=== PATIENT | female | born 1985 | race Caucasian/White ===

== ENCOUNTER 2020-02-02 02:26 | Inpatient (IN) | payer SELFPAY ==
[~2020-02-02] VITALS: Ht 172.7 cm; Wt 118.5 kg
--- NOTE | 2020-02-02 03:10 | PHYS DOC ---
Past Medical History Past Medical History: Other Additional Past Medical Histor: herniated disc, back pain (JAE GREENFIELD MD) Past Surgical History: Tonsillectomy (JAE GREENFIELD MD) Smoking Status: Current Every Day Smoker Alcohol Use: None Drug Use: None (JAE GREENFIELD MD) Drug Use: Heroin (DONITA RAMOS MD) General Adult EDM: Chief Complaint: ABDOMINAL PAIN HPI: HPI: Patient is a 34 year old female who presents with abdominal pain. Patient states that about 10:00 on Monday morning she woke up with pain in her back. It is now radiating into the right lower quadrant. She complains of urinary frequency and urgency. She reports that she is unable to pee a lot. She reports that she was able to eat and drink without any difficulty. She denies any alcohol intake. Patient reports she did some heroin right before her arrival because of the pain. Patient was unaware that she was running a fever. She describes the pain as sharp, constant radiating as described above. (JAE GREENFIELD MD) Review of Systems: Review of Systems: Constitutional: Denies fever or chills. [] Eyes: Denies change in visual acuity. [] HENT: Denies nasal congestion or sore throat. [] Respiratory: Denies cough or shortness of breath. [] Cardiovascular: Denies chest pain or edema. [] GI: See HPI. [] : See HPI. [] Musculoskeletal: Denies back pain or joint pain. [] Integument: Denies rash. [] Neurologic: Denies headache, focal weakness or sensory changes. [] Endocrine: Denies polyuria or polydipsia. [] Lymphatic: Denies swollen glands. [] Psychiatric: Denies depression or anxiety. [] (JAE GREENFIELD MD) Heart Score: Risk Factors: Risk Factors: DM, Current or recent (<one month) smoker, HTN, HLP, family history of CAD, obesity. Risk Scores: Score 0 - 3: 2.5% MACE over next 6 weeks - Discharge Home Score 4 - 6: 20.3% MACE over next 6 weeks - Admit for Clinical Observation Score 7 - 10: 72.7% MACE over next 6 weeks - Early Invasive Strategies (JAE GREENFIELD MD) Allergies: Allergies: Allergies Coded Allergies Type Severity Reaction Last Updated Verified No Known Drug Allergies 4/7/15 No (JAE GREENFIELD MD) Physical Exam: PE: Constitutional: Well developed, well nourished, moderate pain distress, non- toxic appearance. [] HENT: Normocephalic, atraumatic, bilateral external ears normal, oropharynx moist, no oral exudates, nose normal. [] Eyes: PERRLA, EOMI, conjunctiva normal, no discharge. [] Neck: Normal range of motion, no tenderness, supple, no stridor. [] Cardiovascular: Tachycardic, regular, no S3 or S4, no murmurs, pulses 2 of 2 the dorsalis pedis bilaterally [] Lungs & Thorax: Bilateral breath sounds clear to auscultation [] Abdomen: Positive bowel sounds, soft, tenderness in the bilateral lower quadrants, questionable rebound, no guarding, patient was uncooperative with abdominal exam. [] Skin: Warm, dry, no erythema, no rash. [] Back: No tenderness, bilateral CVA tenderness, patient also with iliolumbar muscle tenderness. All dermatomes and myotomes of the lower extremities were tested and normal.. [] Extremities: No tenderness, no cyanosis, no clubbing, ROM intact, trace pitting edema bilaterally. [] Neurologic: Alert and oriented X 3, normal motor function, normal sensory function, no focal deficits noted. [] Psychologic: Affect normal, judgement normal, mood normal. [] (JAE GREENFIELD MD) PE: Constitutional: Well developed, well nourished, anxious HENT: No trismus, external ears normal Eyes: eomi Neck: Normal range of motion, no tenderness, supple, no stridor. Cardiovascular: peripheral pulse intact, [employer] intact Lungs & Thorax: No respiratory distress Abdomen: No distension, mild right-sided abdominal tenderness without guarding or rebound no pulsatile masses Skin: Diffuse: Intact, no rash Back: Tender to palpate right flank Extremities: Normal inspection, no edema Neurologic: Alert and oriented X 3, normal motor function, , no focal deficits noted. Dorsiflexion of the great toes intact bilateral lower extremities Psychologic: Intermittently agitated (DONITA RAMOS MD) Current Patient Data: Labs: Laboratory Tests Test 02/02/20 02:50 POC Urine HCG, Qualitative Hcg negative (Negative) (JAE GREENFIELD MD) Labs: Laboratory Tests Test 02/02/20 02:40 02/02/20 02:50 02/02/20 03:10 Urine Collection Type Void Urine Color Luna Urine Clarity Turbid Urine pH 5.5 Urine Specific [place] >=1.030 Urine Protein 100 mg/dL Urine Glucose (UA) Negative mg/dL Urine Ketones (Stick) Trace mg/dL Urine Blood Small Urine Nitrite Positive Urine Bilirubin Small Urine Urobilinogen Dipstick 1.0 mg/dL Urine Leukocyte Esterase Small Urine RBC 6-10 /HPF Urine WBC 11-20 /HPF Urine Squamous Epithelial Cells Mod /LPF Urine Amorphous Sediment Present /HPF Urine Bacteria Many /HPF Urine Opiates Screen Pos Urine Methadone Screen Neg Urine Barbiturates Neg Urine Phencyclidine Screen Neg Urine Amphetamine/Methamphetamine Pos Urine Benzodiazepines Screen Neg Urine Cocaine Screen Neg Urine Cannabinoids Screen Pos Urine Ethyl Alcohol Neg Bedside Urine HCG, Qualitative Hcg negative White Blood Count 10.4 x10^3/uL Red Blood Count 4.43 x10^6/uL Hemoglobin 13.5 g/dL Hematocrit 39.0 % Mean Corpuscular Volume 88 fL Mean Corpuscular Hemoglobin 31 pg Mean Corpuscular Hemoglobin Concent 35 g/dL Red Cell Distribution Width 12.8 % Platelet Count 215 x10^3/uL Neutrophils (%) (Auto) 71 % Lymphocytes (%) (Auto) 18 % Monocytes (%) (Auto) 11 % Eosinophils (%) (Auto) 0 % Basophils (%) (Auto) 0 % Neutrophils # (Auto) 7.3 x10^3/uL Lymphocytes # (Auto) 1.9 x10^3/uL Monocytes # (Auto) 1.1 x10^3/uL Eosinophils # (Auto) 0.0 x10^3/uL Basophils # (Auto) 0.0 x10^3/uL Prothrombin Time 14.0 SEC Prothromb Time International Ratio 1.1 Sodium Level 129 mmol/L Potassium Level 3.7 mmol/L Chloride Level 94 mmol/L Carbon Dioxide Level 26 mmol/L Anion Gap 9 Blood Urea Nitrogen 12 mg/dL Creatinine 0.9 mg/dL Estimated GFR (Cockcroft-Gault) 71.3 BUN/Creatinine Ratio 13 Glucose Level 113 mg/dL Lactic Acid Level 1.1 mmol/L Calcium Level 9.0 mg/dL Total Bilirubin 0.8 mg/dL Aspartate Amino Transf (AST/SGOT) 23 U/L Alanine Aminotransferase (ALT/SGPT) 35 U/L Alkaline Phosphatase 76 U/L Total Protein 8.4 g/dL Albumin 3.6 g/dL Albumin/Globulin Ratio 0.8 Lipase 37 U/L Ethyl Alcohol Level < 10 mg/dL Current Medications Medications (Trade) Dose Ordered Sig/Nellie Route PRN Reason Start Time Stop Time Status Last Admin Dose Admin Sodium Chloride 500 ml @ 500 mls/hr 1X ONCE IV 02/02/20 03:15 02/02/20 04:14 DC 02/02/20 03:25 Ketorolac Tromethamine (Toradol 30mg Vial) 30 mg 1X ONCE IVP 02/02/20 03:30 02/02/20 03:31 DC 02/02/20 03:26 Iohexol (Omnipaque 300 Mg/ml) 75 ml 1X ONCE IV 02/02/20 04:45 02/02/20 04:46 DC 02/02/20 05:05 Info (CONTRAST GIVEN -- Rx MONITORING) 1 each PRN DAILY PRN MC SEE COMMENTS 02/02/20 04:45 02/04/20 04:44 Iohexol (Omnipaque 300 Mg/ml) 75 ml 1X ONCE IV 02/02/20 05:15 02/02/20 05:18 DC Ceftriaxone Sodium (Rocephin) 1 gm 1X ONCE IVP 02/02/20 06:45 02/02/20 06:46 DC Sodium Chloride 1,000 ml @ 1,000 mls/hr 1X ONCE IV 02/02/20 06:45 02/02/20 07:44 Vital Signs: Vital Signs Date Time Temp Pulse Resp B/P (MAP) Pulse Ox O2 Delivery O2 Flow Rate FiO2 02/02/20 04:51 105 168/86 (113) 02/02/20 04:10 108 140/69 (92) 02/02/20 03:40 120 142/81 (101) 02/02/20 03:10 94 156/88 (110) 02/02/20 02:40 101.5 130 20 141/101 (114) 94 101.5 (DONITA RAMOS MD) EKG: EKG: Heart rate 128 bpm, normal axis, normal intervals, left atrial abnormality, borderline ECG normal sinus rhythm [] (JAE GREENFIELD MD) Radiology/Procedures: Radiology/Procedures: [] (JAE GREENFIELD MD) Radiology/Procedures: [facility] [address] [place] [address] IMAGING REPORT Signed PATIENT: MIRACLE ERNANDEZ ACCOUNT: [id number] : 1985 LOCATION: ER AGE: 34 SEX: F EXAM STATUS: REG ER ORD. PHYSICIAN: JAE GREENFIELD MD REASON: possible torsion of Left ovarian cyst PROCEDURE: TRANSVAGINAL Transvaginal complete pelvic ultrasound HISTORY: Possible torsion of left ovarian cyst. Abnormal CT. FINDINGS: Cervix unremarkable. Anteverted uterus measures 7.6 x 3.9 x 2.7 cm. Endometrium thickness is normal measuring 0.6 cm. No uterine mass evident. Left ovary essentially replaced by a large cyst with several internal septations, the cyst measuring 5.4 x 3.5 x 4.3 cm. No internal vascularity or solid nodules of the cyst. Statistically this is most likely subacute or chronic hemorrhagic cyst given the presence of several internal septations. A cystadenoma or cystic lesion of low malignant potential is a secondary consideration. There is some displaced ovarian parenchyma about the periphery of the cyst which demonstrates intact blood flow with normal waveforms by duplex Doppler sonography. Right ovary measures 4.5 x 2.6 x 1.9 cm with subcentimeter follicles the largest measuring 1.9 cm. Intact right ovarian blood flow. No pelvic fluid. IMPRESSION: Left ovary essentially replaced by a 5.4 cm complex cyst with several internal septations. In a patient of this age this is probably benign, most likely a large subacute or chronic hemorrhagic cyst. There are no thickened septations, internal vascularity or solid nodules to suggest neoplasia. The ovarian parenchyma displays peripheral of this cyst demonstrates intact blood flow without features to suggest torsion. Per ACR guidelines consider follow-up sonography in 3 months to document that this resolves over time. See above. Electronically signed by: Lorenzo Velazquez MD (02/02/2020 6:47 AM) [facility] [place] SIGNED BY: LORENZO VELAZQUEZ MD DATE: 02/02/20 0647 [facility] [address] [place] [address] IMAGING REPORT Signed PATIENT: MIRACLE ERNANDEZ ACCOUNT: [id number] : 1985 LOCATION: ER AGE: 34 SEX: F EXAM STATUS: REG ER ORD. PHYSICIAN: JAE GREENFIELD MD REASON: RLQ abd pain, OMNI 300, 75 ML IV PROCEDURE: CT ABD PELV W/ IV CONTRST ONLY CT abdomen and pelvis with contrast PQRS statement: CT scans at this facility use dose reduction including either automated exposure control, iterative reconstructions, and /or weight based radiation dosing via mA and kV modification when appropriate to reduce radiation dose to as low as reasonably achievable. Contrast: 75 mL Omnipaque 240 intravenous contrast. HISTORY: Right lower quadrant abdominal pain. Abdomen findings: Lower lumbar disc disease lower thoracic disc disease. Elongation right hepatic lobe length of 21 cm could indicate hepatomegaly. Spleen length normal less than 12 cm. There is likely mild biliary ductal dilation common bile duct diameter is 12 mm proximal and tapers distal as well as a very mild distention of the central intrahepatic ducts. Gallbladder, pancreas, adrenal glands and kidneys are unremarkable. Appendix is normal. No obstruction or inflammation the GI tract. No abdominal fluid or adenopathy. Mild dependent right lower lobe linear density likely atelectasis. Pelvis findings: There is a left adnexal bilobed cystic lesion measuring 6 x 4 cm. Right ovary, uterus, bladder, rectum and bones are unremarkable. No pelvic fluid or adenopathy. IMPRESSION: 1. There is mild biliary dilation. Mild dilation due to a distal obstructing calculus or stricture is not excluded. 2. Appendix is negative. 3. Left adnexal 6 x 4 cm cystic lesion. Consider further assessment with outpatient pelvic sonography. Electronically signed by: Lorenzo Velazquez MD (02/02/2020 5:15 AM) [facility] [place] SIGNED BY: LORENZO VELAZQUEZ MD DATE: 02/02/20 0515 (DONITA RAMOS MD) Course & Med Decision Making: Course & Med Decision Making Pertinent Labs and Imaging studies reviewed. (See chart for details) 0537-the patient was seen and examined. I reviewed the CT scan report as well as the images. There is a large cystic mass in the left adnexa. I cannot rule out torsion without an pelvic ultrasound. May be her right flank pain is secondary to referred pain from a torsed ovarian cyst. I discussed the case with Dr. Ramos who will accept the patient at 0600. I discussed all pertinent history physical and laboratory findings. [] (JAE GREENFIELD MD) Course & Med Decision Making Received signout from night doctor regarding this 34-year-old female with right flank pain. When reviewing the chart I found patient was tachycardic to a heart rate of 130 with a fever 101. No antibiotics was given prior to my arrival. I ordered additional liter of fluids and Rocephin. On my assessment patient was extremely rude and agitated when any questions were asked, I tried to reiterate to her that I was trying to help and she continued to be short and abrupt with me. I am concerned about her fever and tachycardia and back pain especially with her history of IV drug use. Urine appears like it may be infected I think she needs parenteral antibiotics. I did order a COVID-19 test to be complete. Patient will need to be admitted to the hospital for further evaluation treatment. Patient may need an MRI of her back to rule out epidural abscess. Patient currently is neurologically intact with no signs of cauda equina. I discussed the case with Dr. Sandy who will admit. (DONITA RAMOS MD) Dragon Disclaimer: Dragon Disclaimer: This electronic medical record was generated, in whole or in part, using a voice recognition dictation system. (JAE GREENFIELD MD) Departure Departure Impression: Primary Impression: Fever Additional Impressions: Back pain UTI (urinary tract infection) IV drug abuse Admitting Physician: LEVAR Marie) (DONITA RAMOS MD) Condition: GUARDED Referrals: NO PCP (PCP) Justicifation of Admission Dx: Justifications for Admission: Justification of Admission Dx: Comment: (JAE GREENFIELD MD) Justification of Admission Dx: Yes (DONITA RAMOS MD) JAE GREENFIELD MD Feb 02, 2020 03:10 DONITA RMAOS MD Feb 02, 2020 07:01
[2020-02-02] MEDS ORDERED: IV NORMAL SALINE 500ML BAG 500 ML IV ONE (03:15)
[2020-02-02] MEDS ORDERED: KETOROLAC 30 MG/ML VIAL. IVP ONE (03:30)
[2020-02-02 03:41] LABS: BILIRUBIN,URINE SMALL (NEG); CLARITY,URINE TURBID; COLOR,URINE AMBER; NITRITE,URINE POSITIVE (NEG); PH,URINE 5.5 (<5.0-8.0); PROTEIN,URINE 100 mg/dL (NEG-TRACE)
[2020-02-02 03:41] LABS: BASO % 0 % (0-3); EOS % 0 % (0-3); HEMOGLOBIN 13.5 g/dL (12.0-15.5); LYMPH # 1.9 x10^3/uL (1.0-4.8); LYMPH % 18 % (24-48); MEAN CORPUSCULAR HEMOGLOBIN 31 pg (25-35); MEAN CORPUSCULAR HGB CONC 35 g/dL (31-37); MEAN CORPUSCULAR VOLUME 88 fL (79-100); MONO # 1.1 x10^3/uL (0.0-1.1); MONO % 11 % (0-9); NEUT # 7.3 x10^3/uL (1.8-7.7); NEUT % 71 % (31-73); PLATELET COUNT 215 x10^3/uL (140-400); RED BLOOD COUNT 4.43 x10^6/uL (3.50-5.40); RED CELL DISTRIBUTION WIDTH 12.8 % (11.5-14.5); WHITE BLOOD COUNT 10.4 x10^3/uL (4.0-11.0)
[2020-02-02 03:46] LABS: CREATININE 0.9 mg/dL (0.6-1.0); GFR 71.3; POTASSIUM 3.7 mmol/L (3.5-5.1)
[2020-02-02 03:51] LABS: AMORPHOUS SEDIMENT,UR PRESENT /HPF; BACTERIA,URINE MANY /HPF (0-FEW); SQUAMOUS EPITHELIAL CELL,UR MOD /LPF
[2020-02-02 03:52] LABS: ALBUMIN 3.6 g/dL (3.4-5.0); ALBUMIN/GLOBULIN RATIO 0.8 (1.0-1.7); TOTAL BILIRUBIN 0.8 mg/dL (0.2-1.0); TOTAL PROTEIN 8.4 g/dL (6.4-8.2)
[2020-02-02 04:02] LABS: BARBITURATES NEG (NEG); BENZODIAZEPINES NEG (NEG); CANNABINOIDS POS (NEG); COCAINE NEG (NEG); METHADONE NEG (NEG); OPIATES POS (NEG); PHENCYCLIDINE NEG (NEG)
[2020-02-02 04:09] LABS: AMPHETAMINE/METHAMPHETAMINE POS (NEG)
[2020-02-02] MEDS ORDERED: CONTRAST GIVEN. MC PRN (04:45)
[2020-02-02] MEDS ORDERED: IOHEXOL 300 MG/ML 100ML VIAL. IV ONE ×2 (04:45→05:15)
--- NOTE | 2020-02-02 05:18 | RAD ---
CT abdomen and pelvis with contrast PQRS statement: CT scans at this facility use dose reduction including either automated exposure control, iterative reconstructions, and /or weight based radiation dosing via mA and kV modification when appropriate to reduce radiation dose to as low as reasonably achievable. Contrast: 75 mL Omnipaque 240 intravenous contrast. HISTORY: Right lower quadrant abdominal pain. Abdomen findings: Lower lumbar disc disease lower thoracic disc disease. Elongation right hepatic lobe length of 21 cm could indicate hepatomegaly. Spleen length normal less than 12 cm. There is likely mild biliary ductal dilation common bile duct diameter is 12 mm proximal and tapers distal as well as a very mild distention of the central intrahepatic ducts. Gallbladder, pancreas, adrenal glands and kidneys are unremarkable. Appendix is normal. No obstruction or inflammation the GI tract. No abdominal fluid or adenopathy. Mild dependent right lower lobe linear density likely atelectasis. Pelvis findings: There is a left adnexal bilobed cystic lesion measuring 6 x 4 cm. Right ovary, uterus, bladder, rectum and bones are unremarkable. No pelvic fluid or adenopathy. IMPRESSION: 1. There is mild biliary dilation. Mild dilation due to a distal obstructing calculus or stricture is not excluded. 2. Appendix is negative. 3. Left adnexal 6 x 4 cm cystic lesion. Consider further assessment with outpatient pelvic sonography. Electronically signed by: Christos Velazquez MD (02/02/2020 5:15 AM) [facility]
[2020-02-02] MEDS ORDERED: IV NORMAL SALINE 1000ML BAG 1,000 ML IV ONE (06:45)
[2020-02-02] MEDS ORDERED: cefTRIAXone IV Push 1 GM VIAL. IVP ONE (06:45)
--- NOTE | 2020-02-02 06:50 | RAD ---
Transvaginal complete pelvic ultrasound HISTORY: Possible torsion of left ovarian cyst. Abnormal CT. FINDINGS: Cervix unremarkable. Anteverted uterus measures 7.6 x 3.9 x 2.7 cm. Endometrium thickness is normal measuring 0.6 cm. No uterine mass evident. Left ovary essentially replaced by a large cyst with several internal septations, the cyst measuring 5.4 x 3.5 x 4.3 cm. No internal vascularity or solid nodules of the cyst. Statistically this is most likely subacute or chronic hemorrhagic cyst given the presence of several internal septations. A cystadenoma or cystic lesion of low malignant potential is a secondary consideration. There is some displaced ovarian parenchyma about the periphery of the cyst which demonstrates intact blood flow with normal waveforms by duplex Doppler sonography. Right ovary measures 4.5 x 2.6 x 1.9 cm with subcentimeter follicles the largest measuring 1.9 cm. Intact right ovarian blood flow. No pelvic fluid. IMPRESSION: Left ovary essentially replaced by a 5.4 cm complex cyst with several internal septations. In a patient of this age this is probably benign, most likely a large subacute or chronic hemorrhagic cyst. There are no thickened septations, internal vascularity or solid nodules to suggest neoplasia. The ovarian parenchyma displays peripheral of this cyst demonstrates intact blood flow without features to suggest torsion. Per ACR guidelines consider follow-up sonography in 3 months to document that this resolves over time. See above. Electronically signed by: Christos Velazquez MD (02/02/2020 6:47 AM) [facility]
--- NOTE | 2020-02-02 07:19 | RAD ---
Single view chest dated 02/02/2020. No comparison available. CLINICAL INDICATION: Fever. FINDINGS: Single upright portable exam performed. Heart and mediastinal contours are within normal limits. There is some hazy perihilar airspace disease, left greater than right with asymmetric fullness of the left hilum. No consolidation or pleural effusion. No pneumothorax. IMPRESSION: Mild perihilar airspace disease, left greater than right. This could be related to acute or chronic bronchial inflammatory process or early pneumonia. Electronically signed by: Boubacar Garcia MD (02/02/2020 7:16 AM) [id number]
[2020-02-02] MEDS ORDERED: IV NORMAL SALINE 1000ML BAG 1,000 ML IV SCH ×2 (07:24→09:43)
[2020-02-02] MEDS ORDERED: ACETAMINOPHEN 500 MG TABLET PO ONE (07:30)
[2020-02-02] MEDS ORDERED: ONDANSETRON PF 4 MG/2 ML VIAL. IV PRN ×2 (07:30→09:45)
[2020-02-02] MEDS ORDERED: AZITHRMYCN 500MG IVPB FOR OMNI 250 ML IV ONE (07:30)
[2020-02-02 09:00] VITALS: BP 124/75
--- NOTE | 2020-02-02 09:27 | PDOC1 ---
History and Physical Date of Admission Date of Admission DATE: 02/02/20 TIME: 09:26 Identification/Chief Complaint Chief Complaint seen in er with fever, flank pain 34 year old female who presents with abdominal pain. Patient states that about 10:00 on 01/31 morning she woke up with pain in her back. //now radiating into the right lower quadrant., complains of urinary frequency and urgency. She reports that she was able to eat and drink without any difficulty. She denies any alcohol intake. Patient reports she did some heroin right before her arrival because of the pain. unaware that she was running a fever. TEMP OF 101.5 NOTED IN ER Past Medical History Past Medical History Past Medical History: Other Additional Past Medical Histor: herniated disc, back pain Past Surgical History: Tonsillectomy Smoking Status: Current Every Day Smoker Alcohol Use: None Drug Use: Heroin FHX OBESITY Psych: Addictions Musculoskeletal: low back pain Family History Family History: Hypertension Social History Smoke: No ALCOHOL: none Drugs: Heroin Current Problem List Problem List Problems Medical Problems: (1) Back pain Status: Acute (2) Fever Status: Acute (3) IV drug abuse Status: Acute (4) UTI (urinary tract infection) Status: Acute Current Medications Current Medications Current Medications Sodium Chloride 500 ml @ 500 mls/hr 1X ONCE IV Last administered on 02/02/20at 03:25; Start 02/02/20 at 03:15; Stop 02/02/20 at 04:14; Status DC Ketorolac Tromethamine (Toradol 30mg Vial) 30 mg 1X ONCE IVP Last administered on 02/02/20at 03:26; Start 02/02/20 at 03:30; Stop 02/02/20 at 03:31; Status DC Iohexol (Omnipaque 300 Mg/ml) 75 ml 1X ONCE IV Last administered on 02/02/20at 05:05; Start 02/02/20 at 04:45; Stop 02/02/20 at 04:46; Status DC Info (CONTRAST GIVEN -- Rx MONITORING) 1 each PRN DAILY PRN MC SEE COMMENTS; Start 02/02/20 at 04:45; Stop 02/04/20 at 04:44 Iohexol (Omnipaque 300 Mg/ml) 75 ml 1X ONCE IV ; Start 02/02/20 at 05:15; Stop 8/9/20 at 05:18; Status DC Ceftriaxone Sodium (Rocephin) 1 gm 1X ONCE IVP Last administered on 02/02/20at 07:07; Start 02/02/20 at 06:45; Stop 02/02/20 at 06:46; Status DC Sodium Chloride 1,000 ml @ 1,000 mls/hr 1X ONCE IV Last administered on 02/02/20at 07:07; Start 02/02/20 at 06:45; Stop 02/02/20 at 07:44; Status DC Azithromycin 250 ml @ 250 mls/hr 1X ONCE IV Last administered on 02/02/20at 08:45; Start 02/02/20 at 07:30; Stop 02/02/20 at 08:29; Status DC Ondansetron HCl (Zofran) 4 mg PRN Q8HRS PRN IV NAUSEA/VOMITING; Start 02/02/20 at 07:30; Stop 02/03/20 at 07:29 Sodium Chloride 1,000 ml @ 125 mls/hr Q8H IV ; Start 02/02/20 at 07:24; Stop 02/03/20 at 07:23 Acetaminophen (Tylenol) 1,000 mg 1X ONCE PO Last administered on 02/02/20at 07:59; Start 02/02/20 at 07:30; Stop 02/02/20 at 07:38; Status DC Allergies Allergies: Coded Allergies: No Known Drug Allergies (Unverified , 09/30/14) ROS Review of System Constitutional: POS fever // chills. [] Eyes: Denies change in visual acuity. [] HENT: Denies nasal congestion or sore throat. [] Respiratory: Denies cough or shortness of breath. [] Cardiovascular: Denies chest pain or edema. [] GI: See HPI. [] : See HPI. [] Musculoskeletal: Denies back pain or joint pain. [] Integument: Denies rash. [] Neurologic: Denies headache, focal weakness or sensory changes. [] Endocrine: Denies polyuria or polydipsia. [] Lymphatic: Denies swollen glands. [] Psychiatric: Denies depression or anxiety. [] 14 PT ROS OTHERWISE NEG PSYCHOLOGICAL ROS: YES: Anxiety, Irritablity ALLERGY AND IMMUNOLOGY: No: Hives, Insect Bite Sensitivity, Itchy/Watery Eyes, Nasal Congestion, Post Nasal Drip, Seasonal Allergies, Other Hematological and Lymphatic: No: Bleeding Problems, Blood Clots, Blood Transfusions, Brusing, Night Sweats, Pallor, Swollen Lymph Nodes, Other Respiratory: No: Cough, Hemoptysis, Orthopnea, Pleuritic Pain, Shortness of breath, SOB with excertion, Sputum Changes, Stridor, Tachypnea, Wheezing, Other Gastrointestinal: Yes Nausea, Yes Abdominal Pain Skin: No Dry Skin, No Eczema, No Hair Changes, No Lumps, No Mole Changes, No Mottling, No Nail Changes, No Pruritus, No Rash, No Skin Lesion Changes, No Other, No Acne Physical Exam Physical Exam Constitutional: Well developed, well nourished, moderate pain distress, non- toxic appearance. [] HENT: Normocephalic, atraumatic, bilateral external ears normal, oropharynx moist, no oral exudates, nose normal. [] Eyes: PERRLA, EOMI, conjunctiva normal, no discharge. [] Neck: Normal range of motion, no tenderness, supple, no stridor. [] Cardiovascular: Tachycardic, regular, no S3 or S4, no murmurs, pulses 2 of 2 the dorsalis pedis bilaterally [] Lungs & Thorax: Bilateral breath sounds clear to auscultation [] Abdomen: Positive bowel sounds, soft, tenderness in the bilateral lower quadrants, questionable rebound, no guarding, patient was uncooperative with abdominal exam. [] Skin: Warm, dry, no erythema, no rash. [] Back: No tenderness, bilateral CVA tenderness, patient also with iliolumbar muscle tenderness. All dermatomes and myotomes of the lower extremities were tested and normal.. [] Extremities: No tenderness, no cyanosis, no clubbing, ROM intact, trace pitting edema bilaterally. [] Neurologic: Alert and oriented X 3, normal motor function, normal sensory function, no focal deficits noted. [] Psychologic: Affect normal, judgment POOR , mood FLAT [] General: Alert, Oriented X3, Cooperative, moderate distress Lungs: Normal air movement Heart: RRR Breasts: Not examined Rectal Exam: not examined Extremities: No cyanosis Neuro: Normal speech, Cranial nerves 3-12 NL Vitals Vitals Vital Signs Date Time Temp Pulse Resp B/P (MAP) Pulse Ox O2 Delivery O2 Flow Rate FiO2 8// 07:10 78 22 106/90 (95) 96 Room Air 02/02/20 02:40 101.5 101.5 Labs Labs Laboratory Tests Test 02/02/20 02:40 02/02/20 02:50 02/02/20 03:10 Urine Collection Type Void Urine Color Luna Urine Clarity Turbid Urine pH 5.5 (<5.0-8.0) Urine Specific [place] >=1.030 (1.000-1.030) Urine Protein 100 mg/dL (NEG-TRACE) Urine Glucose (UA) Negative mg/dL (NEG) Urine Ketones (Stick) Trace mg/dL (NEG) Urine Blood Small (NEG) Urine Nitrite Positive (NEG) Urine Bilirubin Small (NEG) Urine Urobilinogen Dipstick 1.0 mg/dL (0.2 mg/dL) Urine Leukocyte Esterase Small (NEG) Urine RBC 6-10 /HPF (0-2) Urine WBC 11-20 /HPF (0-4) Urine Squamous Epithelial Cells Mod /LPF Urine Amorphous Sediment Present /HPF Urine Bacteria Many /HPF (0-FEW) Urine Opiates Screen Pos (NEG) Urine Methadone Screen Neg (NEG) Urine Barbiturates Neg (NEG) Urine Phencyclidine Screen Neg (NEG) Urine Amphetamine/Methamphetamine Pos (NEG) Urine Benzodiazepines Screen Neg (NEG) Urine Cocaine Screen Neg (NEG) Urine Cannabinoids Screen Pos (NEG) Urine Ethyl Alcohol Neg (NEG) Bedside Urine HCG, Qualitative Hcg negative (Negative) White Blood Count 10.4 x10^3/uL (4.0-11.0) Red Blood Count 4.43 x10^6/uL (3.50-5.40) Hemoglobin 13.5 g/dL (12.0-15.5) Hematocrit 39.0 % (36.0-47.0) Mean Corpuscular Volume 88 fL (79-100) Mean Corpuscular Hemoglobin 31 pg (25-35) Mean Corpuscular Hemoglobin Concent 35 g/dL (31-37) Red Cell Distribution Width 12.8 % (11.5-14.5) Platelet Count 215 x10^3/uL (140-400) Neutrophils (%) (Auto) 71 % (31-73) Lymphocytes (%) (Auto) 18 % (24-48) Monocytes (%) (Auto) 11 % (0-9) Eosinophils (%) (Auto) 0 % (0-3) Basophils (%) (Auto) 0 % (0-3) Neutrophils # (Auto) 7.3 x10^3/uL (1.8-7.7) Lymphocytes # (Auto) 1.9 x10^3/uL (1.0-4.8) Monocytes # (Auto) 1.1 x10^3/uL (0.0-1.1) Eosinophils # (Auto) 0.0 x10^3/uL (0.0-0.7) Basophils # (Auto) 0.0 x10^3/uL (0.0-0.2) Prothrombin Time 14.0 SEC (11.7-14.0) Prothromb Time International Ratio 1.1 (0.8-1.1) Sodium Level 129 mmol/L (136-145) Potassium Level 3.7 mmol/L (3.5-5.1) Chloride Level 94 mmol/L (98-107) Carbon Dioxide Level 26 mmol/L (21-32) Anion Gap 9 (6-14) Blood Urea Nitrogen 12 mg/dL (7-20) Creatinine 0.9 mg/dL (0.6-1.0) Estimated GFR (Cockcroft-Gault) 71.3 BUN/Creatinine Ratio 13 (6-20) Glucose Level 113 mg/dL (70-99) Lactic Acid Level 1.1 mmol/L (0.4-2.0) Calcium Level 9.0 mg/dL (8.5-10.1) Total Bilirubin 0.8 mg/dL (0.2-1.0) Aspartate Amino Transf (AST/SGOT) 23 U/L (15-37) Alanine Aminotransferase (ALT/SGPT) 35 U/L (14-59) Alkaline Phosphatase 76 U/L (46-116) Total Protein 8.4 g/dL (6.4-8.2) Albumin 3.6 g/dL (3.4-5.0) Albumin/Globulin Ratio 0.8 (1.0-1.7) Lipase 37 U/L (73-393) Ethyl Alcohol Level < 10 mg/dL (0-10) Laboratory Tests Test 02/02/20 02:40 02/02/20 02:50 02/02/20 03:10 Urine Collection Type Void Urine Color Luna Urine Clarity Turbid Urine pH 5.5 (<5.0-8.0) Urine Specific [place] >=1.030 (1.000-1.030) Urine Protein 100 mg/dL (NEG-TRACE) Urine Glucose (UA) Negative mg/dL (NEG) Urine Ketones (Stick) Trace mg/dL (NEG) Urine Blood Small (NEG) Urine Nitrite Positive (NEG) Urine Bilirubin Small (NEG) Urine Urobilinogen Dipstick 1.0 mg/dL (0.2 mg/dL) Urine Leukocyte Esterase Small (NEG) Urine RBC 6-10 /HPF (0-2) Urine WBC 11-20 /HPF (0-4) Urine Squamous Epithelial Cells Mod /LPF Urine Amorphous Sediment Present /HPF Urine Bacteria Many /HPF (0-FEW) Urine Opiates Screen Pos (NEG) Urine Methadone Screen Neg (NEG) Urine Barbiturates Neg (NEG) Urine Phencyclidine Screen Neg (NEG) Urine Amphetamine/Methamphetamine Pos (NEG) Urine Benzodiazepines Screen Neg (NEG) Urine Cocaine Screen Neg (NEG) Urine Cannabinoids Screen Pos (NEG) Urine Ethyl Alcohol Neg (NEG) Bedside Urine HCG, Qualitative Hcg negative (Negative) White Blood Count 10.4 x10^3/uL (4.0-11.0) Red Blood Count 4.43 x10^6/uL (3.50-5.40) Hemoglobin 13.5 g/dL (12.0-15.5) Hematocrit 39.0 % (36.0-47.0) Mean Corpuscular Volume 88 fL (79-100) Mean Corpuscular Hemoglobin 31 pg (25-35) Mean Corpuscular Hemoglobin Concent 35 g/dL (31-37) Red Cell Distribution Width 12.8 % (11.5-14.5) Platelet Count 215 x10^3/uL (140-400) Neutrophils (%) (Auto) 71 % (31-73) Lymphocytes (%) (Auto) 18 % (24-48) Monocytes (%) (Auto) 11 % (0-9) Eosinophils (%) (Auto) 0 % (0-3) Basophils (%) (Auto) 0 % (0-3) Neutrophils # (Auto) 7.3 x10^3/uL (1.8-7.7) Lymphocytes # (Auto) 1.9 x10^3/uL (1.0-4.8) Monocytes # (Auto) 1.1 x10^3/uL (0.0-1.1) Eosinophils # (Auto) 0.0 x10^3/uL (0.0-0.7) Basophils # (Auto) 0.0 x10^3/uL (0.0-0.2) Prothrombin Time 14.0 SEC (11.7-14.0) Prothromb Time International Ratio 1.1 (0.8-1.1) Sodium Level 129 mmol/L (136-145) Potassium Level 3.7 mmol/L (3.5-5.1) Chloride Level 94 mmol/L (98-107) Carbon Dioxide Level 26 mmol/L (21-32) Anion Gap 9 (6-14) Blood Urea Nitrogen 12 mg/dL (7-20) Creatinine 0.9 mg/dL (0.6-1.0) Estimated GFR (Cockcroft-Gault) 71.3 BUN/Creatinine Ratio 13 (6-20) Glucose Level 113 mg/dL (70-99) Lactic Acid Level 1.1 mmol/L (0.4-2.0) Calcium Level 9.0 mg/dL (8.5-10.1) Total Bilirubin 0.8 mg/dL (0.2-1.0) Aspartate Amino Transf (AST/SGOT) 23 U/L (15-37) Alanine Aminotransferase (ALT/SGPT) 35 U/L (14-59) Alkaline Phosphatase 76 U/L (46-116) Total Protein 8.4 g/dL (6.4-8.2) Albumin 3.6 g/dL (3.4-5.0) Albumin/Globulin Ratio 0.8 (1.0-1.7) Lipase 37 U/L (73-393) Ethyl Alcohol Level < 10 mg/dL (0-10) Images Images Single view chest dated 02/02/2020. No comparison available. CLINICAL INDICATION: Fever. FINDINGS: Single upright portable exam performed. Heart and mediastinal contours are within normal limits. There is some hazy perihilar airspace disease, left greater than right with asymmetric fullness of the left hilum. No consolidation or pleural effusion. No pneumothorax. IMPRESSION: Mild perihilar airspace disease, left greater than right. This could be related to acute or chronic bronchial inflammatory process or early pneumonia. Electronically signed by: Boubacar Garcia MD (02/02/2020 7:16 AM) [id number] DICTATED and SIGNED BY: BOUBACAR GARCIA MD DATE: 02/02/20 0716 Transvaginal complete pelvic ultrasound HISTORY: Possible torsion of left ovarian cyst. Abnormal CT. FINDINGS: Cervix unremarkable. Anteverted uterus measures 7.6 x 3.9 x 2.7 cm. Endometrium thickness is normal measuring 0.6 cm. No uterine mass evident. Left ovary essentially replaced by a large cyst with several internal septations, the cyst measuring 5.4 x 3.5 x 4.3 cm. No internal vascularity or solid nodules of the cyst. Statistically this is most likely subacute or chronic hemorrhagic cyst given the presence of several internal septations. A cystadenoma or cystic lesion of low malignant potential is a secondary consideration. There is some displaced ovarian parenchyma about the periphery of the cyst which demonstrates intact blood flow with normal waveforms by duplex Doppler sonography. Right ovary measures 4.5 x 2.6 x 1.9 cm with subcentimeter follicles the largest measuring 1.9 cm. Intact right ovarian blood flow. No pelvic fluid. IMPRESSION: Left ovary essentially replaced by a 5.4 cm complex cyst with several internal septations. In a patient of this age this is probably benign, most likely a large subacute or chronic hemorrhagic cyst. There are no thickened septations, internal vascularity or solid nodules to suggest neoplasia. The ovarian parenchyma displays peripheral of this cyst demonstrates intact blood flow without features to suggest torsion. Per ACR guidelines consider follow-up sonography in 3 months to document that this resolves over time. See above. Electronically signed by: Lorenzo Reynolds MD (02/02/2020 6:47 AM) [facility] DICTATED and SIGNED BY: LORENZO REYNOLDS MD DATE: 02/02/[address] abdomen and pelvis with contrast PQRS statement: CT scans at this facility use dose reduction including either automated exposure control, iterative reconstructions, and /or weight based radiation dosing via mA and kV modification when appropriate to reduce radiation dose to as low as reasonably achievable. Contrast: 75 mL Omnipaque 240 intravenous contrast. HISTORY: Right lower quadrant abdominal pain. Abdomen findings: Lower lumbar disc disease lower thoracic disc disease. Elongation right hepatic lobe length of 21 cm could indicate hepatomegaly. Spleen length normal less than 12 cm. There is likely mild biliary ductal dilation common bile duct diameter is 12 mm proximal and tapers distal as well as a very mild distention of the central intrahepatic ducts. Gallbladder, pancreas, adrenal glands and kidneys are unremarkable. Appendix is normal. No obstruction or inflammation the GI tract. No abdominal fluid or adenopathy. Mild dependent right lower lobe linear density likely atelectasis. Pelvis findings: There is a left adnexal bilobed cystic lesion measuring 6 x 4 cm. Right ovary, uterus, bladder, rectum and bones are unremarkable. No pelvic fluid or adenopathy. IMPRESSION: 1. There is mild biliary dilation. Mild dilation due to a distal obstructing calculus or stricture is not excluded. 2. Appendix is negative. 3. Left adnexal 6 x 4 cm cystic lesion. Consider further assessment with outpatient pelvic sonography. Electronically signed by: Lorenzo Reynolds MD (02/02/2020 5:15 AM) [facility] [place] DICTATED and SIGNED BY: LORENZO REYNOLDS MD DATE: 02/02/20 0515 VTE Prophylaxis Ordered VTE Prophylaxis Devices: Yes VTE Pharmacological Prophylaxi: Yes Assessment/Plan Assessment/Plan IMPRESSION: 1. abdominal and flank pain 2. mild biliary dilation. Mild dilation due to a distal obstructing calculus or stricture is not excluded. 3. Appendix is negative. on CT 4. Left adnexal 6 x 4 cm cystic lesion. SEE pelvic sonography. 5. 5.4 cm complex cyst with several internal septations. In a patient of this age this is probably benign, most likely a large subacute or chronic hemorrhagic cyst. There are no thickened septations, internal vascularity or solid nodules to suggest neoplasia 6. FEVER 7. IV DRUG ABUSE, Heroin, METH 8. UTI 9. POSSIBLE EARLY PNEUMONIA Mild perihilar airspace disease, left greater than right. This could be related to acute or chronic bronchial inflammatory process or early pneumonia. 9. sepsis PLAN ADMIT BLOOD CULT ID CONSULT hiv [employer] CONSULT DVT PROPHYLAXIS IV FLUID SUPPORT COVID 19 SCREENING Emperic iv zosyn, vanc pending ID CONSULT 74 MIN pt exam, chart review, > 50% of time spent with exam, chart review, pt care coordination Justicifation of Admission Dx: Justifications for Admission: Justification of Admission Dx: Yes RUBA WEST MD Feb 02, 2020 09:27
[2020-02-02] MEDS ORDERED: ACETAMINOPHEN 325 MG TABLET. PO PRN (09:45)
[2020-02-02] MEDS ORDERED: cloNIDine HCL 0.1 MG TABLET PO PRN (09:45)
[2020-02-02] MEDS ORDERED: guaiFENesin ORAL 200 MG/10 ML LIQUID. PO PRN (09:45)
[2020-02-02] MEDS ORDERED: 0.9 % SODIUM CHLORIDE 10 ML DISP.SYRIN. IV PRN (09:45)
[2020-02-02] MEDS ORDERED: SODIUM PHOSPHATES 19/7GM 133 ML ENEMA. PR PRN (09:45)
[2020-02-02] MEDS ORDERED: VANCOMYCIN 1 GM in IV DEXTROSE 5% 250 ML IV ONE (09:45)
[2020-02-02] MEDS ORDERED: ALBUTEROL SULFATE 2.5 MG/3 ML NEBU. NEB PRN (09:45)
[2020-02-02] MEDS ORDERED: MAG HYDROX/ALUMINUM HYD/SIMETH 30 ML ORAL.SUSP PO PRN (09:45)
[2020-02-02] MEDS ORDERED: DOCUSATE SODIUM 100 MG CAPSULE. PO PRN (09:45)
[2020-02-02] MEDS ORDERED: ENOXAPARIN 40 MG/0.4 ML SYRINGE. SQ SCH (10:00)
--- NOTE | 2020-02-02 11:45 | NUR ---
At approximately 1130 Laura JACINTO, rounded and reported back to me patient's condition. This Rn had acetaminophen, enoxaprain, and zosyn IV to give. Pt was rude and disrespectful to NA, informing me she could not get an accurate BP reading. This RN informed the patient she needed to do the deep breathing exercises educated earlier. Talked her through breathing in her nose, out her mouth, slowly, it would help reduce the pain. Acetaminophen, antibiotics and blood thinner, and consent for HIV testing. Patient informed this RN " I know for a fact I don't have HIV". Earlier on admission the patient admitted "taking IV heroin to dull the pain" at approximately 0200 this am. "She ONLY wanted to control the pain." Pt wanted to leave. This RN educated patient on the antibiotics, and why she should receive the antibiotics and get checked out by the doctors. She did have a UTI, and what could happen if it continues to be left untreated. Patient refused. Signed AMA paper. Security called. Patient walked out with security and Laura JACINTO. Pt was upset, ambulating and sweating profusely. This RN took out IV and telemonitor.
[2020-02-02] MEDS ORDERED: PIPERACILLIN/TAZOBACTAM 3.375 GM in IV NORMAL SALINE 50ML 50 ML IV SCH (12:00)
--- NOTE | 2020-02-02 13:47 | PDOC2 ---
CONSULT Date of Consult Date of Consult DATE: 02/02/20 TIME: 13:46 Reason for Consult Reason for Consult: ovarian mass Past Medical History Psych: Addictions Musculoskeletal: low back pain Family History Family History: Hypertension Social History No ALCOHOL: none Drugs: Heroin Current Problem List Problem List Problems Medical Problems: (1) Back pain Status: Acute (2) Fever Status: Acute (3) IV drug abuse Status: Acute (4) UTI (urinary tract infection) Status: Acute Current Medications Current Medications Current Medications Sodium Chloride 500 ml @ 500 mls/hr 1X ONCE IV Last administered on 02/02/20at 03:25; Start 02/02/20 at 03:15; Stop 02/02/20 at 04:14; Status DC Ketorolac Tromethamine (Toradol 30mg Vial) 30 mg 1X ONCE IVP Last administered on 02/02/20at 03:26; Start 02/02/20 at 03:30; Stop 02/02/20 at 03:31; Status DC Iohexol (Omnipaque 300 Mg/ml) 75 ml 1X ONCE IV Last administered on 02/02/20at 05:05; Start 02/02/20 at 04:45; Stop 02/02/20 at 04:46; Status DC Info (CONTRAST GIVEN -- Rx MONITORING) 1 each PRN DAILY PRN MC SEE COMMENTS; Start 02/02/20 at 04:45; Stop 02/04/20 at 04:44 Iohexol (Omnipaque 300 Mg/ml) 75 ml 1X ONCE IV ; Start 02/02/20 at 05:15; Stop 02/02/20 at 05:18; Status DC Ceftriaxone Sodium (Rocephin) 1 gm 1X ONCE IVP Last administered on 02/02/20at 07:07; Start 02/02/20 at 06:45; Stop 02/02/20 at 06:46; Status DC Sodium Chloride 1,000 ml @ 1,000 mls/hr 1X ONCE IV Last administered on 02/02/20at 07:07; Start 02/02/20 at 06:45; Stop 02/02/20 at 07:44; Status DC Azithromycin 250 ml @ 250 mls/hr 1X ONCE IV Last administered on 02/02/20at 08:45; Start 02/02/20 at 07:30; Stop 02/02/20 at 08:29; Status DC Ondansetron HCl (Zofran) 4 mg PRN Q8HRS PRN IV NAUSEA/VOMITING; Start 02/02/20 at 07:30; Stop 02/03/20 at 07:29 Sodium Chloride 1,000 ml @ 125 mls/hr Q8H IV Last administered on 02/02/20at 09:45; Start 02/02/20 at 07:24; Stop 02/03/20 at 07:23 Acetaminophen (Tylenol) 1,000 mg 1X ONCE PO Last administered on 02/02/20at 07:59; Start 02/02/20 at 07:30; Stop 02/02/20 at 07:38; Status DC Piperacillin Sod/ Tazobactam Sod 3.375 gm/Sodium Chloride 50 ml @ 100 mls/hr Q6HRS IV Last administered on 02/02/20at 11:25; Start 02/02/20 at 12:00 Sodium Chloride (Normal Saline Flush) 3 ml QSHIFT PRN IV AFTER MEDS AND BLOOD DRAWS; Start 02/02/20 at 09:45 Sodium Chloride 1,000 ml @ 100 mls/hr Q10H IV Last administered on 02/02/20at 09:00; Start 02/02/20 at 09:43 Ondansetron HCl (Zofran) 4 mg PRN Q4HRS PRN IV NAUSEA/VOMITING; Start 02/02/20 at 09:45 Acetaminophen (Tylenol) 650 mg PRN Q4HRS PRN PO TEMP OVER 100.4F OR MILD PAIN Last administered on 02/02/20at 11:24; Start 02/02/20 at 09:45 Al Hydroxide/Mg Hydroxide (Mylanta Plus Xs) 30 ml PRN DAILY PRN PO HEARTBURN / GAS; Start 02/02/20 at 09:45 Clonidine HCl (Catapres) 0.1 mg PRN Q6HRS PRN PO SBP>160 OR DBP>90; Start 02/02/20 at 09:45 Sodium Monofluorophosphate (Fleet Adult) 133 ml PRN DAILY PRN [place] CONSTIPATION; Start 02/02/20 at 09:45 Docusate Sodium (Colace) 100 mg PRN BID PRN PO HARD STOOLS; Start 02/02/20 at 09:45 Albuterol Sulfate (Ventolin Neb Soln) 2.5 mg PRN Q4HRS PRN NEB SHORTNESS OF BREATH; Start 02/02/20 at 09:45 Guaifenesin (Robitussin) 200 mg PRN Q4HRS PRN PO COUGH; Start 02/02/20 at 09:45 Enoxaparin Sodium (Lovenox 40mg Syringe) 40 mg Q24H SQ Last administered on 02/02/20at 11:24; Start 02/02/20 at 10:00 Vancomycin HCl 1 gm/Dextrose 250 ml @ 250 mls/hr 1X ONCE IV Last administered on 02/02/20at 09:45; Start 02/02/20 at 09:45; Stop 02/02/20 at 10:44; Status DC Allergies Allergies: Coded Allergies: No Known Drug Allergies (Unverified , 09/30/14) Vitals VITALS Vital Signs Date Time Temp Pulse Resp B/P (MAP) Pulse Ox O2 Delivery O2 Flow Rate FiO2 02/02/20 09:00 100.1 107 24 124/75 (91) 98 Room Air 100.1 Labs Labs Laboratory Tests Test 02/02/20 02:40 02/02/20 02:50 02/02/20 03:10 Urine Collection Type Void Urine Color Luna Urine Clarity Turbid Urine pH 5.5 (<5.0-8.0) Urine Specific [place] >=1.030 (1.000-1.030) Urine Protein 100 mg/dL (NEG-TRACE) Urine Glucose (UA) Negative mg/dL (NEG) Urine Ketones (Stick) Trace mg/dL (NEG) Urine Blood Small (NEG) Urine Nitrite Positive (NEG) Urine Bilirubin Small (NEG) Urine Urobilinogen Dipstick 1.0 mg/dL (0.2 mg/dL) Urine Leukocyte Esterase Small (NEG) Urine RBC 6-10 /HPF (0-2) Urine WBC 11-20 /HPF (0-4) Urine Squamous Epithelial Cells Mod /LPF Urine Amorphous Sediment Present /HPF Urine Bacteria Many /HPF (0-FEW) Urine Opiates Screen Pos (NEG) Urine Methadone Screen Neg (NEG) Urine Barbiturates Neg (NEG) Urine Phencyclidine Screen Neg (NEG) Urine Amphetamine/Methamphetamine Pos (NEG) Urine Benzodiazepines Screen Neg (NEG) Urine Cocaine Screen Neg (NEG) Urine Cannabinoids Screen Pos (NEG) Urine Ethyl Alcohol Neg (NEG) Bedside Urine HCG, Qualitative Hcg negative (Negative) White Blood Count 10.4 x10^3/uL (4.0-11.0) Red Blood Count 4.43 x10^6/uL (3.50-5.40) Hemoglobin 13.5 g/dL (12.0-15.5) Hematocrit 39.0 % (36.0-47.0) Mean Corpuscular Volume 88 fL (79-100) Mean Corpuscular Hemoglobin 31 pg (25-35) Mean Corpuscular Hemoglobin Concent 35 g/dL (31-37) Red Cell Distribution Width 12.8 % (11.5-14.5) Platelet Count 215 x10^3/uL (140-400) Neutrophils (%) (Auto) 71 % (31-73) Lymphocytes (%) (Auto) 18 % (24-48) Monocytes (%) (Auto) 11 % (0-9) Eosinophils (%) (Auto) 0 % (0-3) Basophils (%) (Auto) 0 % (0-3) Neutrophils # (Auto) 7.3 x10^3/uL (1.8-7.7) Lymphocytes # (Auto) 1.9 x10^3/uL (1.0-4.8) Monocytes # (Auto) 1.1 x10^3/uL (0.0-1.1) Eosinophils # (Auto) 0.0 x10^3/uL (0.0-0.7) Basophils # (Auto) 0.0 x10^3/uL (0.0-0.2) Prothrombin Time 14.0 SEC (11.7-14.0) Prothromb Time International Ratio 1.1 (0.8-1.1) Sodium Level 129 mmol/L (136-145) Potassium Level 3.7 mmol/L (3.5-5.1) Chloride Level 94 mmol/L (98-107) Carbon Dioxide Level 26 mmol/L (21-32) Anion Gap 9 (6-14) Blood Urea Nitrogen 12 mg/dL (7-20) Creatinine 0.9 mg/dL (0.6-1.0) Estimated GFR (Cockcroft-Gault) 71.3 BUN/Creatinine Ratio 13 (6-20) Glucose Level 113 mg/dL (70-99) Lactic Acid Level 1.1 mmol/L (0.4-2.0) Calcium Level 9.0 mg/dL (8.5-10.1) Total Bilirubin 0.8 mg/dL (0.2-1.0) Aspartate Amino Transf (AST/SGOT) 23 U/L (15-37) Alanine Aminotransferase (ALT/SGPT) 35 U/L (14-59) Alkaline Phosphatase 76 U/L (46-116) C-Reactive Protein, Quantitative 140.0 mg/L (0-3.3) Total Protein 8.4 g/dL (6.4-8.2) Albumin 3.6 g/dL (3.4-5.0) Albumin/Globulin Ratio 0.8 (1.0-1.7) Lipase 37 U/L (73-393) Procalcitonin 2.43 ng/mL (0.00-0.10) Ethyl Alcohol Level < 10 mg/dL (0-10) Laboratory Tests Test 02/02/20 02:40 02/02/20 02:50 02/02/20 03:10 Urine Collection Type Void Urine Color Luna Urine Clarity Turbid Urine pH 5.5 (<5.0-8.0) Urine Specific [place] >=1.030 (1.000-1.030) Urine Protein 100 mg/dL (NEG-TRACE) Urine Glucose (UA) Negative mg/dL (NEG) Urine Ketones (Stick) Trace mg/dL (NEG) Urine Blood Small (NEG) Urine Nitrite Positive (NEG) Urine Bilirubin Small (NEG) Urine Urobilinogen Dipstick 1.0 mg/dL (0.2 mg/dL) Urine Leukocyte Esterase Small (NEG) Urine RBC 6-10 /HPF (0-2) Urine WBC 11-20 /HPF (0-4) Urine Squamous Epithelial Cells Mod /LPF Urine Amorphous Sediment Present /HPF Urine Bacteria Many /HPF (0-FEW) Urine Opiates Screen Pos (NEG) Urine Methadone Screen Neg (NEG) Urine Barbiturates Neg (NEG) Urine Phencyclidine Screen Neg (NEG) Urine Amphetamine/Methamphetamine Pos (NEG) Urine Benzodiazepines Screen Neg (NEG) Urine Cocaine Screen Neg (NEG) Urine Cannabinoids Screen Pos (NEG) Urine Ethyl Alcohol Neg (NEG) Bedside Urine HCG, Qualitative Hcg negative (Negative) White Blood Count 10.4 x10^3/uL (4.0-11.0) Red Blood Count 4.43 x10^6/uL (3.50-5.40) Hemoglobin 13.5 g/dL (12.0-15.5) Hematocrit 39.0 % (36.0-47.0) Mean Corpuscular Volume 88 fL (79-100) Mean Corpuscular Hemoglobin 31 pg (25-35) Mean Corpuscular Hemoglobin Concent 35 g/dL (31-37) Red Cell Distribution Width 12.8 % (11.5-14.5) Platelet Count 215 x10^3/uL (140-400) Neutrophils (%) (Auto) 71 % (31-73) Lymphocytes (%) (Auto) 18 % (24-48) Monocytes (%) (Auto) 11 % (0-9) Eosinophils (%) (Auto) 0 % (0-3) Basophils (%) (Auto) 0 % (0-3) Neutrophils # (Auto) 7.3 x10^3/uL (1.8-7.7) Lymphocytes # (Auto) 1.9 x10^3/uL (1.0-4.8) Monocytes # (Auto) 1.1 x10^3/uL (0.0-1.1) Eosinophils # (Auto) 0.0 x10^3/uL (0.0-0.7) Basophils # (Auto) 0.0 x10^3/uL (0.0-0.2) Prothrombin Time 14.0 SEC (11.7-14.0) Prothromb Time International Ratio 1.1 (0.8-1.1) Sodium Level 129 mmol/L (136-145) Potassium Level 3.7 mmol/L (3.5-5.1) Chloride Level 94 mmol/L (98-107) Carbon Dioxide Level 26 mmol/L (21-32) Anion Gap 9 (6-14) Blood Urea Nitrogen 12 mg/dL (7-20) Creatinine 0.9 mg/dL (0.6-1.0) Estimated GFR (Cockcroft-Gault) 71.3 BUN/Creatinine Ratio 13 (6-20) Glucose Level 113 mg/dL (70-99) Lactic Acid Level 1.1 mmol/L (0.4-2.0) Calcium Level 9.0 mg/dL (8.5-10.1) Total Bilirubin 0.8 mg/dL (0.2-1.0) Aspartate Amino Transf (AST/SGOT) 23 U/L (15-37) Alanine Aminotransferase (ALT/SGPT) 35 U/L (14-59) Alkaline Phosphatase 76 U/L (46-116) C-Reactive Protein, Quantitative 140.0 mg/L (0-3.3) Total Protein 8.4 g/dL (6.4-8.2) Albumin 3.6 g/dL (3.4-5.0) Albumin/Globulin Ratio 0.8 (1.0-1.7) Lipase 37 U/L (73-393) Procalcitonin 2.43 ng/mL (0.00-0.10) Ethyl Alcohol Level < 10 mg/dL (0-10) Assessment/Plan Assessment/Plan Pt left against medical advice prior to being seen for consult ALOK YANES MD Feb 02, 2020 13:46
--- NOTE | 2020-02-02 16:30 | PDOC3 ---
Discharge Summary Date of Admission: Feb 02, 2020 Date of Discharge: Feb 02, 2020 Follow-Up: Other (LEFT AMA) Admitting Diagnosis comment: VTE Prophylaxis Ordered VTE Prophylaxis Devices: Yes VTE Pharmacological Prophylaxi: Yes DISCHARGE DX Assessment/Plan IMPRESSION: 1. abdominal and flank pain 2. mild biliary dilation. Mild dilation due to a distal obstructing calculus or stricture is not excluded. 3. Appendix is negative. on CT 4. Left adnexal 6 x 4 cm cystic lesion. SEE pelvic sonography. 5. 5.4 cm complex cyst with several internal septations. In a patient of this age this is probably benign, most likely a large subacute or chronic hemorrhagic cyst. There are no thickened septations, internal vascularity or solid nodules to suggest neoplasia 6. FEVER 7. IV DRUG ABUSE, Heroin, METH 8. UTI 9. POSSIBLE EARLY PNEUMONIA Mild perihilar airspace disease, left greater than right. This could be related to acute or chronic bronchial inflammatory process or early pneumonia. 9. 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 De Leon is a 34 old [sex] who presented with [ FEVER ] CONDITION AT DISCHARGE: Comment (LEFT AMA ) Discharge Medications Current Medications Sodium Chloride 500 ml @ 500 mls/hr 1X ONCE IV Last administered on 02/02/20at 03:25; Start 02/02/20 at 03:15; Stop 02/02/20 at 04:14; Status DC Ketorolac Tromethamine (Toradol 30mg Vial) 30 mg 1X ONCE IVP Last administered on 02/02/20at 03:26; Start 02/02/20 at 03:30; Stop 02/02/20 at 03:31; Status DC Iohexol (Omnipaque 300 Mg/ml) 75 ml 1X ONCE IV Last administered on 02/02/20at 05:05; Start 02/02/20 at 04:45; Stop 02/02/20 at 04:46; Status DC Info (CONTRAST GIVEN -- Rx MONITORING) 1 each PRN DAILY PRN MC SEE COMMENTS; Start 02/02/20 at 04:45; Stop 02/02/20 at 14:07; Status DC Iohexol (Omnipaque 300 Mg/ml) 75 ml 1X ONCE IV ; Start 02/02/20 at 05:15; Stop 02/02/20 at 05:18; Status DC Ceftriaxone Sodium (Rocephin) 1 gm 1X ONCE IVP Last administered on 02/02/20at 07:07; Start 02/02/20 at 06:45; Stop 02/02/20 at 06:46; Status DC Sodium Chloride 1,000 ml @ 1,000 mls/hr 1X ONCE IV Last administered on 02/02/20at 07:07; Start 02/02/20 at 06:45; Stop 02/02/20 at 07:44; Status DC Azithromycin 250 ml @ 250 mls/hr 1X ONCE IV Last administered on 02/02/20at 08:45; Start 02/02/20 at 07:30; Stop 02/02/20 at 08:29; Status DC Ondansetron HCl (Zofran) 4 mg PRN Q8HRS PRN IV NAUSEA/VOMITING; Start 02/02/20 at 07:30; Stop 02/02/20 at 14:07; Status DC Sodium Chloride 1,000 ml @ 125 mls/hr Q8H IV Last administered on 02/02/20at 09:45; Start 02/02/20 at 07:24; Stop 02/02/20 at 14:07; Status DC Acetaminophen (Tylenol) 1,000 mg 1X ONCE PO Last administered on 02/02/20at 07:59; Start 02/02/20 at 07:30; Stop 02/02/20 at 07:38; Status DC Piperacillin Sod/ Tazobactam Sod 3.375 gm/Sodium Chloride 50 ml @ 100 mls/hr Q6HRS IV Last administered on 02/02/20at 11:25; Start 02/02/20 at 12:00; Stop 02/02/20 at 14:07; Status DC Sodium Chloride (Normal Saline Flush) 3 ml QSHIFT PRN IV AFTER MEDS AND BLOOD DRAWS; Start 02/02/20 at 09:45; Stop 02/02/20 at 14:07; Status DC Sodium Chloride 1,000 ml @ 100 mls/hr Q10H IV Last administered on 02/02/20at 09:00; Start 02/02/20 at 09:43; Stop 02/02/20 at 14:07; Status DC Ondansetron HCl (Zofran) 4 mg PRN Q4HRS PRN IV NAUSEA/VOMITING; Start 02/02/20 at 09:45; Stop 02/02/20 at 14:07; Status DC Acetaminophen (Tylenol) 650 mg PRN Q4HRS PRN PO TEMP OVER 100.4F OR MILD PAIN Last administered on 02/02/20at 11:24; Start 02/02/20 at 09:45; Stop 02/02/20 at 14:07; Status DC Al Hydroxide/Mg Hydroxide (Mylanta Plus Xs) 30 ml PRN DAILY PRN PO HEARTBURN / GAS; Start 02/02/20 at 09:45; Stop 02/02/20 at 14:07; Status DC Clonidine HCl (Catapres) 0.1 mg PRN Q6HRS PRN PO SBP>160 OR DBP>90; Start 02/02/20 at 09:45; Stop 02/02/20 at 14:07; Status DC Sodium Monofluorophosphate (Fleet Adult) 133 ml PRN DAILY PRN [place] CONSTIPATION; Start 02/02/20 at 09:45; Stop 02/02/20 at 14:07; Status DC Docusate Sodium (Colace) 100 mg PRN BID PRN PO HARD STOOLS; Start 02/02/20 at 09:45; Stop 02/02/20 at 14:07; Status DC Albuterol Sulfate (Ventolin Neb Soln) 2.5 mg PRN Q4HRS PRN NEB SHORTNESS OF BREATH; Start 02/02/20 at 09:45; Stop 02/02/20 at 14:07; Status DC Guaifenesin (Robitussin) 200 mg PRN Q4HRS PRN PO COUGH; Start 02/02/20 at 09:45; Stop 02/02/20 at 14:07; Status DC Enoxaparin Sodium (Lovenox 40mg Syringe) 40 mg Q24H SQ Last administered on 02/02/20at 11:24; Start 02/02/20 at 10:00; Stop 02/02/20 at 14:07; Status DC Vancomycin HCl 1 gm/Dextrose 250 ml @ 250 mls/hr 1X ONCE IV Last administered on 02/02/20at 09:45; Start 02/02/20 at 09:45; Stop 02/02/20 at 10:44; Status DC Vital Signs Vital Signs Date Time Temp Pulse Resp B/P (MAP) Pulse Ox O2 Delivery O2 Flow Rate FiO2 02/02/20 09:00 100.1 107 24 124/75 (91) 98 Room Air 100.1 Labs Laboratory Tests Test 02/02/20 02:40 02/02/20 02:50 02/02/20 03:10 Urine Collection Type Void Urine Color Luna Urine Clarity Turbid Urine pH 5.5 (<5.0-8.0) Urine Specific [place] >=1.030 (1.000-1.030) Urine Protein 100 mg/dL (NEG-TRACE) Urine Glucose (UA) Negative mg/dL (NEG) Urine Ketones (Stick) Trace mg/dL (NEG) Urine Blood Small (NEG) Urine Nitrite Positive (NEG) Urine Bilirubin Small (NEG) Urine Urobilinogen Dipstick 1.0 mg/dL (0.2 mg/dL) Urine Leukocyte Esterase Small (NEG) Urine RBC 6-10 /HPF (0-2) Urine WBC 11-20 /HPF (0-4) Urine Squamous Epithelial Cells Mod /LPF Urine Amorphous Sediment Present /HPF Urine Bacteria Many /HPF (0-FEW) Urine Opiates Screen Pos (NEG) Urine Methadone Screen Neg (NEG) Urine Barbiturates Neg (NEG) Urine Phencyclidine Screen Neg (NEG) Urine Amphetamine/Methamphetamine Pos (NEG) Urine Benzodiazepines Screen Neg (NEG) Urine Cocaine Screen Neg (NEG) Urine Cannabinoids Screen Pos (NEG) Urine Ethyl Alcohol Neg (NEG) Bedside Urine HCG, Qualitative Hcg negative (Negative) White Blood Count 10.4 x10^3/uL (4.0-11.0) Red Blood Count 4.43 x10^6/uL (3.50-5.40) Hemoglobin 13.5 g/dL (12.0-15.5) Hematocrit 39.0 % (36.0-47.0) Mean Corpuscular Volume 88 fL (79-100) Mean Corpuscular Hemoglobin 31 pg (25-35) Mean Corpuscular Hemoglobin Concent 35 g/dL (31-37) Red Cell Distribution Width 12.8 % (11.5-14.5) Platelet Count 215 x10^3/uL (140-400) Neutrophils (%) (Auto) 71 % (31-73) Lymphocytes (%) (Auto) 18 % (24-48) Monocytes (%) (Auto) 11 % (0-9) Eosinophils (%) (Auto) 0 % (0-3) Basophils (%) (Auto) 0 % (0-3) Neutrophils # (Auto) 7.3 x10^3/uL (1.8-7.7) Lymphocytes # (Auto) 1.9 x10^3/uL (1.0-4.8) Monocytes # (Auto) 1.1 x10^3/uL (0.0-1.1) Eosinophils # (Auto) 0.0 x10^3/uL (0.0-0.7) Basophils # (Auto) 0.0 x10^3/uL (0.0-0.2) Prothrombin Time 14.0 SEC (11.7-14.0) Prothromb Time International Ratio 1.1 (0.8-1.1) Sodium Level 129 mmol/L (136-145) Potassium Level 3.7 mmol/L (3.5-5.1) Chloride Level 94 mmol/L (98-107) Carbon Dioxide Level 26 mmol/L (21-32) Anion Gap 9 (6-14) Blood Urea Nitrogen 12 mg/dL (7-20) Creatinine 0.9 mg/dL (0.6-1.0) Estimated GFR (Cockcroft-Gault) 71.3 BUN/Creatinine Ratio 13 (6-20) Glucose Level 113 mg/dL (70-99) Lactic Acid Level 1.1 mmol/L (0.4-2.0) Calcium Level 9.0 mg/dL (8.5-10.1) Total Bilirubin 0.8 mg/dL (0.2-1.0) Aspartate Amino Transf (AST/SGOT) 23 U/L (15-37) Alanine Aminotransferase (ALT/SGPT) 35 U/L (14-59) Alkaline Phosphatase 76 U/L (46-116) C-Reactive Protein, Quantitative 140.0 mg/L (0-3.3) Total Protein 8.4 g/dL (6.4-8.2) Albumin 3.6 g/dL (3.4-5.0) Albumin/Globulin Ratio 0.8 (1.0-1.7) Lipase 37 U/L (73-393) Procalcitonin 2.43 ng/mL (0.00-0.10) Ethyl Alcohol Level < 10 mg/dL (0-10) Laboratory Tests Test 02/02/20 02:40 02/02/20 02:50 02/02/20 03:10 Urine Collection Type Void Urine Color Luna Urine Clarity Turbid Urine pH 5.5 (<5.0-8.0) Urine Specific [place] >=1.030 (1.000-1.030) Urine Protein 100 mg/dL (NEG-TRACE) Urine Glucose (UA) Negative mg/dL (NEG) Urine Ketones (Stick) Trace mg/dL (NEG) Urine Blood Small (NEG) Urine Nitrite Positive (NEG) Urine Bilirubin Small (NEG) Urine Urobilinogen Dipstick 1.0 mg/dL (0.2 mg/dL) Urine Leukocyte Esterase Small (NEG) Urine RBC 6-10 /HPF (0-2) Urine WBC 11-20 /HPF (0-4) Urine Squamous Epithelial Cells Mod /LPF Urine Amorphous Sediment Present /HPF Urine Bacteria Many /HPF (0-FEW) Urine Opiates Screen Pos (NEG) Urine Methadone Screen Neg (NEG) Urine Barbiturates Neg (NEG) Urine Phencyclidine Screen Neg (NEG) Urine Amphetamine/Methamphetamine Pos (NEG) Urine Benzodiazepines Screen Neg (NEG) Urine Cocaine Screen Neg (NEG) Urine Cannabinoids Screen Pos (NEG) Urine Ethyl Alcohol Neg (NEG) Bedside Urine HCG, Qualitative Hcg negative (Negative) White Blood Count 10.4 x10^3/uL (4.0-11.0) Red Blood Count 4.43 x10^6/uL (3.50-5.40) Hemoglobin 13.5 g/dL (12.0-15.5) Hematocrit 39.0 % (36.0-47.0) Mean Corpuscular Volume 88 fL (79-100) Mean Corpuscular Hemoglobin 31 pg (25-35) Mean Corpuscular Hemoglobin Concent 35 g/dL (31-37) Red Cell Distribution Width 12.8 % (11.5-14.5) Platelet Count 215 x10^3/uL (140-400) Neutrophils (%) (Auto) 71 % (31-73) Lymphocytes (%) (Auto) 18 % (24-48) Monocytes (%) (Auto) 11 % (0-9) Eosinophils (%) (Auto) 0 % (0-3) Basophils (%) (Auto) 0 % (0-3) Neutrophils # (Auto) 7.3 x10^3/uL (1.8-7.7) Lymphocytes # (Auto) 1.9 x10^3/uL (1.0-4.8) Monocytes # (Auto) 1.1 x10^3/uL (0.0-1.1) Eosinophils # (Auto) 0.0 x10^3/uL (0.0-0.7) Basophils # (Auto) 0.0 x10^3/uL (0.0-0.2) Prothrombin Time 14.0 SEC (11.7-14.0) Prothromb Time International Ratio 1.1 (0.8-1.1) Sodium Level 129 mmol/L (136-145) Potassium Level 3.7 mmol/L (3.5-5.1) Chloride Level 94 mmol/L (98-107) Carbon Dioxide Level 26 mmol/L (21-32) Anion Gap 9 (6-14) Blood Urea Nitrogen 12 mg/dL (7-20) Creatinine 0.9 mg/dL (0.6-1.0) Estimated GFR (Cockcroft-Gault) 71.3 BUN/Creatinine Ratio 13 (6-20) Glucose Level 113 mg/dL (70-99) Lactic Acid Level 1.1 mmol/L (0.4-2.0) Calcium Level 9.0 mg/dL (8.5-10.1) Total Bilirubin 0.8 mg/dL (0.2-1.0) Aspartate Amino Transf (AST/SGOT) 23 U/L (15-37) Alanine Aminotransferase (ALT/SGPT) 35 U/L (14-59) Alkaline Phosphatase 76 U/L (46-116) C-Reactive Protein, Quantitative 140.0 mg/L (0-3.3) Total Protein 8.4 g/dL (6.4-8.2) Albumin 3.6 g/dL (3.4-5.0) Albumin/Globulin Ratio 0.8 (1.0-1.7) Lipase 37 U/L (73-393) Procalcitonin 2.43 ng/mL (0.00-0.10) Ethyl Alcohol Level < 10 mg/dL (0-10) Allergies Allergies Coded Allergies Type Severity Reaction Last Updated Verified No Known Drug Allergies 09/30/14 No Disposition/Orders: Other (LEFT AMA ) Justicifation of Admission Dx: Justifications for Admission: Justification of Admission Dx: Yes RUBA WEST MD Feb 02, 2020 16:30
--- NOTE | 2020-02-04 05:09 | EKG ---
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
== END 2020-02-02 11:45 | disposition left against medical advice (07) | DRG 871 ==
LOC: ER 02:26 → 6 SOUTH 08:32
PROVIDERS: ADMIT Family Medicine; ATTEND Family Medicine
DX: A41.9 Sepsis, unspecified organism (principal); J18.9 Pneumonia, unspecified organism; N39.0 Urinary tract infection, site not specified; N83.202 Unspecified ovarian cyst, left side; F11.10 Opioid abuse, uncomplicated; M51.9 Unspecified thoracic, thoracolumbar and lumbosacral intervertebral disc disorder; Z82.49 Family history of ischemic heart disease and other diseases of the circulatory system; Z87.891 Personal history of nicotine dependence; Z20.828 Contact with and (suspected) exposure to other viral communicable diseases; Z53.29 Procedure and treatment not carried out because of patient's decision for other reasons; Z79.899 Other long term (current) drug therapy
CPT/HCPCS: 36415; 71045; 74177; 76830; 80053; 80307; 81001; 81025; 83605; 83690; 84145; 85025; 85610; 86140; 87040; 87077; 87086; 87186; 87205; 93005; 96361; 96374; 96375; 99285; G0480; J0456; J0696; J1650; J1885; J2543; J3370; J7030; J7040; J7060; Q9967; G0378; U0003-CS

== ENCOUNTER 2020-02-06 21:36 | Inpatient (IN) | payer SELFPAY ==
[~2020-02-06] VITALS: Ht 172.7 cm; Wt 107.8 kg
--- NOTE | 2020-02-06 22:00 | NUR ---
Pt was transferred from [place] with urosepsis, chronic pain, Dr. Matthews and Dr. Grande consulted by Dr. Anthony. Pt is A/Ox4, on RA, unable to assess gait at time of admission, rating her pain 10/10. Pt is SR on telemetry, VSS, call light within reach and bed in low/locked position. 13 syringes and questionable containers were removed from pts purse and destroyed with security as a witness. 2 pocket knives were removed from pts possession by security and locked up. Medications restarted, orders placed and will continue to monitor for status changes.
[2020-02-06 22:10] VITALS: BP 149/101
[2020-02-06] MEDS ORDERED: MORPHINE SULFATE 4 MG/ML VIAL. IM PRN (22:15)
[2020-02-06] MEDS ORDERED: ACETAMINOPHEN 500 MG TABLET PO PRN (22:15)
[2020-02-06] MEDS ORDERED: ALBUTEROL SULFATE 2.5 MG/3 ML NEBU. NEB PRN (22:15)
[2020-02-06] MEDS: HYDROmorphone 2 MG/ML VIAL IV PRN (22:25)
[2020-02-06 23:40] VITALS: BP 138/91
[2020-02-07] MEDS ORDERED: IV NORMAL SALINE 1000ML BAG 1,000 ML IV SCH (00:45)
[2020-02-07] MEDS: MORPHINE SULFATE 4 MG/ML VIAL. IV PRN ×3 (01:06→21:59)
[2020-02-07] MEDS: PHENAZOPYRIDINE 200 MG TABLET. PO PRN (01:07)
[2020-02-07 02:41] VITALS: BP 146/84
[2020-02-07] MEDS: METHOCARBAMOL 750 MG TABLET PO PRN ×3 (03:18→21:55)
[2020-02-07] MEDS: HYDROmorphone 2 MG/ML VIAL IV PRN ×6 (03:59→23:49)
[2020-02-07 07:00] VITALS: BP 141/90
[2020-02-07] MEDS: LACTOBACILLUS RHAMNOSUS GG 1 CAPSULE. PO SCH ×2 (07:56→21:34)
[2020-02-07] MEDS: IPRATRPIUM/ALBUTEROL 0.5/2.5MG 3 ML NEBU. NEB SCH ×4 (08:20→20:00)
[2020-02-07 09:29] LABS: BASO % 1 % (0-3); EOS # 0.1 x10^3/uL (0.0-0.7); EOS % 1 % (0-3); HEMATOCRIT 36.3 % (36.0-47.0); HEMOGLOBIN 12.4 g/dL (12.0-15.5); LYMPH # 2.3 x10^3/uL (1.0-4.8); LYMPH % 32 % (24-48); MEAN CORPUSCULAR HEMOGLOBIN 30 pg (25-35); MEAN CORPUSCULAR HGB CONC 34 g/dL (31-37); MEAN CORPUSCULAR VOLUME 88 fL (79-100); MONO # 0.5 x10^3/uL (0.0-1.1); MONO % 7 % (0-9); NEUT # 4.3 x10^3/uL (1.8-7.7); NEUT % 60 % (31-73); PLATELET COUNT 257 x10^3/uL (140-400); RED BLOOD COUNT 4.12 x10^6/uL (3.50-5.40); WHITE BLOOD COUNT 7.1 x10^3/uL (4.0-11.0)
[2020-02-07 09:52] LABS: ALBUMIN 2.2 g/dL (3.4-5.0); ALBUMIN/GLOBULIN RATIO 0.5 (1.0-1.7); CALCIUM 8.7 mg/dL (8.5-10.1); CREATININE 0.5 mg/dL (0.6-1.0); GFR 140.4; POTASSIUM 3.3 mmol/L (3.5-5.1); TOTAL BILIRUBIN 0.4 mg/dL (0.2-1.0)
--- NOTE | 2020-02-07 10:39 | NUR ---
IP: Received blood culture report from [facility] of 02/02/20 indicating mrsa requiring pt to be in contact precautions.
[2020-02-07 11:12] VITALS: BP 132/84
--- NOTE | 2020-02-07 11:17 | HP ---
ADMIT DATE: 02/06/2020 HISTORY OF PRESENT ILLNESS: The patient is a 34-year-old female patient who was apparently seen initially at [facility] on 02/01 where she was extensively investigated in the Emergency Room. She apparently was diagnosed with that on Monday with her symptoms were right flank, painful urination, blood in the urine, fever and body aches. She left against medical advice. She does not want to be admitted there. She was tested for COVID at [place] and was negative. She has had urine and blood cultures at [facility] and that were also repeated at [facility]. The blood culture has grown gram-positive cocci in clusters in 4/4 bottles that eventually diagnosed as methicillin-resistant Staphylococcus aureus and her urine culture has grown E. coli and was basically started on IV Rocephin initially, but then switched to Zosyn and vancomycin. However, the patient continued to complain of severe back pain and that is aggravated by any movement, even changing her position in bed and given the fact that she has Staphylococcus bacteremia, I did order a CT scan of the lumbosacral spine that was read as finding of degenerative changes, most conspicuous at L4-L5 and possibly early similar changes at L3-L4, superimposed infection is not confidently excluded on CT alone and MRI could be helpful in further evaluation of any early changes of diskitis, osteomyelitis and for possible presence of an epidural abscess clinically suspected. She was also found to have exuberant retroperitoneal soft tissue stranding noted in the setting of multiloculated left adnexal cystic mass, etiology of which is uncertain and therefore, the patient was transferred back to [facility] to arrange for an MRI and to consult the Infectious Disease specialist, the image scientist as well as the construction economist as she is a heroin addict and has grown methicillin-resistant Staphylococcus aureus from her blood cultures, raising the possibility that she might have endocarditis and/or lumbar vertebral osteomyelitis and diskitis. PAST MEDICAL HISTORY: Significant for heroin addiction, but she has no significant medical problem. PAST SURGICAL HISTORY: Significant for right ovarian cyst removal. FAMILY HISTORY: Her mom is in her 60s. She has a form of brain tumor, whether this is benign and malignant is not clear. Father also with a diagnosis of spinal tumor. He is alive at the age of 62. SOCIAL HISTORY: She is a smoker. She does not use any alcohol. She apparently has been abusing amphetamine, methamphetamine, heroin as well as cannabinoids. ALLERGIES: She has no known drug allergies. MEDICATIONS: She was transferred to [facility] to continue on linezolid 600 mg IV 12 hourly, Zosyn 4.5 g V every 6 hours. She is also on methocarbamol. She is actually on Soma 350 mg 3 times a day and hydromorphone 1-2 mg every 3 hours as needed for pain. She is also on IV fluid that was changed to normal saline with 40 mEq of potassium chloride. PHYSICAL EXAMINATION: GENERAL: On examining her, she was resting, slightly propped up in bed, in no apparent respiratory distress. There is no pallor, jaundice, cyanosis or thyromegaly. No jugular venous distention. No limb edema. VITAL SIGNS: Her heart rate was 79, blood pressure was 141/90, temperature 97.9, respiratory rate was 20, and oxygen saturation was 94%. HEAD, EYES, EARS, NOSE AND THROAT: Showed normocephalic, atraumatic. NECK: Supple. HEART: Showed normal first and second heart sounds. No gallop, rub or murmur. CHEST: Clear to auscultation. No crepitation or rhonchi. ABDOMEN: Distended, soft, nontender. NEUROLOGIC: She was awake, alert, responding appropriately. All cranial nerves intact. She moves upper extremities without difficulty. She continued to complain of severe back pain, aggravated by any movement, even turning in bed. LABORATORY WORK: As of this morning showed a white cell count of 7100, hemoglobin 12.4, hematocrit 36, MCV 88 and platelet count 257,000. Her chemistry is still pending at the time of this dictation. ASSESSMENT AND PLAN: In summary, this is a 34-year-old female patient who is polysubstance abuser, who was initially seen at the Emergency Room of [facility] where she was extensively investigated. In fact, she had had urine and blood culture done there. The blood culture showed gram-positive cocci in 4/4 bottles that eventually identified as methicillin-resistant Staphylococcus aureus. Her urine culture has grown more than 100,000 colony forming units per mL of gram-negative rods, identified as Escherichia coli. She has had CT scan of the abdomen and pelvis done initially at [facility] on 01/31 and it showed that the patient has left ovary essentially placed by 5.4 cm complex cyst with several internal septation in a patient of this age, this is probably benign, most likely a large subacute or chronic hemorrhagic cyst. There are no thickened septation, internal vascularity or solid nodules to suggest neoplasia. The ovarian parenchyma displays periphery of this cyst demonstrates intact blood flow without features to suggest torsion. The CT scan of the abdomen showed mild biliary dilatation due to distal obstructing calculus, stricture is not excluded. CT scan of the lumbar spine done at [facility] showed that the patient has finding of degenerative changes, most conspicuous at L4-L5 and possibly early similar changes at L3-L4. A superimposed infection is not confidently excluded on the CT scan alone and MRI could be helpful in further evaluation of any early changes of diskitis, osteomyelitis and the possible presence of a spinal epidural abscess if clinically suspected. She was also found to have exuberant retroperitoneal soft tissue stranding noted in the setting of multiloculated left adnexal cystic mass. Therefore, we admitted her, continued her Zosyn and Zyvox. We will consult the infectious disease specialist, the image scientist as well as the construction economist as she probably will need transesophageal echocardiogram to rule out the possibility of endocarditis given that she is an intravenous drug abuser. Her blood cultures that were repeated again at [facility] showed that it is methicillin-resistant Staphylococcus aureus. KEENAN SHELLEY MD DR: ALECIA/geneva JOB#: [id number] / [id number]
[2020-02-07] MEDS ORDERED: GADOTERATE 7.5 MMOL/15ML VIAL. IVP ONE (12:30)
--- NOTE | 2020-02-07 13:30 | NUR ---
SS following for discharge planning. SS reviewed pt chart and discussed with pt RN. Pt is from home and is currently on room air. Pt reported to have Heroin addiction. ID consulted and pt on IV Rocephin, Daptomycin, and Zyvox. PAT team referral made for Heroin addiction. Gynecology and Cardiology consulted as well. Pt having MRI of Lumbar Spine today. SS will continue to follow for discharge planning.
--- NOTE | 2020-02-07 13:54 | RAD ---
LUMBAR SPINE WO/W CONTRAST History: Reason: osteomyeletis, ABONORMAL CT, LBP WITH BILATERAL LEG WEAKNESS Technique: Multiplanar, multi sequential MR imaging was performed of the lumbar spine. Comparison: CT lumbar spine February 05, 2020. CT abdomen pelvis February 02, 2020 Findings: Increased STIR signal within the T11-T12 disc space and adjacent endplates. There is adjacent paravertebral edema. Small anterior fluid collection measures 1.1 x 0.7 cm (series 4 image 8 and series 10 image 8). No evidence of epidural abscess. Increased disc signal at the L4-L5 level. No significant adjacent endplate edema. There is fatty endplate changes at this level. No paravertebral fluid collection. L3 superior degenerative endplate edema. Normal vertebral body height and alignment. No fracture. Bilateral retroperitoneal edema is seen on prior CT. Conus terminates at the normal location. No evidence of nerve root clumping. L1-L2: No canal or neuroforaminal narrowing. L2-L3: No canal or neuroforaminal narrowing. Mild facet arthropathy. L3-L4: Minimal disc bulge. Mild facet arthropathy. Bilateral facet joint effusions. Mild subarticular recess narrowing. No canal narrowing. No neuroforaminal narrowing. L4-L5: Small disc bulge. Moderate facet arthropathy. Mild subarticular recess narrowing. No canal narrowing. Mild bilateral neuroforaminal narrowing. L5-S1: Partial sacralization of L5. No canal narrowing. No neuroforaminal narrowing. Impression: 1. T11-T12 disc and endplate edema with adjacent paravertebral edema and fluid collection concerning for abscess. Findings overall concerning for infection. 2. L4-L5 increased disc signal, may relate to degenerative changes. Recommend follow-up to exclude additional infectious site. 3. Bilateral retroperitoneal and presacral edema, unchanged compared to prior CT. 4. Multilevel lumbar spinal stenosis most prominent L4-5. Electronically signed by: Arian Xiao DO (02/07/2020 1:51 PM) [id number]
[2020-02-07] MEDS: cefTRIAXone IV Push 2 GM VIAL. IVP SCH (14:16)
[2020-02-07 15:20] VITALS: BP 136/88
[2020-02-07] MEDS: DAPTOmycin (GENERIC) IVPB 540 MG in IV NORMAL SALINE 50ML 50 ML IV SCH (15:37)
[2020-02-07] MEDS: POTASSIUM CL 40MEQ IN 0.9%NACL 1,000 ML IV SCH (15:38)
--- NOTE | 2020-02-07 16:23 | CONS ---
DATE OF CONSULTATION: 02/07/2020 REFERRING PHYSICIAN: Dr. Anthony. REASON FOR CONSULTATION: Staphylococcus aureus bacteremia. HISTORY OF PRESENT ILLNESS: A 34-year-old female with history of IVDU who was recently discharged from [facility] on 02/02/2020 when she discharged AMA. She had presented with abdominal and flank pain. Ultrasound showed left adnexal cystic lesion. The patient had fever, had pyuria. Urine culture positive for E. coli, pansensitive. She had blood cultures done, which were positive for methicillin-sensitive Staphylococcus aureus. The patient subsequently reported to [facility] with fever, back pain, which progressively got worse. Repeat blood cultures at [facility] were positive for methicillin-resistant Staphylococcus aureus bacteremia. The patient was on IV vancomycin and Zosyn. CT of the lumbosacral spine was reported positive for possible diskitis/osteomyelitis and possible epidural abscess. The patient was transferred to [facility] for further evaluation and treatment. MRI is pending at this time. She is currently on linezolid. Today, the patient complains of pain. Denies any headache, sore throat, nausea, vomiting, diarrhea. Does have some subjective shortness of breath. Continues to have back pain. Has blood in urine. No abnormal vaginal discharge. Denies any rash. The patient has ongoing addiction with heroin, methamphetamine. PAST MEDICAL HISTORY: Heroin addiction, recent methicillin-sensitive Staphylococcus aureus bacteremia 02/02/2020 and methicillin-resistant Staphylococcus aureus bacteremia at [facility]. PAST SURGICAL HISTORY: Right ovarian cyst removal. SOCIAL HISTORY: Smoker, ongoing IV drug abuse with amphetamine, methamphetamine and heroin as well as cannabinoids. No alcohol. Lives alone. FAMILY HISTORY: As per HPI. ALLERGIES: No known drug allergies. CURRENT MEDICATIONS: The patient was on IV vancomycin, Zosyn, and linezolid, currently is on linezolid. Other medications reviewed in medication list. REVIEW OF SYSTEMS: Negative except for above in HPI. PHYSICAL EXAMINATION: VITAL SIGNS: Temperature 98.1, pulse 90, respiratory rate 18, blood pressure 132/84, oxygen saturation 93% on room air. GENERAL: The patient is resting, slightly propped up in bed, agitated, in no acute distress. HEENT: Normocephalic, atraumatic, anicteric. NECK: Supple. LUNGS: Clear bilaterally. HEART: S1, S2. No rubs or murmurs. ABDOMEN: Soft, nontender, mildly distended. Bowel sounds present. EXTREMITIES: No edema, no cyanosis. DERMATOLOGIC: Warm, dry. No generalized rash. Multiple tattoos. No open wounds noted. Multiple needle luna present. NEUROLOGIC: Alert and oriented x 3, grossly nonfocal. PSYCHIATRIC: Cooperative, slightly agitated. BACK: Any movement causes extreme back pain. LABORATORY DATA: WBC 7.1, hemoglobin 12.4, hematocrit 36.3, platelets 357. Sodium 137, potassium 3.3, chloride 101, bicarbonate 27, BUN 5, creatinine 0.5 and glucose 120. LFTs within normal limits. Albumin 2.2. Procalcitonin 2.43. C-reactive protein 140, lactate 1.1 on 02/02/2020. MICROBIOLOGY: Blood culture 02/02/2020 positive. Multiple sets with methicillin-sensitive Staphylococcus aureus. Urine culture E. coli pansensitive. Blood cultures reported from [place] verbal report with micro lab today is positive for methicillin-resistant Staphylococcus aureus. IMAGING: Lumbar spine MRI pending at this time. IMPRESSION: 1. Methicillin-resistant Staphylococcus aureus bacteremia at [facility] 2. .Previously methicillin-sensitive Staphylococcus aureus on 02/02/2024 out of 4 bottles.Untreated as pt left AMA 3. Intravenous drug user. 4. Recent history of Escherichia coli urinary tract infection. 5. Left ovarian complex cyst. 6. Hematuria. 7. Fever. 8. Hypokalemia. 9. Protein-calorie malnutrition. 10. Severe back pain. Working diagnosis of possible diskitis/osteomyelitis/epidural abscess. 11. Protein-calorie malnutrition. RECOMMENDATIONS: 1. Continue linezolid. 2. Start daptomycin. 3. Start ceftriaxone. 4. Repeat blood cultures here. 5. Followup MRI of the lumbar spine. 6. The patient will need neurosurgical evaluation. 7. Follow up labs and cultures. 8. Continue supportive care. 9. ERIKA 10. Quit IVDU. 11. HIV and STD w/u DICTATION ENDS HERE SOPHIA JOY MD DR: INES/geneva JOB#: [id number] / [id number] MARLINE
[2020-02-07 19:00] VITALS: BP 141/83
[2020-02-07] MEDS: ZOLPIDEM 5 MG TABLET. PO PRN (21:55)
--- NOTE | 2020-02-08 00:31 | PDOC2 ---
CARDIOLOGY CONSULT NOTE DATE OF SERVICE: DATE: 02/08/20 TIME: 00:22 CHIEF COMPLAINT: Infection HPI: 34 y.o seen at bedside with her mother there who presented to [facility] for further evaluation of bacteremia. Cardiology asked to consider ERIKA due to MRSA infection. Patient has chronic pain but no angina or dyspnea. PMHX: PAST MEDICAL HISTORY: Heroin addiction, recent methicillin-sensitive Staphylococcus aureus bacteremia 02/02/2020 and methicillin-resistant Staphylococcus aureus bacteremia at [facility]. SOCHX: SOCIAL HISTORY: Smoker, ongoing IV drug abuse with amphetamine, methamphetamine and heroin as well as cannabinoids. No alcohol. Lives alone. FAMHX: MA CURRENT MEDS: Current Medications Medications (Trade) Dose Ordered Sig/Nellie Route PRN Reason Start Time Stop Time Status Last Admin Dose Admin Albuterol/ Ipratropium (Duoneb) 3 ml RTQID NEB 02/07/20 08:00 02/07/20 16:26 Lactobacillus Rhamnosus (Culturelle) 1 cap BID PO 02/07/20 09:00 02/07/20 21:34 Linezolid/Dextrose 300 ml @ 300 mls/hr Q12HR IV 02/07/20 09:00 02/07/20 21:34 Sodium Chloride 1,000 ml @ 75 mls/hr [id number] IV 02/07/20 00:45 02/07/20 14:12 DC 02/07/20 00:45 Morphine Sulfate (Morphine Sulfate) 4 mg PRN Q3HRS PRN IV SEVERE PAIN 7-10 (1st choice) 02/07/20 01:15 02/07/20 21:59 Gadoterate Meglumine (Dotarem) 24.2 ml 1X ONCE IVP 02/07/20 12:30 02/07/20 12:31 DC 02/07/20 12:44 Daptomycin 540 mg/ Sodium Chloride 50 ml @ 100 mls/hr Q24H IV 02/07/20 14:00 02/07/20 15:37 Ceftriaxone Sodium (Rocephin) 2 gm Q24H IVP 02/07/20 14:00 02/07/20 14:16 Potassium Chloride/Sodium Chloride 1,000 ml @ 75 mls/hr [id number] IV 02/07/20 14:00 02/07/20 15:38 Zolpidem Tartrate (Ambien) 5 mg PRN QHS PRN PO INSOMNIA 02/07/20 22:00 02/07/20 21:55 ALLERGIES: Allergies Coded Allergies Type Severity Reaction Last Updated Verified I S O L A T I O N *CONTACT* Allergy Unknown 02/07/20 Yes No Known Medication Allergies Allergy Unknown 02/07/20 Yes ROS: Negative unless noted above in HPI PHYSICAL EXAM: Vital Signs/I&O: Vital Signs Date Time Temp Pulse Resp B/P (MAP) Pulse Ox O2 Delivery O2 Flow Rate FiO2 02/07/20 23:49 19 Room Air 02/07/20 19:00 97.8 84 141/83 (102) 96 97.8 I & O 02/07/20 02/07/20 02/08/20 15:00 23:00 07:00 Intake Total 480 ml 240 ml Output Total 1250 ml Balance 480 ml -1010 ml Physical Exam: PHYSICAL EXAMINATION: GENERAL: On examining her, she was resting, slightly propped up in bed, in no apparent respiratory distress. There is no pallor, jaundice, cyanosis or thyromegaly. No jugular venous distention. No limb edema. VITAL SIGNS: Her heart rate was 79, blood pressure was 141/90, temperature 97.9, respiratory rate was 20, and oxygen saturation was 94%. HEAD, EYES, EARS, NOSE AND THROAT: Showed normocephalic, atraumatic. NECK: Supple. HEART: Showed normal first and second heart sounds. No gallop, rub or murmur. CHEST: Clear to auscultation. No crepitation or rhonchi. ABDOMEN: Distended, soft, nontender. NEUROLOGIC: She was awake, alert, responding appropriately. All cranial nerves intact. She moves upper extremities without difficulty. She continued to complain of severe back pain, aggravated by any movement, even turning in bed. DIAGNOSTIC TESTING: Lab Laboratory Tests Test 02/07/20 09:15 White Blood Count 7.1 x10^3/uL (4.0-11.0) Red Blood Count 4.12 x10^6/uL (3.50-5.40) Hemoglobin 12.4 g/dL (12.0-15.5) Hematocrit 36.3 % (36.0-47.0) Mean Corpuscular Volume 88 fL (79-100) Mean Corpuscular Hemoglobin 30 pg (25-35) Mean Corpuscular Hemoglobin Concent 34 g/dL (31-37) Red Cell Distribution Width 13.0 % (11.5-14.5) Platelet Count 257 x10^3/uL (140-400) Neutrophils (%) (Auto) 60 % (31-73) Lymphocytes (%) (Auto) 32 % (24-48) Monocytes (%) (Auto) 7 % (0-9) Eosinophils (%) (Auto) 1 % (0-3) Basophils (%) (Auto) 1 % (0-3) Neutrophils # (Auto) 4.3 x10^3/uL (1.8-7.7) Lymphocytes # (Auto) 2.3 x10^3/uL (1.0-4.8) Monocytes # (Auto) 0.5 x10^3/uL (0.0-1.1) Eosinophils # (Auto) 0.1 x10^3/uL (0.0-0.7) Basophils # (Auto) 0.0 x10^3/uL (0.0-0.2) Sodium Level 137 mmol/L (136-145) Potassium Level 3.3 mmol/L (3.5-5.1) L Chloride Level 101 mmol/L (98-107) Carbon Dioxide Level 27 mmol/L (21-32) Anion Gap 9 (6-14) Blood Urea Nitrogen 5 mg/dL (7-20) L Creatinine 0.5 mg/dL (0.6-1.0) L Estimated GFR (Cockcroft-Gault) 140.4 BUN/Creatinine Ratio 10 (6-20) Glucose Level 120 mg/dL (70-99) H Calcium Level 8.7 mg/dL (8.5-10.1) Total Bilirubin 0.4 mg/dL (0.2-1.0) Aspartate Amino Transf (AST/SGOT) 24 U/L (15-37) Alkaline Phosphatase 78 U/L (46-116) Total Protein 7.0 g/dL (6.4-8.2) Albumin 2.2 g/dL (3.4-5.0) L Albumin/Globulin Ratio 0.5 (1.0-1.7) L Laboratory Tests 02/07/20 09:15 ASSESSMENT: 1. MRSA bacteremia 2. Polysubstance abuse PLAN: 1. Plan for ERIKA monday. Thanks. Pls call w/questions. Discussed with mother at bedside who is agreeable. Reviewed ID notes. SHABBIR MONTEJO MD Feb 08, 2020 00:31
[2020-02-08] MEDS: HYDROmorphone 2 MG/ML VIAL IV PRN ×7 (02:54→21:09)
[2020-02-08] MEDS: POTASSIUM CL 40MEQ IN 0.9%NACL 1,000 ML IV SCH ×2 (03:20→18:20)
[2020-02-08] MEDS: METHOCARBAMOL 750 MG TABLET PO PRN ×3 (06:40→23:59)
[2020-02-08 07:00] VITALS: BP 133/83
[2020-02-08] MEDS: IPRATRPIUM/ALBUTEROL 0.5/2.5MG 3 ML NEBU. NEB SCH ×4 (07:58→20:17)
[2020-02-08 08:49] LABS: HEMATOCRIT 32.5 % (36.0-47.0); HEMOGLOBIN 11.1 g/dL (12.0-15.5); RED BLOOD COUNT 3.72 x10^6/uL (3.50-5.40); RED CELL DISTRIBUTION WIDTH 12.8 % (11.5-14.5)
[2020-02-08 09:06] LABS: ALBUMIN 2.1 g/dL (3.4-5.0); ALBUMIN/GLOBULIN RATIO 0.5 (1.0-1.7); CALCIUM 7.9 mg/dL (8.5-10.1); CREATININE 0.6 mg/dL (0.6-1.0); TOTAL PROTEIN 6.3 g/dL (6.4-8.2)
[2020-02-08 09:07] LABS: C-REACTIVE PROTEIN 60.4 mg/L (0-3.3); GFR 113.8; POTASSIUM 3.7 mmol/L (3.5-5.1); TOTAL BILIRUBIN 0.3 mg/dL (0.2-1.0)
[2020-02-08] MEDS: LACTOBACILLUS RHAMNOSUS GG 1 CAPSULE. PO SCH ×2 (09:11→21:09)
--- NOTE | 2020-02-08 10:39 | PDOC ---
Infectious Disease Note Subjective Subjective c/o back pain aggravated by movement and associated with lower extremity weakness She has a Hernandez catheter in place Denies loss of bowel control/numbness/tingling Denies fevers/chills/aches/N/V/D/SOA/CP Denies sharing needles Previous HIV tests reportedly neg ROS ROS as mentioned above Vital Sign Vital Signs Vital Signs Date Time Temp Pulse Resp B/P (MAP) Pulse Ox O2 Delivery O2 Flow Rate FiO2 02/08/20 09:12 97 Room Air 02/08/20 07:00 98.2 86 18 133/83 (100) 98.2 Physical Exam PHYSICAL EXAM GENERAL: Propped up in bed, alert in NAD HEENT: Normal conjunctivae, oropharynx clear. No lesions seen. NECK: Supple. LUNGS: Clear bilaterally. HEART: S1, S2. No rubs or murmurs. ABDOMEN: Soft, nontender, mildly distended. Bowel sounds present. EXTREMITIES: Trace edema, no cyanosis. DERMATOLOGIC: Warm, dry. No generalized rash. Multiple tattoos. No open wounds noted. Multiple needle luna present. No peripheral stigmata NEUROLOGIC: Alert and oriented x 3, moves BLE, able to bend knees, + strength against resistance. PSYCHIATRIC: Cooperative, slightly agitated. PIV looks ok Labs Lab Laboratory Tests Test 02/08/20 08:36 White Blood Count 7.0 x10^3/uL (4.0-11.0) Red Blood Count 3.72 x10^6/uL (3.50-5.40) Hemoglobin 11.1 g/dL (12.0-15.5) Hematocrit 32.5 % (36.0-47.0) Mean Corpuscular Volume 88 fL (79-100) Mean Corpuscular Hemoglobin 30 pg (25-35) Mean Corpuscular Hemoglobin Concent 34 g/dL (31-37) Red Cell Distribution Width 12.8 % (11.5-14.5) Platelet Count 320 x10^3/uL (140-400) Sodium Level 140 mmol/L (136-145) Potassium Level 3.7 mmol/L (3.5-5.1) Chloride Level 104 mmol/L (98-107) Carbon Dioxide Level 30 mmol/L (21-32) Anion Gap 6 (6-14) Blood Urea Nitrogen 7 mg/dL (7-20) Creatinine 0.6 mg/dL (0.6-1.0) Estimated GFR (Cockcroft-Gault) 113.8 BUN/Creatinine Ratio 12 (6-20) Glucose Level 118 mg/dL (70-99) Calcium Level 7.9 mg/dL (8.5-10.1) Total Bilirubin 0.3 mg/dL (0.2-1.0) Aspartate Amino Transf (AST/SGOT) 23 U/L (15-37) Alanine Aminotransferase (ALT/SGPT) 32 U/L (14-59) Alkaline Phosphatase 73 U/L (46-116) Creatine Kinase 22 U/L (26-192) C-Reactive Protein, Quantitative 60.4 mg/L (0-3.3) Total Protein 6.3 g/dL (6.4-8.2) Albumin 2.1 g/dL (3.4-5.0) Albumin/Globulin Ratio 0.5 (1.0-1.7) LUMBAR MRI Findings: Increased STIR signal within the T11-T12 disc space and adjacent endplates. There is adjacent paravertebral edema. Small anterior fluid collection measures 1.1 x 0.7 cm (series 4 image 8 and series 10 image 8). No evidence of epidural abscess. Increased disc signal at the L4-L5 level. No significant adjacent endplate edema. There is fatty endplate changes at this level. No paravertebral fluid collection. L3 superior degenerative endplate edema. ....... Impression: 1. T11-T12 disc and endplate edema with adjacent paravertebral edema and fluid collection concerning for abscess. Findings overall concerning for infection. 2. L4-L5 increased disc signal, may relate to degenerative changes. Recommend follow-up to exclude additional infectious site. 3. Bilateral retroperitoneal and presacral edema, unchanged compared to prior CT. 4. Multilevel lumbar spinal stenosis most prominent L4-5. Micro MSSA from 02/01. here MRSA from 02/01 [facility] E. coli in urine from 02/01, here Objective Assessment Polymicrobial bacteremia previously methicillin-sensitive Staphylococcus aureus on 02/02/2020 4 out of 4 bottles.02/01 Methicillin-resistant Staphylococcus aureus bacteremia at [facility]. Intravenous drug user. Recent history of Escherichia coli urinary tract infection, 02/01. Left ovarian complex cyst. Hematuria. Fever. Hypokalemia. Protein-calorie malnutrition. Severe back pain. Working diagnosis of possible diskitis/osteomyelitis/epidural abscess. -Lumbar MRI showed increased STIR signal within the TR68-C42 disc space and adjacent endplates. There is adjacent paravertebral edema. Small anterior fluid collection measures 1.1 x 0.7 cm (series 4 image 8 and series 10 image 8). No evidence of epidural abscess. Protein-calorie malnutrition. Plan Plan of Care Continue linezolid and daptomycin. Continue ceftriaxone for UTI. Probiotics Repeat blood cultures 02/07 in progress Await neurosurgical evaluation. Await IR aspiration ERIKA for early next week. Quit IVDU. Check HIV status f/u STD results Pain management per primary Discussed with nursing Discussed with HERRERA Cheung APRN Feb 08, 2020 10:39 SOPHIA JOY MD Feb 08, 2020 13:14
--- NOTE | 2020-02-08 10:43 | PN ---
DATE: 02/08/2020 SUBJECTIVE: The patient is resting, slightly propped up, complaining of severe back pain and pain radiating to her left lower extremity that is new. Her MRI showed that the patient has increased STIR signal within the T11-T12 disk space and adjacent endplates, there is adjacent paravertebral edema, a small inferior fluid collection that measures 1.1 x 0.7 cm. No evidence of epidural abscess has increased disk signal at L4-L5 level. No significant adjacent endplate edema. There is fatty endplate change at this level. No paravertebral fluid collection, L3 severe and degenerative endplate edema. Normal vertebral body heights and alignment, no fracture. The patient has bilateral retroperitoneal edema that is seen on prior CT scan. Conus terminates at the normal location. No evidence of nerve root clumping. Given the abscess and new neurological deficit, I have consulted the neurologist, neurosurgeon as well as interventional radiologist. The patient was seen already by the Infectious Disease and her antibiotics were adjusted and we did consult the senior unix administrator and a ERIKA is planned for Monday to rule out the possibility of endocarditis. PHYSICAL EXAMINATION: GENERAL: When I saw her this morning, she looked well and was clearly in no apparent respiratory distress. No pallor, jaundice, cyanosis, or thyromegaly. No jugular venous distention. No lower limb edema. VITAL SIGNS: Her heart rate was 86, blood pressure was 133/83, temperature was 98.2, respiratory rate was 18 and oxygen saturation was 97% on room air. HEAD, EYES, EARS, NOSE, AND THROAT: Showed normocephalic, atraumatic. NECK: Supple. HEART: Showed normal first and second heart sounds. No gallop, rub, or murmur. CHEST: Clear to auscultation. No crepitation or rhonchi. ABDOMEN: Distended, soft, nontender. NEUROLOGIC: She is awake, alert, responding appropriately. All cranial nerves intact. She moves extremities without difficulty, although movement of the left lower extremity induces severe back pain. The patient has an indwelling Hernandez catheter. Her intake was incompletely recorded, output was 700. LABORATORY DATA: As of this morning; her white cell count was 7000; hemoglobin 11; hematocrit 32; MCV 88; and platelet count of 320,000. Her chemistry showed a serum sodium 140, potassium 3.7, chloride 104, bicarbonate 30, anion gap of 6, BUN 7, creatinine 0.6, estimated GFR was 113 mL per minute. Her glucose was 118, calcium was 7.9. Total bilirubin, AST, ALT, alkaline phosphatase are normal. Her CK was only 22. C-reactive protein was 60 mg/dL, total protein was 6.3, albumin was 2.1. ASSESSMENT: 1. Polymicrobial bacteremia previously methicillin-sensitive Staphylococcus aureus on 02/02/2020 in 4/4 bottles. 2. Methicillin-resistant Staphylococcus aureus bacteremia at [facility], intravenous drug use. 3. Urinary tract infection with growth of Escherichia coli. 4. Left ovarian complex cyst. 5. Hypokalemia. 6. Severe protein-calorie malnutrition. 7. Back pain with evidence of diskitis, osteomyelitis, and paraspinal abscesses. PLAN: My plan is obviously to continue with all IV antibiotics as recommended by the Infectious Disease specialist. We will arrange for her to have a PICC line. I have consulted the neurosurgeon, neurologist as well as interventional radiologist to see whether this abscess needs to be drained. KEENAN SHELLEY MD DR: ALECIA/geneva JOB#: [id number] / [id number]
[2020-02-08 11:00] VITALS: BP 144/95
--- NOTE | 2020-02-08 12:26 | PDOC2 ---
NEUROLOGY CONSULT Date of Service DOS: DATE: 02/08/20 TIME: 12:21 Reason for Consult Reason for Consult: Lumbar abscess Referring Physician Referring Physician: Dr. Anthony Source Source: Chart review, Patient History of Present Illness History of Present Illness The patient is a 34-year-old right-handed female who presented to [place] on 02/01 with back pain, dysuria, hematuria, fever, and body aches. She left AGAINST MEDICAL ADVICE. COVID was negative. Then the patient returned to [facility] on 02/04 and found to have gram-positive cocci in clusters consistent with methicillin-resistant Staphylococcus aureus. She was started on Rocephin then switched to Zosyn and vancomycin. She continued to have severe back pain. CT of the lumbar spine was performed, as reviewed below. She was then transferred back to [place] to have an MRI study which was done yesterday, also reviewed below. She has chronic back pain since age 15, and has been on pain pills ever since. When she lost her insurance she started treating herself with intravenous heroin. There is no recent spine injury. She has no history of stroke, seizure, or head injury. She denies any symptoms in the upper back, neck, or arms. Past Medical History Psych: Addictions (Heroin) Past Surgical History Past Surgical History: No pertinent history Family History Family History: Other (Mom has a brain tumor, father has a spinal tumor) Social History Social History [employer] WORK[employer], occasional alcohol, occasional tobacco, occasional marijuana. She abuses heroin. Urine drug screen at [facility] was positive for cannabinoids and amphetamine Current Medications Current Medications Current Medications Acetaminophen (Tylenol) 1,000 mg PRN Q6HRS PRN PO MILD PAIN 1-3; Start 02/06/20 at 22:15 Albuterol Sulfate (Ventolin Neb Soln) 2.5 mg PRN Q4HRS PRN NEB SHORTNESS OF BREATH; Start 02/06/20 at 22:15 Bisacodyl (Dulcolax Tab) 10 mg PRN DAILY PRN PO CONSTIPATION 1ST CHOICE; Start 02/06/20 at 22:15 Methocarbamol (Robaxin) 750 mg PRN Q8HRS PRN PO MUSCLE SPASMS Last administered on 02/08/20at 06:40; Start 02/06/20 at 22:15 Albuterol/ Ipratropium (Duoneb) 3 ml RTQID NEB Last administered on 02/08/20at 07:58; Start 02/07/20 at 08:00 Lactobacillus Rhamnosus (Culturelle) 1 cap BID PO Last administered on 02/08/20at 09:11; Start 02/07/20 at 09:00 Linezolid/Dextrose 300 ml @ 300 mls/hr Q12HR IV Last administered on 02/08/20at 09:11; Start 02/07/20 at 09:00 Morphine Sulfate (Morphine Sulfate) 4 mg PRN Q3HRS PRN IM SEVERE PAIN 7-10; Start 02/06/20 at 22:15; Stop 02/07/20 at 01:04; Status DC Phenazopyridine HCl (Pyridium) 100 mg PRN TID PRN PO URINARY PAIN Last administered on 02/07/20at 01:07; Start 02/06/20 at 22:15 Hydromorphone HCl (Dilaudid) 2 mg PRN Q4HRS PRN IV SEVERE PAIN 7-10 (2nd choice) Last administered on 02/07/20at 23:49; Start 02/06/20 at 22:15; Stop 02/08/20 at 02:16; Status DC Sodium Chloride 1,000 ml @ 75 mls/hr [id number] IV Last administered on 02/07/20at 00:45; Start 02/07/20 at 00:45; Stop 02/07/20 at 14:12; Status DC Morphine Sulfate (Morphine Sulfate) 4 mg PRN Q3HRS PRN IV SEVERE PAIN 7-10 (1st choice) Last administered on 02/07/20at 21:59; Start 02/07/20 at 01:15 Gadoterate Meglumine (Dotarem) 24.2 ml 1X ONCE IVP Last administered on 02/07/20at 12:44; Start 02/07/20 at 12:30; Stop 02/07/20 at 12:31; Status DC Daptomycin 540 mg/ Sodium Chloride 50 ml @ 100 mls/hr Q24H IV Last administered on 02/07/20at 15:37; Start 02/07/20 at 14:00 Ceftriaxone Sodium (Rocephin) 2 gm Q24H IVP Last administered on 02/07/20at 14:16; Start 02/07/20 at 14:00 Potassium Chloride/Sodium Chloride 1,000 ml @ 75 mls/hr [id number] IV Last administered on 02/07/20at 15:38; Start 02/07/20 at 14:00 Zolpidem Tartrate (Ambien) 5 mg PRN QHS PRN PO INSOMNIA Last administered on 02/07/20at 21:55; Start 02/07/20 at 22:00 Hydromorphone HCl (Dilaudid) 2 mg PRN Q3HRS PRN IV SEVERE PAIN 7-10 Last administered on 02/08/20at 09:12; Start 02/08/20 at 02:15 Allergies Allergies: Coded Allergies: I S O L A T I O N *CONTACT* (Verified Allergy, Unknown, 02/07/20) mrsa No Known Medication Allergies (Verified Allergy, Unknown, 02/07/20) ROS Review of System Negative for fever, chills, weight loss, shortness of breath, chest pain, indigestion, hematochezia, melena, and dysuria. Full 14-point review of systems is negative. Physical Exam Physical Examination General: Well-developed, well-nourished white female in no acute distress HEENT: Normocephalic andatraumatic.Temporal arteriespulsatile and nontender. Neck: Supple without bruit, no meningismus Back: Diffuse lumbar tenderness. Straight leg raising test is negative, but she does somewhat splint the left leg Musculoskeletal: Stability:see neurologic. Gait exam:see neurologic. Tone:see neurologic.Strength:see neurologic. Neurological: Mental Status:intact, orientation, memory, attention span/concentration, language, fund of knowledge normal. Cranial Nerves:Pupils equal and reactive to light, extraocular movements areintact, visual ramos are full to confrontati on. Facial sensation is normal. There is no facial asymmetry. Vestibulo-ocular reflex is intact. Palate elevates and tongue protrudes in midline. All other cranial related problems are negative except as mentioned before.Reflexes:2+ and symmetric with flexor plantar responses. Motor:5/5 strength with normal tone and bulk, splints the left leg some. Coordination:Finger-nose finger and uigy-xu-ohml testing are normal. Rapid alternating movements and fine finger movements are intact. Gait:Not tested. Sensory:Normal pinprick, vibration, light touch, proprioception. Vitals VITALS Vital Signs Date Time Temp Pulse Resp B/P (MAP) Pulse Ox O2 Delivery O2 Flow Rate FiO2 02/08/20 11:00 98.3 82 20 144/95 (111) 97 Room Air 98.3 Labs Labs Laboratory Tests Test 02/07/20 09:15 02/08/20 08:36 White Blood Count 7.1 x10^3/uL (4.0-11.0) 7.0 x10^3/uL (4.0-11.0) Red Blood Count 4.12 x10^6/uL (3.50-5.40) 3.72 x10^6/uL (3.50-5.40) Hemoglobin 12.4 g/dL (12.0-15.5) 11.1 g/dL (12.0-15.5) Hematocrit 36.3 % (36.0-47.0) 32.5 % (36.0-47.0) Mean Corpuscular Volume 88 fL (79-100) 88 fL (79-100) Mean Corpuscular Hemoglobin 30 pg (25-35) 30 pg (25-35) Mean Corpuscular Hemoglobin Concent 34 g/dL (31-37) 34 g/dL (31-37) Red Cell Distribution Width 13.0 % (11.5-14.5) 12.8 % (11.5-14.5) Platelet Count 257 x10^3/uL (140-400) 320 x10^3/uL (140-400) Neutrophils (%) (Auto) 60 % (31-73) Lymphocytes (%) (Auto) 32 % (24-48) Monocytes (%) (Auto) 7 % (0-9) Eosinophils (%) (Auto) 1 % (0-3) Basophils (%) (Auto) 1 % (0-3) Neutrophils # (Auto) 4.3 x10^3/uL (1.8-7.7) Lymphocytes # (Auto) 2.3 x10^3/uL (1.0-4.8) Monocytes # (Auto) 0.5 x10^3/uL (0.0-1.1) Eosinophils # (Auto) 0.1 x10^3/uL (0.0-0.7) Basophils # (Auto) 0.0 x10^3/uL (0.0-0.2) Sodium Level 137 mmol/L (136-145) 140 mmol/L (136-145) Potassium Level 3.3 mmol/L (3.5-5.1) 3.7 mmol/L (3.5-5.1) Chloride Level 101 mmol/L (98-107) 104 mmol/L (98-107) Carbon Dioxide Level 27 mmol/L (21-32) 30 mmol/L (21-32) Anion Gap 9 (6-14) 6 (6-14) Blood Urea Nitrogen 5 mg/dL (7-20) 7 mg/dL (7-20) Creatinine 0.5 mg/dL (0.6-1.0) 0.6 mg/dL (0.6-1.0) Estimated GFR (Cockcroft-Gault) 140.4 113.8 BUN/Creatinine Ratio 10 (6-20) 12 (6-20) Glucose Level 120 mg/dL (70-99) 118 mg/dL (70-99) Calcium Level 8.7 mg/dL (8.5-10.1) 7.9 mg/dL (8.5-10.1) Total Bilirubin 0.4 mg/dL (0.2-1.0) 0.3 mg/dL (0.2-1.0) Aspartate Amino Transf (AST/SGOT) 24 U/L (15-37) 23 U/L (15-37) Alanine Aminotransferase (ALT/SGPT) 34 U/L (14-59) 32 U/L (14-59) Alkaline Phosphatase 78 U/L (46-116) 73 U/L (46-116) Total Protein 7.0 g/dL (6.4-8.2) 6.3 g/dL (6.4-8.2) Albumin 2.2 g/dL (3.4-5.0) 2.1 g/dL (3.4-5.0) Albumin/Globulin Ratio 0.5 (1.0-1.7) 0.5 (1.0-1.7) Creatine Kinase 22 U/L (26-192) C-Reactive Protein, Quantitative 60.4 mg/L (0-3.3) Laboratory Tests Test 8/15/20 08:36 White Blood Count 7.0 x10^3/uL (4.0-11.0) Red Blood Count 3.72 x10^6/uL (3.50-5.40) Hemoglobin 11.1 g/dL (12.0-15.5) Hematocrit 32.5 % (36.0-47.0) Mean Corpuscular Volume 88 fL (79-100) Mean Corpuscular Hemoglobin 30 pg (25-35) Mean Corpuscular Hemoglobin Concent 34 g/dL (31-37) Red Cell Distribution Width 12.8 % (11.5-14.5) Platelet Count 320 x10^3/uL (140-400) Sodium Level 140 mmol/L (136-145) Potassium Level 3.7 mmol/L (3.5-5.1) Chloride Level 104 mmol/L (98-107) Carbon Dioxide Level 30 mmol/L (21-32) Anion Gap 6 (6-14) Blood Urea Nitrogen 7 mg/dL (7-20) Creatinine 0.6 mg/dL (0.6-1.0) Estimated GFR (Cockcroft-Gault) 113.8 BUN/Creatinine Ratio 12 (6-20) Glucose Level 118 mg/dL (70-99) Calcium Level 7.9 mg/dL (8.5-10.1) Total Bilirubin 0.3 mg/dL (0.2-1.0) Aspartate Amino Transf (AST/SGOT) 23 U/L (15-37) Alanine Aminotransferase (ALT/SGPT) 32 U/L (14-59) Alkaline Phosphatase 73 U/L (46-116) Creatine Kinase 22 U/L (26-192) C-Reactive Protein, Quantitative 60.4 mg/L (0-3.3) Total Protein 6.3 g/dL (6.4-8.2) Albumin 2.1 g/dL (3.4-5.0) Albumin/Globulin Ratio 0.5 (1.0-1.7) Images Images CT Lumbar Spine without IV contrast INDICATION: Reason: positive blood cultures and severe back pain / Spl. Instructions: please scan the sacral area / History: TECHNIQUE: Multi-detector row CT images were obtained through the lumbar spine without the use of IV contrast. Post-processing sagittal and coronal reconstructed images were obtained for interpretation. All CT scans performed at this facility utilize dose optimization techniques as appropriate to the exam, including the following: Automated exposure control and adjustment of the mA and/or KV according to patient size (this includes techniques or standardized protocols for targeted exams where dose is indication/reason for exam). COMPARISON: CT abdomen and pelvis with IV contrast of 03/30/2009, L-spine x-rays of 11/28/2012. FINDINGS: The lowest fully formed disc is referred to as the L5-S1 level. ALIGNMENT: Alignment is within normal limits. OSSEOUS: L5 is a transitional vertebra, partially sacralized on the right. The vertebral body heights are preserved and, superimposed on generalized demineralization, is subchondral sclerosis at L4-L5 with minimal endplate irregularity at L4, new from the previous CT. The available L-spine x-ray images are oblique images where the disc spaces are not viewed in profile but similar degenerative changes are not as apparent on that study from 2013 either. There is also asymmetric lucency at the lateral superior left L4 endplate that is also new from the previous CT. DISC SPACES: Narrowing at L4-L5 and to a slightly lesser extent, L5-S1. FACET JOINTS: Unremarkable. SPINAL CANAL: Unremarkable. NEUROFORAMINA: Mild foraminal narrowing most notably at L4-L5 due to endplate degenerative changes and disc loss of height. SOFT TISSUES: There is exuberant retroperitoneal soft tissue edema and stranding tracking all the way into the presacral space in the pelvis. No organized fluid collection is identified. No abnormal gas collection. A Hernandez catheter decompresses the urinary bladder. A left multiloculated adnexal cystic mass is present, similar to previous CT but with multiple loculations now present, where previously it seems to be a simple unilocular cystic structure. IMPRESSION: 1. Findings of degenerative change most conspicuous at L4-L5 and possibly early similar changes at L3-L4. Superimposed infection is not confidently excluded on CT alone and MRI could be helpful in further evaluation of any early changes of discitis osteomyelitis and for the possible presence of an epidural abscess if clinically suspected. 2. Exuberant retroperitoneal soft tissue stranding noted in setting of a multiloculated left adnexal cystic mass. Etiology is uncertain with differential considerations including pyelonephritis tubo-ovarian complex. LUMBAR SPINE WO/W CONTRAST History: Reason: osteomyeletis, ABONORMAL CT, LBP WITH BILATERAL LEG WEAKNESS Technique: Multiplanar, multi sequential MR imaging was performed of the lumbar spine. Comparison: CT lumbar spine February 05, 2020. CT abdomen pelvis February 02, 2020 Findings: Increased STIR signal within the T11-T12 disc space and adjacent endplates. There is adjacent paravertebral edema. Small anterior fluid collection measures 1.1 x 0.7 cm (series 4 image 8 and series 10 image 8). No evidence of epidural abscess. Increased disc signal at the L4-L5 level. No significant adjacent endplate edema. There is fatty endplate changes at this level. No paravertebral fluid collection. L3 superior degenerative endplate edema. Normal vertebral body height and alignment. No fracture. Bilateral retroperitoneal edema is seen on prior CT. Conus terminates at the normal location. No evidence of nerve root clumping. L1-L2: No canal or neuroforaminal narrowing. L2-L3: No canal or neuroforaminal narrowing. Mild facet arthropathy. L3-L4: Minimal disc bulge. Mild facet arthropathy. Bilateral facet joint effusions. Mild subarticular recess narrowing. No canal narrowing. No neuroforaminal narrowing. L4-L5: Small disc bulge. Moderate facet arthropathy. Mild subarticular recess narrowing. No canal narrowing. Mild bilateral neuroforaminal narrowing. L5-S1: Partial sacralization of L5. No canal narrowing. No neuroforaminal narrowing. Impression: 1. T11-T12 disc and endplate edema with adjacent paravertebral edema and fluid collection concerning for abscess. Findings overall concerning for infection. 2. L4-L5 increased disc signal, may relate to degenerative changes. Recommend follow-up to exclude additional infectious site. 3. Bilateral retroperitoneal and presacral edema, unchanged compared to prior CT. 4. Multilevel lumbar spinal stenosis most prominent L4-5. Assessment/Plan Assessment/Plan Impression: Abscess at T11-T12 and possibly L4-L5 Retroperitoneal and presacral edema Multilevel lumbar spinal stenosis most prominent L4-5. Neurologically intact in the lower extremities. Multiple substance abuse. Recommendations: Agree with antibiotics As discussed with Dr. Cavazos, no need for immediate surgery Consider MRI of the cervical and thoracic spines as well Physical therapy modalities Continue current pain management, I have nothing to add. Thank you for letting me help with the patient's care. SHANNON ISRAEL MD Feb 08, 2020 12:26
[2020-02-08] MEDS: PHENAZOPYRIDINE 200 MG TABLET. PO PRN ×2 (12:31→21:10)
[2020-02-08 15:00] VITALS: BP 148/94
[2020-02-08] MEDS: DAPTOmycin (GENERIC) IVPB 540 MG in IV NORMAL SALINE 50ML 50 ML IV SCH (15:34)
[2020-02-08] MEDS: cefTRIAXone IV Push 2 GM VIAL. IVP SCH (15:38)
[2020-02-08 19:56] VITALS: BP 137/77
[2020-02-08] MEDS: ZOLPIDEM 5 MG TABLET. PO PRN (21:10)
--- NOTE | 2020-02-08 21:44 | NUR ---
Attempted to assist pt to turn over and pt was being rude when this nurse entered the room, pt using profanity and states just help, when this nurse went to help pt states do not pull on the sheets. Flat sheet was hanging off the bed and pt turning with larson catheter in the way however pt states stop moving the sheets and not letting this nurse help. Trying to assist pt however pt states just leave I will do it myself. Notified pt's nurse.
--- NOTE | 2020-02-08 22:21 | PDOC ---
Provider Note Provider Note Patient seen and examined at 1220 consulted for spinal abscess c/o severe lower back pain that radiated to lower abdomen, left hip and leg pain lumbar MRI with mild multilevel canal stenosis possible discitis with anterior abscess at T11-T12 and possibly L4-L5, no epidural abscess seen Retroperitoneal and presacral edema Neurologically intact Multiple substance abuse D/W Dr. Singh Antibiotics Thoracic and cervical MRI scans Justicifation of Admission Dx: Justifications for Admission: Justification of Admission Dx: Yes AMANDA GONZALEZ MD Feb 08, 2020 22:21
[2020-02-09] VITALS (7 sets, daily range): BP systolic 133–163; BP diastolic 77–103
[2020-02-09] MEDS: HYDROmorphone 2 MG/ML VIAL IV PRN ×8 (00:01→20:49)
[2020-02-09] MEDS: POTASSIUM CL 40MEQ IN 0.9%NACL 1,000 ML IV SCH ×2 (05:55→19:20)
[2020-02-09] MEDS: IPRATRPIUM/ALBUTEROL 0.5/2.5MG 3 ML NEBU. NEB SCH ×4 (07:59→20:00)
[2020-02-09] MEDS: METHOCARBAMOL 750 MG TABLET PO PRN ×2 (07:59→16:31)
[2020-02-09] MEDS: oxyCODONE ER 10 MG TAB.ER.12H PO SCH ×2 (08:39→20:49)
[2020-02-09] MEDS: LACTOBACILLUS RHAMNOSUS GG 1 CAPSULE. PO SCH ×2 (08:39→20:48)
[2020-02-09] MEDS: LORazepam 0.5 MG TABLET PO PRN ×2 (08:39→16:30)
--- NOTE | 2020-02-09 09:24 | PDOC ---
Infectious Disease Note Subjective Subjective c/o severe back pain aggravated by movement and associated with lower extremity weakness and left leg numbness She has a Hernandez catheter in place Denies loss of bowel control Denies fevers/chills/aches/N/V/D/SOA/CP ROS ROS as mentioned above Vital Sign Vital Signs Vital Signs Date Time Temp Pulse Resp B/P (MAP) Pulse Ox O2 Delivery O2 Flow Rate FiO2 02/09/20 08:39 Room Air 02/09/20 07:00 98.2 85 20 147/99 (115) 99 98.2 Physical Exam PHYSICAL EXAM GENERAL: Lying down, alert, irritable HEENT: Normal conjunctivae, oropharynx clear. No lesions seen. NECK: Supple. LUNGS: Clear bilaterally. HEART: S1, S2. No rubs or murmurs. ABDOMEN: Soft, nontender, mildly distended. Bowel sounds present. EXTREMITIES: Trace edema, no cyanosis. DERMATOLOGIC: Warm, dry. No generalized rash. Multiple tattoos. No open wounds noted. Multiple needle luna present. No peripheral stigmata NEUROLOGIC: Alert and oriented x 3, moves BLE PSYCHIATRIC: Cooperative, slightly agitated. PIV looks ok Labs Micro 02/07. BLOOD CULTURE Preliminary NO GROWTH AFTER 1 DAY MRSA from 02/01 [facility] BLOOD CULTURE LC Final Final GRAM POSITIVE COCCI FINAL ID= [STAPHYLOCOCCUS AUREUS (MRSA)] STAPHYLOCOCCUS AUREUS (MRSA) ANTIMICROBIAL SUSCEPTIBILITY Final Comment POS CHUY TYPE 38 STAPHYLOCOCCUS AUREUS (MRSA) ANTIBIOTIC RESULT INTERPRETATION AZITHROMYCIN >4 R CLINDAMYCIN <=0.25 S CEFOXITIN SCREEN >4 POS CIPROFLOXACIN <=1 S CEFTAROLINE <=0.5 S DAPTOMYCIN 1 S ERYTHROMYCIN >4 R GENTAMICIN <=4 S INDUCIBLE CLINDAMYCIN <=4/0.5 NEG LINEZOLID 2 S LEVOFLOXACIN <=1 S OXACILLIN 1 R* PENICILLIN >2 R* RIFAMPIN <=1 S TRIMETHOPRIM/SULFAMETHOXAZOLE <=0.5/9.5 S TETRACYCLINE <=4 S VANCOMYCIN 1 S MSSA from 02/01. here BLOOD CULTURE LC Final Final GRAM POSITIVE COCCI FINAL ID= [STAPHYLOCOCCUS AUREUS] STAPHYLOCOCCUS AUREUS ANTIMICROBIAL SUSCEPTIBILITY Final Comment POS CHUY TYPE 38 STAPHYLOCOCCUS AUREUS ANTIBIOTIC RESULT INTERPRETATION AZITHROMYCIN >4 R CLINDAMYCIN <=0.25 S CEFOXITIN SCREEN <=4 NEG CIPROFLOXACIN <=1 S CEFTAROLINE <=0.5 S DAPTOMYCIN <=0.5 S ERYTHROMYCIN >4 R GENTAMICIN <=4 S INDUCIBLE CLINDAMYCIN <=4/0.5 NEG LINEZOLID 2 S LEVOFLOXACIN <=1 S OXACILLIN 1 S PENICILLIN >2 Madiha RIFAMPIN <=1 S TRIMETHOPRIM/SULFAMETHOXAZOLE <=0.5/9.5 S TETRACYCLINE <=4 S VANCOMYCIN 1 S E. coli in urine from 02/01, here ANTIMICROBIAL SUSCEPTIBILITY Final Comment NEG CHUY 56 ESCHERICHIA COLI ANTIBIOTIC RESULT INTERPRETATION AMPICILLIN/SULBACTAM >16/8 R AMIKACIN <=16 S AMPICILLIN >16 R AMOXICILLIN/K CLAVULANATE <=8/4 S AZTREONAM <=4 S CEFTRIAXONE <=1 S CEFTAZIDIME <=1 S CEFOTAXIME <=2 S CEFOXITIN <=8 S CIPROFLOXACIN <=0.25 S CEFEPIME <=2 S CEFUROXIME <=4 S CEFTAZIDIME/AVIBACTAM <=4 S ERTAPENEM <=0.5 S NITROFURANTOIN <=32 S GENTAMICIN <=2 S LEVOFLOXACIN <=0.5 S MEROPENEM <=1 S PIPERACILLIN/TAZOBACTAM <=8 S TRIMETHOPRIM/SULFAMETHOXAZOLE >2/38 R TETRACYCLINE >8 R TOBRAMYCIN <=2 S Objective Assessment MSSA ([facility] 02/01) and MRSA ([facility], 02/01) bacteremia Intravenous drug user. Recent history of Escherichia coli urinary tract infection, 02/01. Left ovarian complex cyst. Hematuria. Fever - bettter Hypokalemia. Protein-calorie malnutrition. Severe back pain. 02/04 at [facility] CT findings concerning for diskitis/osteomyelitis/epidural abscess. -Lumbar MRI showed increased STIR signal within the DX18-E94 disc space and adjacent endplates. There is adjacent paravertebral edema. Small anterior fluid collection measures 1.1 x 0.7 cm (series 4 image 8 and series 10 image 8). No evidence of epidural abscess. -L4-L5 increased disc signal -Bilateral retroperitoneal and presacral edema -Multilevel lumbar spinal stenosis most prominent L4-5. Plan Plan of Care Patient was initially admitted to [facility] on transfer from [facility] on 02/01 but then left AMA on the same day. She was then re-admitted here from [facility] 02/05 for possible diskitis/osteo of lumbar w/ ? epidural abscess. Continue linezolid and daptomycin. Continue ceftriaxone for UTI. Monitor for abx toxicities Probiotics Repeat blood cultures 02/07 neg to date f/u MRI cervical & thoracic spine Await IR aspiration ERIKA for early next week. Quit IVDU. HIV status in progress f/u STD results Pain management per primary Discussed with nursing The patient was seen and examined at the bedside. The chart was reviewed. The case was discussed. Agree with the plan of care. Critically ill Neurosurgery input noted Follow blood cultures negative so far HERRERA HUA APRN Feb 09, 2020 09:24 SOPHIA JOY MD Feb 09, 2020 14:52
--- NOTE | 2020-02-09 09:55 | PN ---
DATE: 02/09/2020 SUBJECTIVE: The patient is resting, slightly propped up in bed, no apparent respiratory distress. She continued to complain of severe back pain. Nursing staff stated she was very tearful and anxious. She apparently was seen by Dr. Henson as well as Dr. Torrez. MRI of the cervical and thoracic spine were added, but so far there is no need for any surgical intervention. In particular, there is no spinal epidural abscess. PHYSICAL EXAMINATION: GENERAL: When I examined her this morning, she was resting, slightly propped up in bed, slightly pale. No jaundice, cyanosis or thyromegaly. No jugular venous distention. No limb edema. VITAL SIGNS: Her heart rate was 85, blood pressure was 147/99, temperature was 98.2, respiratory rate 20, and oxygen saturation was 99% on room air. HEENT: Showed normocephalic, atraumatic. NECK: Supple. CARDIAC: Normal first and second heart sounds. No gallop or murmur. CHEST: Clear to auscultation. No crepitation or rhonchi. ABDOMEN: Distended, soft, nontender. NEUROLOGIC: She is awake, alert, responding appropriately. She moves all extremities without difficulty. She continued to have pain in her left lower extremity. Her intake over the last 24 hours was 720, output was 3100. LABORATORY WORK: Still pending at the time of this dictation. ASSESSMENT: 1. Polymicrobial bacteremia, previously methicillin-sensitive Staphylococcus aureus on 02/02/2020 in 4/4 bottles. 2. Methicillin-resistant Staphylococcus aureus bacteremia at [facility]. 3. Intravenous drug abuse. 4. Urinary tract infection with growth of Escherichia coli. 5. Left ovarian complex cyst. 6. Hypokalemia. 7. Severe protein-calorie malnutrition. 8. Severe back pain with evidence of diskitis, osteomyelitis and paraspinal abscess, but no epidural abscess. PLAN: My plan is to add OxyContin 10 mg twice a day as well as Ativan 0.5 mg 3 times a day for anxiety. Meanwhile, we will continue with IV antibiotic. The input from the neurosurgeon and neurologist is greatly appreciated. She is scheduled tomorrow for transesophageal echocardiogram to rule out endocarditis. KEENAN SHELLEY MD DR: ALECIA/geneva JOB#: [id number] / [id number]
[2020-02-09 11:01] LABS: ALBUMIN 2.2 g/dL (3.4-5.0); ALBUMIN/GLOBULIN RATIO 0.4 (1.0-1.7); CALCIUM 8.5 mg/dL (8.5-10.1); CREATININE 0.7 mg/dL (0.6-1.0); GFR 95.2; POTASSIUM 4.3 mmol/L (3.5-5.1); TOTAL BILIRUBIN 0.3 mg/dL (0.2-1.0); TOTAL PROTEIN 7.3 g/dL (6.4-8.2)
--- NOTE | 2020-02-09 12:53 | PDOC ---
PROGRESS NOTES Assessment Abscess at T11-T12 and possibly L4-L5 Retroperitoneal and presacral edema Multilevel lumbar spinal stenosis most prominent L4-5. Neurologically intact in the lower extremities. Multiple substance abuse. Plan Agree with antibiotics Await MRI of the cervical and thoracic spines Physical therapy modalities Continue current pain management Subjective No new complaints Objective Vital Signs Date Time Temp Pulse Resp B/P (MAP) Pulse Ox O2 Delivery O2 Flow Rate FiO2 02/09/20 12:25 Room Air 02/09/20 11:23 98.0 74 22 150/99 (116) 95 98.0 Intake and Output 02/09/20 07:00 Intake Total 900 ml Output Total 4075 ml Balance -3175 ml Intake Oral 900 ml Output Urine Total 4075 ml PHYSICAL EXAM Alert. Oriented to time, place and person. PERRL. EOMI. CN: no focal findings. Muscle tone: normal. Muscle strength: 5/5 strength with normal tone and bulk, splints the left leg DTR: 2+ Plantar reflex: flexor Gait: not examined in bed. Sensory exam: no abnormal findings. No cerebellar signs elicited. Review of Relevant I have reviewed the following items bertrand (where applicable) has been applied. Labs Laboratory Tests Test 02/08/20 08:36 02/09/20 10:15 White Blood Count 7.0 x10^3/uL (4.0-11.0) Red Blood Count 3.72 x10^6/uL (3.50-5.40) Hemoglobin 11.1 g/dL (12.0-15.5) Hematocrit 32.5 % (36.0-47.0) Mean Corpuscular Volume 88 fL (79-100) Mean Corpuscular Hemoglobin 30 pg (25-35) Mean Corpuscular Hemoglobin Concent 34 g/dL (31-37) Red Cell Distribution Width 12.8 % (11.5-14.5) Platelet Count 320 x10^3/uL (140-400) Sodium Level 140 mmol/L (136-145) 137 mmol/L (136-145) Potassium Level 3.7 mmol/L (3.5-5.1) 4.3 mmol/L (3.5-5.1) Chloride Level 104 mmol/L (98-107) 101 mmol/L (98-107) Carbon Dioxide Level 30 mmol/L (21-32) 30 mmol/L (21-32) Anion Gap 6 (6-14) 6 (6-14) Blood Urea Nitrogen 7 mg/dL (7-20) 9 mg/dL (7-20) Creatinine 0.6 mg/dL (0.6-1.0) 0.7 mg/dL (0.6-1.0) Estimated GFR (Cockcroft-Gault) 113.8 95.2 BUN/Creatinine Ratio 12 (6-20) 13 (6-20) Glucose Level 118 mg/dL (70-99) 113 mg/dL (70-99) Calcium Level 7.9 mg/dL (8.5-10.1) 8.5 mg/dL (8.5-10.1) Total Bilirubin 0.3 mg/dL (0.2-1.0) 0.3 mg/dL (0.2-1.0) Aspartate Amino Transf (AST/SGOT) 23 U/L (15-37) 31 U/L (15-37) Alanine Aminotransferase (ALT/SGPT) 32 U/L (14-59) 36 U/L (14-59) Alkaline Phosphatase 73 U/L (46-116) 71 U/L (46-116) Creatine Kinase 22 U/L (26-192) C-Reactive Protein, Quantitative 60.4 mg/L (0-3.3) Total Protein 6.3 g/dL (6.4-8.2) 7.3 g/dL (6.4-8.2) Albumin 2.1 g/dL (3.4-5.0) 2.2 g/dL (3.4-5.0) Albumin/Globulin Ratio 0.5 (1.0-1.7) 0.4 (1.0-1.7) Laboratory Tests Test 02/09/20 10:15 Sodium Level 137 mmol/L (136-145) Potassium Level 4.3 mmol/L (3.5-5.1) Chloride Level 101 mmol/L (98-107) Carbon Dioxide Level 30 mmol/L (21-32) Anion Gap 6 (6-14) Blood Urea Nitrogen 9 mg/dL (7-20) Creatinine 0.7 mg/dL (0.6-1.0) Estimated GFR (Cockcroft-Gault) 95.2 BUN/Creatinine Ratio 13 (6-20) Glucose Level 113 mg/dL (70-99) Calcium Level 8.5 mg/dL (8.5-10.1) Total Bilirubin 0.3 mg/dL (0.2-1.0) Aspartate Amino Transf (AST/SGOT) 31 U/L (15-37) Alanine Aminotransferase (ALT/SGPT) 36 U/L (14-59) Alkaline Phosphatase 71 U/L (46-116) Total Protein 7.3 g/dL (6.4-8.2) Albumin 2.2 g/dL (3.4-5.0) Albumin/Globulin Ratio 0.4 (1.0-1.7) Microbiology 02/08/20 Blood Culture - Preliminary, Resulted NO GROWTH AFTER 1 DAY Medications Current Medications Acetaminophen (Tylenol) 1,000 mg PRN Q6HRS PRN PO MILD PAIN 1-3; Start 02/06/20 at 22:15 Albuterol Sulfate (Ventolin Neb Soln) 2.5 mg PRN Q4HRS PRN NEB SHORTNESS OF BREATH; Start 02/06/20 at 22:15 Bisacodyl (Dulcolax Tab) 10 mg PRN DAILY PRN PO CONSTIPATION 1ST CHOICE; Start 02/06/20 at 22:15 Methocarbamol (Robaxin) 750 mg PRN Q8HRS PRN PO MUSCLE SPASMS Last administered on 02/09/20at 07:59; Start 02/06/20 at 22:15 Albuterol/ Ipratropium (Duoneb) 3 ml RTQID NEB Last administered on 02/08/20at 20:17; Start 02/07/20 at 08:00 Lactobacillus Rhamnosus (Culturelle) 1 cap BID PO Last administered on 02/09/20at 08:39; Start 02/07/20 at 09:00 Linezolid/Dextrose 300 ml @ 300 mls/hr Q12HR IV Last administered on 02/09/20at 10:17; Start 02/07/20 at 09:00 Morphine Sulfate (Morphine Sulfate) 4 mg PRN Q3HRS PRN IM SEVERE PAIN 7-10; Start 02/06/20 at 22:15; Stop 02/07/20 at 01:04; Status DC Phenazopyridine HCl (Pyridium) 100 mg PRN TID PRN PO URINARY PAIN Last administered on 02/08/20 21:10; Start 02/06/20 at 22:15 Hydromorphone HCl (Dilaudid) 2 mg PRN Q4HRS PRN IV SEVERE PAIN 7-10 (2nd choice) Last administered on 02/07/20at 23:49; Start 02/06/20 at 22:15; Stop 02/08/20 at 02:16; Status DC Sodium Chloride 1,000 ml @ 75 mls/hr [id number] IV Last administered on 02/07/20at 00:45; Start 02/07/20 at 00:45; Stop 02/07/20 at 14:12; Status DC Morphine Sulfate (Morphine Sulfate) 4 mg PRN Q3HRS PRN IV SEVERE PAIN 7-10 (1st choice) Last administered on 02/07/20at 21:59; Start 02/07/20 at 01:15 Gadoterate Meglumine (Dotarem) 24.2 ml 1X ONCE IVP Last administered on 02/07/20 12:44; Start 02/07/20 at 12:30; Stop 02/07/20 at 12:31; Status DC Daptomycin 540 mg/ Sodium Chloride 50 ml @ 100 mls/hr Q24H IV Last administered on 02/08/20 15:34; Start 02/07/20 at 14:00 Ceftriaxone Sodium (Rocephin) 2 gm Q24H IVP Last administered on 02/08/20at 15:38; Start 02/07/20 at 14:00 Potassium Chloride/Sodium Chloride 1,000 ml @ 75 mls/hr [id number] IV Last administered on 02/09/20at 05:55; Start 02/07/20 at 14:00 Zolpidem Tartrate (Ambien) 5 mg PRN QHS PRN PO INSOMNIA Last administered on 02/08/20 21:10; Start 02/07/20 at 22:00 Hydromorphone HCl (Dilaudid) 2 mg PRN Q3HRS PRN IV SEVERE PAIN 7-10 Last administered on 02/09/20at 11:55; Start 02/08/20 at 02:15 Oxycodone HCl (OxyCONTIN) 10 mg Q12HR PO Last administered on 02/09/20at 08:39; Start 02/09/20 at 09:00 Lorazepam (Ativan) 0.5 mg PRN Q8HRS PRN PO ANXIETY / AGITATION Last admin istered on 02/09/20at 08:39; Start 02/09/20 at 08:30 Vitals/I & O Vital Sign - Last 24 Hours 02/08/20 02/08/20 02/08/20 02/08/20 12:52 15:00 15:34 16:04 Temp 97.9 97.9 Pulse 82 Resp 18 B/P (MAP) 148/94 (112) Pulse Ox 93 O2 Delivery Room Air Room Air Room Air Room Air 02/08/20 02/08/20 02/08/20 02/08/20 18:20 19:56 20:00 20:16 Temp 98.1 98.1 Pulse 80 Resp 21 B/P (MAP) 137/77 (97) Pulse Ox 96 97 O2 Delivery Room Air Room Air Room Air Room Air 02/08/20 02/08/20 02/09/20 02/09/20 21:09 23:40 00:01 00:10 Temp 98.1 98.1 Pulse 87 86 Resp 22 20 B/P (MAP) 133/77 (95) Pulse Ox 96 O2 Delivery Room Air Room Air Room Air 02/09/20 02/09/20 02/09/20 02/09/20 00:31 03:01 03:05 03:31 Temp 98.0 98.0 Pulse 88 Resp 20 18 18 20 B/P (MAP) 136/87 (103) Pulse Ox 96 O2 Delivery Room Air Room Air Room Air 02/09/20 02/09/20 02/09/20 02/09/20 05:56 06:26 07:00 08:39 Temp 98.2 98.2 Pulse 85 Resp 20 20 B/P (MAP) 147/99 (115) Pulse Ox 99 O2 Delivery Room Air Room Air Room Air Room Air 02/09/20 02/09/20 02/09/20 02/09/20 08:40 09:10 11:23 11:55 Temp 98.0 98.0 Pulse 74 Resp 22 B/P (MAP) 150/99 (116) Pulse Ox 95 O2 Delivery Room Air Room Air Room Air Room Air 02/09/20 02/09/20 12:25 12:25 O2 Delivery Room Air Room Air Intake and Output 8/15/20 8/15/20 8/16/20 15:00 23:00 07:00 Intake Total 600 ml 200 ml 100 ml Output Total 1675 ml 2400 ml Balance 600 ml -1475 ml -2300 ml Justicifation of Admission Dx: Justifications for Admission: Justification of Admission Dx: Yes SHANNON ISRAEL MD Feb 09, 2020 12:53
[2020-02-09] MEDS: DAPTOmycin (GENERIC) IVPB 540 MG in IV NORMAL SALINE 50ML 50 ML IV SCH (14:37)
[2020-02-09] MEDS: cefTRIAXone IV Push 2 GM VIAL. IVP SCH (14:38)
[2020-02-09] MEDS: BISACODYL 5 MG TABLET.DR. PO PRN (15:22)
[2020-02-09] MEDS: PHENAZOPYRIDINE 200 MG TABLET. PO PRN (20:48)
[2020-02-09] MEDS: ZOLPIDEM 5 MG TABLET. PO PRN (20:49)
[2020-02-10] MEDS: METHOCARBAMOL 750 MG TABLET PO PRN ×2 (00:06→09:51)
[2020-02-10] MEDS: LORazepam 0.5 MG TABLET PO PRN ×2 (00:06→20:19)
[2020-02-10] MEDS: HYDROmorphone 2 MG/ML VIAL IV PRN ×10 (00:06→21:50)
[2020-02-10 03:00] VITALS: BP 138/90
[2020-02-10 07:28] VITALS: BP 129/89
[2020-02-10] MEDS: POTASSIUM CL 40MEQ IN 0.9%NACL 1,000 ML IV SCH (07:30)
[2020-02-10] MEDS: IPRATRPIUM/ALBUTEROL 0.5/2.5MG 3 ML NEBU. NEB SCH ×4 (08:00→19:50)
[2020-02-10 08:44] LABS: HEMATOCRIT 35.1 % (36.0-47.0); RED BLOOD COUNT 3.96 x10^6/uL (3.50-5.40); RED CELL DISTRIBUTION WIDTH 12.9 % (11.5-14.5); WHITE BLOOD COUNT 7.5 x10^3/uL (4.0-11.0)
[2020-02-10 08:46] LABS: CALCIUM 8.6 mg/dL (8.5-10.1); CREATININE 0.7 mg/dL (0.6-1.0); GFR 95.2
--- NOTE | 2020-02-10 09:33 | PDOC ---
Infectious Disease Note Subjective Subjective c/o ongoing back pain aggravated by movement and associated with lower extremity weakness and left leg numbness She has a Hernandez catheter in place Denies loss of bowel control Denies fevers/chills/aches/N/V/D/SOA/CP ROS ROS ow neg Vital Sign Vital Signs Vital Signs Date Time Temp Pulse Resp B/P (MAP) Pulse Ox O2 Delivery O2 Flow Rate FiO2 02/10/20 08:49 20 96 Room Air 02/10/20 07:28 97.9 86 129/89 (102) 97.9 Physical Exam PHYSICAL EXAM GENERAL: Lying down, alert, irritable HEENT: Normal conjunctivae, oropharynx clear. No lesions seen. NECK: Supple. LUNGS: Clear bilaterally. HEART: S1, S2. No rubs or murmurs. ABDOMEN: Soft, nontender, mildly distended. Bowel sounds present. EXTREMITIES: Trace edema, no cyanosis. Moves toes and DERMATOLOGIC: Warm, dry. No generalized rash. Multiple tattoos. No open wounds noted. Multiple needle luna present. No peripheral stigmata NEUROLOGIC: Alert and oriented x 3, moves BLE + sensation PSYCHIATRIC: Cooperative, slightly agitated. PIV looks ok Labs Lab Laboratory Tests Test 02/09/20 10:15 02/10/20 08:10 Sodium Level 137 mmol/L (136-145) 137 mmol/L (136-145) Potassium Level 4.3 mmol/L (3.5-5.1) 5.0 mmol/L (3.5-5.1) Chloride Level 101 mmol/L (98-107) 101 mmol/L (98-107) Carbon Dioxide Level 30 mmol/L (21-32) 30 mmol/L (21-32) Anion Gap 6 (6-14) 6 (6-14) Blood Urea Nitrogen 9 mg/dL (7-20) 9 mg/dL (7-20) Creatinine 0.7 mg/dL (0.6-1.0) 0.7 mg/dL (0.6-1.0) Estimated GFR (Cockcroft-Gault) 95.2 95.2 BUN/Creatinine Ratio 13 (6-20) Glucose Level 113 mg/dL (70-99) 91 mg/dL (70-99) Calcium Level 8.5 mg/dL (8.5-10.1) 8.6 mg/dL (8.5-10.1) Total Bilirubin 0.3 mg/dL (0.2-1.0) Aspartate Amino Transf (AST/SGOT) 31 U/L (15-37) Alanine Aminotransferase (ALT/SGPT) 36 U/L (14-59) Alkaline Phosphatase 71 U/L (46-116) Total Protein 7.3 g/dL (6.4-8.2) Albumin 2.2 g/dL (3.4-5.0) Albumin/Globulin Ratio 0.4 (1.0-1.7) White Blood Count 7.5 x10^3/uL (4.0-11.0) Red Blood Count 3.96 x10^6/uL (3.50-5.40) Hemoglobin 12.0 g/dL (12.0-15.5) Hematocrit 35.1 % (36.0-47.0) Mean Corpuscular Volume 89 fL (79-100) Mean Corpuscular Hemoglobin 30 pg (25-35) Mean Corpuscular Hemoglobin Concent 34 g/dL (31-37) Red Cell Distribution Width 12.9 % (11.5-14.5) Platelet Count 442 x10^3/uL (140-400) Micro Micro 02/07. BLOOD CULTURE Preliminary NO GROWTH AFTER 1 DAY MRSA from 02/01 [facility] BLOOD CULTURE LC Final Final GRAM POSITIVE COCCI FINAL ID= [STAPHYLOCOCCUS AUREUS (MRSA)] STAPHYLOCOCCUS AUREUS (MRSA) ANTIMICROBIAL SUSCEPTIBILITY Final Comment POS CHUY TYPE 38 STAPHYLOCOCCUS AUREUS (MRSA) ANTIBIOTIC RESULT INTERPRETATION AZITHROMYCIN >4 R CLINDAMYCIN <=0.25 S CEFOXITIN SCREEN >4 POS CIPROFLOXACIN <=1 S CEFTAROLINE <=0.5 S DAPTOMYCIN 1 S ERYTHROMYCIN >4 R GENTAMICIN <=4 S INDUCIBLE CLINDAMYCIN <=4/0.5 NEG LINEZOLID 2 S LEVOFLOXACIN <=1 S OXACILLIN 1 R* PENICILLIN >2 R* RIFAMPIN <=1 S TRIMETHOPRIM/SULFAMETHOXAZOLE <=0.5/9.5 S TETRACYCLINE <=4 S VANCOMYCIN 1 S MSSA from 02/01. [facility] BLOOD CULTURE LC Final Final GRAM POSITIVE COCCI FINAL ID= [STAPHYLOCOCCUS AUREUS] STAPHYLOCOCCUS AUREUS ANTIMICROBIAL SUSCEPTIBILITY Final Comment POS CHUY TYPE 38 STAPHYLOCOCCUS AUREUS ANTIBIOTIC RESULT INTERPRETATION AZITHROMYCIN >4 R CLINDAMYCIN <=0.25 S CEFOXITIN SCREEN <=4 NEG CIPROFLOXACIN <=1 S CEFTAROLINE <=0.5 S DAPTOMYCIN <=0.5 S ERYTHROMYCIN >4 R GENTAMICIN <=4 S INDUCIBLE CLINDAMYCIN <=4/0.5 NEG LINEZOLID 2 S LEVOFLOXACIN <=1 S OXACILLIN 1 S PENICILLIN >2 Madiha RIFAMPIN <=1 S TRIMETHOPRIM/SULFAMETHOXAZOLE <=0.5/9.5 S TETRACYCLINE <=4 S VANCOMYCIN 1 S E. coli in urine from 02/01, here ANTIMICROBIAL SUSCEPTIBILITY Final Comment NEG CHUY 56 ESCHERICHIA COLI ANTIBIOTIC RESULT INTERPRETATION AMPICILLIN/SULBACTAM >16/8 R AMIKACIN <=16 S AMPICILLIN >16 R AMOXICILLIN/K CLAVULANATE <=8/4 S AZTREONAM <=4 S CEFTRIAXONE <=1 S CEFTAZIDIME <=1 S CEFOTAXIME <=2 S CEFOXITIN <=8 S CIPROFLOXACIN <=0.25 S CEFEPIME <=2 S CEFUROXIME <=4 S CEFTAZIDIME/AVIBACTAM <=4 S ERTAPENEM <=0.5 S NITROFURANTOIN <=32 S GENTAMICIN <=2 S LEVOFLOXACIN <=0.5 S MEROPENEM <=1 S PIPERACILLIN/TAZOBACTAM <=8 S TRIMETHOPRIM/SULFAMETHOXAZOLE >2/38 R TETRACYCLINE >8 R TOBRAMYCIN <=2 S Microbiology 02/08/20 Blood Culture - Preliminary, Resulted NO GROWTH AFTER 2 DAYS Objective Assessment MSSA ([facility] 02/01) and MRSA ([facility], 02/01) bacteremia Intravenous drug user. Recent history of Escherichia coli urinary tract infection, 02/01. Left ovarian complex cyst. Hematuria. Fever - bettter Hypokalemia. Protein-calorie malnutrition. Severe back pain. 02/04 at [facility] CT findings concerning for diskitis/osteomyelitis/epidural abscess. -Lumbar MRI showed increased STIR signal within the CL99-B31 disc space and adjacent endplates. There is adjacent paravertebral edema. Small anterior fluid collection measures 1.1 x 0.7 cm (series 4 image 8 and series 10 image 8). No evidence of epidural abscess. -L4-L5 increased disc signal -Bilateral retroperitoneal and presacral edema -Multilevel lumbar spinal stenosis most prominent L4-5. Plan Plan of Care Patient was initially admitted to [facility] on transfer from [facility] on 02/01 but then left AMA on the same day. She was then re-admitted here from [facility] 02/05 for possible diskitis/osteo of lumbar w/ ? epidural abscess. Continue linezolid and daptomycin.will taper soon - await MRI Continue ceftriaxone for UTI. Monitor for abx toxicities Probiotics Repeat blood cultures 02/07 neg to date f/u MRI cervical & thoracic spine -today Await IR aspiration ERIKA for early next week. Quit IVDU. HIV status in progress f/u STD results Pain management per primary Sed rate not available Discussed with nursing ELENA BAKER MD Feb 10, 2020 09:33
[2020-02-10] MEDS: oxyCODONE ER 10 MG TAB.ER.12H PO SCH ×2 (09:52→20:20)
[2020-02-10] MEDS: PHENAZOPYRIDINE 200 MG TABLET. PO PRN (09:52)
--- NOTE | 2020-02-10 10:29 | PN ---
DATE: 02/10/2020 SUBJECTIVE: The patient continued to complain of severe back pain. Continued to require pain medication on a regular basis. However, she is afebrile. She is scheduled for MRI of the cervical and thoracic spine as well as ERIKA. Apparently, her COVID test is required before any procedure, so I did order a stat COVID test. PHYSICAL EXAMINATION: GENERAL: When I examined her this morning, she looked well and was clearly in no apparent respiratory distress. No pallor, jaundice, cyanosis or thyromegaly. No jugular venous distention or limb edema. VITAL SIGNS: Her heart rate was 86, blood pressure was 129/89, temperature was 97.9, respiratory rate was 22 and oxygen saturation was 96%. The rest of clinical exam is stable. Her intake was 900, output was 4075. LABORATORY DATA: Her lab work this morning showed a white cell count 7500, hemoglobin 12, hematocrit 35, MCV 89 and platelet count of 442,000. Her chemistry showed a serum sodium 137, potassium 5, chloride 101, bicarbonate 30, anion gap of 6, BUN 9, creatinine 0.7, estimated GFR was 95 mL per minute. Her glucose was 91, calcium was 8.6. ASSESSMENT: 1. Polymicrobial bacteremia previously, with methicillin-sensitive Staphylococcus aureus on 02/02/2020 in 4/4 bottles. 2. Methicillin-resistant Staphylococcus aureus bacteremia at [facility]. 3. Intravenous drug abuse. 4. Urinary tract infection with growth of Escherichia coli. 5. Left ovarian complex cyst. 6. Hypokalemia, it has resolved. 7. Severe protein-calorie malnutrition. 8. Severe back pain with evidence of diskitis, osteomyelitis, and paraspinal abscess, but no evidence of epidural abscess. PLAN: To continue with IV antibiotic. Continue with hydromorphone and OxyContin for pain management. Continue with muscle relaxant. The patient is scheduled today for MRI of the thoracic, lumbar and cervical spine as well transesophgeal echocardiogram. KEENAN SHELLEY MD DR: ALECIA/geneva JOB#: [id number] / [id number]
[2020-02-10 10:45] VITALS: BP 152/102
[2020-02-10] MEDS ORDERED: IV RINGERS,LACTATED 1000ML 1,000 ML IV SCH (10:47)
[2020-02-10] MEDS ORDERED: ONDANSETRON PF 4 MG/2 ML VIAL. IV PRN (11:00)
[2020-02-10] MEDS ORDERED: PROCHLORPERAZINE 10 MG/2 ML VIAL. IV PRN (11:00)
[2020-02-10] MEDS ORDERED: LIDOCAINE 1% PF 2 ML VIAL. ID PRN (11:00)
--- NOTE | 2020-02-10 11:49 | PDOC ---
PROGRESS NOTES Assessment Abscess at T11-T12 and possibly L4-L5 Retroperitoneal and presacral edema Multilevel lumbar spinal stenosis most prominent L4-5. Neurologically intact in the lower extremities. Multiple substance abuse. Plan Agree with antibiotics Await MRI of the cervical and thoracic spines Physical therapy modalities Continue current pain management Subjective pain controlled Objective Vital Signs Date Time Temp Pulse Resp B/P (MAP) Pulse Ox O2 Delivery O2 Flow Rate FiO2 02/10/20 10:45 98.0 88 22 152/102 (119) 96 Room Air 98.0 Intake and Output 02/10/20 07:00 Intake Total 1160 ml Output Total 7000 ml Balance -5840 ml Intake Oral 1160 ml Output Urine Total 7000 ml PHYSICAL EXAM Alert. Oriented to time, place and person. PERRL. EOMI. CN: no focal findings. Muscle tone: normal. Muscle strength: 5/5 strength with normal tone and bulk, splints the left leg, 3/5 DTR: 2+ Plantar reflex: flexor Gait: not examined in bed. Sensory exam: no abnormal findings. No cerebellar signs elicited. Review of Relevant I have reviewed the following items bertrand (where applicable) has been applied. Labs Laboratory Tests Test 02/09/20 10:15 02/10/20 08:10 02/10/20 10:00 Sodium Level 137 mmol/L (136-145) 137 mmol/L (136-145) Potassium Level 4.3 mmol/L (3.5-5.1) 5.0 mmol/L (3.5-5.1) Chloride Level 101 mmol/L (98-107) 101 mmol/L (98-107) Carbon Dioxide Level 30 mmol/L (21-32) 30 mmol/L (21-32) Anion Gap 6 (6-14) 6 (6-14) Blood Urea Nitrogen 9 mg/dL (7-20) 9 mg/dL (7-20) Creatinine 0.7 mg/dL (0.6-1.0) 0.7 mg/dL (0.6-1.0) Estimated GFR (Cockcroft-Gault) 95.2 95.2 BUN/Creatinine Ratio 13 (6-20) Glucose Level 113 mg/dL (70-99) 91 mg/dL (70-99) Calcium Level 8.5 mg/dL (8.5-10.1) 8.6 mg/dL (8.5-10.1) Total Bilirubin 0.3 mg/dL (0.2-1.0) Aspartate Amino Transf (AST/SGOT) 31 U/L (15-37) Alanine Aminotransferase (ALT/SGPT) 36 U/L (14-59) Alkaline Phosphatase 71 U/L (46-116) Total Protein 7.3 g/dL (6.4-8.2) Albumin 2.2 g/dL (3.4-5.0) Albumin/Globulin Ratio 0.4 (1.0-1.7) White Blood Count 7.5 x10^3/uL (4.0-11.0) Red Blood Count 3.96 x10^6/uL (3.50-5.40) Hemoglobin 12.0 g/dL (12.0-15.5) Hematocrit 35.1 % (36.0-47.0) Mean Corpuscular Volume 89 fL (79-100) Mean Corpuscular Hemoglobin 30 pg (25-35) Mean Corpuscular Hemoglobin Concent 34 g/dL (31-37) Red Cell Distribution Width 12.9 % (11.5-14.5) Platelet Count 442 x10^3/uL (140-400) SARS-CoV-2 Antigen (Rapid) Negative (NEGATIVE) Laboratory Tests Test 02/10/20 08:10 02/10/20 10:00 White Blood Count 7.5 x10^3/uL (4.0-11.0) Red Blood Count 3.96 x10^6/uL (3.50-5.40) Hemoglobin 12.0 g/dL (12.0-15.5) Hematocrit 35.1 % (36.0-47.0) Mean Corpuscular Volume 89 fL (79-100) Mean Corpuscular Hemoglobin 30 pg (25-35) Mean Corpuscular Hemoglobin Concent 34 g/dL (31-37) Red Cell Distribution Width 12.9 % (11.5-14.5) Platelet Count 442 x10^3/uL (140-400) Sodium Level 137 mmol/L (136-145) Potassium Level 5.0 mmol/L (3.5-5.1) Chloride Level 101 mmol/L (98-107) Carbon Dioxide Level 30 mmol/L (21-32) Anion Gap 6 (6-14) Blood Urea Nitrogen 9 mg/dL (7-20) Creatinine 0.7 mg/dL (0.6-1.0) Estimated GFR (Cockcroft-Gault) 95.2 Glucose Level 91 mg/dL (70-99) Calcium Level 8.6 mg/dL (8.5-10.1) SARS-CoV-2 Antigen (Rapid) Negative (NEGATIVE) Microbiology 02/08/20 Blood Culture - Preliminary, Resulted NO GROWTH AFTER 2 DAYS Medications Current Medications Acetaminophen (Tylenol) 1,000 mg PRN Q6HRS PRN PO MILD PAIN 1-3; Start 02/06/20 at 22:15 Albuterol Sulfate (Ventolin Neb Soln) 2.5 mg PRN Q4HRS PRN NEB SHORTNESS OF BREATH; Start 02/06/20 at 22:15 Bisacodyl (Dulcolax Tab) 10 mg PRN DAILY PRN PO CONSTIPATION 1ST CHOICE Last administered on 02/09/20at 15:22; Start 02/06/20 at 22:15 Methocarbamol (Robaxin) 750 mg PRN Q8HRS PRN PO MUSCLE SPASMS Last administered on 02/10/20at 09:51; Start 02/06/20 at 22:15 Albuterol/ Ipratropium (Duoneb) 3 ml RTQID NEB Last administered on 02/09/20at 15:54; Start 02/07/20 at 08:00 Lactobacillus Rhamnosus (Culturelle) 1 cap BID PO Last administered on 02/09/20at 20:48; Start 02/07/20 at 09:00 Linezolid/Dextrose 300 ml @ 300 mls/hr Q12HR IV Last administered on 02/10/20at 09:50; Start 02/07/20 at 09:00 Morphine Sulfate (Morphine Sulfate) 4 mg PRN Q3HRS PRN IM SEVERE PAIN 7-10; Start 02/06/20 at 22:15; Stop 02/07/20 at 01:04; Status DC Phenazopyridine HCl (Pyridium) 100 mg PRN TID PRN PO URINARY PAIN Last administered on 02/10/20at 09:52; Start 02/06/20 at 22:15 Hydromorphone HCl (Dilaudid) 2 mg PRN Q4HRS PRN IV SEVERE PAIN 7-10 (2nd choice) Last administered on 02/07/20 23:49; Start 02/06/20 at 22:15; Stop 02/08/20 at 02:16; Status DC Sodium Chloride 1,000 ml @ 75 mls/hr [id number] IV Last administered on 02/07/20at 00:45; Start 02/07/20 at 00:45; Stop 02/07/20 at 14:12; Status DC Morphine Sulfate (Morphine Sulfate) 4 mg PRN Q3HRS PRN IV SEVERE PAIN 7-10 (1st choice) Last administered on 02/07/20at 21:59; Start 02/07/20 at 01:15 Gadoterate Meglumine (Dotarem) 24.2 ml 1X ONCE IVP Last administered on 02/07/20at 12:44; Start 02/07/20 at 12:30; Stop 02/07/20 at 12:31; Status DC Daptomycin 540 mg/ Sodium Chloride 50 ml @ 100 mls/hr Q24H IV Last administered on 02/09/20at 14:37; Start 02/07/20 at 14:00 Ceftriaxone Sodium (Rocephin) 2 gm Q24H IVP Last administered on 02/09/20at 14:38; Start 02/07/20 at 14:00 Potassium Chloride/Sodium Chloride 1,000 ml @ 75 mls/hr [id number] IV Last administered on 02/10/20at 07:30; Start 02/07/20 at 14:00; Stop 02/10/20 at 09:38; Status DC Zolpidem Tartrate (Ambien) 5 mg PRN QHS PRN PO INSOMNIA Last administered on 02/09/20at 20:49; Start 02/07/20 at 22:00 Hydromorphone HCl (Dilaudid) 2 mg PRN Q3HRS PRN IV SEVERE PAIN 7-10 Last administered on 02/10/20 08:49; Start 02/08/20 at 02:15 Oxycodone HCl (OxyCONTIN) 10 mg Q12HR PO Last administered on 02/10/20at 09:52; Start 02/09/20 at 09:00 Lorazepam (Ativan) 0.5 mg PRN Q8HRS PRN PO ANXIETY / AGITATION Last administered on 8/17/20at 00:06; Start 02/09/20 at 08:30 Ondansetron HCl (Zofran) 4 mg PRN Q6HRS PRN IV NAUSEA/VOMITING; Start 02/10/20 at 11:00; Stop 02/11/20 at 10:59 Ringer's Solution 1,000 ml @ 30 mls/hr Q24H IV ; Start 02/10/20 at 10:47; Stop 02/10/20 at 22:46 Lidocaine HCl (Xylocaine-Mpf 1% 2ml Vial) 2 ml PRN 1X PRN ID PRIOR TO IV START; Start 02/10/20 at 11:00; Stop 02/11/20 at 10:59 Prochlorperazine Edisylate (Compazine) 5 mg PACU PRN PRN IV NAUSEA, MRX1; Start 02/10/20 at 11:00; Stop 02/11/20 at 10:59 Vitals/I & O Vital Sign - Last 24 Hours 02/09/20 02/09/20 02/09/20 02/09/20 11:55 12:25 12:25 14:38 O2 Delivery Room Air Room Air Room Air Room Air 02/09/20 02/09/20 02/09/20 02/09/20 14:53 15:08 15:55 17:45 Temp 98.1 98.1 Pulse 83 Resp 20 B/P (MAP) 163/103 (123) Pulse Ox 96 O2 Delivery Room Air Room Air Room Air Room Air 02/09/20 02/09/20 02/09/20 02/09/20 18:15 19:50 20:13 20:49 Temp 97.8 97.8 Pulse 83 Resp 18 20 B/P (MAP) 154/94 (114) Pulse Ox 95 O2 Delivery Room Air Room Air Room Air Room Air 02/09/20 02/09/20 02/10/20 02/10/20 20:49 23:00 00:06 02:56 Temp 97.7 97.7 Pulse 93 Resp 20 22 20 B/P (MAP) 136/81 (99) Pulse Ox 94 O2 Delivery Room Air Room Air Room Air Room Air 02/10/20 02/10/20 02/10/20 02/10/20 03:00 05:53 07:28 08:00 Temp 98.2 97.9 98.2 97.9 Pulse 89 86 Resp 18 20 22 B/P (MAP) 138/90 (106) 129/89 (102) Pulse Ox 93 96 O2 Delivery Room Air Room Air Room Air Room Air 02/10/20 02/10/20 02/10/20 08:49 09:52 10:45 Temp 98.0 98.0 Pulse 88 Resp 20 18 22 B/P (MAP) 152/102 (119) Pulse Ox 96 96 96 O2 Delivery Room Air Room Air Room Air Intake and Output 02/09/20 02/09/20 02/10/20 15:00 23:00 07:00 Intake Total 360 ml 800 ml 0 ml Output Total 2300 ml 2200 ml 2500 ml Balance -1940 ml -1400 ml -2500 ml Justicifation of Admission Dx: Justifications for Admission: Justification of Admission Dx: Yes SHANNON ISRAEL MD Feb 10, 2020 11:49
[2020-02-10] MEDS ORDERED: PROPOFOL 50 ML IV ONE (12:04)
[2020-02-10] MEDS ORDERED: fentaNYL PF VIAL 100 MCG/2 ML VIAL ONE (12:05)
[2020-02-10] MEDS ORDERED: BENZOCAINE ONE 20% MUCOSAL SPRAY. MM (14:00)
[2020-02-10] MEDS ORDERED: HYDROmorphone 2 MG/ML VIAL IV ONE (14:00)
[2020-02-10] MEDS ORDERED: HYDROmorphone 2 MG/ML VIAL IM ONE (14:00)
[2020-02-10] MEDS ORDERED: LIDOCAINE 2% TOPICAL JELLY 30GM TUBE. TP ONE (14:00)
[2020-02-10] MEDS ORDERED: MORPHINE SULFATE 2 MG/ML VIAL. IV ONE (14:00)
[2020-02-10] MEDS ORDERED: HYDROmorphone 2 MG/ML VIAL IV PRN (14:45)
[2020-02-10] MEDS: IV RINGERS,LACTATED 1000ML 1,000 ML IV SCH (15:03)
[2020-02-10] MEDS ORDERED: LIDOCAINE 2% VISCOUS 15 ML SOLUTION. SWSW ONE (15:15)
[2020-02-10] MEDS ORDERED: HYDROmorphone 2 MG/ML VIAL ONE (15:17)
[2020-02-10] MEDS ORDERED: PROCHLORPERAZINE 10 MG/2 ML VIAL. ONE (15:17)
[2020-02-10] MEDS: DAPTOmycin (GENERIC) IVPB 540 MG in IV NORMAL SALINE 50ML 50 ML IV SCH (15:25)
--- NOTE | 2020-02-10 15:28 | RAD ---
EXAM: Cervical spine and thoracic MRI without contrast. HISTORY: Spinal abscess. TECHNIQUE: Multiplanar, multisequence magnetic resonance imaging of the cervical spine and thoracic was performed without contrast. COMPARISON: Lumbar spine MRI dated 02/07/2020. FINDINGS: Cervical spine: There is mild kyphosis centered at C5-C6. There is minimal retrolisthesis of C5 on C6. There is endplate remodeling with disc space narrowing and osteophytosis primarily at this level, and to a lesser extent, C6-C7. There is no suspicious osseous lesion. There is no acute or subacute fracture. No cervical spinal cord lesion is seen. The visualized portions of the brain are unremarkable. There are maxillary sinus mucous retention cysts. At C2-C3, there is no stenosis. At C3-C4, there is endplate remodeling. There is mild right facet arthropathy. There is no stenosis. At C4-C5, there is endplate remodeling. There is mild bilateral facet arthropathy. There is no stenosis. At C5-C6, there is a disc bulge and endplate osteophytosis. There is uncovertebral arthropathy. Evaluation for foraminal stenosis is limited due to motion. There is suspected moderate right foraminal stenosis. There is deformation of the cervical spinal cord and suspected mild central canal stenosis measuring 9.3 mm in anterior posterior dimension. At C6-C7, there is a disc bulge and endplate osteophytosis. There is uncovertebral arthropathy. Evaluation for foraminal stenosis is limited due to motion. There is suspected mild right foraminal stenosis. Thoracic spine: The exam is extremely limited due to patient motion. There is no significant scoliosis or listhesis. There are few osseous hemangiomas. This includes a suspected atypical hemangioma demonstrating slight increased signal on inversion recovery images within T10. No convincing thoracic spinal cord lesion is seen. There are few shallow thoracic disc protrusions. There is no convincing associated foraminal or central canal stenosis. There is slight increased signal within the T11 and T12 vertebral bodies and prevertebral soft tissues.. There is a suspected superimposed retrocrural/prevertebral fluid collection measuring approximate 2.1 x 1.3 x 1.3 cm anterior to T11. There are bilateral pleural effusions. IMPRESSION: 1. Significantly limited exam due to motion and absence of intravenous contrast. No convincing spinal cord lesion or central canal abscess is seen. There is a suspected 2.1 cm fluid collection with surrounding soft tissue edema within the retrocrural/prevertebral space at T11. Given the patient history and imaging appearance, this may be a small abscess with surrounding edema. There is also suggestion of marrow edema at this level which may be reactive rather than due to osteomyelitis. 2. Multilevel degenerative change involving the cervical and thoracic spine, described above. There is a suspected foraminal stenosis at C5-C6 and C6-C7. 3. Bilateral pleural effusions. Electronically signed by: Fatoumata Hughes MD (02/10/2020 3:25 PM) [id number]
--- NOTE | 2020-02-10 15:35 | NUR ---
SS following up with discharge planning. SS reviewed pt chart and discussed with pt RN. Pt is currently on room air. Pt had ERIKA and MRI today. Pt on IV Rocephin, Zyvox, and Daptomycin. PAT team following for Heroin use. SS will continue to follow for discharge planning.
[2020-02-10 15:58] VITALS: BP 131/76
[2020-02-10 17:00] VITALS: BP 116/72
--- NOTE | 2020-02-10 17:18 | CARD ---
MR#: [id number] Date of Study: 02/10/2020 Ordering Physician: SOPHIA JOY, Referring Physician: SOPHIA JOY, Tech: Martine Love RDCS APPROVED REPORT EXAM: Transesophageal echocardiogram with color flow Doppler. INDICATION Infection:Rule out subacute bacterial endocarditis Reason For Test : Rule out endocarditis. PROCEDURE After obtaining informed consent, patient underwent transesophageal echo in the PACU. Type of Sedation : General Anesthesia Sedation was administered by Sam Ashraf MD, Griffin Duffy CRNA. Sedation was achieved with Propofol 200 mg intravenously. Transesophageal probe was inserted and advanced into esophagus by Yordan Villela MD. The ERIKA was performed without complications. Throughout the procedure, the blood pressure, pulse oximetry, cardiac rhythm, and rate were monitored . The patient tolerated the procedure without adverse effects. Recovery from general anesthesia was une ventful and vital signs were stable. LEFT VENTRICLE The left ventricle is normal size. There is normal left ventricular wall thickness. The left ventricu lar systolic function is normal and the ejection fraction is within normal range. The Ejection Fracti on is 55-60%. There is normal LV segmental wall motion. No left ventricle thrombus noted on this stud y. There is no ventricular septal defect visualized. There is no left ventricular aneurysm. There is no mass noted in the left ventricle. RIGHT VENTRICLE The right ventricle is normal size. There is normal right ventricular wall thickness. The right ventr icular systolic function is normal. ATRIA The left atrium size is normal. The right atrium size is normal. The interatrial septum is intact wit h no evidence for an atrial septal defect or patent foramen ovale as noted on 2-D or Doppler imaging. There is no thrombus noted in the left atrial appendage. AORTIC VALVE The aortic valve is normal in structure and function. Doppler and Color Flow revealed no significant aortic regurgitation. There is no aortic valvular vegetation. MITRAL VALVE The mitral valve is normal in structure and function. There is no evidence of mitral valve prolapse o r vegetation. There is no mitral valve stenosis. Doppler and Color-flow revealed trace mitral regurgi tation. TRICUSPID VALVE The tricuspid valve is normal in structure and function. Doppler and Color Flow revealed trace tricus pid regurgitation. There is no tricuspid valve prolapse or vegetation. There is no tricuspid valve st enosis. PULMONIC VALVE The pulmonary valve is normal in structure and function. Doppler and Color Flow revealed no pulmonic valvular regurgitation. There is no pulmonic valvular stenosis. GREAT VESSELS The aortic root is normal in size. The ascending aorta is normal in size. The pulmonary artery is nor mal. The IVC is normal in size and collapses >50% with inspiration. PERICARDIAL EFFUSION There is no evidence of significant pericardial effusion. Critical Notification Critical Value: No <Conclusion> The left ventricular systolic function is normal and the ejection fraction is within normal range. Th e Ejection Fraction is 55-60%. There is normal LV segmental wall motion. No evidence of endocarditis Signed by : Yordan Villela, Electronically Approved : 02/10/2020 17:18:04
[2020-02-10] MEDS: cefTRIAXone IV Push 2 GM VIAL. IVP SCH (17:36)
[2020-02-10] MEDS: BISACODYL 5 MG TABLET.DR. PO PRN (17:37)
[2020-02-10] MEDS: MORPHINE SULFATE 4 MG/ML VIAL. IV PRN (17:37)
[2020-02-10] MEDS: LACTOBACILLUS RHAMNOSUS GG 1 CAPSULE. PO SCH ×2 (17:38→20:19)
--- NOTE | 2020-02-10 18:02 | NUR ---
Patient refused post ERIKA Vital sign was only able to obtain 2 sets.
[2020-02-10] MEDS: ZOLPIDEM 5 MG TABLET. PO PRN (20:19)
[2020-02-10 22:10] VITALS: BP 132/99
[2020-02-11] MEDS: HYDROmorphone 2 MG/ML VIAL IV PRN ×8 (01:02→23:14)
[2020-02-11] MEDS: IV RINGERS,LACTATED 1000ML 1,000 ML IV SCH ×2 (02:34→16:40)
[2020-02-11] MEDS: LORazepam 0.5 MG TABLET PO PRN ×3 (04:05→23:13)
[2020-02-11 04:22] VITALS: BP 121/78
[2020-02-11 07:00] VITALS: BP 102/82
[2020-02-11] MEDS: IPRATRPIUM/ALBUTEROL 0.5/2.5MG 3 ML NEBU. NEB SCH ×4 (08:00→19:50)
--- NOTE | 2020-02-11 08:29 | PDOC ---
Infectious Disease Note Subjective Subjective c/o ongoing back pain aggravated by movement and associated with lower extremity weakness and left leg numbness She has a Hernandez catheter in place Denies loss of bowel control Denies fevers/chills/aches/N/V/D/SOA/CP Vital Sign Vital Signs Vital Signs Date Time Temp Pulse Resp B/P (MAP) Pulse Ox O2 Delivery O2 Flow Rate FiO2 02/11/20 07:27 Room Air 02/11/20 04:36 20 02/11/20 04:22 97.9 88 121/78 (92) 93 97.9 02/10/20 18:54 2.0 Physical Exam PHYSICAL EXAM GENERAL: Lying down, alert, coop HEENT: Normal conjunctivae, oropharynx clear. No lesions seen. NECK: Supple. LUNGS: Clear bilaterally. HEART: S1, S2. No rubs or murmurs. ABDOMEN: Soft, nontender, mildly distended. Bowel sounds present. Obese : Hernandez in place EXTREMITIES: Trace edema, no cyanosis. Moves toes and DERMATOLOGIC: Warm, dry. No generalized rash. Multiple tattoos. No open wounds noted. Multiple needle luna present. No peripheral stigmata NEUROLOGIC: Alert and oriented x 3, moves BLE + sensation PSYCHIATRIC: Cooperative, slightly agitated. PIV looks ok Labs Lab Laboratory Tests Test 02/10/20 10:00 SARS-CoV-2 Antigen (Rapid) Negative (NEGATIVE) Micro ERIKA 02/09 <Conclusion> The left ventricular systolic function is normal and the ejection fraction is w ithin normal range. The Ejection Fraction is 55-60%. There is normal LV segmental wall motion. No evidence of endocarditis MRI 02/09 There is slight increased signal within the T11 and T12 vertebral bodies and prevertebral soft tissues.. There is a suspected superimposed retrocrural/prevertebral fluid collection measuring approximate 2.1 x 1.3 x 1.3 cm anterior to T11. There are bilateral pleural effusions. Micro 02/07. BLOOD CULTURE Preliminary NO GROWTH AFTER 1 DAY MRSA from 02/01 [facility] BLOOD CULTURE LC Final Final GRAM POSITIVE COCCI FINAL ID= [STAPHYLOCOCCUS AUREUS (MRSA)] STAPHYLOCOCCUS AUREUS (MRSA) ANTIMICROBIAL SUSCEPTIBILITY Final Comment POS CHUY TYPE 38 STAPHYLOCOCCUS AUREUS (MRSA) ANTIBIOTIC RESULT INTERPRETATION AZITHROMYCIN >4 R CLINDAMYCIN <=0.25 S CEFOXITIN SCREEN >4 POS CIPROFLOXACIN <=1 S CEFTAROLINE <=0.5 S DAPTOMYCIN 1 S ERYTHROMYCIN >4 R GENTAMICIN <=4 S INDUCIBLE CLINDAMYCIN <=4/0.5 NEG LINEZOLID 2 S LEVOFLOXACIN <=1 S OXACILLIN 1 R* PENICILLIN >2 R* RIFAMPIN <=1 S TRIMETHOPRIM/SULFAMETHOXAZOLE <=0.5/9.5 S TETRACYCLINE <=4 S VANCOMYCIN 1 S MSSA from 02/01. here BLOOD CULTURE LC Final Final GRAM POSITIVE COCCI FINAL ID= [STAPHYLOCOCCUS AUREUS] STAPHYLOCOCCUS AUREUS ANTIMICROBIAL SUSCEPTIBILITY Final Comment POS CHUY TYPE 38 STAPHYLOCOCCUS AUREUS ANTIBIOTIC RESULT INTERPRETATION AZITHROMYCIN >4 R CLINDAMYCIN <=0.25 S CEFOXITIN SCREEN <=4 NEG CIPROFLOXACIN <=1 S CEFTAROLINE <=0.5 S DAPTOMYCIN <=0.5 S ERYTHROMYCIN >4 R GENTAMICIN <=4 S INDUCIBLE CLINDAMYCIN <=4/0.5 NEG LINEZOLID 2 S LEVOFLOXACIN <=1 S OXACILLIN 1 S PENICILLIN >2 Madiha RIFAMPIN <=1 S TRIMETHOPRIM/SULFAMETHOXAZOLE <=0.5/9.5 S TETRACYCLINE <=4 S VANCOMYCIN 1 S E. coli in urine from 02/01, here ANTIMICROBIAL SUSCEPTIBILITY Final Comment NEG CHUY 56 ESCHERICHIA COLI ANTIBIOTIC RESULT INTERPRETATION AMPICILLIN/SULBACTAM >16/8 R AMIKACIN <=16 S AMPICILLIN >16 R AMOXICILLIN/K CLAVULANATE <=8/4 S AZTREONAM <=4 S CEFTRIAXONE <=1 S CEFTAZIDIME <=1 S CEFOTAXIME <=2 S CEFOXITIN <=8 S CIPROFLOXACIN <=0.25 S CEFEPIME <=2 S CEFUROXIME <=4 S CEFTAZIDIME/AVIBACTAM <=4 S ERTAPENEM <=0.5 S NITROFURANTOIN <=32 S GENTAMICIN <=2 S LEVOFLOXACIN <=0.5 S MEROPENEM <=1 S PIPERACILLIN/TAZOBACTAM <=8 S TRIMETHOPRIM/SULFAMETHOXAZOLE >2/38 R TETRACYCLINE >8 R TOBRAMYCIN <=2 S Microbiology 02/08/20 Blood Culture - Preliminary, Resulted NO GROWTH AFTER 2 DAYS Objective Assessment MSSA ([facility] 02/01) and MRSA ([facility], 02/01) bacteremia - ERIKA 02/09 - neg Intravenous drug user. Recent history of Escherichia coli urinary tract infection, 8/9. Left ovarian complex cyst.HIV and STD - neg Hematuria. Fever - better Hep C IgG + Hypokalemia. Protein-calorie malnutrition. Severe back pain. 02/04 at [facility] CT findings concerning for diskitis/osteomyelitis/epidural abscess. -Lumbar MRI showed increased STIR signal within the VR62-U14 disc space and adjacent endplates. There is adjacent paravertebral edema. Small anterior fluid collection measures 1.1 x 0.7 cm (series 4 image 8 and series 10 image 8). No evidence of epidural abscess. -L4-L5 increased disc signal -Bilateral retroperitoneal and presacral edema -Multilevel lumbar spinal stenosis most prominent L4-5. Plan Plan of Care Patient was initially admitted to [facility] on transfer from [facility] on 02/01 but then left AMA on the same day. She was then re-admitted here from [facility] 02/05 for possible diskitis/osteo of lumbar w/ ? epidural abscess. Continue linezolid and daptomycin (CPK 22 02/07) will taper soon Disc ceftriaxone for UTI. Await Neurosurg f/u Await IR aspiration F/u Hep C VL Monitor for abx toxicities Probiotics Repeat blood cultures 02/07 neg to date Quit IVDU. Pain management per primary Sed rate not available Discussed with nursing ELENA BAKER MD Feb 11, 2020 08:29
[2020-02-11] MEDS: oxyCODONE ER 10 MG TAB.ER.12H PO SCH ×2 (08:33→20:01)
[2020-02-11] MEDS: LACTOBACILLUS RHAMNOSUS GG 1 CAPSULE. PO SCH ×2 (08:33→20:00)
[2020-02-11 09:34] LABS: CALCIUM 8.8 mg/dL (8.5-10.1); CREATININE 0.7 mg/dL (0.6-1.0); GFR 95.2; POTASSIUM 4.5 mmol/L (3.5-5.1)
--- NOTE | 2020-02-11 10:11 | PDOC ---
PROGRESS NOTES Assessment Abscess at T11-T12 and possibly L4-L5 Retroperitoneal and presacral edema Multilevel lumbar spinal stenosis most prominent L4-5. Neurologically intact in the lower extremities. Multiple substance abuse. Plan Agree with antibiotics Note plans for IR aspiration Physical therapy modalities Continue current pain management Subjective Satisfied with pain control Objective Vital Signs Date Time Temp Pulse Resp B/P (MAP) Pulse Ox O2 Delivery O2 Flow Rate FiO2 02/11/20 08:33 Room Air 02/11/20 07:00 97.8 94 18 102/82 (89) 95 97.8 02/10/20 18:54 2.0 Intake and Output 02/11/20 07:00 Intake Total 2170 ml Output Total 5650 ml Balance -3480 ml Intake Oral 1820 ml IV Total 350 ml Output Urine Total 5650 ml # Voids 1 # Bowel Movements 1 PHYSICAL EXAM Alert. Oriented to time, place and person. PERRL. EOMI. CN: no focal findings. Muscle tone: normal. Muscle strength: 5/5 strength with normal tone and bulk, splints the left leg, 3/5 DTR: 2+ Plantar reflex: flexor Gait: not examined in bed. Sensory exam: no abnormal findings. No cerebellar signs elicited. Review of Relevant I have reviewed the following items bertrand (where applicable) has been applied. Labs Laboratory Tests Test 02/09/20 10:15 02/10/20 08:10 02/10/20 10:00 02/11/20 09:05 Sodium Level 137 mmol/L (136-145) 137 mmol/L (136-145) 137 mmol/L (136-145) Potassium Level 4.3 mmol/L (3.5-5.1) 5.0 mmol/L (3.5-5.1) 4.5 mmol/L (3.5-5.1) Chloride Level 101 mmol/L (98-107) 101 mmol/L (98-107) 100 mmol/L (98-107) Carbon Dioxide Level 30 mmol/L (21-32) 30 mmol/L (21-32) 30 mmol/L (21-32) Anion Gap 6 (6-14) 6 (6-14) 7 (6-14) Blood Urea Nitrogen 9 mg/dL (7-20) 9 mg/dL (7-20) 16 mg/dL (7-20) Creatinine 0.7 mg/dL (0.6-1.0) 0.7 mg/dL (0.6-1.0) 0.7 mg/dL (0.6-1.0) Estimated GFR (Cockcroft-Gault) 95.2 95.2 95.2 BUN/Creatinine Ratio 13 (6-20) Glucose Level 113 mg/dL (70-99) 91 mg/dL (70-99) 129 mg/dL (70-99) Calcium Level 8.5 mg/dL (8.5-10.1) 8.6 mg/dL (8.5-10.1) 8.8 mg/dL (8.5-10.1) Total Bilirubin 0.3 mg/dL (0.2-1.0) Aspartate Amino Transf (AST/SGOT) 31 U/L (15-37) Alanine Aminotransferase (ALT/SGPT) 36 U/L (14-59) Alkaline Phosphatase 71 U/L (46-116) Total Protein 7.3 g/dL (6.4-8.2) Albumin 2.2 g/dL (3.4-5.0) Albumin/Globulin Ratio 0.4 (1.0-1.7) White Blood Count 7.5 x10^3/uL (4.0-11.0) Red Blood Count 3.96 x10^6/uL (3.50-5.40) Hemoglobin 12.0 g/dL (12.0-15.5) Hematocrit 35.1 % (36.0-47.0) Mean Corpuscular Volume 89 fL (79-100) Mean Corpuscular Hemoglobin 30 pg (25-35) Mean Corpuscular Hemoglobin Concent 34 g/dL (31-37) Red Cell Distribution Width 12.9 % (11.5-14.5) Platelet Count 442 x10^3/uL (140-400) SARS-CoV-2 Antigen (Rapid) Negative (NEGATIVE) Laboratory Tests Test 02/11/20 09:05 Sodium Level 137 mmol/L (136-145) Potassium Level 4.5 mmol/L (3.5-5.1) Chloride Level 100 mmol/L (98-107) Carbon Dioxide Level 30 mmol/L (21-32) Anion Gap 7 (6-14) Blood Urea Nitrogen 16 mg/dL (7-20) Creatinine 0.7 mg/dL (0.6-1.0) Estimated GFR (Cockcroft-Gault) 95.2 Glucose Level 129 mg/dL (70-99) Calcium Level 8.8 mg/dL (8.5-10.1) Microbiology 02/08/20 Blood Culture - Preliminary, Resulted NO GROWTH AFTER 3 DAYS Medications Current Medications Acetaminophen (Tylenol) 1,000 mg PRN Q6HRS PRN PO MILD PAIN 1-3; Start 02/06/20 at 22:15 Albuterol Sulfate (Ventolin Neb Soln) 2.5 mg PRN Q4HRS PRN NEB SHORTNESS OF BREATH; Start 02/06/20 at 22:15 Bisacodyl (Dulcolax Tab) 10 mg PRN DAILY PRN PO CONSTIPATION 1ST CHOICE Last administered on 02/10/20at 17:37; Start 02/06/20 at 22:15 Methocarbamol (Robaxin) 750 mg PRN Q8HRS PRN PO MUSCLE SPASMS Last administered on 02/10/20at 09:51; Start 02/06/20 at 22:15 Albuterol/ Ipratropium (Duoneb) 3 ml RTQID NEB Last administered on 02/10/20at 16:19; Start 02/07/20 at 08:00 Lactobacillus Rhamnosus (Culturelle) 1 cap BID PO Last administered on 02/11/20 at 08:33; Start 02/07/20 at 09:00 Linezolid/Dextrose 300 ml @ 300 mls/hr Q12HR IV Last administered on 02/11/20at 08:34; Start 02/07/20 at 09:00 Morphine Sulfate (Morphine Sulfate) 4 mg PRN Q3HRS PRN IM SEVERE PAIN 7-10; Start 02/06/20 at 22:15; Stop 02/07/20 at 01:04; Status DC Phenazopyridine HCl (Pyridium) 100 mg PRN TID PRN PO URINARY PAIN Last administered on 02/10/20at 09:52; Start 02/06/20 at 22:15 Hydromorphone HCl (Dilaudid) 2 mg PRN Q4HRS PRN IV SEVERE PAIN 7-10 (2nd choice) Last administered on 02/07/20at 23:49; Start 02/06/20 at 22:15; Stop 02/08/20 at 02:16; Status DC Sodium Chloride 1,000 ml @ 75 mls/hr [id number] IV Last administered on 02/07/20at 00:45; Start 02/07/20 at 00:45; Stop 02/07/20 at 14:12; Status DC Morphine Sulfate (Morphine Sulfate) 4 mg PRN Q3HRS PRN IV SEVERE PAIN 7-10 (1st choice) Last administered on 02/10/20at 17:37; Start 02/07/20 at 01:15 Gadoterate Meglumine (Dotarem) 24.2 ml 1X ONCE IVP Last administered on 02/07/20at 12:44; Start 02/07/20 at 12:30; Stop 02/07/20 at 12:31; Status DC Daptomycin 540 mg/ Sodium Chloride 50 ml @ 100 mls/hr Q24H IV Last administered on 02/10/20at 15:25; Start 02/07/20 at 14:00 Ceftriaxone Sodium (Rocephin) 2 gm Q24H IVP Last administered on 02/10/20at 17:36; Start 02/07/20 at 14:00; Stop 02/11/20 at 08:53; Status DC Potassium Chloride/Sodium Chloride 1,000 ml @ 75 mls/hr [id number] IV Last administered on 02/10/20at 07:30; Start 02/07/20 at 14:00; Stop 02/10/20 at 09:38; Status DC Zolpidem Tartrate (Ambien) 5 mg PRN QHS PRN PO INSOMNIA Last administered on 02/10/20at 20:19; Start 02/07/20 at 22:00 Hydromorphone HCl (Dilaudid) 2 mg PRN Q3HRS PRN IV SEVERE PAIN 7-10 Last administered on 02/11/20at 07:27; Start 02/08/20 at 02:15 Oxycodone HCl (OxyCONTIN) 10 mg Q12HR PO Last administered on 02/11/20at 08:33; Start 02/09/20 at 09:00 Lorazepam (Ativan) 0.5 mg PRN Q8HRS PRN PO ANXIETY / AGITATION Last administered on 02/11/20at 04:05; Start 02/09/20 at 08:30 Ondansetron HCl (Zofran) 4 mg PRN Q6HRS PRN IV NAUSEA/VOMITING; Start 02/10/20 at 11:00; Stop 02/11/20 at 10:59 Ringer's Solution 1,000 ml @ 30 mls/hr Q24H IV ; Start 02/10/20 at 10:47; Stop 02/10/20 at 22:46; Status DC Lidocaine HCl (Xylocaine-Mpf 1% 2ml Vial) 2 ml PRN 1X PRN ID PRIOR TO IV START; Start 02/10/20 at 11:00; Stop 02/11/20 at 10:59 Prochlorperazine Edisylate (Compazine) 5 mg PACU PRN PRN IV NAUSEA, MRX1 Last administered on 02/10/20at 15:26; Start 02/10/20 at 11:00; Stop 02/11/20 at 10:59 Propofol 50 ml @ As Directed STK-MED ONCE IV ; Start 02/10/20 at 12:04; Stop 02/10/20 at 12:05; Status DC Fentanyl Citrate (Fentanyl 2ml Vial) 100 mcg STK-MED ONCE .ROUTE ; Start 02/10/20 at 12:05; Stop 02/10/20 at 12:05; Status DC Lidocaine HCl (Xylocaine 2% Topical 30gm Tube) 1 tyrone 1X ONCE TP Last administered on 02/10/20at 15:07; Start 02/10/20 at 14:00; Stop 02/10/20 at 14:01; Status DC Benzocaine (Hurricaine One) 2 spray 1X ONCE MM ; Start 02/10/20 at 14:00; Stop 02/10/20 at 14:01; Status DC Hydromorphone HCl (Dilaudid) 1 mg PRN Q10MIN ONCE IV Last administered on 02/10/20at 14:37; Start 02/10/20 at 14:00; Stop 02/10/20 at 14:05; Status DC Hydromorphone HCl (Dilaudid) 2 mg 1X ONCE IM ; Start 02/10/20 at 14:00; Stop 02/10/20 at 14:40; Status DC Morphine Sulfate (Morphine Sulfate) 2 mg 1X ONCE IV ; Start 02/10/20 at 14:00; Stop 02/10/20 at 14:05; Status DC Ringer's Solution 1,000 ml @ 75 mls/hr [id number] IV ; Start 02/10/20 at 14:00 Hydromorphone HCl (Dilaudid) 1 mg PRN Q10MIN PRN IV pain Last administered on 02/10/20at 15:45; Start 02/10/20 at 14:45 Hydromorphone HCl (Dilaudid) 2 mg PRN Q10MIN PRN IV pain; Start 02/10/20 at 14:45 Lidocaine HCl (Viscous Lidocaine) 15 ml 1X ONCE SWSW Last administered on at 15:15; Start 02/10/20 at 15:15; Stop 02/10/20 at 15:16; Status DC Prochlorperazine Edisylate (Compazine) 10 mg STK-MED ONCE .ROUTE ; Start 02/10/20 at 15:17; Stop 02/10/20 at 15:17; Status DC Hydromorphone HCl (Dilaudid) 2 mg STK-MED ONCE .ROUTE ; Start 02/10/20 at 15:17; Stop 02/10/20 at 15:17; Status DC Vitals/I & O Vital Sign - Last 24 Hours 02/10/20 02/10/20 02/10/20 02/10/20 10:45 12:01 12:04 14:30 Temp 98.0 97.4 98.0 97.4 Pulse 88 93 Resp 22 18 20 B/P (MAP) 152/102 (119) 116/48 Pulse Ox 96 96 93 O2 Delivery Room Air Room Air Room Air Room Air 02/10/20 02/10/20 02/10/20 02/10/20 14:37 14:45 14:48 15:00 Pulse 86 80 Resp 22 20 20 20 B/P (MAP) 116/48 132/74 Pulse Ox 98 93 93 95 O2 Delivery Room Air Room Air Room Air Room Air 02/10/20 02/10/20 02/10/20 02/10/20 15:20 15:20 15:27 15:35 Temp 97.3 97.3 Pulse 82 76 Resp 20 20 20 B/P (MAP) 110/68 100/76 Pulse Ox 96 99 96 O2 Delivery Nasal Cannula Nasal Cannula Nasal Cannula Nasal Cannula O2 Flow Rate 2 2 2.0 2 02/10/20 02/10/20 02/10/20 02/10/20 15:45 15:50 15:58 16:15 Temp 97.3 97.3 Pulse 84 74 Resp 22 20 20 18 B/P (MAP) 115/70 131/76 (94) Pulse Ox 98 98 96 98 O2 Delivery Nasal Cannula Nasal Cannula Room Air Nasal Cannula O2 Flow Rate 2.0 2 2.0 02/10/20 02/10/20 02/10/20 02/10/20 16:20 17:00 17:37 18:07 Pulse 86 Resp 20 20 B/P (MAP) 116/72 (87) Pulse Ox 96 98 O2 Delivery Room Air Room Air Nasal Cannula Nasal Cannula O2 Flow Rate 2.0 02/10/20 02/10/20 02/10/20 02/10/20 18:54 20:03 20:20 21:50 Resp 18 18 20 Pulse Ox 98 O2 Delivery Room Air Room Air Room Air Room Air O2 Flow Rate 2.0 02/10/20 02/10/20 02/11/20 02/11/20 22:10 22:20 00:20 01:02 Temp 98.3 98.3 Pulse 90 Resp 20 20 B/P (MAP) 132/99 (110) Pulse Ox 95 O2 Delivery Room Air Room Air Room Air 02/11/20 02/11/20 02/11/20 02/11/20 01:32 04:06 04:22 04:36 Temp 97.9 97.9 Pulse 88 Resp 18 20 20 B/P (MAP) 121/78 (92) Pulse Ox 93 O2 Delivery Room Air Room Air 02/11/20 02/11/20 02/11/20 07:00 07:27 08:33 Temp 97.8 97.8 Pulse 94 Resp 18 B/P (MAP) 102/82 (89) Pulse Ox 95 O2 Delivery Room Air Room Air Room Air Intake and Output 02/10/20 02/10/20 02/11/20 15:00 23:00 07:00 Intake Total 0 ml 1270 ml 900 ml Output Total 3150 ml 1500 ml 1000 ml Balance -3150 ml -230 ml -100 ml Images Cervical spine and thoracic MRI without contrast. HISTORY: Spinal abscess. TECHNIQUE: Multiplanar, multisequence magnetic resonance imaging of the cervical spine and thoracic was performed without contrast. COMPARISON: Lumbar spine MRI dated 02/07/2020. FINDINGS: Cervical spine: There is mild kyphosis centered at C5-C6. There is minimal retrolisthesis of C5 on C6. There is endplate remodeling with disc space narrowing and osteophytosis primarily at this level, and to a lesser extent, C6-C7. There is no suspicious osseous lesion. There is no acute or subacute fracture. No cervical spinal cord lesion is seen. The visualized portions of the brain are unremarkable. There are maxillary sinus mucous retention cysts. At C2-C3, there is no stenosis. At C3-C4, there is endplate remodeling. There is mild right facet arthropathy. There is no stenosis. At C4-C5, there is endplate remodeling. There is mild bilateral facet arthropathy. There is no stenosis. At C5-C6, there is a disc bulge and endplate osteophytosis. There is uncovertebral arthropathy. Evaluation for foraminal stenosis is limited due to motion. There is suspected moderate right foraminal stenosis. There is deformation of the cervical spinal cord and suspected mild central canal stenosis measuring 9.3 mm in anterior posterior dimension. At C6-C7, there is a disc bulge and endplate osteophytosis. There is uncovertebral arthropathy. Evaluation for foraminal stenosis is limited due to motion. There is suspected mild right foraminal stenosis. Thoracic spine: The exam is extremely limited due to patient motion. There is no significant scoliosis or listhesis. There are few osseous hemangiomas. This includes a suspected atypical hemangioma demonstrating slight increased signal on inversion recovery images within T10. No convincing thoracic spinal cord lesion is seen. There are few shallow thoracic disc protrusions. There is no convincing associated foraminal or central canal stenosis. There is slight increased signal within the T11 and T12 vertebral bodies and prevertebral soft tissues.. There is a suspected superimposed retrocrural/prevertebral fluid collection measuring approximate 2.1 x 1.3 x 1.3 cm anterior to T11. There are bilateral pleural effusions. IMPRESSION: 1. Significantly limited exam due to motion and absence of intravenous contrast. No convincing spinal cord lesion or central canal abscess is seen. There is a suspected 2.1 cm fluid collection with surrounding soft tissue edema within the retrocrural/prevertebral space at T11. Given the patient history and imaging appearance, this may be a small abscess with surrounding edema. There is also suggestion of marrow edema at this level which may be reactive rather than due to osteomyelitis. 2. Multilevel degenerative change involving the cervical and thoracic spine, described above. There is a suspected foraminal stenosis at C5-C6 and C6-C7. 3. Bilateral pleural effusions. Echocardiogram: LEFT VENTRICLE The left ventricle is normal size. There is normal left ventricular wall thickness. The left ventricular systolic function is normal and the ejection fraction is within normal range. The Ejection Fraction is 55-60%. There is normal LV segmental wall motion. No left ventricle thrombus noted on this study. There is no ventricular septal defect visualized. There is no left ventricular aneurysm. There is no mass noted in the left ventricle. RIGHT VENTRICLE The right ventricle is normal size. There is normal right ventricular wall thickness. The right ventricular systolic function is normal. ATRIA The left atrium size is normal. The right atrium size is normal. The interatrial septum is intact with no evidence for an atrial septal defect or patent foramen ovale as noted on 2-D or Doppler imaging. There is no thrombus noted in the left atrial appendage. AORTIC VALVE The aortic valve is normal in structure and function. Doppler and Color Flow revealed no significant aortic regurgitation. There is no aortic valvular vegetation. MITRAL VALVE The mitral valve is normal in structure and function. There is no evidence of mitral valve prolapse or vegetation. There is no mitral valve stenosis. Doppler and Color-flow revealed trace mitral regurgitation. TRICUSPID VALVE The tricuspid valve is normal in structure and function. Doppler and Color Flow revealed trace tricuspid regurgitation. There is no tricuspid valve prolapse or vegetation. There is no tricuspid valve stenosis. PULMONIC VALVE The pulmonary valve is normal in structure and function. Doppler and Color Flow revealed no pulmonic valvular regurgitation. There is no pulmonic valvular stenosis. GREAT VESSELS The aortic root is normal in size. The ascending aorta is normal in size. The pulmonary artery is normal. The IVC is normal in size and collapses >50% with inspiration. PERICARDIAL EFFUSION There is no evidence of significant pericardial effusion. Critical Notification Critical Value: No <Conclusion> The left ventricular systolic function is normal and the ejection fraction is within normal range. The Ejection Fraction is 55-60%. There is normal LV segmental wall motion. No evidence of endocarditis Justicifation of Admission Dx: Justifications for Admission: Justification of Admission Dx: Yes SHANNON ISRAEL MD Feb 11, 2020 10:11
--- NOTE | 2020-02-11 10:51 | PN ---
DATE: 02/11/2020 SUBJECTIVE: The patient continued to complain of low back pain as well as left lower extremity numbness. She has an indwelling Hernandez catheter. However, she denied any incontinence of bowel. She continued to be on hydromorphone 2 mg every 3 hours as well as OxyContin every 12 hours as well as antibiotics. She has had CT scan of the thoracic and cervical spine and it showed that it is significantly limited exam due to motion and absence of intravenous contrast. No convincing spinal cord lesion or central canal abscess is seen. There is suspected 2.1 cm fluid collection with surrounding soft tissue edema within the retrocrural paravertebral space of T11. Given the patient's history and imaging appearance, this may be a small abscess with surrounding edema. There is also suggestion of marrow edema at this level, which may be reactive rather than due to osteomyelitis. Multilevel degenerative changes involving the cervical and thoracic spine. We did consult the interventional radiologist for aspiration. She did have ERIKA, which showed no evidence of endocarditis. PHYSICAL EXAMINATION: GENERAL: When I examined her this morning, she was resting slightly propped up in bed, in no apparent respiratory distress. No pallor, jaundice or cyanosis. No lymphadenopathy, no thyromegaly. No jugular venous distention or limb edema. VITAL SIGNS: Her heart rate was 94, blood pressure was 102/82, temperature was 97.8, respiratory rate was 18 and oxygen saturation was 95%. HEAD, EYES, EARS, NOSE AND THROAT: Showed normocephalic, atraumatic. NECK: Supple. HEART: Showed normal first and second heart sounds. No gallop, rub or murmur. CHEST: Clear to auscultation. No crepitation or rhonchi. ABDOMEN: Distended, soft, nontender. NEUROLOGIC: She was sleepy, but arousable. All cranial nerves intact. She moves upper extremities without difficulty. She did complain of pain in her left lower extremity on movement, both passive and active. Her intake over the last 24 hours was 1160, output was 7000. LABORATORY DATA: As of yesterday, her white cell count was 7500, hemoglobin 12, hematocrit 35, MCV 89 and platelet count 442,000. Her chemistry showed a serum sodium 137, potassium 5, chloride 101, bicarbonate 30, anion gap of 6, BUN 9, creatinine 0.7, estimated GFR was 95 mL per minute. Her glucose was 91, calcium was 8.6. ASSESSMENT: 1. Polymicrobial bacteremia previously with methicillin-sensitive Staphylococcus aureus on 02/02/2020 in 4/4 bottles. 2. Methicillin-resistant Staphylococcus aureus bacteremia at [facility]. 3. Intravenous drug abuse. 4. Urinary tract infection with growth of Escherichia coli. 5. Left ovarian complex cyst. 6. Hypokalemia that has resolved. 7. Severe protein-calorie malnutrition. 8. Severe back pain with evidence of diskitis, osteomyelitis and paraspinal abscess with no evidence of epidural abscess. PLAN: To continue with pain medication. Continue with IV antibiotic. Await the interventional radiologist aspiration of the abscess. I do not think the patient is a good candidate to be discharged home given her intravenous drug abuse and I spoke with clinical social worker to consider to see if she qualifies to go to [facility]. KEENAN SHELLEY MD DR: ALECIA/geneva JOB#: [id number] / [id number]
[2020-02-11 11:00] VITALS: BP 126/71
--- NOTE | 2020-02-11 14:22 | NUR ---
SS following up with discharge planning. SS reviewed pt chart and discussed with pt RN. Pt is currently on room air. Pt on IV Daptomycin and IV Zyvox. Dr. Anthony requesting [facility] referral. SS phoned and faxed referral to [facility], ; fax [phone]. Sean from PAT team met with pt and provided resources for addiction. Pt accepted at [facility] pending insurance authorization. SS will continue to follow for discharge planning.
[2020-02-11 15:00] VITALS: BP 115/72
[2020-02-11] MEDS: DAPTOmycin (GENERIC) IVPB 540 MG in IV NORMAL SALINE 50ML 50 ML IV SCH (15:31)
[2020-02-11] MEDS: METHOCARBAMOL 750 MG TABLET PO PRN ×2 (15:38→23:13)
--- NOTE | 2020-02-11 15:45 | PDOC ---
Provider Note Provider Note IR NOTE imaging reviewed. I do not see any accessible fluid collection for aspiration on available imaging. There is a vague t2 signal anterior to the spine at the affected region , but is is not well defined and very small. Could consider a disk biopsy or aspiration, but may be unnecessary in setting of recent blood cultures + for MRSA. Justicifation of Admission Dx: Justifications for Admission: Justification of Admission Dx: Yes CAROLINA LAWSON MD Feb 11, 2020 15:45
--- NOTE | 2020-02-11 17:48 | PDOC ---
Provider Note Provider Note Chart reviewed Cervical and thoracic MRI scans reviewed- there is no evidence of intraspinal abscess formation at any level She has positive blood cultures for MRSA I agree with IR and with treating her with IV antibiotics Justicifation of Admission Dx: Justifications for Admission: Justification of Admission Dx: Yes AMANDA GONZALEZ MD Feb 11, 2020 17:48
[2020-02-11 18:52] VITALS: BP 133/79
[2020-02-11] MEDS: ZOLPIDEM 5 MG TABLET. PO PRN (20:11)
[2020-02-11 23:43] VITALS: BP 118/69
[2020-02-12] MEDS: MORPHINE SULFATE 4 MG/ML VIAL. IV PRN ×4 (00:15→23:00)
[2020-02-12] MEDS: HYDROmorphone 2 MG/ML VIAL IV PRN ×7 (01:18→21:59)
[2020-02-12] MEDS: IV RINGERS,LACTATED 1000ML 1,000 ML IV SCH ×2 (05:36→19:20)
--- NOTE | 2020-02-12 05:59 | NUR ---
Refusing 3am VS assessment and AM lab draws this morning. Rude and using profanity at the staff.
[2020-02-12 07:00] VITALS: BP 105/62
[2020-02-12] MEDS: IPRATRPIUM/ALBUTEROL 0.5/2.5MG 3 ML NEBU. NEB SCH (08:06)
--- NOTE | 2020-02-12 08:16 | PDOC ---
Infectious Disease Note Subjective Subjective c/o ongoing back pain aggravated by movement and associated with lower extremity weakness and left leg numbness She has a Hernandez catheter in place Denies loss of bowel control Denies fevers/chills/aches/N/V/D/SOA/CP Vital Sign Vital Signs Vital Signs Date Time Temp Pulse Resp B/P (MAP) Pulse Ox O2 Delivery O2 Flow Rate FiO2 02/12/20 08:07 98 Room Air 02/12/20 07:07 18 02/12/20 06:06 2.0 02/12/20 03:00 88 02/11/20 23:43 97.8 118/69 (85) 97.8 Physical Exam PHYSICAL EXAM GENERAL: Lying down, alert, coop HEENT: Normal conjunctivae, oropharynx clear. No lesions seen. NECK: Supple. LUNGS: Clear bilaterally. HEART: S1, S2. No rubs or murmurs. ABDOMEN: Soft, nontender, mildly distended. Bowel sounds present. Obese : Hernandez in place EXTREMITIES: Trace edema, no cyanosis. Moves toes and DERMATOLOGIC: Warm, dry. No generalized rash. Multiple tattoos. No open wounds noted. Multiple needle luna present. No peripheral stigmata NEUROLOGIC: Alert and oriented x 3, moves BLE + sensation PSYCHIATRIC: Cooperative, slightly agitated. PIV looks ok Labs Lab Laboratory Tests Test 02/11/20 09:05 Sodium Level 137 mmol/L (136-145) Potassium Level 4.5 mmol/L (3.5-5.1) Chloride Level 100 mmol/L (98-107) Carbon Dioxide Level 30 mmol/L (21-32) Anion Gap 7 (6-14) Blood Urea Nitrogen 16 mg/dL (7-20) Creatinine 0.7 mg/dL (0.6-1.0) Estimated GFR (Cockcroft-Gault) 95.2 Glucose Level 129 mg/dL (70-99) Calcium Level 8.8 mg/dL (8.5-10.1) Micro ERIKA 02/09 <Conclusion> The left ventricular systolic function is normal and the ejection fraction is within normal range. The Ejection Fraction is 55-60%. There is normal LV segmental wall motion. No evidence of endocarditis MRI 02/09 There is slight increased signal within the T11 and T12 vertebral bodies and prevertebral soft tissues.. There is a suspected superimposed retrocrural/prevertebral fluid collection measuring approximate 2.1 x 1.3 x 1.3 cm anterior to T11. There are bilateral pleural effusions. Micro 02/07. BLOOD CULTURE Preliminary NO GROWTH AFTER 1 DAY MRSA from 02/01 [facility] BLOOD CULTURE LC Final Final GRAM POSITIVE COCCI FINAL ID= [STAPHYLOCOCCUS AUREUS (MRSA)] STAPHYLOCOCCUS AUREUS (MRSA) ANTIMICROBIAL SUSCEPTIBILITY Final Comment POS CHUY TYPE 38 STAPHYLOCOCCUS AUREUS (MRSA) ANTIBIOTIC RESULT INTERPRETATION AZITHROMYCIN >4 R CLINDAMYCIN <=0.25 S CEFOXITIN SCREEN >4 POS CIPROFLOXACIN <=1 S CEFTAROLINE <=0.5 S DAPTOMYCIN 1 S ERYTHROMYCIN >4 R GENTAMICIN <=4 S INDUCIBLE CLINDAMYCIN <=4/0.5 NEG LINEZOLID 2 S LEVOFLOXACIN <=1 S OXACILLIN 1 R* PENICILLIN >2 R* RIFAMPIN <=1 S TRIMETHOPRIM/SULFAMETHOXAZOLE <=0.5/9.5 S TETRACYCLINE <=4 S VANCOMYCIN 1 S MSSA from 02/01. here BLOOD CULTURE LC Final Final GRAM POSITIVE COCCI FINAL ID= [STAPHYLOCOCCUS AUREUS] STAPHYLOCOCCUS AUREUS ANTIMICROBIAL SUSCEPTIBILITY Final Comment POS CHUY TYPE 38 STAPHYLOCOCCUS AUREUS ANTIBIOTIC RESULT INTERPRETATION AZITHROMYCIN >4 R CLINDAMYCIN <=0.25 S CEFOXITIN SCREEN <=4 NEG CIPROFLOXACIN <=1 S CEFTAROLINE <=0.5 S DAPTOMYCIN <=0.5 S ERYTHROMYCIN >4 R GENTAMICIN <=4 S INDUCIBLE CLINDAMYCIN <=4/0.5 NEG LINEZOLID 2 S LEVOFLOXACIN <=1 S OXACILLIN 1 S PENICILLIN >2 Madiha RIFAMPIN <=1 S TRIMETHOPRIM/SULFAMETHOXAZOLE <=0.5/9.5 S TETRACYCLINE <=4 S VANCOMYCIN 1 S E. coli in urine from 02/01, here ANTIMICROBIAL SUSCEPTIBILITY Final Comment NEG CHUY 56 ESCHERICHIA COLI ANTIBIOTIC RESULT INTERPRETATION AMPICILLIN/SULBACTAM >16/8 R AMIKACIN <=16 S AMPICILLIN >16 R AMOXICILLIN/K CLAVULANATE <=8/4 S AZTREONAM <=4 S CEFTRIAXONE <=1 S CEFTAZIDIME <=1 S CEFOTAXIME <=2 S CEFOXITIN <=8 S CIPROFLOXACIN <=0.25 S CEFEPIME <=2 S CEFUROXIME <=4 S CEFTAZIDIME/AVIBACTAM <=4 S ERTAPENEM <=0.5 S NITROFURANTOIN <=32 S GENTAMICIN <=2 S LEVOFLOXACIN <=0.5 S MEROPENEM <=1 S PIPERACILLIN/TAZOBACTAM <=8 S TRIMETHOPRIM/SULFAMETHOXAZOLE >2/38 R TETRACYCLINE >8 R TOBRAMYCIN <=2 S Microbiology 02/08/20 Blood Culture - Preliminary, Resulted NO GROWTH AFTER 2 DAYS Objective Assessment MSSA ([facility] 02/01) and MRSA ([facility], 02/01) bacteremia - ERIKA 02/09 - neg Intravenous drug user. Recent history of Escherichia coli urinary tract infection, 02/01. Left ovarian complex cyst.HIV and STD - neg Hematuria. Fever - better Hep C IgG + Hypokalemia. Protein-calorie malnutrition. Severe back pain. 02/[address] [facility] [address] findings concerning for diskitis/osteomyelitis/epidural abscess. -Lumbar MRI showed increased STIR signal within the BL58-D25 disc space and adjacent endplates. There is adjacent paravertebral edema. Small anterior fluid collection measures 1.1 x 0.7 cm (series 4 image 8 and series 10 image 8). No evidence of epidural abscess. -L4-L5 increased disc signal -Bilateral retroperitoneal and presacral edema -Multilevel lumbar spinal stenosis most prominent L4-5. Plan Plan of Care Patient was initially admitted to [facility] on transfer from [facility] on 02/01 but then left AMA on the same day. She was then re-admitted here from [facility] 02/05 for possible diskitis/osteo of lumbar w/ ? epidural abscess. Continue linezolid (to po today) and daptomycin (CPK 22 02/07) will taper soon Disc ceftriaxone for UTI 02/10 Await Neurosurg f/u IR aspiration - reported no fluid accessible for aspiration per Dr. Borrego F/u Hep C VL Monitor for abx toxicities Probiotics Repeat blood cultures 02/07 neg to date Quit IVDU. Pain management per primary Sed rate not available Discussed with nursing Notified by Case management that she was caught with her boyfriend "shooting meds" will d/c ELENA Odom MD Feb 12, 2020 08:16
[2020-02-12] MEDS: LACTOBACILLUS RHAMNOSUS GG 1 CAPSULE. PO SCH ×2 (08:54→20:08)
[2020-02-12] MEDS: oxyCODONE ER 10 MG TAB.ER.12H PO SCH ×2 (08:54→20:09)
[2020-02-12] MEDS ORDERED: fentaNYL 50MCG/HR PATCH 1 PATCH PATCH.TD72 TD SCH (09:00)
[2020-02-12] MEDS ORDERED: LINEZOLID 600 MG TABLET PO SCH (09:00)
--- NOTE | 2020-02-12 09:00 | NUR ---
CHIMNEY BUILDER reported to RN that she saw patient hide a needle under her leg when she went in the room. At this time patient had a visitor in room as well who had a bag with him. Security, nursing supervisor wood room, & Dr. Anthony notified of the situation. Security had visitor leave. Patient's room was searched & nothing was found. Patient stated that she did not have anything. Will continue to monitor.
[2020-02-12 09:33] LABS: HEMATOCRIT 38.5 % (36.0-47.0); RED BLOOD COUNT 4.3 x10^6/uL (3.50-5.40); RED CELL DISTRIBUTION WIDTH 13.2 % (11.5-14.5); WHITE BLOOD COUNT 7.6 x10^3/uL (4.0-11.0)
--- NOTE | 2020-02-12 09:49 | PDOC ---
PROGRESS NOTES Assessment Abscess at T11-T12 and possibly L4-L5 Retroperitoneal and presacral edema Multilevel lumbar spinal stenosis most prominent L4-5. Neurologically intact in the lower extremities. Multiple substance abuse, caught with boyfriend shooting narcotics. Unsuccessful IR aspiration Plan I discussed risk, benefits, alternatives, side effects, patient is a narcotic abuser, she has legitimate sources of pain, I will start her on fentanyl patch, she has used these before Antibiotics Physical therapy modalities Continue current pain management Subjective Pain is 9/10 Objective Vital Signs Date Time Temp Pulse Resp B/P (MAP) Pulse Ox O2 Delivery O2 Flow Rate FiO2 02/12/20 09:21 Room Air 02/12/20 08:07 98 02/12/20 07:07 18 02/12/20 06:06 2.0 02/12/20 03:00 88 02/11/20 23:43 97.8 118/69 (85) 97.8 Intake and Output 02/12/20 07:00 Intake Total 1940 ml Output Total 3500 ml Balance -1560 ml Intake Oral 1640 ml IV Total 300 ml Output Urine Total 3500 ml # Bowel Movements 3 PHYSICAL EXAM Alert. Oriented to time, place and person. PERRL. EOMI. CN: no focal findings. Muscle tone: normal. Muscle strength: 5/5 strength with normal tone and bulk, splints the left leg, 3/5 DTR: 2+ Plantar reflex: flexor Gait: not examined in bed. Sensory exam: no abnormal findings. No cerebellar signs elicited. Review of Relevant I have reviewed the following items bertrand (where applicable) has been applied. Labs Laboratory Tests Test 02/10/20 10:00 02/11/20 09:05 02/12/20 09:20 Coronavirus (PCR) Not detected (Not Detected) SARS-CoV-2 Antigen (Rapid) Negative (NEGATIVE) Sodium Level 137 mmol/L (136-145) Potassium Level 4.5 mmol/L (3.5-5.1) Chloride Level 100 mmol/L (98-107) Carbon Dioxide Level 30 mmol/L (21-32) Anion Gap 7 (6-14) Blood Urea Nitrogen 16 mg/dL (7-20) Creatinine 0.7 mg/dL (0.6-1.0) Estimated GFR (Cockcroft-Gault) 95.2 Glucose Level 129 mg/dL (70-99) Calcium Level 8.8 mg/dL (8.5-10.1) White Blood Count 7.6 x10^3/uL (4.0-11.0) Red Blood Count 4.30 x10^6/uL (3.50-5.40) Hemoglobin 13.0 g/dL (12.0-15.5) Hematocrit 38.5 % (36.0-47.0) Mean Corpuscular Volume 90 fL (79-100) Mean Corpuscular Hemoglobin 30 pg (25-35) Mean Corpuscular Hemoglobin Concent 34 g/dL (31-37) Red Cell Distribution Width 13.2 % (11.5-14.5) Platelet Count 545 x10^3/uL (140-400) Laboratory Tests Test 02/12/20 09:20 White Blood Count 7.6 x10^3/uL (4.0-11.0) Red Blood Count 4.30 x10^6/uL (3.50-5.40) Hemoglobin 13.0 g/dL (12.0-15.5) Hematocrit 38.5 % (36.0-47.0) Mean Corpuscular Volume 90 fL (79-100) Mean Corpuscular Hemoglobin 30 pg (25-35) Mean Corpuscular Hemoglobin Concent 34 g/dL (31-37) Red Cell Distribution Width 13.2 % (11.5-14.5) Platelet Count 545 x10^3/uL (140-400) Microbiology 02/08/20 Blood Culture - Preliminary, Resulted NO GROWTH AFTER 4 DAYS Medications Current Medications Acetaminophen (Tylenol) 1,000 mg PRN Q6HRS PRN PO MILD PAIN 1-3; Start 02/06/20 at 22:15 Albuterol Sulfate (Ventolin Neb Soln) 2.5 mg PRN Q4HRS PRN NEB SHORTNESS OF BREATH; Start 02/06/20 at 22:15 Bisacodyl (Dulcolax Tab) 10 mg PRN DAILY PRN PO CONSTIPATION 1ST CHOICE Last administered on 02/10/20at 17:37; Start 02/06/20 at 22:15 Methocarbamol (Robaxin) 750 mg PRN Q8HRS PRN PO MUSCLE SPASMS Last administered on 02/11/20at 23:13; Start 02/06/20 at 22:15 Albuterol/ Ipratropium (Duoneb) 3 ml RTQID NEB Last administered on 02/12/20at 08:06; Start 02/07/20 at 08:00; Stop 02/12/20 at 08:13; Status DC Lactobacillus Rhamnosus (Culturelle) 1 cap BID PO Last administered on 02/12/20at 08:54; Start 02/07/20 at 09:00 Linezolid/Dextrose 300 ml @ 300 mls/hr Q12HR IV Last administered on 02/11/20at 20:01; Start 02/07/20 at 09:00; Stop 02/12/20 at 08:16; Status DC Morphine Sulfate (Morphine Sulfate) 4 mg PRN Q3HRS PRN IM SEVERE PAIN 7-10; Start 02/06/20 at 22:15; Stop 02/07/20 at 01:04; Status DC Phenazopyridine HCl (Pyridium) 100 mg PRN TID PRN PO URINARY PAIN Last administered on 02/10/20at 09:52; Start 02/06/20 at 22:15 Hydromorphone HCl (Dilaudid) 2 mg PRN Q4HRS PRN IV SEVERE PAIN 7-10 (2nd choice) Last administered on 02/07/20at 23:49; Start 02/06/20 at 22:15; Stop 02/08/20 at 02:16; Status DC Sodium Chloride 1,000 ml @ 75 mls/hr [id number] IV Last administered on 02/07/20at 00:45; Start 02/07/20 at 00:45; Stop 02/07/20 at 14:12; Status DC Morphine Sulfate (Morphine Sulfate) 4 mg PRN Q3HRS PRN IV SEVERE PAIN 7-10 (1st choice) Last administered on 02/12/20at 06:17; Start 02/07/20 at 01:15 Gadoterate Meglumine (Dotarem) 24.2 ml 1X ONCE IVP Last administered on 02/07/20at 12:44; Start 02/07/20 at 12:30; Stop 02/07/20 at 12:31; Status DC Daptomycin 540 mg/ Sodium Chloride 50 ml @ 100 mls/hr Q24H IV Last administered on 02/11/20at 15:31; Start 02/07/20 at 14:00 Ceftriaxone Sodium (Rocephin) 2 gm Q24H IVP Last administered on 02/10/20at 17:36; Start 02/07/20 at 14:00; Stop 02/11/20 at 08:53; Status DC Potassium Chloride/Sodium Chloride 1,000 ml @ 75 mls/hr [id number] IV Last administered on 02/10/20at 07:30; Start 02/07/20 at 14:00; Stop 02/10/20 at 09:38; Status DC Zolpidem Tartrate (Ambien) 5 mg PRN QHS PRN PO INSOMNIA Last administered on 02/11/20at 20:11; Start 02/07/20 at 22:00 Hydromorphone HCl (Dilaudid) 2 mg PRN Q3HRS PRN IV SEVERE PAIN 7-10 Last administered on 02/12/20at 07:07; Start 02/08/20 at 02:15 Oxycodone HCl (OxyCONTIN) 10 mg Q12HR PO Last administered on 02/12/20at 08:54; Start 02/09/20 at 09:00 Lorazepam (Ativan) 0.5 mg PRN Q8HRS PRN PO ANXIETY / AGITATION Last administered on 02/11/20at 23:13; Start 02/09/20 at 08:30 Ondansetron HCl (Zofran) 4 mg PRN Q6HRS PRN IV NAUSEA/VOMITING; Start 02/10/20 at 11:00; Stop 02/11/20 at 10:59; Status DC Ringer's Solution 1,000 ml @ 30 mls/hr Q24H IV ; Start 02/10/20 at 10:47; Stop 02/10/20 at 22:46; Status DC Lidocaine HCl (Xylocaine-Mpf 1% 2ml Vial) 2 ml PRN 1X PRN ID PRIOR TO IV START; Start 02/10/20 at 11:00; Stop 02/11/20 at 10:59; Status DC Prochlorperazine Edisylate (Compazine) 5 mg PACU PRN PRN IV NAUSEA, MRX1 Last administered on 02/10/20at 15:26; Start 02/10/20 at 11:00; Stop 02/11/20 at 10:59; Status DC Propofol 50 ml @ As Directed STK-MED ONCE IV ; Start 02/10/20 at 12:04; Stop 02/10/20 at 12:05; Status DC Fentanyl Citrate (Fentanyl 2ml Vial) 100 mcg STK-MED ONCE .ROUTE ; Start 02/10/20 at 12:05; Stop 02/10/20 at 12:05; Status DC Lidocaine HCl (Xylocaine 2% Topical 30gm Tube) 1 tyrone 1X ONCE TP Last administered on 02/10/20at 15:07; Start 02/10/20 at 14:00; Stop 02/10/20 at 14:01; Status DC Benzocaine (Hurricaine One) 2 spray 1X ONCE MM ; Start 02/10/20 at 14:00; Stop 02/10/20 at 14:01; Status DC Hydromorphone HCl (Dilaudid) 1 mg PRN Q10MIN ONCE IV Last administered on 02/10/20at 14:37; Start 02/10/20 at 14:00; Stop 02/10/20 at 14:05; Status DC Hydromorphone HCl (Dilaudid) 2 mg 1X ONCE IM ; Start 02/10/20 at 14:00; Stop 02/10/20 at 14:40; Status DC Morphine Sulfate (Morphine Sulfate) 2 mg 1X ONCE IV ; Start 02/10/20 at 14:00; Stop 02/10/20 at 14:05; Status DC Ringer's Solution 1,000 ml @ 75 mls/hr [id number] IV ; Start 02/10/20 at 14:00 Hydromorphone HCl (Dilaudid) 1 mg PRN Q10MIN PRN IV pain Last administered on 02/10/20at 15:45; Start 02/10/20 at 14:45; Stop 02/11/20 at 11:02; Status DC Hydromorphone HCl (Dilaudid) 2 mg PRN Q10MIN PRN IV pain; Start 02/10/20 at 14:45; Stop 02/11/20 at 11:02; Status DC Lidocaine HCl (Viscous Lidocaine) 15 ml 1X ONCE SWSW Last administered on 02/10/20at 15:15; Start 02/10/20 at 15:15; Stop 02/10/20 at 15:16; Status DC Prochlorperazine Edisylate (Compazine) 10 mg STK-MED ONCE .ROUTE ; Start 02/10/20 at 15:17; Stop 02/10/20 at 15:17; Status DC Hydromorphone HCl (Dilaudid) 2 mg STK-MED ONCE .ROUTE ; Start 02/10/20 at 15:17; Stop 02/10/20 at 15:17; Status DC Linezolid (Zyvox) 600 mg BID PO Last administered on 02/12/20at 08:54; Start 02/12/20 at 09:00; Stop 02/12/20 at 09:16; Status DC Fentanyl (Duragesic 50mcg/ Hr Patch) 1 patch Q3DAYS TD Last administered on 02/12/20at 09:21; Start 02/12/20 at 09:00 Vitals/I & O Vital Sign - Last 24 Hours 02/11/20 02/11/20 02/11/20 02/11/20 10:47 11:00 11:17 11:40 Temp 97.9 97.9 Pulse 97 Resp 20 B/P (MAP) 126/71 (89) Pulse Ox 94 97 O2 Delivery Room Air Room Air Room Air Room Air 02/11/20 02/11/20 02/11/20 02/11/20 13:22 13:57 14:27 15:00 Temp 98.1 98.1 Pulse 87 Resp 20 20 B/P (MAP) 115/72 (86) Pulse Ox 94 O2 Delivery Room Air Room Air Room Air Room Air 02/11/20 02/11/20 02/11/20 02/11/20 15:16 17:04 17:34 18:52 Temp 97.8 97.8 Pulse 95 Resp 18 22 B/P (MAP) 133/79 (97) Pulse Ox 96 96 O2 Delivery Room Air Room Air Room Air Room Air 02/11/20 02/11/20 02/11/20 02/11/20 20:00 20:01 20:02 20:32 Resp 18 18 18 Pulse Ox 96 96 96 O2 Delivery Room Air Room Air Room Air Room Air 02/11/20 02/11/20 02/11/20 02/12/20 23:14 23:43 23:44 00:01 Temp 97.8 97.8 Pulse 97 Resp 18 20 18 20 B/P (MAP) 118/69 (85) Pulse Ox 96 96 96 96 O2 Delivery Room Air Room Air Room Air Room Air 02/12/20 02/12/20 02/12/20 02/12/20 00:15 00:45 01:18 01:48 Resp 20 18 20 20 Pulse Ox 96 96 98 98 O2 Delivery Room Air Room Air Room Air Room Air 02/12/20 02/12/20 02/12/20 02/12/20 03:00 05:36 06:06 06:17 Pulse 88 Resp 20 18 Pulse Ox 98 98 98 O2 Delivery Room Air Room Air Room Air Room Air O2 Flow Rate 2.0 02/12/20 02/12/20 02/12/20 02/12/20 06:47 07:07 08:07 08:54 Resp 18 18 Pulse Ox 98 98 98 O2 Delivery Room Air Room Air Room Air Room Air 02/12/20 09:21 O2 Delivery Room Air Intake and Output 02/11/20 02/11/20 02/12/20 15:00 23:00 07:00 Intake Total 500 ml 960 ml 480 ml Output Total 1900 ml 1600 ml Balance -1400 ml 960 ml -1120 ml Justicifation of Admission Dx: Justifications for Admission: Justification of Admission Dx: Yes SHANNON ISRAEL MD Feb 12, 2020 09:49
[2020-02-12 09:58] LABS: ALBUMIN 2.8 g/dL (3.4-5.0); ALBUMIN/GLOBULIN RATIO 0.5 (1.0-1.7); CALCIUM 9.5 mg/dL (8.5-10.1); CREATININE 0.7 mg/dL (0.6-1.0); GFR 95.2; POTASSIUM 4.5 mmol/L (3.5-5.1); TOTAL BILIRUBIN 0.3 mg/dL (0.2-1.0); TOTAL PROTEIN 8.6 g/dL (6.4-8.2)
[2020-02-12 11:00] VITALS: BP 95/57
[2020-02-12 11:26] LABS: BARBITURATES NEG (NEG); BENZODIAZEPINES NEG (NEG); CANNABINOIDS NEG (NEG); COCAINE NEG (NEG); METHADONE NEG (NEG); OPIATES POS (NEG); PHENCYCLIDINE NEG (NEG)
[2020-02-12 11:29] LABS: AMPHETAMINE/METHAMPHETAMINE NEG (NEG)
--- NOTE | 2020-02-12 11:38 | NUR ---
SS following up with discharge planning. SS reviewed pt chart and discussed with pt RN. Pt is currently on room air and IV Daptomycin. Pt accepted at [facility], ; fax [phone], pending insurance authorization. Discharge orders received. SS phoned and faxed discharge orders to [facility]. SS will await insurance determination and will proceed accordingly.
[2020-02-12] MEDS: ENOXAPARIN 40 MG/0.4 ML SYRINGE. SQ SCH (12:10)
--- NOTE | 2020-02-12 12:24 | PN ---
DATE: SUBJECTIVE: The patient is resting, slightly propped up in bed, in no apparent distress. She seemed to be much less distressed today. She continued to complain of back pain; however, MRI of the cervical, thoracic and lumbar spine showed no evidence of intraspinal abscess. The interventional radiologist and neurosurgeon did not find any blood that can be drained. They recommended to continue with IV antibiotic as she required treatment for prolonged periods of time. We basically spoke with the manager social responsibility to see if she qualifies to [facility], who apparently accepted her pending the insurance authorization. PHYSICAL EXAMINATION: GENERAL: When I saw her this morning, she looked well and was clearly in no apparent distress. She has no pallor, jaundice or cyanosis. No lymphadenopathy, no thyromegaly. No jugular venous distention. No limb edema. VITAL SIGNS: Her heart rate was 98, blood pressure was 118/69 and her temperature was 97.8, respiratory rate was 18 and oxygen saturation was 98% on room air. HEAD, EYES, EARS, NOSE AND THROAT: Normocephalic, atraumatic. NECK: Supple. CARDIAC: Normal first and second heart sounds. No gallop or murmur. CHEST: Clear to auscultation. No crepitation or rhonchi. ABDOMEN: Distended, soft, nontender. NEUROLOGIC: She is awake, alert, responding appropriately. All cranial nerves are intact. She moves upper extremities without difficulty. She does complain of pain when she moves her left lower extremity. Her intake was 2170, output was 5650. LABORATORY DATA: Her lab work this morning showed a white cell count 7600, hemoglobin 13, hematocrit 39, MCV 90 and platelet count 545,000. Her chemistry showed a serum sodium 137, potassium 4.5, chloride 100, bicarbonate 30, anion gap of 7, BUN 16, creatinine 0.7, estimated GFR was 95 mL per minute. Her glucose 129, calcium was 8.8. ASSESSMENT: 1. Polymicrobial bacteremia previously with methicillin-sensitive Staphylococcus aureus on 02/02/2020 in 4/4 bottles. 2. Methicillin-resistant Staphylococcus aureus bacteremia at [facility]. 3. Intravenous drug abuse. 4. Urinary tract infection with growth of Escherichia coli. 5. Left ovarian complex cyst. 6. Hypokalemia that has resolved. 7. Severe protein-calorie malnutrition. 8. Severe back pain with evidence of diskitis, osteomyelitis; however, there is no abscess that can be drained. There is no evidence of epidural abscess. PLAN: To continue with pain management. Continue with IV antibiotic. Await the insurance authorization to transfer her to [facility]. KEENAN SHELLEY MD DR: ALECIA/geneva JOB#: [id number] / [id number]
[2020-02-12 15:00] VITALS: BP 121/75
[2020-02-12] MEDS: DAPTOmycin (GENERIC) IVPB 540 MG in IV NORMAL SALINE 50ML 50 ML IV SCH (15:22)
[2020-02-12] MEDS: METHOCARBAMOL 750 MG TABLET PO PRN (17:38)
[2020-02-12] MEDS: LORazepam 0.5 MG TABLET PO PRN (17:38)
[2020-02-12 19:32] VITALS: BP 110/71
[2020-02-12] MEDS: ZOLPIDEM 5 MG TABLET. PO PRN (20:09)
[2020-02-12 23:32] VITALS: BP 119/85
--- NOTE | 2020-02-12 23:36 | NUR ---
Upset with AGRICULTURE ENGINEER for assessing VS. Complain because AGRICULTURE ENGINEER woke her up. Told AGRICULTURE ENGINEER not to come back into her room ever again. Refusing vital sign assessment at this time.
[2020-02-13] MEDS: HYDROmorphone 2 MG/ML VIAL IV PRN ×8 (00:58→22:02)
[2020-02-13] MEDS: METHOCARBAMOL 750 MG TABLET PO PRN ×2 (02:09→15:14)
[2020-02-13] MEDS: LORazepam 0.5 MG TABLET PO PRN ×3 (02:09→20:14)
[2020-02-13] MEDS: MORPHINE SULFATE 4 MG/ML VIAL. IV PRN ×7 (02:10→20:55)
--- NOTE | 2020-02-13 03:16 | NUR ---
Refusing 3AM Vital Sign check.
[2020-02-13 07:40] VITALS: BP 110/72
[2020-02-13] MEDS: IV RINGERS,LACTATED 1000ML 1,000 ML IV SCH ×2 (08:16→22:00)
--- NOTE | 2020-02-13 08:33 | PDOC ---
Infectious Disease Note Subjective Subjective Better today back pain better overall but still aggravated by movement and improved lower extremity weakness and left leg numbness Hernandez Denies loss of bowel control Denies fevers/chills/aches/N/V/D/SOA/CP Vital Sign Vital Signs Vital Signs Date Time Temp Pulse Resp B/P (MAP) Pulse Ox O2 Delivery O2 Flow Rate FiO2 02/13/20 07:40 97.8 99 16 110/72 (85) 97 Room Air 97.8 02/13/20 07:15 2.0 Physical Exam PHYSICAL EXAM GENERAL: Lying down, alert, coop. Looks better HEENT: Normal conjunctivae, oropharynx clear. No lesions seen. NECK: Supple. LUNGS: Clear bilaterally. HEART: S1, S2. No rubs or murmurs. ABDOMEN: Soft, nontender, mildly distended. Bowel sounds present. Obese : Hernandez out EXTREMITIES: Trace edema, no cyanosis. Moves toes and DERMATOLOGIC: Warm, dry. No generalized rash. Multiple tattoos. No open wounds noted. Multiple needle luna present. No peripheral stigmata NEUROLOGIC: Alert and oriented x 3, moves BLE + sensation PSYCHIATRIC: Cooperative, slightly agitated. PIV looks ok Labs Lab Laboratory Tests Test 02/12/20 09:20 02/12/20 11:07 White Blood Count 7.6 x10^3/uL (4.0-11.0) Red Blood Count 4.30 x10^6/uL (3.50-5.40) Hemoglobin 13.0 g/dL (12.0-15.5) Hematocrit 38.5 % (36.0-47.0) Mean Corpuscular Volume 90 fL (79-100) Mean Corpuscular Hemoglobin 30 pg (25-35) Mean Corpuscular Hemoglobin Concent 34 g/dL (31-37) Red Cell Distribution Width 13.2 % (11.5-14.5) Platelet Count 545 x10^3/uL (140-400) Sodium Level 135 mmol/L (136-145) Potassium Level 4.5 mmol/L (3.5-5.1) Chloride Level 98 mmol/L (98-107) Carbon Dioxide Level 28 mmol/L (21-32) Anion Gap 9 (6-14) Blood Urea Nitrogen 18 mg/dL (7-20) Creatinine 0.7 mg/dL (0.6-1.0) Estimated GFR (Cockcroft-Gault) 95.2 BUN/Creatinine Ratio 26 (6-20) Glucose Level 102 mg/dL (70-99) Calcium Level 9.5 mg/dL (8.5-10.1) Total Bilirubin 0.3 mg/dL (0.2-1.0) Aspartate Amino Transf (AST/SGOT) 59 U/L (15-37) Alanine Aminotransferase (ALT/SGPT) 82 U/L (14-59) Alkaline Phosphatase 87 U/L (46-116) Total Protein 8.6 g/dL (6.4-8.2) Albumin 2.8 g/dL (3.4-5.0) Albumin/Globulin Ratio 0.5 (1.0-1.7) Urine Opiates Screen Pos (NEG) Urine Methadone Screen Neg (NEG) Urine Barbiturates Neg (NEG) Urine Phencyclidine Screen Neg (NEG) Urine Amphetamine/Methamphetamine Neg (NEG) Urine Benzodiazepines Screen Neg (NEG) Urine Cocaine Screen Neg (NEG) Urine Cannabinoids Screen Neg (NEG) Urine Ethyl Alcohol Neg (NEG) Micro ERIKA 02/09 <Conclusion> The left ventricular systolic function is normal and the ejection fraction is within normal range. The Ejection Fraction is 55-60%. There is normal LV segmental wall motion. No evidence of endocarditis MRI 02/09 There is slight increased signal within the T11 and T12 vertebral bodies and prevertebral soft tissues.. There is a suspected superimposed retrocrural/prevertebral fluid collection measuring approximate 2.1 x 1.3 x 1.3 cm anterior to T11. There are bilateral pleural effusions. Micro 02/07. BLOOD CULTURE Preliminary NO GROWTH AFTER 1 DAY MRSA from 02/01 [facility] BLOOD CULTURE LC Final Final GRAM POSITIVE COCCI FINAL ID= [STAPHYLOCOCCUS AUREUS (MRSA)] STAPHYLOCOCCUS AUREUS (MRSA) ANTIMICROBIAL SUSCEPTIBILITY Final Comment POS CHUY TYPE 38 STAPHYLOCOCCUS AUREUS (MRSA) ANTIBIOTIC RESULT INTERPRETATION AZITHROMYCIN >4 R CLINDAMYCIN <=0.25 S CEFOXITIN SCREEN >4 POS CIPROFLOXACIN <=1 S CEFTAROLINE <=0.5 S DAPTOMYCIN 1 S ERYTHROMYCIN >4 R GENTAMICIN <=4 S INDUCIBLE CLINDAMYCIN <=4/0.5 NEG LINEZOLID 2 S LEVOFLOXACIN <=1 S OXACILLIN 1 R* PENICILLIN >2 R* RIFAMPIN <=1 S TRIMETHOPRIM/SULFAMETHOXAZOLE <=0.5/9.5 S TETRACYCLINE <=4 S VANCOMYCIN 1 S MSSA from 02/01. here BLOOD CULTURE LC Final Final GRAM POSITIVE COCCI FINAL ID= [STAPHYLOCOCCUS AUREUS] STAPHYLOCOCCUS AUREUS ANTIMICROBIAL SUSCEPTIBILITY Final Comment POS CHUY TYPE 38 STAPHYLOCOCCUS AUREUS ANTIBIOTIC RESULT INTERPRETATION AZITHROMYCIN >4 R CLINDAMYCIN <=0.25 S CEFOXITIN SCREEN <=4 NEG CIPROFLOXACIN <=1 S CEFTAROLINE <=0.5 S DAPTOMYCIN <=0.5 S ERYTHROMYCIN >4 R GENTAMICIN <=4 S INDUCIBLE CLINDAMYCIN <=4/0.5 NEG LINEZOLID 2 S LEVOFLOXACIN <=1 S OXACILLIN 1 S PENICILLIN >2 Madiha RIFAMPIN <=1 S TRIMETHOPRIM/SULFAMETHOXAZOLE <=0.5/9.5 S TETRACYCLINE <=4 S VANCOMYCIN 1 S E. coli in urine from 02/01, here ANTIMICROBIAL SUSCEPTIBILITY Final Comment NEG CHUY 56 ESCHERICHIA COLI ANTIBIOTIC RESULT INTERPRETATION AMPICILLIN/SULBACTAM >16/8 R AMIKACIN <=16 S AMPICILLIN >16 R AMOXICILLIN/K CLAVULANATE <=8/4 S AZTREONAM <=4 S CEFTRIAXONE <=1 S CEFTAZIDIME <=1 S CEFOTAXIME <=2 S CEFOXITIN <=8 S CIPROFLOXACIN <=0.25 S CEFEPIME <=2 S CEFUROXIME <=4 S CEFTAZIDIME/AVIBACTAM <=4 S ERTAPENEM <=0.5 S NITROFURANTOIN <=32 S GENTAMICIN <=2 S LEVOFLOXACIN <=0.5 S MEROPENEM <=1 S PIPERACILLIN/TAZOBACTAM <=8 S TRIMETHOPRIM/SULFAMETHOXAZOLE >2/38 R TETRACYCLINE >8 R TOBRAMYCIN <=2 S Microbiology 02/08/20 Blood Culture - Preliminary, Resulted NO GROWTH AFTER 2 DAYS Objective Assessment MSSA ([facility] 02/01) and MRSA ([facility], 02/01) bacteremia - ERIKA 02/09 - neg Intravenous drug user. Recent history of Escherichia coli urinary tract infection, 02/01. Left ovarian complex cyst.HIV and STD - neg Hematuria. Fever - better Hep C IgG + Hypokalemia. Protein-calorie malnutrition. Severe back pain. 02/[address] [facility] CT findings concerning for diskitis/osteomyelitis/epidural abscess. -Lumbar MRI showed increased STIR signal within the CA19-A98 disc space and adjacent endplates. There is adjacent paravertebral edema. Small anterior fluid collection measures 1.1 x 0.7 cm (series 4 image 8 and series 10 image 8). No evidence of epidural abscess. -L4-L5 increased disc signal -Bilateral retroperitoneal and presacral edema -Multilevel lumbar spinal stenosis most prominent L4-5. Plan Plan of Care Patient was initially admitted to [facility] on transfer from [facility] on 02/01 but then left [facility] on the same day. She was then re-admitted here from [facility] 02/05 for possible diskitis/osteo of lumbar w/ ? epidural abscess. Discontinue linezolid - Notified by Case management 02/11 that she was caught with her boyfriend "? shooting meds" No PICC line with above incident Cont daptomycin (CPK 22 02/07) Disc ceftriaxone for UTI 02/10 IR aspiration - reported no fluid accessible for aspiration per Dr. Borrego F/u Hep C VL Monitor for abx toxicities Probiotics Repeat blood cultures 02/07 neg to date Quit IVDU. Pain management per primary Sed rate not available Discussed with nursing ELENA BAKER MD Feb 13, 2020 08:33
[2020-02-13] MEDS: oxyCODONE ER 10 MG TAB.ER.12H PO SCH ×2 (08:42→20:54)
[2020-02-13] MEDS: LACTOBACILLUS RHAMNOSUS GG 1 CAPSULE. PO SCH ×2 (08:42→20:54)
--- NOTE | 2020-02-13 09:49 | NUR ---
SS following up with discharge planning. SS reviewed pt chart and discussed with pt RN. Pt is currently on room air. Pt remains on IV Daptomycin. Pt accepted at [facility], ; fax [phone], pending insurance authorization. Discharge orders were faxed to [facility] on 02/12/2020. SS phoned and faxed clinical updates to [facility]. SS will await insurance determination and will proceed accordingly.
[2020-02-13 10:38] VITALS: BP 112/70
[2020-02-13] MEDS: ENOXAPARIN 40 MG/0.4 ML SYRINGE. SQ SCH (12:05)
--- NOTE | 2020-02-13 12:36 | PN ---
DATE: SUBJECTIVE: The patient is resting, slightly propped up in bed, in no apparent respiratory distress. She is awake, alert, continued to complain of back pain. We took the catheter out; however, she refused to work with physical therapy and she has been using bedpan. She is actually making lots of urine according to nursing staff. PHYSICAL EXAMINATION: GENERAL: On examining her, she looked well and was clearly in no apparent distress, pale. No jaundice, cyanosis or thyromegaly. No jugular venous distention. No limb edema. VITAL SIGNS: Her heart rate was 99, blood pressure was 110/72, temperature 97.8, respiratory rate was 17 and oxygen saturation was 97% on room air. HEAD, EYES, EARS, NOSE AND THROAT: Normocephalic, atraumatic. NECK: Supple. HEART: Showed normal first and second heart sounds. No gallop, rub or murmur. CHEST: Clear to auscultation. No crepitation or rhonchi. ABDOMEN: Distended, soft, nontender. NEUROLOGIC: She is awake, alert, responding appropriately. All cranial nerves are intact. She moves upper extremities without difficulty as well as right lower extremity. She does complain of pain in her left lower extremity both passive and active movement. Although CT scan showed no paraspinal intraspinal abscess. Her intake over the last 24 hours was 1940, output was 3500. LABORATORY DATA: No lab works were ordered this morning as her kidney function has been steady and stable at this time. Her white cell count, hemoglobin, hematocrit and platelets are all within acceptable range. ASSESSMENT: 1. Polymicrobial bacteremia previously with methicillin-sensitive Staphylococcus aureus on 02/02/2020 in 4/4 bottles. 2. Methicillin-resistant Staphylococcus aureus bacteremia at [facility]. 3. Intravenous drug abuse. 4. Urinary tract infection with growth of Escherichia coli. 5. Left ovarian complex cyst. 6. Hypokalemia, it has resolved. 7. Severe protein-calorie malnutrition. 8. Severe back pain with evidence of diskitis, osteomyelitis; however, there is no abscess that can be drained. There is no evidence of epidural abscess. PLAN: Continue with pain management. Continue with IV antibiotic. Continue with physical and occupational therapy. The patient can be transferred to [facility] if and when the insurance companies gave us authorization. KEENAN SHELLEY MD DR: Fiorella JOB#: [id number] / [id number]
[2020-02-13] MEDS: DAPTOmycin (GENERIC) IVPB 540 MG in IV NORMAL SALINE 50ML 50 ML IV SCH (13:14)
--- NOTE | 2020-02-13 13:32 | PDOC ---
PROGRESS NOTES Assessment Abscess at T11-T12 and possibly L4-L5 Retroperitoneal and presacral edema Multilevel lumbar spinal stenosis most prominent L4-5. Neurologically intact in the lower extremities. Multiple substance abuse, caught with boyfriend shooting narcotics. Unsuccessful IR aspiration Pain is better with fentanyl patch, 5/10, left leg muscle spasms released Plan Fentanyl patch Antibiotics Physical therapy modalities I understand she will be going to long-term acute care Subjective No other complaints Objective Vital Signs Date Time Temp Pulse Resp B/P (MAP) Pulse Ox O2 Delivery O2 Flow Rate FiO2 02/13/20 13:12 95 Room Air 02/13/20 12:35 2.0 02/13/20 10:39 17 02/13/20 10:38 98.0 66 112/70 (84) 98.0 Intake and Output 02/13/20 07:00 Intake Total 1530 ml Output Total 800 ml Balance 730 ml Intake Oral 1530 ml Output Urine Total 800 ml # Voids 7 # Bowel Movements 1 PHYSICAL EXAM Alert. Oriented to time, place and person. PERRL. EOMI. CN: no focal findings. Muscle tone: normal. Muscle strength: 5/5 strength with normal tone and bulk, left leg splinting resolved, still 4/5 DTR: 2+ Plantar reflex: flexor Gait: not examined in bed. Sensory exam: no abnormal findings. No cerebellar signs elicited. Review of Relevant I have reviewed the following items bertrand (where applicable) has been applied. Labs Laboratory Tests Test 02/12/20 09:20 02/12/20 11:07 White Blood Count 7.6 x10^3/uL (4.0-11.0) Red Blood Count 4.30 x10^6/uL (3.50-5.40) Hemoglobin 13.0 g/dL (12.0-15.5) Hematocrit 38.5 % (36.0-47.0) Mean Corpuscular Volume 90 fL (79-100) Mean Corpuscular Hemoglobin 30 pg (25-35) Mean Corpuscular Hemoglobin Concent 34 g/dL (31-37) Red Cell Distribution Width 13.2 % (11.5-14.5) Platelet Count 545 x10^3/uL (140-400) Sodium Level 135 mmol/L (136-145) Potassium Level 4.5 mmol/L (3.5-5.1) Chloride Level 98 mmol/L (98-107) Carbon Dioxide Level 28 mmol/L (21-32) Anion Gap 9 (6-14) Blood Urea Nitrogen 18 mg/dL (7-20) Creatinine 0.7 mg/dL (0.6-1.0) Estimated GFR (Cockcroft-Gault) 95.2 BUN/Creatinine Ratio 26 (6-20) Glucose Level 102 mg/dL (70-99) Calcium Level 9.5 mg/dL (8.5-10.1) Total Bilirubin 0.3 mg/dL (0.2-1.0) Aspartate Amino Transf (AST/SGOT) 59 U/L (15-37) Alanine Aminotransferase (ALT/SGPT) 82 U/L (14-59) Alkaline Phosphatase 87 U/L (46-116) Total Protein 8.6 g/dL (6.4-8.2) Albumin 2.8 g/dL (3.4-5.0) Albumin/Globulin Ratio 0.5 (1.0-1.7) Urine Opiates Screen Pos (NEG) Urine Methadone Screen Neg (NEG) Urine Barbiturates Neg (NEG) Urine Phencyclidine Screen Neg (NEG) Urine Amphetamine/Methamphetamine Neg (NEG) Urine Benzodiazepines Screen Neg (NEG) Urine Cocaine Screen Neg (NEG) Urine Cannabinoids Screen Neg (NEG) Urine Ethyl Alcohol Neg (NEG) Microbiology 02/08/20 Blood Culture - Final, Complete NO GROWTH AFTER 5 DAYS Medications Current Medications Acetaminophen (Tylenol) 1,000 mg PRN Q6HRS PRN PO MILD PAIN 1-3; Start 02/06/20 at 22:15 Albuterol Sulfate (Ventolin Neb Soln) 2.5 mg PRN Q4HRS PRN NEB SHORTNESS OF BREATH; Start 02/06/20 at 22:15 Bisacodyl (Dulcolax Tab) 10 mg PRN DAILY PRN PO CONSTIPATION 1ST CHOICE Last administered on 02/10/20at 17:37; Start 02/06/20 at 22:15 Methocarbamol (Robaxin) 750 mg PRN Q8HRS PRN PO MUSCLE SPASMS Last administered on 02/13/20at 02:09; Start 02/06/20 at 22:15 Albuterol/ Ipratropium (Duoneb) 3 ml RTQID NEB Last administered on 02/12/20at 08:06; Start 02/07/20 at 08:00; Stop 02/12/20 at 08:13; Status DC Lactobacillus Rhamnosus (Culturelle) 1 cap BID PO Last administered on 02/13/20at 08:42; Start 02/07/20 at 09:00 Linezolid/Dextrose 300 ml @ 300 mls/hr Q12HR IV Last administered on 02/11/20at 20:01; Start 02/07/20 at 09:00; Stop 02/12/20 at 08:16; Status DC Morphine Sulfate (Morphine Sulfate) 4 mg PRN Q3HRS PRN IM SEVERE PAIN 7-10; Start 02/06/20 at 22:15; Stop 02/07/20 at 01:04; Status DC Phenazopyridine HCl (Pyridium) 100 mg PRN TID PRN PO URINARY PAIN Last administered on 02/10/20at 09:52; Start 02/06/20 at 22:15 Hydromorphone HCl (Dilaudid) 2 mg PRN Q4HRS PRN IV SEVERE PAIN 7-10 (2nd choice) Last administered on 02/07/20at 23:49; Start 02/06/20 at 22:15; Stop 02/08/20 at 02:16; Status DC Sodium Chloride 1,000 ml @ 75 mls/hr [id number] IV Last administered on 02/07/20at 00:45; Start 02/07/20 at 00:45; Stop 02/07/20 at 14:12; Status DC Morphine Sulfate (Morphine Sulfate) 4 mg PRN Q3HRS PRN IV SEVERE PAIN 7-10 (1st choice) Last administered on 02/13/20at 12:05; Start 02/07/20 at 01:15 Gadoterate Meglumine (Dotarem) 24.2 ml 1X ONCE IVP Last administered on 02/07/20at 12:44; Start 02/07/20 at 12:30; Stop 02/07/20 at 12:31; Status DC Daptomycin 540 mg/ Sodium Chloride 50 ml @ 100 mls/hr Q24H IV Last administered on 02/13/20at 13:14; Start 02/07/20 at 14:00 Ceftriaxone Sodium (Rocephin) 2 gm Q24H IVP Last administered on 02/10/20at 17:36; Start 02/07/20 at 14:00; Stop 02/11/20 at 08:53; Status DC Potassium Chloride/Sodium Chloride 1,000 ml @ 75 mls/hr [id number] IV Last administered on 02/10/20at 07:30; Start 02/07/20 at 14:00; Stop 02/10/20 at 09:38; Status DC Zolpidem Tartrate (Ambien) 5 mg PRN QHS PRN PO INSOMNIA Last administered on 02/12/20at 20:09; Start 02/07/20 at 22:00 Hydromorphone HCl (Dilaudid) 2 mg PRN Q3HRS PRN IV SEVERE PAIN 7-10 Last administered on 02/13/20at 13:12; Start 02/08/20 at 02:15 Oxycodone HCl (OxyCONTIN) 10 mg Q12HR PO Last administered on 02/13/20at 08:42; Start 02/09/20 at 09:00 Lorazepam (Ativan) 0.5 mg PRN Q8HRS PRN PO ANXIETY / AGITATION Last administered on 02/13/20at 12:04; Start 02/09/20 at 08:30 Ondansetron HCl (Zofran) 4 mg PRN Q6HRS PRN IV NAUSEA/VOMITING; Start 02/10/20 at 11:00; Stop 02/11/20 at 10:59; Status DC Ringer's Solution 1,000 ml @ 30 mls/hr Q24H IV ; Start 02/10/20 at 10:47; Stop 02/10/20 at 22:46; Status DC Lidocaine HCl (Xylocaine-Mpf 1% 2ml Vial) 2 ml PRN 1X PRN ID PRIOR TO IV START; Start 02/10/20 at 11:00; Stop 02/11/20 at 10:59; Status DC Prochlorperazine Edisylate (Compazine) 5 mg PACU PRN PRN IV NAUSEA, MRX1 Last administered on 02/10/20at 15:26; Start 02/10/20 at 11:00; Stop 02/11/20 at 10:59; Status DC Propofol 50 ml @ As Directed STK-MED ONCE IV ; Start 02/10/20 at 12:04; Stop 02/10/20 at 12:05; Status DC Fentanyl Citrate (Fentanyl 2ml Vial) 100 mcg STK-MED ONCE .ROUTE ; Start 02/10/20 at 12:05; Stop 02/10/20 at 12:05; Status DC Lidocaine HCl (Xylocaine 2% Topical 30gm Tube) 1 tyrone 1X ONCE TP Last administered on 02/10/20at 15:07; Start 02/10/20 at 14:00; Stop 02/10/20 at 14:01; Status DC Benzocaine (Hurricaine One) 2 spray 1X ONCE MM ; Start 02/10/20 at 14:00; Stop 02/10/20 at 14:01; Status DC Hydromorphone HCl (Dilaudid) 1 mg PRN Q10MIN ONCE IV Last administered on 02/10/20at 14:37; Start 02/10/20 at 14:00; Stop 02/10/20 at 14:05; Status DC Hydromorphone HCl (Dilaudid) 2 mg 1X ONCE IM ; Start 02/10/20 at 14:00; Stop 02/10/20 at 14:40; Status DC Morphine Sulfate (Morphine Sulfate) 2 mg 1X ONCE IV ; Start 02/10/20 at 14:00; Stop 02/10/20 at 14:05; Status DC Ringer's Solution 1,000 ml @ 75 mls/hr [id number] IV ; Start 02/10/20 at 14:00 Hydromorphone HCl (Dilaudid) 1 mg PRN Q10MIN PRN IV pain Last administered on 02/10/20at 15:45; Start 02/10/20 at 14:45; Stop 02/11/20 at 11:02; Status DC Hydromorphone HCl (Dilaudid) 2 mg PRN Q10MIN PRN IV pain; Start 02/10/20 at 14:45; Stop 02/11/20 at 11:02; Status DC Lidocaine HCl (Viscous Lidocaine) 15 ml 1X ONCE [id number] Last administered on 02/10/20at 15:15; Start 02/10/20 at 15:15; Stop 02/10/20 at 15:16; Status DC Prochlorperazine Edisylate (Compazine) 10 mg STK-MED ONCE .ROUTE ; Start 02/10/20 at 15:17; Stop 02/10/20 at 15:17; Status DC Hydromorphone HCl (Dilaudid) 2 mg STK-MED ONCE .ROUTE ; Start 02/10/20 at 15:17; Stop 02/10/20 at 15:17; Status DC Linezolid (Zyvox) 600 mg BID PO Last administered on 02/12/20at 08:54; Start 02/12/20 at 09:00; Stop 02/12/20 at 09:16; Status DC Fentanyl (Duragesic 50mcg/ Hr Patch) 1 patch Q3DAYS TD Last administered on 02/12/20at 09:21; Start 02/12/20 at 09:00 Enoxaparin Sodium (Lovenox 40mg Syringe) 40 mg Q24H SQ Last administered on 02/13/20at 12:05; Start 02/12/20 at 12:00 Vitals/I & O Vital Sign - Last 24 Hours 02/12/20 02/12/20 02/12/20 02/12/20 15:00 15:23 15:53 18:58 Temp 98.1 98.1 Pulse 80 Resp 20 18 B/P (MAP) 121/75 (90) Pulse Ox 92 92 O2 Delivery Room Air Room Air Room Air Room Air 02/12/20 02/12/20 02/12/20 02/12/20 19:28 19:32 20:00 20:09 Temp 98.1 98.1 Pulse 98 Resp 18 16 18 B/P (MAP) 110/71 (84) Pulse Ox 92 94 92 O2 Delivery Room Air Room Air Room Air Room Air 02/12/20 02/12/20 02/12/20 02/12/20 20:15 20:45 21:59 22:29 Resp 18 18 18 18 Pulse Ox 92 92 92 92 O2 Delivery Room Air Room Air Room Air Room Air 02/12/20 02/12/20 02/12/20 02/13/20 23:00 23:30 23:32 00:09 Pulse 95 Resp 18 20 16 18 B/P (MAP) 119/85 (96) Pulse Ox 92 92 96 92 O2 Delivery Room Air Room Air Room Air Room Air 02/13/20 02/13/20 02/13/20 02/13/20 00:58 01:28 02:10 02:40 Resp 18 18 18 18 Pulse Ox 92 92 92 92 O2 Delivery Room Air Room Air Room Air Room Air 02/13/20 02/13/20 02/13/20 02/13/20 03:15 03:56 04:26 04:39 Pulse 90 Resp 18 18 18 18 Pulse Ox 92 92 92 O2 Delivery Room Air Room Air Room Air Room Air 02/13/20 02/13/20 02/13/20 02/13/20 05:09 06:45 07:15 07:40 Temp 97.8 97.8 Pulse 99 Resp 18 18 16 16 B/P (MAP) 110/72 (85) Pulse Ox 92 92 97 97 O2 Delivery Room Air Room Air Room Air Room Air O2 Flow Rate 2.0 02/13/20 02/13/20 02/13/20 02/13/20 08:00 08:42 08:43 09:13 Resp 16 17 Pulse Ox 97 97 97 O2 Delivery Room Air Room Air Room Air Room Air O2 Flow Rate 2.0 02/13/20 02/13/20 02/13/20 02/13/20 10:09 10:38 10:39 12:05 Temp 98.0 98.0 Pulse 66 Resp 16 17 B/P (MAP) 112/70 (84) Pulse Ox 97 95 95 95 O2 Delivery Room Air Room Air Room Air Room Air O2 Flow Rate 2.0 02/13/20 02/13/20 02/13/20 12:35 12:35 13:12 Pulse Ox 95 95 95 O2 Delivery Room Air Room Air Room Air O2 Flow Rate 2.0 2.0 Intake and Output 02/12/20 02/12/20 02/13/20 15:00 23:00 07:00 Intake Total 630 ml 780 ml 120 ml Output Total 800 ml Balance -170 ml 780 ml 120 ml Justicifation of Admission Dx: Justifications for Admission: Justification of Admission Dx: Yes SHANNON ISRAEL MD Feb 13, 2020 13:32
[2020-02-13 14:36] VITALS: BP 111/76
[2020-02-13 19:09] LABS: HCV ULTRA QUANT PCR HCV Not Detected IU/mL (.)
[2020-02-13 19:10] VITALS: BP 105/78
[2020-02-13 22:00] VITALS: BP 112/74
[2020-02-13] MEDS: ZOLPIDEM 5 MG TABLET. PO PRN (22:01)
[2020-02-14] MEDS: MORPHINE SULFATE 4 MG/ML VIAL. IV PRN ×4 (00:05→08:51)
[2020-02-14] MEDS: HYDROmorphone 2 MG/ML VIAL IV PRN ×4 (01:04→10:19)
[2020-02-14 03:00] VITALS: BP 112/72
[2020-02-14] MEDS: LORazepam 0.5 MG TABLET PO PRN ×2 (04:18→11:53)
--- NOTE | 2020-02-14 06:10 | NUR ---
Patients mom called to check on pt, wanted to let us know that patients insurance is up at the end of the month. Also questions about what they will do if patient insurance doesn't approve her stay at [facility], patient mother will follow up with patient and SS. Told patient that her mom called to check on her, pt replied " i only want her to know things on a need to know basis because she is using it against me, i am 34 years old and can make my own decisions."
[2020-02-14 07:00] VITALS: BP 133/80
--- NOTE | 2020-02-14 08:08 | PDOC ---
Infectious Disease Note Subjective Subjective Better today yet back pain better overall but still aggravated by movement and improved lower extremity weakness and left leg numbness Eating well Denies loss of bowel control Denies fevers/chills/aches/N/V/D/SOA/CP Vital Sign Vital Signs Vital Signs Date Time Temp Pulse Resp B/P (MAP) Pulse Ox O2 Delivery O2 Flow Rate FiO2 02/14/20 07:14 16 92 Room Air 02/14/20 07:00 97.8 89 133/80 (97) 97.8 02/13/20 18:07 2.0 Physical Exam PHYSICAL EXAM GENERAL: Lying down, alert, coop. Looks better HEENT: Normal conjunctivae, oropharynx clear. No lesions seen. NECK: Supple. LUNGS: Clear bilaterally. HEART: S1, S2. No rubs or murmurs. ABDOMEN: Soft, nontender, mildly distended. Bowel sounds present. Obese : Hernandez out EXTREMITIES: Trace edema, no cyanosis. Moves toes and DERMATOLOGIC: Warm, dry. No generalized rash. Multiple tattoos. No open wounds noted. Multiple needle luna present. No peripheral stigmata NEUROLOGIC: Alert and oriented x 3, moves BLE + sensation PSYCHIATRIC: Cooperative, slightly agitated. PIV looks ok Labs Micro ERIKA 02/09 <Conclusion> The left ventricular systolic function is normal and the ejection fraction is within normal range. The Ejection Fraction is 55-60%. There is normal LV segmental wall motion. No evidence of endocarditis MRI 02/09 There is slight increased signal within the T11 and T12 vertebral bodies and prevertebral soft tissues.. There is a suspected superimposed retrocrural/prevertebral fluid collection measuring approximate 2.1 x 1.3 x 1.3 cm anterior to T11. There are bilateral pleural effusions. MRSA from 02/01 [facility] BLOOD CULTURE LC Final Final GRAM POSITIVE COCCI FINAL ID= [STAPHYLOCOCCUS AUREUS (MRSA)] STAPHYLOCOCCUS AUREUS (MRSA) ANTIMICROBIAL SUSCEPTIBILITY Final Comment POS CHUY TYPE 38 STAPHYLOCOCCUS AUREUS (MRSA) ANTIBIOTIC RESULT INTERPRETATION AZITHROMYCIN >4 R CLINDAMYCIN <=0.25 S CEFOXITIN SCREEN >4 POS CIPROFLOXACIN <=1 S CEFTAROLINE <=0.5 S DAPTOMYCIN 1 S ERYTHROMYCIN >4 R GENTAMICIN <=4 S INDUCIBLE CLINDAMYCIN <=4/0.5 NEG LINEZOLID 2 S LEVOFLOXACIN <=1 S OXACILLIN 1 R* PENICILLIN >2 R* RIFAMPIN <=1 S TRIMETHOPRIM/SULFAMETHOXAZOLE <=0.5/9.5 S TETRACYCLINE <=4 S VANCOMYCIN 1 S MSSA from 02/01. here BLOOD CULTURE LC Final Final GRAM POSITIVE COCCI FINAL ID= [STAPHYLOCOCCUS AUREUS] STAPHYLOCOCCUS AUREUS ANTIMICROBIAL SUSCEPTIBILITY Final Comment POS CHUY TYPE 38 STAPHYLOCOCCUS AUREUS ANTIBIOTIC RESULT INTERPRETATION AZITHROMYCIN >4 R CLINDAMYCIN <=0.25 S CEFOXITIN SCREEN <=4 NEG CIPROFLOXACIN <=1 S CEFTAROLINE <=0.5 S DAPTOMYCIN <=0.5 S ERYTHROMYCIN >4 R GENTAMICIN <=4 S INDUCIBLE CLINDAMYCIN <=4/0.5 NEG LINEZOLID 2 S LEVOFLOXACIN <=1 S OXACILLIN 1 S PENICILLIN >2 Madiha RIFAMPIN <=1 S TRIMETHOPRIM/SULFAMETHOXAZOLE <=0.5/9.5 S TETRACYCLINE <=4 S VANCOMYCIN 1 S Micro 02/07. BLOOD CULTURE Preliminary NO GROWTH AFTER 1 DAY MRSA from 02/01 [facility] BLOOD CULTURE LC Final Final GRAM POSITIVE COCCI FINAL ID= [STAPHYLOCOCCUS AUREUS (MRSA)] STAPHYLOCOCCUS AUREUS (MRSA) ANTIMICROBIAL SUSCEPTIBILITY Final Comment POS CHUY TYPE 38 STAPHYLOCOCCUS AUREUS (MRSA) ANTIBIOTIC RESULT INTERPRETATION AZITHROMYCIN >4 R CLINDAMYCIN <=0.25 S CEFOXITIN SCREEN >4 POS CIPROFLOXACIN <=1 S CEFTAROLINE <=0.5 S DAPTOMYCIN 1 S ERYTHROMYCIN >4 R GENTAMICIN <=4 S INDUCIBLE CLINDAMYCIN <=4/0.5 NEG LINEZOLID 2 S LEVOFLOXACIN <=1 S OXACILLIN 1 R* PENICILLIN >2 R* RIFAMPIN <=1 S TRIMETHOPRIM/SULFAMETHOXAZOLE <=0.5/9.5 S TETRACYCLINE <=4 S VANCOMYCIN 1 S MSSA from 02/01. here BLOOD CULTURE LC Final Final GRAM POSITIVE COCCI FINAL ID= [STAPHYLOCOCCUS AUREUS] STAPHYLOCOCCUS AUREUS ANTIMICROBIAL SUSCEPTIBILITY Final Comment POS CHUY TYPE 38 STAPHYLOCOCCUS AUREUS ANTIBIOTIC RESULT INTERPRETATION AZITHROMYCIN >4 R CLINDAMYCIN <=0.25 S CEFOXITIN SCREEN <=4 NEG CIPROFLOXACIN <=1 S CEFTAROLINE <=0.5 S DAPTOMYCIN <=0.5 S ERYTHROMYCIN >4 R GENTAMICIN <=4 S INDUCIBLE CLINDAMYCIN <=4/0.5 NEG LINEZOLID 2 S LEVOFLOXACIN <=1 S OXACILLIN 1 S PENICILLIN >2 Madiha RIFAMPIN <=1 S TRIMETHOPRIM/SULFAMETHOXAZOLE <=0.5/9.5 S TETRACYCLINE <=4 S VANCOMYCIN 1 S E. coli in urine from 02/01, here ANTIMICROBIAL SUSCEPTIBILITY Final Comment NEG CHUY 56 ESCHERICHIA COLI ANTIBIOTIC RESULT INTERPRETATION AMPICILLIN/SULBACTAM >16/8 R AMIKACIN <=16 S AMPICILLIN >16 R AMOXICILLIN/K CLAVULANATE <=8/4 S AZTREONAM <=4 S CEFTRIAXONE <=1 S CEFTAZIDIME <=1 S CEFOTAXIME <=2 S CEFOXITIN <=8 S CIPROFLOXACIN <=0.25 S CEFEPIME <=2 S CEFUROXIME <=4 S CEFTAZIDIME/AVIBACTAM <=4 S ERTAPENEM <=0.5 S NITROFURANTOIN <=32 S GENTAMICIN <=2 S LEVOFLOXACIN <=0.5 S MEROPENEM <=1 S PIPERACILLIN/TAZOBACTAM <=8 S TRIMETHOPRIM/SULFAMETHOXAZOLE >2/38 R TETRACYCLINE >8 R TOBRAMYCIN <=2 S Microbiology 02/08/20 Blood Culture - Preliminary, Resulted NO GROWTH AFTER 2 DAYS Objective Assessment MSSA ([facility] 02/01) and MRSA ([facility], 02/01) bacteremia - ERIKA 02/09 - neg Intravenous drug user. Recent history of Escherichia coli urinary tract infection, 02/01. Left ovarian complex cyst.HIV and STD - neg Hematuria. Fever - better Hep C IgG + Hypokalemia. Protein-calorie malnutrition. Severe back pain. 02/[address] [facility] [address] findings concerning for diskitis/osteomyelitis/epidural abscess. -Lumbar MRI showed increased STIR signal within the LZ16-I89 disc space and adjacent endplates. There is adjacent paravertebral edema. Small anterior fluid collection measures 1.1 x 0.7 cm (series 4 image 8 and series 10 image 8). No evidence of epidural abscess. -L4-L5 increased disc signal -Bilateral retroperitoneal and presacral edema -Multilevel lumbar spinal stenosis most prominent L4-5. Plan Plan of Care Patient was initially admitted to [facility] on transfer from [facility] on 02/01 but then left [facility] on the same day. She was then re-admitted here from [facility] 02/05 for possible diskitis/osteo of lumbar w/ ? epidural abscess. Discontinue linezolid - Notified by Case management 02/11 that she was caught with her boyfriend "? shooting meds" Discont daptomycin (CPK 22 02/07) begin Vanc as she is to go to [facility] and can be monitored PICC line today Disc ceftriaxone for UTI 02/10 IR aspiration - reported no fluid accessible for aspiration per Dr. Borrego F/u Hep C VL Monitor for abx toxicities Probiotics Repeat blood cultures 02/07 neg to date Quit IVDU. Pain management per primary Sed rate not available Discussed with nursing/Case Management ELENA BAKER MD Feb 14, 2020 08:08
[2020-02-14] MEDS ORDERED: VANCOMYCIN PER PHARMACY MC PRN (08:15)
[2020-02-14] MEDS ORDERED: VANCOMYCIN 2 GM in IV NORMAL SALINE 500ML BAG 500 ML IV ONE (08:15)
--- NOTE | 2020-02-14 08:39 | PDOC ---
PROGRESS NOTES Assessment Abscess at T11-T12 and possibly L4-L5 Retroperitoneal and presacral edema Multilevel lumbar spinal stenosis most prominent L4-5. Neurologically intact in the lower extremities. Multiple substance abuse, caught with boyfriend shooting narcotics. Unsuccessful IR aspiration Pain is better with fentanyl patch, /, left leg muscle spasms released Plan Fentanyl patch Antibiotics Physical therapy modalities I understand she will be going to long-term acute care Subjective pain 02/02 Objective Vital Signs Date Time Temp Pulse Resp B/P (MAP) Pulse Ox O2 Delivery O2 Flow Rate FiO2 02/14/20 08:00 Room Air 02/14/20 07:14 16 92 02/14/20 07:00 97.8 89 133/80 (97) 97.8 02/13/20 18:07 2.0 Intake and Output 02/14/20 07:00 Intake Total 930 ml Output Total 1450 ml Balance -520 ml Intake Oral 930 ml Output Urine Total 1450 ml # Voids 5 # Bowel Movements 1 PHYSICAL EXAM Alert. Oriented to time, place and person. PERRL. EOMI. CN: no focal findings. Muscle tone: normal. Muscle strength: 5/5 strength with normal tone and bulk, left leg splinting resolved, still 4/5 DTR: 2+ Plantar reflex: flexor Gait: not examined in bed. Sensory exam: no abnormal findings. No cerebellar signs elicited. Review of Relevant I have reviewed the following items bertrand (where applicable) has been applied. Labs Laboratory Tests Test 02/12/20 09:20 02/12/20 11:07 White Blood Count 7.6 x10^3/uL (4.0-11.0) Red Blood Count 4.30 x10^6/uL (3.50-5.40) Hemoglobin 13.0 g/dL (12.0-15.5) Hematocrit 38.5 % (36.0-47.0) Mean Corpuscular Volume 90 fL (79-100) Mean Corpuscular Hemoglobin 30 pg (25-35) Mean Corpuscular Hemoglobin Concent 34 g/dL (31-37) Red Cell Distribution Width 13.2 % (11.5-14.5) Platelet Count 545 x10^3/uL (140-400) Sodium Level 135 mmol/L (136-145) Potassium Level 4.5 mmol/L (3.5-5.1) Chloride Level 98 mmol/L (98-107) Carbon Dioxide Level 28 mmol/L (21-32) Anion Gap 9 (6-14) Blood Urea Nitrogen 18 mg/dL (7-20) Creatinine 0.7 mg/dL (0.6-1.0) Estimated GFR (Cockcroft-Gault) 95.2 BUN/Creatinine Ratio 26 (6-20) Glucose Level 102 mg/dL (70-99) Calcium Level 9.5 mg/dL (8.5-10.1) Total Bilirubin 0.3 mg/dL (0.2-1.0) Aspartate Amino Transf (AST/SGOT) 59 U/L (15-37) Alanine Aminotransferase (ALT/SGPT) 82 U/L (14-59) Alkaline Phosphatase 87 U/L (46-116) Total Protein 8.6 g/dL (6.4-8.2) Albumin 2.8 g/dL (3.4-5.0) Albumin/Globulin Ratio 0.5 (1.0-1.7) Urine Opiates Screen Pos (NEG) Urine Methadone Screen Neg (NEG) Urine Barbiturates Neg (NEG) Urine Phencyclidine Screen Neg (NEG) Urine Amphetamine/Methamphetamine Neg (NEG) Urine Benzodiazepines Screen Neg (NEG) Urine Cocaine Screen Neg (NEG) Urine Cannabinoids Screen Neg (NEG) Urine Ethyl Alcohol Neg (NEG) Microbiology 02/08/20 Blood Culture - Final, Complete NO GROWTH AFTER 5 DAYS Medications Current Medications Acetaminophen (Tylenol) 1,000 mg PRN Q6HRS PRN PO MILD PAIN 1-3; Start 02/06/20 at 22:15 Albuterol Sulfate (Ventolin Neb Soln) 2.5 mg PRN Q4HRS PRN NEB SHORTNESS OF BR EATH; Start 02/06/20 at 22:15 Bisacodyl (Dulcolax Tab) 10 mg PRN DAILY PRN PO CONSTIPATION 1ST CHOICE Last administered on 02/10/20at 17:37; Start 02/06/20 at 22:15 Methocarbamol (Robaxin) 750 mg PRN Q8HRS PRN PO MUSCLE SPASMS Last administered on 02/14/20at 00:00; Start 02/06/20 at 22:15 Albuterol/ Ipratropium (Duoneb) 3 ml RTQID NEB Last administered on 02/12/20at 08:06; Start 02/07/20 at 08:00; Stop 02/12/20 at 08:13; Status DC Lactobacillus Rhamnosus (Culturelle) 1 cap BID PO Last administered on 02/12at 20:54; Start 02/07/20 at 09:00 Linezolid/Dextrose 300 ml @ 300 mls/hr Q12HR IV Last administered on 02/11/20at 20:01; Start 02/07/20 at 09:00; Stop 02/12/20 at 08:16; Status DC Morphine Sulfate (Morphine Sulfate) 4 mg PRN Q3HRS PRN IM SEVERE PAIN 7-10; Start 02/06/20 at 22:15; Stop 02/07/20 at 01:04; Status DC Phenazopyridine HCl (Pyridium) 100 mg PRN TID PRN PO URINARY PAIN Last administered on 02/10/20at 09:52; Start 02/06/20 at 22:15 Hydromorphone HCl (Dilaudid) 2 mg PRN Q4HRS PRN IV SEVERE PAIN 7-10 (2nd choice) Last administered on 02/07/20at 23:49; Start 02/06/20 at 22:15; Stop 02/08/20 at 02:16; Status DC Sodium Chloride 1,000 ml @ 75 mls/hr [id number] IV Last administered on 02/07/20at 00:45; Start 02/07/20 at 00:45; Stop 02/07/20 at 14:12; Status DC Morphine Sulfate (Morphine Sulfate) 4 mg PRN Q3HRS PRN IV SEVERE PAIN 7-10 (1st choice) Last administered on 02/14/20at 06:02; Start 02/07/20 at 01:15 Gadoterate Meglumine (Dotarem) 24.2 ml 1X ONCE IVP Last administered on 02/07/20at 12:44; Start 02/07/20 at 12:30; Stop 02/07/20 at 12:31; Status DC Daptomycin 540 mg/ Sodium Chloride 50 ml @ 100 mls/hr Q24H IV Last ad ministered on 02/13/20at 13:14; Start 02/07/20 at 14:00; Stop 8/21/20 at 08:07; Status DC Ceftriaxone Sodium (Rocephin) 2 gm Q24H IVP Last administered on 02/10/20at 17:36; Start 02/07/20 at 14:00; Stop 02/11/20 at 08:53; Status DC Potassium Chloride/Sodium Chloride 1,000 ml @ 75 mls/hr [id number] IV Last administered on 02/10/20at 07:30; Start 02/07/20 at 14:00; Stop 02/10/20 at 0 9:38; Status DC Zolpidem Tartrate (Ambien) 5 mg PRN QHS PRN PO INSOMNIA Last administered on 02/13/20at 22:01; Start 02/07/20 at 22:00 Hydromorphone HCl (Dilaudid) 2 mg PRN Q3HRS PRN IV SEVERE PAIN 7-10 Last administered on 02/14/20at 07:14; Start 02/08/20 at 02:15 Oxycodone HCl (OxyCONTIN) 10 mg Q12HR PO Last administered on 02/13/20at 20:54; Start 02/09/20 at 09:00 Lorazepam (Ativan) 0.5 mg PRN Q8HRS PRN PO ANXIETY / AGITATION Last administered on 02/14/20at 04:18; Start 02/09/20 at 08:30 Ondansetron HCl (Zofran) 4 mg PRN Q6HRS PRN IV NAUSEA/VOMITING; Start 02/10/20 at 11:00; Stop 02/11/20 at 10:59; Status DC Ringer's Solution 1,000 ml @ 30 mls/hr Q24H IV ; Start 02/10/20 at 10:47; Stop 02/10/20 at 22:46; Status DC Lidocaine HCl (Xylocaine-Mpf 1% 2ml Vial) 2 ml PRN 1X PRN ID PRIOR TO IV START; Start 02/10/20 at 11:00; Stop 02/11/20 at 10:59; Status DC Prochlorperazine Edisylate (Compazine) 5 mg PACU PRN PRN IV NAUSEA, MRX1 Last administered on 02/10/20at 15:26; Start 02/10/20 at 11:00; Stop 02/11/20 at 10:59; Status DC Propofol 50 ml @ As Directed STK-MED ONCE IV ; Start 02/10/20 at 12:04; Stop 02/10/20 at 12:05; Status DC Fentanyl Citrate (Fentanyl 2ml Vial) 100 mcg STK-MED ONCE .ROUTE ; Start 02/10/20 at 12:05; Stop 02/10/20 at 12:05; Status DC Lidocaine HCl (Xylocaine 2% Topical 30gm Tube) 1 tyrone 1X ONCE TP Last administered on 02/10/20at 15:07; Start 02/10/20 at 14:00; Stop 02/10/20 at 14:01; Status DC Benzocaine (Hurricaine One) 2 spray 1X ONCE MM ; Start 02/10/20 at 14:00; Stop 02/10/20 at 14:01; Status DC Hydromorphone HCl (Dilaudid) 1 mg PRN Q10MIN ONCE IV Last administered on 02/10/20at 14:37; Start 02/10/20 at 14:00; Stop 02/10/20 at 14:05; Status DC Hydromorphone HCl (Dilaudid) 2 mg 1X ONCE IM ; Start 02/10/20 at 14:00; Stop 02/10/20 at 14:40; Status DC Morphine Sulfate (Morphine Sulfate) 2 mg 1X ONCE IV ; Start 02/10/20 at 14:00; Stop 02/10/20 at 14:05; Status DC Ringer's Solution 1,000 ml @ 75 mls/hr [id number] IV ; Start 02/10/20 at 14:00 Hydromorphone HCl (Dilaudid) 1 mg PRN Q10MIN PRN IV pain Last administered on 02/10/20at 15:45; Start 02/10/20 at 14:45; Stop 02/11/20 at 11:02; Status DC Hydromorphone HCl (Dilaudid) 2 mg PRN Q10MIN PRN IV pain; Start 02/10/20 at 14:45; Stop 02/11/20 at 11:02; Status DC Lidocaine HCl (Viscous Lidocaine) 15 ml 1X ONCE [id number] Last administered on 02/10/20at 15:15; Start 02/10/20 at 15:15; Stop 02/10/20 at 15:16; Status DC Prochlorperazine Edisylate (Compazine) 10 mg STK-MED ONCE .ROUTE ; Start 02/10/20 at 15:17; Stop 02/10/20 at 15:17; Status DC Hydromorphone HCl (Dilaudid) 2 mg STK-MED ONCE .ROUTE ; Start 02/10/20 at 15:17; Stop 02/10/20 at 15:17; Status DC Linezolid (Zyvox) 600 mg BID PO Last administered on 02/12/20at 08:54; Start 02/12/20 at 09:00; Stop 02/12/20 at 09:16; Status DC Fentanyl (Duragesic 50mcg/ Hr Patch) 1 patch Q3DAYS TD Last administered on 02/12/20at 09:21; Start 02/12/20 at 09:00 Enoxaparin Sodium (Lovenox 40mg Syringe) 40 mg Q24H SQ Last administered on 02/13/20at 12:05; Start 02/12/20 at 12:00 Vancomycin HCl (Vanco Per Pharmacy) 1 each PRN DAILY PRN MC SEE COMMENTS; Start 02/14/20 at 08:15 Vancomycin HCl 2 gm/Sodium Chloride 500 ml @ 250 mls/hr 1X ONCE IV ; Start 02/14/20 at 08:15; Stop 02/14/20 at 10:14 Vitals/I & O Vital Sign - Last 24 Hours 02/13/20 02/13/20 02/13/20 02/13/20 08:42 08:43 09:13 10:09 Resp 16 17 Pulse Ox 97 97 97 97 O2 Delivery Room Air Room Air Room Air Room Air O2 Flow Rate 2.0 2.0 02/13/20 02/13/20 02/13/20 02/13/20 10:38 10:39 12:05 12:35 Temp 98.0 98.0 Pulse 66 Resp 16 17 B/P (MAP) 112/70 (84) Pulse Ox 95 95 95 95 O2 Delivery Room Air Room Air Room Air Room Air O2 Flow Rate 2.0 02/13/20 02/13/20 02/13/20 02/13/20 12:35 13:12 13:42 14:36 Temp 97.8 97.8 Pulse 90 Resp 16 B/P (MAP) 111/76 (88) Pulse Ox 95 95 95 98 O2 Delivery Room Air Room Air Room Air Room Air O2 Flow Rate 2.0 2.0 02/13/20 02/13/20 02/13/20 02/13/20 15:15 15:45 15:51 16:10 Pulse Ox 98 98 98 98 O2 Delivery Room Air Room Air Room Air Room Air 02/13/20 02/13/20 02/13/20 02/13/20 16:40 18:07 18:37 19:09 Resp 16 Pulse Ox 98 98 98 98 O2 Delivery Room Air Room Air Room Air Room Air O2 Flow Rate 2.0 2.0 02/13/20 02/13/20 02/13/20 02/13/20 19:10 19:39 20:00 20:54 Temp 97.8 97.8 Pulse 90 Resp 16 16 16 B/P (MAP) 105/78 (87) Pulse Ox 92 92 92 O2 Delivery Room Air Room Air Room Air Room Air 02/13/20 02/13/20 02/13/20 02/13/20 20:55 21:25 22:00 22:02 Temp 97.8 97.8 Pulse 96 Resp 16 18 16 18 B/P (MAP) 112/74 (87) Pulse Ox 92 92 97 92 O2 Delivery Room Air Room Air Room Air Room Air 02/13/20 02/14/20 02/14/20 02/14/20 22:32 00:05 00:35 00:54 Resp 16 18 18 16 Pulse Ox 92 92 92 92 O2 Delivery Room Air Room Air Room Air Room Air 02/14/20 02/14/20 02/14/20 02/14/20 01:04 01:34 03:00 03:00 Temp 97.8 97.8 Pulse 81 Resp 16 16 16 16 B/P (MAP) 112/72 (85) Pulse Ox 92 92 92 92 O2 Delivery Room Air Room Air Room Air Room Air 02/14/20 02/14/20 02/14/20 02/14/20 03:30 04:18 04:48 06:02 Resp 16 18 16 16 Pulse Ox 92 92 92 92 O2 Delivery Room Air Room Air Room Air Room Air 02/14/20 02/14/20 02/14/20 02/14/20 06:32 07:00 07:14 08:00 Temp 97.8 97.8 Pulse 89 Resp 16 20 16 B/P (MAP) 133/80 (97) Pulse Ox 92 96 92 O2 Delivery Room Air Room Air Room Air Room Air Intake and Output 02/13/20 02/13/20 02/14/20 15:00 23:00 07:00 Intake Total 250 ml 200 ml 480 ml Output Total 400 ml 300 ml 750 ml Balance -150 ml -100 ml -270 ml Justicifation of Admission Dx: Justifications for Admission: Justification of Admission Dx: Yes SHANNON ISRAEL MD Feb 14, 2020 08:39
[2020-02-14] MEDS: METHOCARBAMOL 750 MG TABLET PO PRN ×2 (08:50)
[2020-02-14] MEDS: LACTOBACILLUS RHAMNOSUS GG 1 CAPSULE. PO SCH (09:00)
--- NOTE | 2020-02-14 09:40 | NUR ---
SS following up with discharge planning. SS reviewed pt chart and discussed with pt RN. SS received phone contact this morning from [facility] stating that upon further investigation pt's insurance termed and pt has no insurance and is not eligible for coverage. SS met with pt and discussed. Pt reported that she received a phone call from [facility] this morning informing her that she does not have insurance and her insurance termed. As observed, pt upset and requested that SS leave the room. SS contacted [employer] and asked them to assess and visit with pt. SS provided pt with hard copies of disability application and Medicaid application for her to complete if she so chooses. SS discussed with Dr. Anthony. SS will continue to follow for discharge planning.
[2020-02-14] MEDS: oxyCODONE ER 10 MG TAB.ER.12H PO SCH (10:18)
[2020-02-14] MEDS ORDERED: oxyCODONE IR 5 MG TABLET PO PRN (10:30)
[2020-02-14 10:49] VITALS: BP 111/77
[2020-02-14] MEDS: IV RINGERS,LACTATED 1000ML 1,000 ML IV SCH (11:20)
[2020-02-14] MEDS: ENOXAPARIN 40 MG/0.4 ML SYRINGE. SQ SCH (11:51)
--- NOTE | 2020-02-14 12:36 | PN ---
DATE: SUBJECTIVE: The patient is resting, slightly propped up in bed, in no apparent distress. She continued to complain of pain and would like to have an indwelling Hernandez catheter. She was evaluated by the neurologist and again she is neurologically intact. She apparently has no insurance and so she can be transferred to [facility] where our social studies teacher is attempting to see if she can be qualified for Medicaid. PHYSICAL EXAMINATION: GENERAL: When I examined her, she was pale, no jaundice, cyanosis, or thyromegaly. No jugular venous distension. No limb edema. VITAL SIGNS: Her heart rate was 89, blood pressure was 133/80, temperature 97.8, respiratory rate 20, and oxygen saturation was 96%. Head, EYES, EARS, NOSE, THROAT: Normocephalic, atraumatic. NECK: Supple. CARDIAC: Normal first and second heart sounds. No gallop or murmur. CHEST: Clear to auscultation. No crepitation or rhonchi. ABDOMEN: Soft, nontender. NEUROLOGIC: She is sleepy, but arousable. All cranial nerves intact. She moves extremities without difficulty. Her intake over the last 24 hours was 1500, output was 800. LABORATORY DATA: Her white cell count was 7600, hemoglobin 13, hematocrit 39, MCV 90 and platelet count 545,000. Her serum sodium was 135, potassium 4.5, chloride 98, bicarbonate 28, anion gap of 9, BUN 18, creatinine 0.7, estimated GFR was 95 mL per minute. Her glucose 102, calcium was 9.5. Total bilirubin and alkaline phosphatase was normal. AST, ALT slightly elevated. Total protein was 8.6, albumin was 2.8. ASSESSMENT: 1. Polymicrobial bacteremia with growth of methicillin-sensitive Staphylococcus aureus as well as methicillin-resistant Staphylococcus aureus. 2. Polysubstance intravenous drug abuse. 3. Urinary tract infection with growth of Escherichia coli. 4. Left ovarian complex cyst. 5. Hypokalemia, it has resolved. 6. Severe protein-calorie malnutrition. 7. Severe back pain with evidence of diskitis, osteomyelitis; however, there is no abscess that can be drained. There is no evidence of epidural abscess and she is neurologically intact as per Dr. Torrez. PLAN: My plan is to discontinue hydromorphone, switched her to oral oxycodone. We will probably switch her to oral antibiotic unless she is qualified for Medicaid. She probably has to be discharged home. KEENAN SHELLEY MD DR: ALECIA/geneva JOB#: [id number] / [id number]
[2020-02-14] MEDS ORDERED: DAPTOmycin (GENERIC) IVPB 540 MG in IV NORMAL SALINE 50ML 50 ML IV SCH (16:00)
--- NOTE | 2020-02-14 16:49 | NUR ---
11:45 Patient requested RN to her room, upon arrival physical therapy was at bedside with patient. Patient became increasingly angry and screaming at RN to "make him go away, hes trying to make me fucking move and pee in that chair, I am in so much fucking pain that no one gets it!" Patient continued to scream and refused to work with physical therapy. RN at bedside got her comfortable, call light was in reach. 12:00 Patient rang call light, RN went to patient room, patient irritated and screaming her boyfriend is trying to come see her but [facility] security will not let him in because he is banned from visiting her (refer to 02/12/20 incident). Patient stated she also needed to get her keys from him "right now". She yelled at RN demanding she take her down to the ED so that she can get her keys. hide measuring machine operator called security to see if they could retrieve the keys for her, security could not locate him. Patient continued to scream and verbally make threats "I will cut a bitch, i need my fucking keys, he wont give them to security, only me!" Patient got out of bed and slowly got into wheelchair. 12:10 RN and gunstock spray unit adjuster took the patient down to the ED entrance area via wheelchair, security was called ahead of time to be on stand by. RN, gunstock spray unit adjuster and [facility] security waited with the patient for her boyfriend to arrive with keys. Patient continued to grow angry with security telling them to "go away, he wont come up here if he see you guys, your gonna make it worse!" Patient's boyfriend did arrive, patient got out of wheelchair forcefully, got into [employer] car. [facility] security, RN and gunstock spray unit adjuster stood in the way of car door from shutting. Boyfriend was able to tell the patient that he will wait and to "let us finish what we need to do" and she agreed to get back in the wheelchair for AMA paperwork. Peripheral IV removed, tele monitor removed, patient's belongings that were in her room was brought down to her by imaging engineer. Once [facility] nursing staff returned to unit, RN realized patient has items locked up with security that the patient did not get before she left.
[2020-02-14] MEDS ORDERED: VANCOMYCIN 1.5 GM in IV NORMAL SALINE 500ML BAG 500 ML IV SCH (17:00)
== END 2020-02-14 13:00 | disposition left against medical advice (07) | DRG 539 ==
LOC: 2 SOUTH 21:36
PROVIDERS: ADMIT Internal Medicine; ATTEND Internal Medicine
PROC: B24BZZ4 Ultrasonography of Heart with Aorta, Transesophageal (ICD-10-PCS; principal; 2020-02-10 11:00)
DX: M46.24 Osteomyelitis of vertebra, thoracic region (principal); E43 Unspecified severe protein-calorie malnutrition; F11.20 Opioid dependence, uncomplicated; J90 Pleural effusion, not elsewhere classified; N39.0 Urinary tract infection, site not specified; B95.62 Methicillin resistant Staphylococcus aureus infection as the cause of diseases classified elsewhere; B19.20 Unspecified viral hepatitis C without hepatic coma; B96.20 Unspecified Escherichia coli [E. coli] as the cause of diseases classified elsewhere; E87.6 Hypokalemia; F12.90 Cannabis use, unspecified, uncomplicated; F17.200 Nicotine dependence, unspecified, uncomplicated; G89.29 Other chronic pain; M48.061 Spinal stenosis, lumbar region without neurogenic claudication; N83.292 Other ovarian cyst, left side; Z20.828 Contact with and (suspected) exposure to other viral communicable diseases; Z87.440 Personal history of urinary (tract) infections; Z60.2 Problems related to living alone; Z88.8 Allergy status to other drugs, medicaments and biological substances; Z79.899 Other long term (current) drug therapy
CPT/HCPCS: 36415; 72141; 72146; 72158; 80048; 80053; 80307; 82550; 85025; 85027; 86140; 86592; 86703; 86705; 86709; 86803; 87040; 87340; 87426; 87491; 87522; 87591; 93312; 93325; 94640; 94760; A9575; J0696; J0780; J0878; J1170; J1650; J2020; J2270; J2704; J3010; J3370; J3480; J7030; J7040; G0378; U0003-CS

== ENCOUNTER 2020-02-16 05:37 | Inpatient (IN) | payer MEDICAID, OTHER ==
[~2020-02-16] VITALS: Ht 172.7 cm; Wt 99.8 kg
[2020-02-16 06:05] VITALS: BP 135/78
[2020-02-16] MEDS ORDERED: ACETAMINOPHEN 325 MG TABLET. PO PRN (08:15)
[2020-02-16 08:49] VITALS: BP 119/60
[2020-02-16] MEDS ORDERED: VANCOMYCIN 1.75 GM in IV NORMAL SALINE 500ML BAG 500 ML IV ONE (09:00)
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
[2020-02-16] MEDS: oxyCODONE/APAP 10/325 1 TAB TABLET PO PRN ×2 (09:05→14:59)
[2020-02-16] MEDS: KETOROLAC 30 MG/ML VIAL. IVP PRN ×3 (09:30→21:49)
--- NOTE | 2020-02-16 09:47 | NUR ---
0800 Patient called the nurse station with the call light. Patient stated she had to pee. I ask the patient does she utilize a walker for the bedside commode? The patient stated, " I need a fucking bedpan!" I ask the patient why are you cursing, I'm trying to understand how you transport and how to assist you since the Night nurse has a bedside commode in your room and no bedpan. The patient stated, "I'm in pain, just get me a fucking bedpan or I'll just piss in the bed." I informed the patient I have to go get a bedpan an gown back up but I'll hurry up. I returned to the patient's bedside with a bedpan. I ask the patient was she able to take her shorts off and turn. She said that she was in pain and she can't take the shorts off herself but she can turn. I pulled the patient's shorts down and told the patient to turn so I can place the bedpan. I ask the patient should I get a brief. The patient screamed, "you crazy Bitch, I'm not incontinent." The patient turned and set on the bedpan. The patient stated "I dont want you in my room. You crazy Bitch! I want my pain meds,Diliaudid, morphine and I want to eat. " The patient finished the bedpan. I cleaned the patient up. The patient press the call light and requested her nurse. I cancelled the call light and informed the patient I was her nurse. The patient requested a frame sample and pattern supervisor over me. I notified Kathy , the charge nurse. I also notified Dr. Strickland.
[2020-02-16 10:30] LABS: BASO # 0.1 x10^3/uL (0.0-0.2); BASO % 1 % (0-3); EOS # 0.1 x10^3/uL (0.0-0.7); EOS % 1 % (0-3); HEMATOCRIT 33.8 % (36.0-47.0); HEMOGLOBIN 11.3 g/dL (12.0-15.5); LYMPH # 1.8 x10^3/uL (1.0-4.8); LYMPH % 27 % (24-48); MEAN CORPUSCULAR HEMOGLOBIN 30 pg (25-35); MEAN CORPUSCULAR HGB CONC 34 g/dL (31-37); MEAN CORPUSCULAR VOLUME 90 fL (79-100); MONO # 0.9 x10^3/uL (0.0-1.1); MONO % 13 % (0-9); NEUT # 3.9 x10^3/uL (1.8-7.7); NEUT % 58 % (31-73); PLATELET COUNT 385 x10^3/uL (140-400); RED BLOOD COUNT 3.77 x10^6/uL (3.50-5.40); RED CELL DISTRIBUTION WIDTH 13.3 % (11.5-14.5); WHITE BLOOD COUNT 6.7 x10^3/uL (4.0-11.0)
[2020-02-16 10:41] LABS: ALBUMIN 2.8 g/dL (3.4-5.0); ALBUMIN/GLOBULIN RATIO 0.6 (1.0-1.7); CALCIUM 9.1 mg/dL (8.5-10.1); CREATININE 0.6 mg/dL (0.6-1.0); GFR 113.8; TOTAL BILIRUBIN 0.5 mg/dL (0.2-1.0); TOTAL PROTEIN 7.8 g/dL (6.4-8.2)
[2020-02-16 11:20] VITALS: BP 125/76
[2020-02-16 12:39] VITALS: BP 125/76
[2020-02-16] MEDS: MORPHINE SULFATE 10 MG/ML VIAL. IV PRN ×2 (12:39→20:15)
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
--- NOTE | 2020-02-16 13:57 | NUR ---
Patient received second food tray. Patient is calm and cooperative. Patient was assisted to the BSC by VIOLETTA Álvarez. Patient tolerated the ambulation well.
[2020-02-16] MEDS: LIDOCAINE (700MG/PATCH) PATCH. TD SCH ×2 (15:00→17:37)
[2020-02-16] MEDS: VANCOMYCIN PER PHARMACY MC PRN ×2 (15:07→15:09)
--- NOTE | 2020-02-16 15:10 | NUR ---
Pharmacy Vancomycin Dosing Note S:Consulted to monitor and dose vancomycin started 02/16/20. O:MIRACLE ERNANDEZ is a 34 year old F with Recent HX of MSSA and MRSA with perispinal abcess. . Height: 5 feet, 8 inches Weight: 112.3 kg [place] Body Weight: 63.90 Adjusted Body Weight: 83.26 Dosing Weight: Actual Other Antibiotics: LABS: Last BUN: 15 Last Creatinine: 0.6 Creatinine Clearance: 172 mL/min Last WBC: 6.7 Last Procalcitonin: Tmax (past 24 hours): 97.9 Microbiology: I/O: Drug Levels: Last level: on at Last dose given 02/16/20 at 0928 Vancomycin Dosing: Loading Dose: 1750 mg x1 Dosing Weight: Actual Target Trough: 15-20 A: Based on weight and est. CrCl: P: 1. Vancomycin 1750mg, followed by Vancomycin 1500 mg IV q48h. 2. Follow up Trough level on 02/17/20 at 0900. 3. Pharmacy will continue to monitor, follow and adjust therapy as needed. Leif Perez [facility], 02/16/20 0314
[2020-02-16] MEDS: ONDANSETRON PF 4 MG/2 ML VIAL. IV PRN (16:16)
--- NOTE | 2020-02-16 16:16 | NUR ---
Patient complained of pain 7 and nausea. Administered zofran 4mg IVP and Ketorolac 30mg IVP. Asked patient does she want the Lidocaine patch since its ordered. Patient stated, " Are you crazy, you not taking my fentanyl patch for lidocaine. "
[2020-02-16] MEDS: CYCLOBENZAPRINE 10 MG TABLET. PO PRN (16:52)
[2020-02-16] MEDS: VANCOMYCIN 1.5 GM in IV NORMAL SALINE 500ML BAG 500 ML IV SCH (16:54)
--- NOTE | 2020-02-16 17:25 | NUR ---
Dr. Strickland allowed the lidocaine patch to be lower than the fentanyl patch. Patient allowed lidocaine patch to be placed on lower back. Patient received flexeril for spasms in legs.
[2020-02-16 19:30] VITALS: BP 115/69
[2020-02-16] MEDS ORDERED: ZOLPIDEM 5 MG TABLET. PO ONE (21:00)
[2020-02-16] MEDS: PATCH REMOVAL. MC SCH (21:11)
[2020-02-16] MEDS: ENOXAPARIN 40 MG/0.4 ML SYRINGE. SQ SCH (21:49)
[2020-02-17] MEDS: CYCLOBENZAPRINE 10 MG TABLET. PO PRN ×3 (01:44→20:31)
[2020-02-17] MEDS: VANCOMYCIN 1.5 GM in IV NORMAL SALINE 500ML BAG 500 ML IV SCH ×3 (01:44→20:38)
[2020-02-17] MEDS: MORPHINE SULFATE 10 MG/ML VIAL. IV PRN ×3 (02:37→16:44)
[2020-02-17 02:51] VITALS: BP 117/70
--- NOTE | 2020-02-17 06:48 | NUR ---
IP: Pt is mrsa + in blood requiring contact precautions.
[2020-02-17] MEDS: KETOROLAC 30 MG/ML VIAL. IVP PRN (07:08)
[2020-02-17 07:25] VITALS: BP 129/70
[2020-02-17] MEDS: LIDOCAINE (700MG/PATCH) PATCH. TD SCH (08:24)
[2020-02-17] MEDS: oxyCODONE/APAP 10/325 1 TAB TABLET PO PRN ×3 (08:25→20:31)
[2020-02-17] MEDS: ONDANSETRON PF 4 MG/2 ML VIAL. IV PRN (08:25)
--- NOTE | 2020-02-17 11:31 | PDOC ---
Infectious Disease Note Subjective Subjective pt is known to us, back again in hospital Nausea, soft stool, back pain, no fever, no vomiting ROS ROS no headache, no visual sy, no sob Vital Sign Vital Signs Vital Signs Date Time Temp Pulse Resp B/P (MAP) Pulse Ox O2 Delivery O2 Flow Rate FiO2 02/17/20 08:25 20 Room Air 02/17/20 07:25 98.0 83 129/70 (89) 99 98.0 02/16/20 08:49 2.0 Physical Exam PHYSICAL EXAM GENERAL: Lying down, alert, coop. Looks better HEENT: Normal conjunctivae, oropharynx clear. No lesions seen. NECK: Supple. LUNGS: Clear bilaterally. HEART: S1, S2. No rubs or murmurs. ABDOMEN: Soft, nontender, mildly distended. Bowel sounds present. Obese : Hernandez out EXTREMITIES: Trace edema, no cyanosis. Moves toes and DERMATOLOGIC: Warm, dry. No generalized rash. Multiple tattoos. No open wounds noted. Multiple needle luna present. No peripheral stigmata NEUROLOGIC: Alert and oriented x 3, moves BLE + sensation PSYCHIATRIC: Cooperative, slightly agitated. PIV looks ok Labs Micro Microbiology 02/16/20 Blood Culture - Preliminary, Resulted NO GROWTH AFTER 1 DAY Objective Assessment MSSA ([facility] 02/01) and MRSA ([facility], 02/01) bacteremia - ERIKA 02/09 - neg Intravenous drug user. Recent history of Escherichia coli urinary tract infection, 02/01. Left ovarian complex cyst.HIV and STD - neg Hematuria. Fever - better Hep C IgG + Hypokalemia. Protein-calorie malnutrition. Severe back pain. 02/[address] [facility] [address] findings concerning for diskitis/osteomyelitis/epidural abscess. -Lumbar MRI showed increased STIR signal within the HH78-I37 disc space and adjacent endplates. There is adjacent paravertebral edema. Small anterior fluid collection measures 1.1 x 0.7 cm (series 4 image 8 and series 10 image 8). No evidence of epidural abscess. -L4-L5 increased disc signal -Bilateral retroperitoneal and presacral edema -Multilevel lumbar spinal stenosis most prominent L4-5. Plan Plan of Care cont vancomycin cont supportive care CHRIS JOY MD Feb 17, 2020 11:31
[2020-02-17] MEDS: VANCOMYCIN PER PHARMACY MC PRN (12:00)
--- NOTE | 2020-02-17 14:18 | NUR ---
SW following. Spoke with RN and reviewed chart. Pt discharged last week. Pt seen by Sean with PAT on last admission r/t hx of Heroin use. Spoke with Sean and pt denies a problem with substance abuse and declined needing or wanting treatment r/t substance abuse. Pt on room air and a regular diet. Pt on IV Vancomycin. Pt self-pay and applying for disability per chart review. Pt being followed by [facility]. SW to follow as needed.
--- NOTE | 2020-02-17 15:15 | NUR ---
Pt gave this RN permission to speak to Janey De Leon, pt mother. Pt mother asked if nursing staff could please help pt take a shower and wash her hair. Pt mother stated that Juanis has not had her hair washed or brushed "in two weeks" and when she asked for help yesterday nobody would help her. Pt mother stated to this RN that she works in [employer] and does not want nursing staff to use the shower/shampoo cap on patient, just the baby wash because "the shampoo cap works but doesn't work." This RN asked pt if we could give her a shower after vitals and a PRN Percocet and she agreed. Shadow, TELEGRAPH EDITOR went into pt room to get patient ready for shower and patient was verbally aggressive to nursing program director and stated "to come back later, you woke me up." Will continue to monitor.
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
[2020-02-17 19:56] VITALS: BP 134/84
[2020-02-17] MEDS: PATCH REMOVAL. MC SCH (20:58)
[2020-02-17] MEDS: ENOXAPARIN 40 MG/0.4 ML SYRINGE. SQ SCH ×2 (20:58→21:48)
[2020-02-17] MEDS: MORPHINE SULFATE 4 MG/ML VIAL. IV PRN ×2 (20:59→23:00)
--- NOTE | 2020-02-17 21:13 | NUR ---
Patient's COVID swab was negative per nursing process area supervisor upon her review of [facility]'s results. This RN called and asked Dr. Bernstein if patient could be MS d/t negative test and only having ms beds available. OK'd by Dr Bernstein to transfer once bed comes available.
[2020-02-17] MEDS: ZOLPIDEM 5 MG TABLET. PO PRN (21:47)
[2020-02-17 23:00] VITALS: BP 132/75
[2020-02-18 00:01] VITALS: BP 118/76
[2020-02-18] MEDS: MORPHINE SULFATE 4 MG/ML VIAL. IV PRN ×4 (01:23→07:29)
[2020-02-18 03:00] VITALS: BP 110/75
[2020-02-18] MEDS: VANCOMYCIN 1.5 GM in IV NORMAL SALINE 500ML BAG 500 ML IV SCH (04:48)
[2020-02-18 05:21] LABS: VANC TR 22.2 mcg/mL (10.0-20.0)
[2020-02-18] MEDS: VANCOMYCIN PER PHARMACY MC PRN ×3 (06:10→18:37)
--- NOTE | 2020-02-18 06:14 | NUR ---
Pharmacy Vancomycin Dosing Note S: Consulted to monitor and dose vancomycin started 02/16/20. O: MIRACLE ERNANDEZ is a 34 year old F with Bacteremia, Recent HX of MSSA and MRSA with perispinal abcess. . Other Antibiotics: LABS: Last BUN: 15 Last Creatinine: 0.6 Creatinine Clearance: 172 mL/min Last WBC: 6.7 Last Procalcitonin: -- Tmax (past 24 hours): 98 Microbiology: MRSA bacteremia I/O: 960/ 6 VOIDS Drug Levels: Last Trough level: 22.2 on 02/18/20 at 0330 Last dose given 02/17/20 at 2038 Vancomycin Dosing: Dosing Weight: Actual Target Trough: 15-20 A: Based on: Trough(H) and Vancomycin 1500mg IV q8h 0500 dose given by RN before Vanco Trough Results were available P: 1. 2. Follow up Random level on 02/18/20 at 1700 3. Pharmacy will continue to monitor, follow and adjust therapy as needed. VELMA FARRIS RPH, 02/18/20 0614 Signed: 02/18/20 at 0621 by VELMA FARRIS RPH PHA
[2020-02-18 07:00] VITALS: BP 128/74
[2020-02-18] MEDS: LIDOCAINE (700MG/PATCH) PATCH. TD SCH (07:33)
--- NOTE | 2020-02-18 09:29 | PDOC ---
Infectious Disease Note Subjective Subjective c/o back pain, ROS ROS no n/v/d/fever or incontinence Vital Sign Vital Signs Vital Signs Date Time Temp Pulse Resp B/P (MAP) Pulse Ox O2 Delivery O2 Flow Rate FiO2 02/18/20 07:29 96 Room Air 02/18/20 07:00 97.7 61 19 128/74 (92) 97.7 Physical Exam PHYSICAL EXAM GENERAL: Lying down, alert, coop. Looks better HEENT: Normal conjunctivae, oropharynx clear. No lesions seen. NECK: Supple. LUNGS: Clear bilaterally. HEART: S1, S2. No rubs or murmurs. ABDOMEN: Soft, nontender, mildly distended. Bowel sounds present. Obese : Hernandez out EXTREMITIES: Trace edema, no cyanosis. Moves toes and DERMATOLOGIC: Warm, dry. No generalized rash. Multiple tattoos. No open wounds noted. Multiple needle luna present. No peripheral stigmata NEUROLOGIC: Alert and oriented x 3, moves BLE + sensation PSYCHIATRIC: Cooperative, slightly agitated. PIV looks ok Labs Lab Laboratory Tests Test 02/18/20 03:30 Vancomycin Level Trough 22.2 mcg/mL (10.0-20.0) Vancomycin Last Dose Date 02/17/20 Vancomycin Last Dose Time 1999 Micro Microbiology 02/16/20 Blood Culture - Preliminary, Resulted NO GROWTH AFTER 1 DAY Objective Assessment MSSA ([facility] 02/01) and MRSA ([facility], 02/01) bacteremia - ERIKA 02/09 - neg Intravenous drug user. Recent history of Escherichia coli urinary tract infection, 02/01. Left ovarian complex cyst.HIV and STD - neg Hematuria. Fever - better Hep C IgG + Hypokalemia. Protein-calorie malnutrition. Severe back pain. 02/04 at [facility] CT findings concerning for diskitis/osteomyelitis/epidural abscess. -Lumbar MRI showed increased STIR signal within the LY60-Q11 disc space and adjacent endplates. There is adjacent paravertebral edema. Small anterior fluid collection measures 1.1 x 0.7 cm (series 4 image 8 and series 10 image 8). No evidence of epidural abscess. -L4-L5 increased disc signal -Bilateral retroperitoneal and presacral edema -Multilevel lumbar spinal stenosis most prominent L4-5. Plan Plan of Care cont vancomycin cont supportive care pt is going to need iv for at least [address] Fontanez, no surgical indication as per him CHRIS JOY MD Feb 18, 2020 09:29
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
[2020-02-18] MEDS: oxyCODONE/APAP 10/325 1 TAB TABLET PO PRN ×3 (10:38→22:01)
[2020-02-18 11:18] LABS: BARBITURATES NEG (NEG); BENZODIAZEPINES NEG (NEG); CANNABINOIDS NEG (NEG); COCAINE NEG (NEG); METHADONE NEG (NEG); OPIATES POS (NEG); PHENCYCLIDINE NEG (NEG)
[2020-02-18 11:22] LABS: AMPHETAMINE/METHAMPHETAMINE NEG (NEG)
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
[2020-02-18] MEDS: CYCLOBENZAPRINE 10 MG TABLET. PO PRN ×2 (12:52→20:44)
[2020-02-18 14:12] LABS: BILIRUBIN,URINE NEGATIVE (NEG); CLARITY,URINE CLEAR; COLOR,URINE YELLOW; NITRITE,URINE NEGATIVE (NEG); PROTEIN,URINE NEGATIVE (NEG-TRACE); UROBILINOGEN,URINE 0.2 mg/dL (0.2 mg/dL)
[2020-02-18 14:21] LABS: U PREG PATIENT NEGATIVE (NEG)
[2020-02-18 14:23] LABS: SQUAMOUS EPITHELIAL CELL,UR MOD /LPF
[2020-02-18 14:25] LABS: BACTERIA,URINE 0 /HPF (0-FEW); TRICHOMONAS,URINE PRESENT
[2020-02-18 15:00] VITALS: BP 122/70
--- NOTE | 2020-02-18 15:39 | NUR ---
Received urine results back, patient is positive for trichomonas. Notified Dr. Mcduffie, received new antibiotic order.
[2020-02-18] MEDS: ALPRAZolam 0.5 MG TABLET PO PRN ×2 (15:48→22:00)
[2020-02-18] MEDS ORDERED: VANCOMYCIN RANDOM LEVEL. MC ONE (17:00)
--- NOTE | 2020-02-18 18:38 | NUR ---
Pharmacy Vancomycin Dosing Note S:Consulted to monitor and dose vancomycin started 02/16/20. O:MIRACLE ERNANDEZ is a 34 year old F with Bacteremia Recent HX of MSSA and MRSA with perispinal abcess. . Height: 5 feet, 8 inches Weight: 113.1 kg [place] Body Weight: 63.90 Adjusted Body Weight: 83.58 Dosing Weight: Actual Other Antibiotics: LABS: Last BUN: 15 Last Creatinine: 0.6 Creatinine Clearance: 172 mL/min Last WBC: 6.7 Last Procalcitonin: -- Tmax (past 24 hours): 98 Microbiology: MRSA bacteremia I/O: 960/ 6 VOIDS Drug Levels: Last Random level: 16.2 on 02/18/20 at 1700 Last dose given 02/17/20 at 2038 Vancomycin Dosing: Loading Dose: 1750 mg x1 Dosing Weight: Actual Target Trough: 15-20 A: Based on: RANDOM LEVEL P: 1. Change Vancomycin 1250 mg IV q8h 2. Follow up Random level NEEDED 3. Pharmacy will continue to monitor, follow and adjust therapy as needed. JEANNINE REYNOSO Joi, 02/18/20 [id number]
[2020-02-18 19:00] VITALS: BP 145/88
[2020-02-18] MEDS: ENOXAPARIN 40 MG/0.4 ML SYRINGE. SQ SCH (20:44)
[2020-02-18] MEDS: metroNIDAZOLE 500 MG TABLET PO SCH (20:44)
[2020-02-18] MEDS: VANCOMYCIN 1.25 GM in IV NORMAL SALINE 250ML 250 ML IV SCH (20:46)
[2020-02-18] MEDS: PATCH REMOVAL. MC SCH (20:46)
[2020-02-18] MEDS: ZOLPIDEM 5 MG TABLET. PO PRN (22:00)
[2020-02-18 23:00] VITALS: BP 134/90
--- NOTE | 2020-02-18 23:00 | NUR ---
Patient became very verbally aggressive toward nursing staff. Pt. wanted to take a shower but was having trouble standing. NUTRITION WORKER verbalized to RN that she needed help getting patient out of bed. Upon RN's arrival, pt. was heard yelling in pain stating she wanted to get back in the bed (patient was at the side of the bed with feet hanging at this time) so RN tried to help but patient stated she did not want RN and NUTRITION WORKER to touch her. RN asked patient how RN could help. Patient still stated she needed RN and NUTRITION WORKER's help but pt. kept yelling that she did not want staff to touch her at all. Confused, RN asked patient how she is supposed to help without touching patient. At this time, another NUTRITION WORKER walked into the room to help. Staff finally got patient into the bed but patient seemed to be in a lot of pain as she was sweating and crying hysterically. Patient finally calmed down a little and RN paged MD for an order of pain medication.
[2020-02-19] VITALS (8 sets, daily range): BP systolic 82–137; BP diastolic 52–90
[2020-02-19] MEDS ORDERED: MORPHINE SULFATE 2 MG/ML VIAL. IV ONE (01:00)
[2020-02-19] MEDS: ALPRAZolam 0.5 MG TABLET PO PRN ×4 (04:18→22:02)
[2020-02-19] MEDS: oxyCODONE/APAP 10/325 1 TAB TABLET PO PRN ×4 (04:18→22:01)
[2020-02-19] MEDS: VANCOMYCIN 1.25 GM in IV NORMAL SALINE 250ML 250 ML IV SCH ×3 (04:19→19:32)
[2020-02-19] MEDS: CYCLOBENZAPRINE 10 MG TABLET. PO PRN ×3 (05:42→23:04)
[2020-02-19] MEDS: LIDOCAINE (700MG/PATCH) PATCH. TD SCH (06:36)
[2020-02-19] MEDS ORDERED: MORPHINE SULFATE 2 MG/ML VIAL. IV PRN (06:45)
[2020-02-19] MEDS: metroNIDAZOLE 500 MG TABLET PO SCH ×2 (08:23→22:02)
[2020-02-19] MEDS: fentaNYL 50MCG/HR PATCH 1 PATCH PATCH.TD72 TD SCH (08:24)
--- NOTE | 2020-02-19 08:37 | NUR ---
Health Science Instructor went to remove previous fentanyl patch from patients lower back and patch was not there. Health Science Instructor looked on skin everywhere and looked in patients bed and sheets, could not locate patch. Applied new fentanyl patch to patients right chest. Notified SHAWN Harper supervisor slate splitting and Dr. Mckoy that could not locate fentanyl patch that was previously on patient. Will continue to monitor patient, notified VIOLETTA Santamaria to monitor vital signs frequently and notify sports book writer of results.
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
[2020-02-19] MEDS ORDERED: DEXTROSE 5% IV SCH (09:15)
[2020-02-19] MEDS ORDERED: CEFAZOLIN SODIUM IV SCH (09:15)
[2020-02-19] MEDS: VANCOMYCIN PER PHARMACY MC PRN (09:58)
--- NOTE | 2020-02-19 10:24 | NUR ---
Processing Supervisor entered patients room to administer pain medication and anti anxiety medication. Notified patient to only take medication with a sip of water to avoid aspirating during MRI. 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 Processing Supervisor notified patient she is not a doctor and then patient stated that singer songwriter was being rude and did not want singer songwriter in her room anymore. Notified SHAWN Ni charge nurse and transfer of care given to SHAWN Bourgeois.
--- NOTE | 2020-02-19 11:06 | NUR ---
GAUTAM following. Discussed with RN, pt complaining of not being able to get up/ around. PT/OT ordered. Pt had fentanyl patch missing, per RN. GAUTAM sent e-mail to Yolanda Estrada RE pt needing outpatient IV abx (Dapto or Cefazolin). Pt having an MRI today. GAUTAM will continue to follow. Addendum: 02/19/20 at 1156 by MENDY FLOREZ MRI today to determine if surgical intervention is needed. Awaiting cultures to determine if Dapto or Cefazolin. Should know more tomorrow morning (02/20/2020). Pt needs PICC line placed. Yolanda Estrada responded with pt needing to go to [place] for outpatient infusion as pt was a transfer from them. Addendum: 02/19/20 at 1516 by MENDY FLOREZ Pt requesting to see Sean from PAT. Estrada will see pt tomorrow morning (02/20/2020). RN notified. SW will continue to follow.
[2020-02-19] MEDS ORDERED: KETAMINE HCL IN NACL, ISO-OSM 50 MG/5 ML SYRINGE ONE (12:02)
[2020-02-19] MEDS ORDERED: MIDAZOLAM HCL/PF 2 MG/2 ML VIAL. ONE ×2 (12:02→12:26)
[2020-02-19] MEDS ORDERED: fentaNYL PF VIAL 100 MCG/2 ML VIAL ONE (12:02)
[2020-02-19] MEDS ORDERED: PROPOFOL 10 MG/ML (20ML) VIAL. IV ONE ×3 (12:03)
[2020-02-19] MEDS ORDERED: LIDOCAINE 2% PF 5 ML VIAL. ONE (12:03)
[2020-02-19] MEDS ORDERED: PROPOFOL 50 ML IV ONE (12:25)
[2020-02-19] MEDS ORDERED: GADOTERATE 7.5 MMOL/15ML VIAL. IVP ONE (13:30)
--- NOTE | 2020-02-19 15:38 | RAD ---
THORACIC SPINE WO/W CONTRAST, LUMBAR SPINE WO/W CONTRAST Date: 02/19/2020 12:16 PM Indication: osteomyelitis, discitis Comparison: 02/10/2020. Technique: Multi-planar multi-weighted magnetic resonance imaging of the thoracic and lumbar spine was performed with and without intravenous contrast using the standard lumbar spine protocol. 22 cc Dotarem contrast was administered intravenously during the examination. FINDINGS: Redemonstrated findings of discitis/osteomyelitis at T11-12 with increasing edema and enhancement of the T11 and T12 vertebral bodies. Unchanged mild fluid and enhancement at T11-12 disc space. Unchanged 2.1 cm peripherally enhancing prevertebral fluid collection. No epidural fluid collection. The lumbar spine is normally aligned. No acute fracture. Mild multilevel degenerative disc desiccation and disc height loss. The conus terminates at a normal level. No abnormal signal is seen within the visualized distal spinal cord. No clumping of intrathecal nerve roots. Mild thoracolumbar spondylosis, detailed in full on recent exams. IMPRESSION: Redemonstrated findings of discitis/osteomyelitis at T11-12. Increasing edema and enhancement of the T11 and T12 vertebral bodies. Unchanged mild fluid and enhancement of the T11-12 disc space. Unchanged small prevertebral fluid collection which may represent a small abscess. No epidural fluid collection. Electronically signed by: Sterling Anne MD (02/19/2020 3:35 PM) [id number]
--- NOTE | 2020-02-19 19:00 | NUR ---
Pt.'s oxygen saturation was 88% on room air. Patient is refusing to keep oxygen on. Will continue to monitor.
[2020-02-19] MEDS: ZOLPIDEM 5 MG TABLET. PO PRN (19:37)
--- NOTE | 2020-02-19 20:00 | NUR ---
Patient complains to nurse and VETERINARY X RAY OPERATOR that "we" as in staff are telling the doctors that she is refusing to get up where in fact she "can't" get up. Patient keeps yelling at pallet rectifier and nurse stating we are not doing enough to help her but when staff tries to help her, she does not want to be touched. Patient refused a bed bath and hair wash tonight and started raising her voice and saying staff is "neglecting" her. Rn explained how we could wash her hair but she still refused.
[2020-02-19] MEDS: PATCH REMOVAL. MC SCH (21:00)
[2020-02-19] MEDS: ENOXAPARIN 40 MG/0.4 ML SYRINGE. SQ SCH (22:01)
[2020-02-19] MEDS: LACTOBACILLUS RHAMNOSUS GG 1 CAPSULE. PO SCH (22:02)
[2020-02-20] MEDS: MORPHINE SULFATE 2 MG/ML VIAL. IV PRN (01:09)
[2020-02-20] MEDS: VANCOMYCIN 1.25 GM in IV NORMAL SALINE 250ML 250 ML IV SCH ×3 (02:32→17:32)
[2020-02-20 03:00] VITALS: BP 135/81
[2020-02-20] MEDS: oxyCODONE/APAP 10/325 1 TAB TABLET PO PRN ×4 (04:19→22:52)
[2020-02-20 07:00] VITALS: BP 127/78
--- NOTE | 2020-02-20 07:04 | NUR ---
Patient states that when she is finally asleep RN and ROUGE SIFTER would wake her up and she didn't want to be woken up. Pt. never stated she did not want to be disturbed by RN or ROUGE SIFTER previously. report was passed to day shift RN.
--- NOTE | 2020-02-20 08:10 | PDOC ---
Infectious Disease Note Subjective Subjective c/o back pain, ROS ROS no n/v/d/fever no incontinence Vital Sign Vital Signs Vital Signs Date Time Temp Pulse Resp B/P (MAP) Pulse Ox O2 Delivery O2 Flow Rate FiO2 02/20/20 05:19 Room Air 02/20/20 03:00 98.4 85 18 135/81 (99) 93 98.4 02/19/20 14:27 2 Physical Exam PHYSICAL EXAM GENERAL: Lying down, alert, coop. Looks comfortable HEENT: Normal conjunctivae, oropharynx clear. No lesions seen. NECK: Supple. LUNGS: Clear bilaterally. HEART: S1, S2. No rubs or murmurs. ABDOMEN: Soft, nontender, mildly distended. Bowel sounds present. Obese : Hernandez out EXTREMITIES: Trace edema, no cyanosis. Moves toes and DERMATOLOGIC: Warm, dry. No generalized rash. Multiple tattoos. No open wounds noted. Multiple needle luna present. No peripheral stigmata NEUROLOGIC: Alert and oriented x 3, moves BLE + sensation PSYCHIATRIC: Cooperative, slightly agitated. PIV looks ok Labs Lab Laboratory Tests Test 02/20/20 04:30 Creatinine 0.8 mg/dL (0.6-1.0) Estimated GFR (Cockcroft-Gault) 81.6 Micro Microbiology 02/16/20 Blood Culture - Preliminary, Resulted NO GROWTH AFTER 1 DAY Objective Assessment MSSA ([facility] 02/01) and MRSA ([facility], 02/01) bacteremia - ERIKA 02/09 - neg Intravenous drug user. Recent history of Escherichia coli urinary tract infection, 02/01. Left ovarian complex cyst.HIV and STD - neg Hematuria. Fever - better Hep C IgG + Hypokalemia. Protein-calorie malnutrition. Severe back pain. 02/[address] [facility] [address] findings concerning for diskitis/osteomyelitis/epidural abscess. -Lumbar MRI showed increased STIR signal within the DH99-V15 disc space and adjacent endplates. There is adjacent paravertebral edema. Small anterior fluid collection measures 1.1 x 0.7 cm (series 4 image 8 and series 10 image 8). No evidence of epidural abscess. -L4-L5 increased disc signal -Bilateral retroperitoneal and presacral edema -Multilevel lumbar spinal stenosis most prominent L4-5. Plan Plan of Care cont vancomycin and cefazolin, d/w lab, they are suppose to check [facility] to see that was really MRSA or was a mistake by lab or instrument, all other here are MSSA cont supportive care pt is going to need iv for at least [address] Fontanez, no surgical indication as per him d/c ok on iv daptomycin, will need for 6 wks from this admission, since she had sign out from last admission and did not receive any antibiotics CHRIS JOY MD Feb 20, 2020 08:10
[2020-02-20] MEDS: LIDOCAINE (700MG/PATCH) PATCH. TD SCH (09:00)
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
--- NOTE | 2020-02-20 09:22 | NUR ---
GAUTAM following. Discussed with RN and Dr. Mcduffie - pt told Dr. Mcduffie she cannot do outpatient infusion daily as she does not have transportation and all her family is . Dr. Mcduffie advised GAUTAM of another once a week shot which is more expensive. GAUTAM met with pt with Dr. Mcduffie - pt was advised of the once a week option, just responded with "talk to my mother." GAUTAM left voicemail for pt's mother requesting return call. Janey contacted GAUTAM back, Janey advised she cannot take pt to hospital everyday as she works. GAUTAM advised Janey of the once a week option (if approved by administration), Janey stated she can bring pt once a week on M,T, or W. Janey requested Dr. Mcduffie contact her to discuss infection. Janey concerned about pt's pain control and whether she is going to be discharged with pain medication etc. GAUTAM advised that is up to the physician and out of SW hands. GAUTAM awaiting script for once a week abx from Dr. Mcduffie then will contact [facility] to arrange. RN notified. Addendum: 02/20/20 at 1011 by MENDY FLOREZ GAUTAM spoke with [facility] [employer] Maxine Schmitz re 1x week shot, Oritavancin, she will pink it out. SW to fax script when received from Dr. Mcduffie. GAUTAM notified Yolanda Estrada of once a week shot. GAUTAM will continue to follow. Addendum: 02/20/20 at 1217 by MENDY CANALES [facility] Maxine Schmitz declining to accept pt for the once a week shot of Oritavancin. Discussed with Dr. Mcduffie - he is awaiting the lab to determine if pt has MSSA or MRSA. If MSSA pt can do cefazolin x3 a day, however pt does not have transportation to do once a day infusion. Notified Yolanda Estrada. Awaiting further instruction. Pt was transferred to [facility] from [facility].
[2020-02-20] MEDS: metroNIDAZOLE 500 MG TABLET PO SCH ×2 (09:25→22:55)
[2020-02-20] MEDS: LACTOBACILLUS RHAMNOSUS GG 1 CAPSULE. PO SCH ×2 (09:25→22:55)
--- NOTE | 2020-02-20 10:36 | NUR ---
assumed care at this time. she is sleeping and did not disturb
--- NOTE | 2020-02-20 10:56 | NUR ---
called out for pain medication. aroused upon entering room states that her pain 9/10 and is in her back. assessment completed resumes sleep
[2020-02-20 11:00] VITALS: BP 125/69
[2020-02-20] MEDS: VANCOMYCIN PER PHARMACY MC PRN (11:22)
[2020-02-20 15:00] VITALS: BP 128/77
[2020-02-20] MEDS: ALPRAZolam 0.5 MG TABLET PO PRN ×2 (15:40→22:55)
[2020-02-20] MEDS: CYCLOBENZAPRINE 10 MG TABLET. PO PRN (15:40)
[2020-02-20 16:53] LABS: BASO # 0.1 x10^3/uL (0.0-0.2); BASO % 1 % (0-3); EOS # 0.2 x10^3/uL (0.0-0.7); EOS % 3 % (0-3); HEMATOCRIT 33.1 % (36.0-47.0); HEMOGLOBIN 11.3 g/dL (12.0-15.5); LYMPH # 2.3 x10^3/uL (1.0-4.8); LYMPH % 39 % (24-48); MEAN CORPUSCULAR HEMOGLOBIN 31 pg (25-35); MEAN CORPUSCULAR HGB CONC 34 g/dL (31-37); MEAN CORPUSCULAR VOLUME 89 fL (79-100); MONO # 0.4 x10^3/uL (0.0-1.1); MONO % 8 % (0-9); NEUT # 2.9 x10^3/uL (1.8-7.7); NEUT % 50 % (31-73); PLATELET COUNT 396 x10^3/uL (140-400); RED BLOOD COUNT 3.71 x10^6/uL (3.50-5.40); RED CELL DISTRIBUTION WIDTH 13.1 % (11.5-14.5); WHITE BLOOD COUNT 5.9 x10^3/uL (4.0-11.0)
[2020-02-20 17:13] LABS: ALBUMIN 2.4 g/dL (3.4-5.0); ALBUMIN/GLOBULIN RATIO 0.6 (1.0-1.7); CALCIUM 8.5 mg/dL (8.5-10.1); CREATININE 0.7 mg/dL (0.6-1.0); GFR 95.2; POTASSIUM 4.4 mmol/L (3.5-5.1); TOTAL BILIRUBIN 0.1 mg/dL (0.2-1.0); TOTAL PROTEIN 6.5 g/dL (6.4-8.2)
[2020-02-20 19:15] VITALS: BP 147/100
--- NOTE | 2020-02-20 19:38 | NUR ---
condition unchanged. states that the Percocet does not hold her pain. gave her Percocet 10 2tabs; Amy and a Flexeril x1 this shift.
[2020-02-20] MEDS: PATCH REMOVAL. MC SCH (22:51)
[2020-02-20] MEDS: ZOLPIDEM 5 MG TABLET. PO PRN (22:55)
[2020-02-20] MEDS: ENOXAPARIN 40 MG/0.4 ML SYRINGE. SQ SCH (22:56)
[2020-02-20 23:13] VITALS: BP 144/87
[2020-02-21] MEDS: CYCLOBENZAPRINE 10 MG TABLET. PO PRN ×3 (00:09→19:46)
[2020-02-21] MEDS: VANCOMYCIN 1.25 GM in IV NORMAL SALINE 250ML 250 ML IV SCH (03:08)
[2020-02-21] MEDS: oxyCODONE/APAP 10/325 1 TAB TABLET PO PRN ×3 (04:59→18:17)
[2020-02-21] MEDS: ALPRAZolam 0.5 MG TABLET PO PRN ×3 (04:59→18:16)
[2020-02-21 07:00] VITALS: BP 142/90
[2020-02-21] MEDS: LIDOCAINE (700MG/PATCH) PATCH. TD SCH (09:00)
--- NOTE | 2020-02-21 09:20 | PDOC ---
Infectious Disease Note Subjective Subjective c/o back pain, sleepy ROS ROS no n/v/d/sob Vital Sign Vital Signs Vital Signs Date Time Temp Pulse Resp B/P (MAP) Pulse Ox O2 Delivery O2 Flow Rate FiO2 02/21/20 07:00 97.9 87 18 142/90 (107) 94 Room Air 97.9 Physical Exam PHYSICAL EXAM GENERAL: Lying down, alert, coop. Looks comfortable HEENT: Normal conjunctivae, oropharynx clear. No lesions seen. NECK: Supple. LUNGS: Clear bilaterally. HEART: S1, S2. No rubs or murmurs. ABDOMEN: Soft, nontender, mildly distended. Bowel sounds present. Obese : Hernandez out EXTREMITIES: Trace edema, no cyanosis. Moves toes and DERMATOLOGIC: Warm, dry. No generalized rash. Multiple tattoos. No open wounds noted. Multiple needle luna present. No peripheral stigmata NEUROLOGIC: Alert and oriented x 3, moves BLE + sensation PSYCHIATRIC: Cooperative, slightly agitated. PIV looks ok Labs Micro Microbiology 02/16/20 Blood Culture - Preliminary, Resulted NO GROWTH AFTER 1 DAY Objective Assessment MSSA ([facility] 02/01) bacteremia - ERIKA 02/09 - neg Intravenous drug user. Recent history of Escherichia coli urinary tract infection, 02/01. Left ovarian complex cyst.HIV and STD - neg Hematuria. Fever - better Hep C IgG + Hypokalemia. Protein-calorie malnutrition. Severe back pain. 02/[address] [facility] [address] findings concerning for diskitis/osteomyelitis/epidural abscess. -Lumbar MRI showed increased STIR signal within the LR32-O19 disc space and adjacent endplates. There is adjacent paravertebral edema. Small anterior fluid collection measures 1.1 x 0.7 cm (series 4 image 8 and series 10 image 8). No evidence of epidural abscess. -L4-L5 increased disc signal -Bilateral retroperitoneal and presacral edema -Multilevel lumbar spinal stenosis most prominent L4-5. Lab corrected MRSA report from [place], it is MSSA Plan Plan of Care cont cefazolin, d/w lab, original report MRSA from [place] now corrected to MSSA cont supportive care pt is going to need iv for at least [address] Fontanez, no surgical indication as per him d/c ok on iv daptomycin, vs cefazolin vs Oritavancin pros and cons discussed with pt, and her mother, logistic difficulties are being handled by and hospital adm CHRIS JOY MD Feb 21, 2020 09:20
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
--- NOTE | 2020-02-21 09:49 | NUR ---
[facility] following. Discussed with RN. Yolanda Estrada notified of situation - will be contacting Maxine Schmitz at [facility] will continue to follow. Addendum: 02/21/20 at 1439 by MENDY FLOREZ Yolanda Estrada working on potentially covering pt's [place]. FLOREZ will continue to follow.
[2020-02-21 11:00] VITALS: BP 140/93
[2020-02-21] MEDS: LACTOBACILLUS RHAMNOSUS GG 1 CAPSULE. PO SCH ×2 (11:25→21:55)
[2020-02-21] MEDS: metroNIDAZOLE 500 MG TABLET PO SCH ×2 (11:25→21:55)
[2020-02-21 15:00] VITALS: BP 138/80
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
[2020-02-21 19:00] VITALS: BP 126/92
[2020-02-21] MEDS: PATCH REMOVAL. MC SCH (21:57)
[2020-02-21] MEDS: ENOXAPARIN 40 MG/0.4 ML SYRINGE. SQ SCH (21:57)
[2020-02-21] MEDS: ZOLPIDEM 5 MG TABLET. PO PRN (22:03)
[2020-02-21 23:00] VITALS: BP 131/84
[2020-02-22] MEDS: ALPRAZolam 0.5 MG TABLET PO PRN ×4 (00:13→20:16)
[2020-02-22] MEDS: oxyCODONE/APAP 10/325 1 TAB TABLET PO PRN ×4 (00:13→20:17)
[2020-02-22 03:00] VITALS: BP 121/69
[2020-02-22] MEDS: CYCLOBENZAPRINE 10 MG TABLET. PO PRN ×2 (04:31→16:24)
[2020-02-22 07:00] VITALS: BP 135/75
--- NOTE | 2020-02-22 07:00 | PDOC ---
Infectious Disease Note Subjective Subjective c/o back pain, sleepy ROS ROS Not cooperative Does not want to get up No nausea vomiting diarrhea or fever noted Vital Sign Vital Signs Vital Signs Date Time Temp Pulse Resp B/P (MAP) Pulse Ox O2 Delivery O2 Flow Rate FiO2 02/22/20 06:26 18 95 Room Air 02/22/20 03:00 98.6 83 121/69 (86) 98.6 02/21/20 19:45 2.0 Physical Exam PHYSICAL EXAM GENERAL: Lying down, alert, coop. Looks comfortable HEENT: Normal conjunctivae, oropharynx clear. No lesions seen. NECK: Supple. LUNGS: Clear bilaterally. HEART: S1, S2. No rubs or murmurs. ABDOMEN: Soft, nontender, mildly distended. Bowel sounds present. Obese : Hernandez out EXTREMITIES: Trace edema, no cyanosis. Moves toes and DERMATOLOGIC: Warm, dry. No generalized rash. Multiple tattoos. No open wounds noted. Multiple needle luna present. No peripheral stigmata NEUROLOGIC: Alert and oriented x 3, moves BLE + sensation PSYCHIATRIC: Cooperative, slightly agitated. PIV looks ok Labs Micro Microbiology 02/16/20 Blood Culture - Preliminary, Resulted NO GROWTH AFTER 1 DAY Objective Assessment MSSA ([facility] 02/01) bacteremia - ERIKA 02/09 - neg Intravenous drug user. Recent history of Escherichia coli urinary tract infection, 02/01. Left ovarian complex cyst.HIV and STD - neg Hematuria. Fever - better Hep C IgG + Hypokalemia. Protein-calorie malnutrition. Severe back pain. 02/04 [address] [facility] CT findings concerning for diskitis/osteomyelitis/epidural abscess. -Lumbar MRI showed increased STIR signal within the UV30-H36 disc space and adjacent endplates. There is adjacent paravertebral edema. Small anterior fluid collection measures 1.1 x 0.7 cm (series 4 image 8 and series 10 image 8). No evidence of epidural abscess. -L4-L5 increased disc signal -Bilateral retroperitoneal and presacral edema -Multilevel lumbar spinal stenosis most prominent L4-5. Lab corrected MRSA report from [facility], it is MSSA Plan Plan of Care cont cefazolin, d/w lab, original report MRSA from [place] now corrected to MSSA cont supportive care pt is going to need iv for at least [address] Fontanez, no surgical indication as per him d/c ok on iv daptomycin, vs cefazolin vs Oritavancin pros and cons discussed with pt, and her mother, logistic difficulties are being handled by SS and hospital adm CHRIS JOY MD Feb 22, 2020 07:00
[2020-02-22] MEDS: LIDOCAINE (700MG/PATCH) PATCH. TD SCH (09:00)
[2020-02-22] MEDS: metroNIDAZOLE 500 MG TABLET PO SCH ×2 (09:47→22:02)
[2020-02-22] MEDS: LACTOBACILLUS RHAMNOSUS GG 1 CAPSULE. PO SCH ×2 (09:47→22:01)
[2020-02-22] MEDS: fentaNYL 50MCG/HR PATCH 1 PATCH PATCH.TD72 TD SCH (09:50)
[2020-02-22 11:00] VITALS: BP 146/80
[2020-02-22 15:00] VITALS: BP 124/73
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
[2020-02-22 19:00] VITALS: BP 131/77
[2020-02-22] MEDS: ZOLPIDEM 5 MG TABLET. PO PRN (20:17)
[2020-02-22] MEDS: PATCH REMOVAL. MC SCH (21:00)
[2020-02-22] MEDS: ENOXAPARIN 40 MG/0.4 ML SYRINGE. SQ SCH (22:03)
[2020-02-22 23:00] VITALS: BP 131/81
[2020-02-22] MEDS ORDERED: HYDROmorphone 2 MG/ML VIAL IVP ONE (23:00)
[2020-02-23] MEDS: CYCLOBENZAPRINE 10 MG TABLET. PO PRN ×3 (01:41→21:58)
[2020-02-23] MEDS: ALPRAZolam 0.5 MG TABLET PO PRN ×4 (02:22→22:57)
[2020-02-23] MEDS: oxyCODONE/APAP 10/325 1 TAB TABLET PO PRN ×4 (02:22→23:00)
[2020-02-23] MEDS: LACTOBACILLUS RHAMNOSUS GG 1 CAPSULE. PO SCH ×2 (08:31→22:58)
[2020-02-23] MEDS: LIDOCAINE (700MG/PATCH) PATCH. TD SCH (08:31)
[2020-02-23] MEDS: metroNIDAZOLE 500 MG TABLET PO SCH ×2 (08:31→22:58)
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
[2020-02-23 12:23] LABS: CREATININE 0.6 mg/dL (0.6-1.0); GFR 113.8
[2020-02-23] MEDS ORDERED: HYDROmorphone 2 MG/ML VIAL IVP ONE (13:45)
[2020-02-23] MEDS: GABAPENTIN 100 MG CAPSULE. PO SCH ×2 (13:47→22:57)
[2020-02-23 19:00] VITALS: BP 90/68
[2020-02-23] MEDS: PATCH REMOVAL. MC SCH (21:00)
--- NOTE | 2020-02-23 21:00 | NUR ---
Patient not using lidoderm patches. Patient stated that "they do not work".
[2020-02-23] MEDS: HYDROmorphone 2 MG/ML VIAL IVP PRN (22:00)
[2020-02-23] MEDS: ZOLPIDEM 5 MG TABLET. PO PRN (22:58)
[2020-02-23 23:00] VITALS: BP 116/67
[2020-02-23] MEDS: ENOXAPARIN 40 MG/0.4 ML SYRINGE. SQ SCH (23:08)
[2020-02-24] MEDS: MORPHINE SULFATE 2 MG/ML VIAL. IV PRN (01:32)
[2020-02-24] MEDS: ALPRAZolam 0.5 MG TABLET PO PRN ×4 (05:00→22:16)
[2020-02-24] MEDS: oxyCODONE/APAP 10/325 1 TAB TABLET PO PRN ×4 (05:03→22:17)
[2020-02-24] MEDS: CYCLOBENZAPRINE 10 MG TABLET. PO PRN ×3 (06:14→22:16)
[2020-02-24] MEDS: HYDROmorphone 2 MG/ML VIAL IVP PRN ×3 (06:17→22:16)
[2020-02-24] MEDS: GABAPENTIN 100 MG CAPSULE. PO SCH (06:46)
[2020-02-24 07:00] VITALS: BP 112/61
--- NOTE | 2020-02-24 08:54 | PDOC ---
Infectious Disease Note Subjective: Subjective c/o back pain, sleepy Vital Signs: Vital Signs Vital Signs Date Time Temp Pulse Resp B/P (MAP) Pulse Ox O2 Delivery O2 Flow Rate FiO2 02/24/20 07:00 97.8 89 17 112/61 (78) 96 Room Air 97.8 Physical Exam: PHYSICAL EXAM GENERAL: Lying down, alert, coop. Looks comfortable HEENT: Normal conjunctivae, oropharynx clear. No lesions seen. NECK: Supple. LUNGS: Clear bilaterally. HEART: S1, S2. No rubs or murmurs. ABDOMEN: Soft, nontender, mildly distended. Bowel sounds present. Obese : Hernandez out EXTREMITIES: Trace edema, no cyanosis. Moves toes and DERMATOLOGIC: Warm, dry. No generalized rash. Multiple tattoos. No open wounds noted. Multiple needle luna present. No peripheral stigmata NEUROLOGIC: Alert and oriented x 3, moves BLE + sensation PSYCHIATRIC: Cooperative, slightly agitated. PIV looks ok Medications: Inpatient Meds: Current Medications Medications (Trade) Dose Ordered Sig/Nellie Start Time Stop Time Status Last Admin Dose Admin Acetaminophen (Tylenol) 650 mg PRN Q4HRS PRN 02/16/20 08:15 Alprazolam (Xanax) 0.5 mg PRN Q6HRS PRN 02/18/20 14:30 02/24/20 05:00 0.5 MG Cefazolin Sodium 2000 mg/Dextrose 50 ml @ 100 mls/hr Q8HRS 02/19/20 09:15 Cancel Cefazolin Sodium/ Dextrose 50 ml @ 100 mls/hr Q8HRS 02/19/20 09:30 02/24/20 06:13 100 MLS/HR Cyclobenzaprine HCl (Flexeril) 10 mg PRN Q8HRS PRN 02/16/20 15:00 02/24/20 06:14 10 MG Enoxaparin Sodium (Lovenox 40mg Syringe) 40 mg Q24H 02/16/20 21:00 02/23/20 23:08 40 MG Fentanyl (Duragesic 50mcg/ Hr Patch) 1 patch Q3DAYS 02/19/20 09:00 02/22/20 09:50 1 PATCH Fentanyl Citrate (Fentanyl 2ml Vial) 100 mcg STK-MED ONCE 02/19/20 12:02 02/19/20 12:02 DC Gabapentin (Neurontin) 200 mg BID 02/23/20 14:00 02/24/20 06:46 200 MG Gadoterate Meglumine (Dotarem) 22.6 ml 1X ONCE 02/19/20 13:30 02/19/20 13:31 DC Hydromorphone HCl (Dilaudid) 1 mg PRN Q8HRS PRN 02/23/20 14:45 02/24/20 06:17 1 MG Ketamine HCl (Ketamine) 50 mg STK-MED ONCE 02/19/20 12:02 02/19/20 12:03 DC Ketorolac Tromethamine (Toradol 30mg Vial) 30 mg PRN Q6HRS PRN 02/16/20 09:00 02/17/20 07:08 30 MG Lactobacillus Rhamnosus (Culturelle) 1 cap BID 02/19/20 21:00 02/23/20 22:58 1 CAP Lidocaine (Lidoderm) 1 patch DAILY 02/16/20 15:00 02/17/20 08:24 1 PATCH Lidocaine HCl (Lidocaine Pf 2% Vial) 5 ml STK-MED ONCE 02/19/20 12:03 02/19/20 12:03 DC Metronidazole (Flagyl) 500 mg Q12HR 02/18/20 21:00 02/23/20 22:58 500 MG Midazolam HCl (Versed) 2 mg STK-MED ONCE 02/19/20 12:26 02/19/20 12:26 DC Miscellaneous (Lidoderm Patch Removal) 1 ea QHS 02/16/20 21:00 02/22/20 21:00 1 EA Morphine Sulfate (Morphine Sulfate) 4 mg PRN Q2HR PRN 02/19/20 06:45 02/24/20 01:32 4 MG Ondansetron HCl (Zofran) 4 mg PRN Q4HRS PRN 02/16/20 08:15 02/17/20 08:25 4 MG Oxycodone/ Acetaminophen (Percocet 10/325) 2 tab PRN Q6HRS PRN 02/18/20 14:45 02/24/20 05:03 2 TAB Propofol 50 ml @ As Directed STK-MED ONCE 02/19/20 12:25 02/19/20 12:26 DC Propofol (Diprivan) 200 mg STK-MED ONCE 02/19/20 12:03 02/19/20 12:03 DC Vancomycin HCl (Vanco Per Pharmacy) 1 each PRN DAILY PRN 02/16/20 14:45 02/21/20 09:21 DC 02/20/20 11:22 1 EACH Vancomycin HCl (Vancomycin Random Level) 1 each 1X ONCE 02/18/20 17:00 02/18/20 17:01 DC 02/18/20 17:00 1 EACH Vancomycin HCl (Vancomycin Trough Level) 1 each 1X ONCE 02/18/20 03:30 02/18/20 03:31 DC 02/18/20 03:30 1 EACH Vancomycin HCl 1.25 gm/Sodium Chloride 250 ml @ 167 mls/hr Q8H 02/18/20 19:00 02/21/20 09:21 DC 02/21/20 03:08 167 MLS/HR Vancomycin HCl 1.5 gm/Sodium Chloride 500 ml @ 250 mls/hr Q8H 02/17/20 20:00 02/18/20 05:56 DC 02/18/20 04:48 250 MLS/HR Vancomycin HCl 1.75 gm/Sodium Chloride 500 ml @ 250 mls/hr 1X ONCE 02/16/20 09:00 02/16/20 10:59 DC 02/16/20 09:28 250 MLS/HR Zolpidem Tartrate (Ambien) 5 mg PRN QHS PRN 02/17/20 21:30 02/23/20 22:58 5 MG Labs: Lab Laboratory Tests Test 02/23/20 11:05 Creatinine 0.6 mg/dL (0.6-1.0) Estimated GFR (Cockcroft-Gault) 113.8 Objective: Assessment: MSSA ([facility] 02/01) bacteremia - ERIKA 02/09 - neg Intravenous drug user. Recent history of Escherichia coli urinary tract infection, 02/01. Left ovarian complex cyst.HIV and STD - neg Hematuria. Fever - better Hep C IgG + Hypokalemia. Protein-calorie malnutrition. Severe back pain. 02/[facility] [address] [facility] CT findings concerning for diskitis/osteomyelitis/epidural abscess. -Lumbar MRI showed increased STIR signal within the EB14-W67 disc space and adjacent endplates. There is adjacent paravertebral edema. Small anterior fluid collection measures 1.1 x 0.7 cm (series 4 image 8 and series 10 image 8). No evidence of epidural abscess. -L4-L5 increased disc signal -Bilateral retroperitoneal and presacral edema -Multilevel lumbar spinal stenosis most prominent L4-5. Lab corrected MRSA report from [place], it is MSSA Plan: Plan of Care cont cefazolin, d/w microbiology lab, original report MRSA from [place] now corrected to MSSA cont supportive care pt is going to need iv for at least [address] Fontanez, no surgical indication as per him d/c ok on iv daptomycin, vs cefazolin vs Oritavancin pros and cons discussed with pt, and her mother, logistic difficulties are being handled by social insurance administrator and hospital administration SOPHIA JOY MD Feb 24, 2020 08:54
[2020-02-24] MEDS: LIDOCAINE (700MG/PATCH) PATCH. TD SCH (09:00)
[2020-02-24] MEDS: metroNIDAZOLE 500 MG TABLET PO SCH ×2 (09:21→20:34)
[2020-02-24] MEDS: LACTOBACILLUS RHAMNOSUS GG 1 CAPSULE. PO SCH ×2 (09:21→20:34)
--- NOTE | 2020-02-24 10:42 | NUR ---
SW following. Discussed with RN and Josafat Singh. Administration is needing copies of HR paperwork to finalize the coverage of pt's Cobra. Pt's mother, Janey was supposedly working on getting this over the weekend. SW left voicemail for pt's mother requesting update of progress regarding paperwork. SW will continue to follow.
[2020-02-24 10:55] VITALS: BP 100/70
[2020-02-24 11:37] LABS: BASO % 1 % (0-3); EOS # 0.2 x10^3/uL (0.0-0.7); EOS % 3 % (0-3); HEMATOCRIT 35.5 % (36.0-47.0); HEMOGLOBIN 11.9 g/dL (12.0-15.5); LYMPH # 2.2 x10^3/uL (1.0-4.8); LYMPH % 38 % (24-48); MEAN CORPUSCULAR HEMOGLOBIN 30 pg (25-35); MEAN CORPUSCULAR HGB CONC 34 g/dL (31-37); MEAN CORPUSCULAR VOLUME 89 fL (79-100); MONO # 0.6 x10^3/uL (0.0-1.1); MONO % 10 % (0-9); NEUT # 2.8 x10^3/uL (1.8-7.7); NEUT % 48 % (31-73); PLATELET COUNT 382 x10^3/uL (140-400); RED BLOOD COUNT 3.98 x10^6/uL (3.50-5.40); RED CELL DISTRIBUTION WIDTH 13.3 % (11.5-14.5); WHITE BLOOD COUNT 5.8 x10^3/uL (4.0-11.0)
[2020-02-24 12:01] LABS: ALBUMIN 2.8 g/dL (3.4-5.0); ALBUMIN/GLOBULIN RATIO 0.5 (1.0-1.7); CREATININE 0.8 mg/dL (0.6-1.0); GFR 81.6; POTASSIUM 3.9 mmol/L (3.5-5.1); TOTAL BILIRUBIN 0.1 mg/dL (0.2-1.0); TOTAL PROTEIN 7.9 g/dL (6.4-8.2)
[2020-02-24 14:25] VITALS: BP 120/67
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
--- NOTE | 2020-02-24 18:08 | PDOC ---
F/U PHYSCH PROG NOTE Subjective: She is a 34-year-old female with history of heroin use disorder seen for follow-up. Progress is reviewed with nursing staff. According to the nursing staff she is receiving narcotics for her pain and Xanax for anxiety. W hen seen, with respect to her behavior she is much better and receptive to conversation contrary to last visit. States pain medications are working however sometimes they wear off. Xanax is helping with anxiety. Irritability and anger is lot better. When pain gets worse that makes her irritable. Denies suicidal or homicidal thoughts. Denies auditory or visual hallucinations. No evidence of violet or hypomania. Objective: 14 point review of system is otherwise negative except for stated above. Vital Signs: Vital Signs Date Time Temp Pulse Resp B/P (MAP) Pulse Ox O2 Delivery O2 Flow Rate FiO2 02/24/20 17:28 Room Air 02/24/20 14:25 98.1 102 16 120/67 (84) 98 98.1 Labs: Laboratory Tests Test 02/24/20 11:15 White Blood Count 5.8 x10^3/uL (4.0-11.0) Red Blood Count 3.98 x10^6/uL (3.50-5.40) Hemoglobin 11.9 g/dL (12.0-15.5) L Hematocrit 35.5 % (36.0-47.0) L Mean Corpuscular Volume 89 fL (79-100) Mean Corpuscular Hemoglobin 30 pg (25-35) Mean Corpuscular Hemoglobin Concent 34 g/dL (31-37) Red Cell Distribution Width 13.3 % (11.5-14.5) Platelet Count 382 x10^3/uL (140-400) Neutrophils (%) (Auto) 48 % (31-73) Lymphocytes (%) (Auto) 38 % (24-48) Monocytes (%) (Auto) 10 % (0-9) H Eosinophils (%) (Auto) 3 % (0-3) Basophils (%) (Auto) 1 % (0-3) Neutrophils # (Auto) 2.8 x10^3/uL (1.8-7.7) Lymphocytes # (Auto) 2.2 x10^3/uL (1.0-4.8) Monocytes # (Auto) 0.6 x10^3/uL (0.0-1.1) Eosinophils # (Auto) 0.2 x10^3/uL (0.0-0.7) Basophils # (Auto) 0.0 x10^3/uL (0.0-0.2) Sodium Level 137 mmol/L (136-145) Potassium Level 3.9 mmol/L (3.5-5.1) Chloride Level 101 mmol/L (98-107) Carbon Dioxide Level 31 mmol/L (21-32) Anion Gap 5 (6-14) L Blood Urea Nitrogen 14 mg/dL (7-20) Creatinine 0.8 mg/dL (0.6-1.0) Estimated GFR (Cockcroft-Gault) 81.6 BUN/Creatinine Ratio 18 (6-20) Glucose Level 124 mg/dL (70-99) H Calcium Level 9.0 mg/dL (8.5-10.1) Total Bilirubin 0.1 mg/dL (0.2-1.0) L Aspartate Amino Transferase (AST) 33 U/L (15-37) Alanine Aminotransferase (ALT) 33 U/L (14-59) Alkaline Phosphatase 88 U/L (46-116) Total Protein 7.9 g/dL (6.4-8.2) Albumin 2.8 g/dL (3.4-5.0) L Albumin/Globulin Ratio 0.5 (1.0-1.7) L Laboratory Tests 02/24/20 11:15 Laboratory Tests 02/24/20 11:15 Medications: Current Medications Medications (Trade) Dose Ordered Sig/Nellie Start Time Stop Time Status Last Admin Dose Admin Acetaminophen (Tylenol) 650 mg PRN Q4HRS PRN 02/16/20 08:15 Alprazolam (Xanax) 0.5 mg PRN Q6HRS PRN 02/18/20 14:30 02/24/20 16:25 0.5 MG Cefazolin Sodium 2000 mg/Dextrose 50 ml @ 100 mls/hr Q8HRS 02/19/20 09:15 Cancel Cefazolin Sodium/ Dextrose 50 ml @ 100 mls/hr Q8HRS 02/19/20 09:30 02/24/20 14:17 100 MLS/HR Cyclobenzaprine HCl (Flexeril) 10 mg PRN Q8HRS PRN 02/16/20 15:00 02/24/20 14:17 10 MG Enoxaparin Sodium (Lovenox 40mg Syringe) 40 mg Q24H 02/16/20 21:00 02/23/20 23:08 40 MG Fentanyl (Duragesic 50mcg/ Hr Patch) 1 patch Q3DAYS 02/19/20 09:00 02/22/20 09:50 1 PATCH Fentanyl Citrate (Fentanyl 2ml Vial) 100 mcg STK-MED ONCE 02/19/20 12:02 02/19/20 12:02 DC Gabapentin (Neurontin) 300 mg TID 02/24/20 18:00 Gadoterate Meglumine (Dotarem) 22.6 ml 1X ONCE 02/19/20 13:30 02/19/20 13:31 DC Hydromorphone HCl (Dilaudid) 1 mg PRN Q8HRS PRN 02/23/20 14:45 02/24/20 14:18 1 MG Ketamine HCl (Ketamine) 50 mg STK-MED ONCE 02/19/20 12:02 02/19/20 12:03 DC Ketorolac Tromethamine (Toradol 30mg Vial) 30 mg PRN Q6HRS PRN 02/16/20 09:00 02/17/20 07:08 30 MG Lactobacillus Rhamnosus (Culturelle) 1 cap BID 02/19/20 21:00 02/24/20 09:21 1 CAP Lidocaine (Lidoderm) 1 patch DAILY 02/16/20 15:00 02/24/20 17:29 DC 02/17/20 08:24 1 PATCH Lidocaine HCl (Lidocaine Pf 2% Vial) 5 ml STK-MED ONCE 02/19/20 12:03 02/19/20 12:03 DC Metronidazole (Flagyl) 500 mg Q12HR 02/18/20 21:00 02/24/20 09:21 500 MG Midazolam HCl (Versed) 2 mg STK-MED ONCE 02/19/20 12:26 02/19/20 12:26 DC Miscellaneous (Lidoderm Patch Removal) 1 ea QHS 02/16/20 21:00 02/24/20 17:29 DC 02/22/20 21:00 1 EA Morphine Sulfate (Morphine Sulfate) 4 mg PRN Q2HR PRN 02/19/20 06:45 02/24/20 01:32 4 MG Ondansetron HCl (Zofran) 4 mg PRN Q4HRS PRN 02/16/20 08:15 02/17/20 08:25 4 MG Oxycodone/ Acetaminophen (Percocet 10/325) 2 tab PRN Q6HRS PRN 02/18/20 14:45 02/24/20 16:25 2 TAB Propofol 50 ml @ As Directed STK-MED ONCE 02/19/20 12:25 02/19/20 12:26 DC Propofol (Diprivan) 200 mg STK-MED ONCE 02/19/20 12:03 02/19/20 12:03 DC Vancomycin HCl (Vanco Per Pharmacy) 1 each PRN DAILY PRN 02/16/20 14:45 02/21/20 09:21 DC 02/20/20 11:22 1 EACH Vancomycin HCl (Vancomycin Random Level) 1 each 1X ONCE 02/18/20 17:00 02/18/20 17:01 DC 02/18/20 17:00 1 EACH Vancomycin HCl (Vancomycin Trough Level) 1 each 1X ONCE 02/18/20 03:30 02/18/20 03:31 DC 02/18/20 03:30 1 EACH Vancomycin HCl 1.25 gm/Sodium Chloride 250 ml @ 167 mls/hr Q8H 02/18/20 19:00 02/21/20 09:21 DC 02/21/20 03:08 167 MLS/HR Vancomycin HCl 1.5 gm/Sodium Chloride 500 ml @ 250 mls/hr Q8H 02/17/20 20:00 02/18/20 05:56 DC 02/18/20 04:48 250 MLS/HR Vancomycin HCl 1.75 gm/Sodium Chloride 500 ml @ 250 mls/hr 1X ONCE 02/16/20 09:00 02/16/20 10:59 DC 02/16/20 09:28 250 MLS/HR Zolpidem Tartrate (Ambien) 5 mg PRN QHS PRN 02/17/20 21:30 02/23/20 22:58 5 MG Physical Exam: Physical Exam: Refer to Physician's note. [employer] FUELING: No focal deficit MSK: No EPS, TDK, or abnormal involuntary movements Diagnosis: Opioid use disorder (heroin) recurrent, severe. Unspecified mood disorder, rule out bipolar mood disorder Assessment: She is a young female appears very irritable, dysphoric, agitated and resistant to engaging interview process. Likely she is withdrawing from opioids and in denial. She is resistant to discuss treatment options including methadone and Suboxone. 02/24/2020: Today she appears much better and conversant. Apologizing for her behavior at previous interaction. Plan: Increase gabapentin to 300 mg 3 times daily for pain as it was helpful previously. Monitor for symptomatology, safety, and adverse drug reaction. Will adjust medications accordingly. Psychoeducation provided. Supportive psychotherapy provided. Risk, benefits, alternatives are discussed. However patient declined every offer. TAMMY SHIN MD Feb 24, 2020 18:08
[2020-02-24] MEDS: GABAPENTIN 300 MG CAPSULE. PO SCH ×2 (18:21→20:34)
[2020-02-24 19:00] VITALS: BP 113/67
[2020-02-24] MEDS: ENOXAPARIN 40 MG/0.4 ML SYRINGE. SQ SCH (20:34)
[2020-02-24] MEDS: ZOLPIDEM 5 MG TABLET. PO PRN (22:24)
[2020-02-24 23:00] VITALS: BP 111/66
[2020-02-25 03:00] VITALS: BP 111/78
[2020-02-25] MEDS: ALPRAZolam 0.5 MG TABLET PO PRN ×4 (04:25→23:43)
[2020-02-25] MEDS: oxyCODONE/APAP 10/325 1 TAB TABLET PO PRN ×4 (04:25→23:43)
[2020-02-25] MEDS: HYDROmorphone 2 MG/ML VIAL IVP PRN ×3 (06:24→22:30)
[2020-02-25] MEDS: CYCLOBENZAPRINE 10 MG TABLET. PO PRN ×3 (06:24→22:30)
[2020-02-25 07:00] VITALS: BP 106/57
[2020-02-25] MEDS: LACTOBACILLUS RHAMNOSUS GG 1 CAPSULE. PO SCH ×2 (08:49→22:05)
[2020-02-25] MEDS: metroNIDAZOLE 500 MG TABLET PO SCH ×2 (08:49→22:06)
[2020-02-25] MEDS: GABAPENTIN 300 MG CAPSULE. PO SCH ×3 (08:49→22:06)
[2020-02-25] MEDS: fentaNYL 50MCG/HR PATCH 1 PATCH PATCH.TD72 TD SCH (08:49)
--- NOTE | 2020-02-25 08:50 | PDOC ---
Infectious Disease Note Subjective: Subjective pt says cont to have pain in back Vital Signs: Vital Signs Vital Signs Date Time Temp Pulse Resp B/P (MAP) Pulse Ox O2 Delivery O2 Flow Rate FiO2 02/25/20 07:00 98.3 81 16 106/57 (73) 94 Room Air 98.3 Physical Exam: PHYSICAL EXAM GENERAL: Lying down, alert, coop. Looks comfortable HEENT: Normal conjunctivae, oropharynx clear. No lesions seen. NECK: Supple. LUNGS: Clear bilaterally. HEART: S1, S2. No rubs or murmurs. ABDOMEN: Soft, nontender, mildly distended. Bowel sounds present. Obese : Hernandez out EXTREMITIES: Trace edema, no cyanosis. Moves toes and DERMATOLOGIC: Warm, dry. No generalized rash. Multiple tattoos. No open wounds noted. Multiple needle luna present. No peripheral stigmata NEUROLOGIC: Alert and oriented x 3, moves BLE + sensation PSYCHIATRIC: Cooperative, slightly agitated. PIV looks ok Medications: Inpatient Meds: Current Medications Medications (Trade) Dose Ordered Sig/Nellie Start Time Stop Time Status Last Admin Dose Admin Acetaminophen (Tylenol) 650 mg PRN Q4HRS PRN 02/16/20 08:15 Alprazolam (Xanax) 0.5 mg PRN Q6HRS PRN 02/18/20 14:30 02/25/20 04:25 0.5 MG Cefazolin Sodium 2000 mg/Dextrose 50 ml @ 100 mls/hr Q8HRS 02/19/20 09:15 Cancel Cefazolin Sodium/ Dextrose 50 ml @ 100 mls/hr Q8HRS 02/19/20 09:30 02/25/20 05:58 100 MLS/HR Cyclobenzaprine HCl (Flexeril) 10 mg PRN Q8HRS PRN 02/16/20 15:00 02/25/20 06:24 10 MG Enoxaparin Sodium (Lovenox 40mg Syringe) 40 mg Q24H 02/16/20 21:00 02/24/20 20:34 40 MG Fentanyl (Duragesic 50mcg/ Hr Patch) 1 patch Q3DAYS 02/19/20 09:00 02/22/20 09:50 1 PATCH Fentanyl Citrate (Fentanyl 2ml Vial) 100 mcg STK-MED ONCE 02/19/20 12:02 02/19/20 12:02 DC Gabapentin (Neurontin) 300 mg TID 02/24/20 18:00 02/24/20 20:34 300 MG Gadoterate Meglumine (Dotarem) 22.6 ml 1X ONCE 02/19/20 13:30 02/19/20 13:31 DC Hydromorphone HCl (Dilaudid) 1 mg PRN Q8HRS PRN 02/23/20 14:45 02/25/20 06:24 1 MG Ketamine HCl (Ketamine) 50 mg STK-MED ONCE 02/19/20 12:02 02/19/20 12:03 DC Ketorolac Tromethamine (Toradol 30mg Vial) 30 mg PRN Q6HRS PRN 02/16/20 09:00 02/17/20 07:08 30 MG Lactobacillus Rhamnosus (Culturelle) 1 cap BID 02/19/20 21:00 02/24/20 20:34 1 CAP Lidocaine (Lidoderm) 1 patch DAILY 02/16/20 15:00 02/24/20 17:29 DC 02/17/20 08:24 1 PATCH Lidocaine HCl (Lidocaine Pf 2% Vial) 5 ml STK-MED ONCE 02/19/20 12:03 02/19/20 12:03 DC Metronidazole (Flagyl) 500 mg Q12HR 02/18/20 21:00 02/24/20 20:34 500 MG Midazolam HCl (Versed) 2 mg STK-MED ONCE 02/19/20 12:26 02/19/20 12:26 DC Miscellaneous (Lidoderm Patch Removal) 1 ea QHS 02/16/20 21:00 02/24/20 17:29 DC 02/22/20 21:00 1 EA Morphine Sulfate (Morphine Sulfate) 4 mg PRN Q2HR PRN 02/19/20 06:45 02/24/20 01:32 4 MG Ondansetron HCl (Zofran) 4 mg PRN Q4HRS PRN 02/16/20 08:15 02/17/20 08:25 4 MG Oxycodone/ Acetaminophen (Percocet 10/325) 2 tab PRN Q6HRS PRN 02/18/20 14:45 02/25/20 04:25 2 TAB Propofol 50 ml @ As Directed STK-MED ONCE 02/19/20 12:25 02/19/20 12:26 DC Propofol (Diprivan) 200 mg STK-MED ONCE 02/19/20 12:03 02/19/20 12:03 DC Vancomycin HCl (Vanco Per Pharmacy) 1 each PRN DAILY PRN 02/16/20 14:45 02/21/20 09:21 DC 02/20/20 11:22 1 EACH Vancomycin HCl (Vancomycin Random Level) 1 each 1X ONCE 02/18/20 17:00 02/18/20 17:01 DC 02/18/20 17:00 1 EACH Vancomycin HCl (Vancomycin Trough Level) 1 each 1X ONCE 02/18/20 03:30 02/18/20 03:31 DC 02/18/20 03:30 1 EACH Vancomycin HCl 1.25 gm/Sodium Chloride 250 ml @ 167 mls/hr Q8H 02/18/20 19:00 02/21/20 09:21 DC 02/21/20 03:08 167 MLS/HR Vancomycin HCl 1.5 gm/Sodium Chloride 500 ml @ 250 mls/hr Q8H 02/17/20 20:00 02/18/20 05:56 DC 02/18/20 04:48 250 MLS/HR Vancomycin HCl 1.75 gm/Sodium Chloride 500 ml @ 250 mls/hr 1X ONCE 02/16/20 09:00 02/16/20 10:59 DC 02/16/20 09:28 250 MLS/HR Zolpidem Tartrate (Ambien) 5 mg PRN QHS PRN 02/17/20 21:30 02/24/20 22:24 5 MG Labs: Lab Laboratory Tests Test 02/24/20 11:15 White Blood Count 5.8 x10^3/uL (4.0-11.0) Red Blood Count 3.98 x10^6/uL (3.50-5.40) Hemoglobin 11.9 g/dL (12.0-15.5) Hematocrit 35.5 % (36.0-47.0) Mean Corpuscular Volume 89 fL (79-100) Mean Corpuscular Hemoglobin 30 pg (25-35) Mean Corpuscular Hemoglobin Concent 34 g/dL (31-37) Red Cell Distribution Width 13.3 % (11.5-14.5) Platelet Count 382 x10^3/uL (140-400) Neutrophils (%) (Auto) 48 % (31-73) Lymphocytes (%) (Auto) 38 % (24-48) Monocytes (%) (Auto) 10 % (0-9) Eosinophils (%) (Auto) 3 % (0-3) Basophils (%) (Auto) 1 % (0-3) Neutrophils # (Auto) 2.8 x10^3/uL (1.8-7.7) Lymphocytes # (Auto) 2.2 x10^3/uL (1.0-4.8) Monocytes # (Auto) 0.6 x10^3/uL (0.0-1.1) Eosinophils # (Auto) 0.2 x10^3/uL (0.0-0.7) Basophils # (Auto) 0.0 x10^3/uL (0.0-0.2) Sodium Level 137 mmol/L (136-145) Potassium Level 3.9 mmol/L (3.5-5.1) Chloride Level 101 mmol/L (98-107) Carbon Dioxide Level 31 mmol/L (21-32) Anion Gap 5 (6-14) Blood Urea Nitrogen 14 mg/dL (7-20) Creatinine 0.8 mg/dL (0.6-1.0) Estimated GFR (Cockcroft-Gault) 81.6 BUN/Creatinine Ratio 18 (6-20) Glucose Level 124 mg/dL (70-99) Calcium Level 9.0 mg/dL (8.5-10.1) Total Bilirubin 0.1 mg/dL (0.2-1.0) Aspartate Amino Transf (AST/SGOT) 33 U/L (15-37) Alanine Aminotransferase (ALT/SGPT) 33 U/L (14-59) Alkaline Phosphatase 88 U/L (46-116) Total Protein 7.9 g/dL (6.4-8.2) Albumin 2.8 g/dL (3.4-5.0) Albumin/Globulin Ratio 0.5 (1.0-1.7) Objective: Assessment: MSSA ([facility] 02/01) bacteremia - [facility] 02/09 - neg Intravenous drug user. Recent history of Escherichia coli urinary tract infection, 02/01. Left ovarian complex cyst.HIV and STD - neg Hematuria. Fever - better Hep C IgG + Hypokalemia. Protein-calorie malnutrition. Severe back pain. 02/[address] [facility] CT findings concerning for diskitis/osteomyelitis/epidural abscess. -Lumbar MRI showed increased STIR signal within the EI97-J74 disc space and adjacent endplates. There is adjacent paravertebral edema. Small anterior fluid collection measures 1.1 x 0.7 cm (series 4 image 8 and series 10 image 8). No evidence of epidural abscess. -L4-L5 increased disc signal -Bilateral retroperitoneal and presacral edema -Multilevel lumbar spinal stenosis most prominent L4-5. Lab corrected MRSA report from [place], it is MSSA Plan: Plan of Care cont cefazolin, ( d/w microbiology lab, original report MRSA from [place] now corrected to MSSA) cont supportive care Treat with IV abx for atleast [address] Fontanez, no surgical indication as per him OK to Discharge on IV Daptomycin vs IV Cefazolin vs salvage treatment with Oritavancin/ Dalbavancin pros and cons discussed with pt, and her mother, logistic difficulties are being handled by social insurance administrator and hospital administration SOPHIA JOY MD Feb 25, 2020 08:50
--- NOTE | 2020-02-25 09:21 | NUR ---
GAUTAM following. Discussed with RN, GAUTAM left another voicemail for pt's mother, Janey regarding paperwork for [employer] coverage. GAUTAM will continue to follow. Addendum: 02/25/20 at 1240 by MENDY FLOREZ GAUTAM spoke with pt, pt reported she has photos of her insurance card with the number for the corporate office for the [employer]. Pt sent pictures to GAUTAM work [employer]. GAUTAM discussed with director, Josafat Singh - forwarded images to Josafat. GAUTAM will continue to follow. Addendum: 02/25/20 at 1621 by MENDY FLOREZ GAUTAM spoke with pt. Pt's mother gave pt's mail to her today, she is going to check through the mail to see if there is anything from her old employer. Will also try contacting her HR. GAUTAM will continue to follow.
[2020-02-25 10:35] LABS: BASO % 1 % (0-3); EOS # 0.2 x10^3/uL (0.0-0.7); EOS % 3 % (0-3); HEMATOCRIT 34.2 % (36.0-47.0); HEMOGLOBIN 11.5 g/dL (12.0-15.5); LYMPH # 2.5 x10^3/uL (1.0-4.8); LYMPH % 42 % (24-48); MEAN CORPUSCULAR HEMOGLOBIN 30 pg (25-35); MEAN CORPUSCULAR HGB CONC 34 g/dL (31-37); MEAN CORPUSCULAR VOLUME 89 fL (79-100); MONO # 0.5 x10^3/uL (0.0-1.1); MONO % 9 % (0-9); NEUT # 2.6 x10^3/uL (1.8-7.7); NEUT % 45 % (31-73); PLATELET COUNT 379 x10^3/uL (140-400); RED BLOOD COUNT 3.83 x10^6/uL (3.50-5.40); RED CELL DISTRIBUTION WIDTH 13.3 % (11.5-14.5); WHITE BLOOD COUNT 5.9 x10^3/uL (4.0-11.0)
[2020-02-25 10:55] LABS: CALCIUM 9.4 mg/dL (8.5-10.1); CREATININE 0.6 mg/dL (0.6-1.0); GFR 113.8
[2020-02-25 11:00] VITALS: BP 110/58
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
[2020-02-25 15:00] VITALS: BP 112/62
[2020-02-25 19:00] VITALS: BP 103/62
--- NOTE | 2020-02-25 19:48 | PDOC ---
F/U PHYSCH PROG NOTE Subjective: She is a 34-year-old female with history of heroin use disorder seen for follow-up. Progress is reviewed with nursing staff. No major emotional or behavioral breakdown reported on the unit. Her outlook appears better than yesterday. She also endorses improvement. States, feeling better than yesterday. States, her back is hurting however less than yesterday. Gabapentin is good and 300 mg 3 times daily doses. Denies suicidal or homicidal thoughts. Denies auditory or visual hallucinations. No evidence of violet or hypomania. Objective: 14 point review of system is otherwise negative except for stated above Vital Signs: Vital Signs Date Time Temp Pulse Resp B/P (MAP) Pulse Ox O2 Delivery O2 Flow Rate FiO2 02/25/20 19:00 98.2 94 18 103/62 (76) 96 Room Air 98.2 Labs: Laboratory Tests Test 02/25/20 10:20 White Blood Count 5.9 x10^3/uL (4.0-11.0) Red Blood Count 3.83 x10^6/uL (3.50-5.40) Hemoglobin 11.5 g/dL (12.0-15.5) L Hematocrit 34.2 % (36.0-47.0) L Mean Corpuscular Volume 89 fL (79-100) Mean Corpuscular Hemoglobin 30 pg (25-35) Mean Corpuscular Hemoglobin Concent 34 g/dL (31-37) Red Cell Distribution Width 13.3 % (11.5-14.5) Platelet Count 379 x10^3/uL (140-400) Neutrophils (%) (Auto) 45 % (31-73) Lymphocytes (%) (Auto) 42 % (24-48) Monocytes (%) (Auto) 9 % (0-9) Eosinophils (%) (Auto) 3 % (0-3) Basophils (%) (Auto) 1 % (0-3) Neutrophils # (Auto) 2.6 x10^3/uL (1.8-7.7) Lymphocytes # (Auto) 2.5 x10^3/uL (1.0-4.8) Monocytes # (Auto) 0.5 x10^3/uL (0.0-1.1) Eosinophils # (Auto) 0.2 x10^3/uL (0.0-0.7) Basophils # (Auto) 0.0 x10^3/uL (0.0-0.2) Sodium Level 136 mmol/L (136-145) Potassium Level 4.0 mmol/L (3.5-5.1) Chloride Level 101 mmol/L (98-107) Carbon Dioxide Level 29 mmol/L (21-32) Anion Gap 6 (6-14) Blood Urea Nitrogen 11 mg/dL (7-20) Creatinine 0.6 mg/dL (0.6-1.0) Estimated GFR (Cockcroft-Gault) 113.8 Glucose Level 116 mg/dL (70-99) H Calcium Level 9.4 mg/dL (8.5-10.1) Laboratory Tests 02/25/20 10:20 Laboratory Tests 02/25/20 10:20 Medications: Current Medications Medications (Trade) Dose Ordered Sig/Nellie Start Time Stop Time Status Last Admin Dose Admin Acetaminophen (Tylenol) 650 mg PRN Q4HRS PRN 02/16/20 08:15 Alprazolam (Xanax) 0.5 mg PRN Q6HRS PRN 02/18/20 14:30 02/25/20 17:21 0.5 MG Cefazolin Sodium 2000 mg/Dextrose 50 ml @ 100 mls/hr Q8HRS 02/19/20 09:15 Cancel Cefazolin Sodium/ Dextrose 50 ml @ 100 mls/hr Q8HRS 02/19/20 09:30 02/25/20 14:32 100 MLS/HR Cyclobenzaprine HCl (Flexeril) 10 mg PRN Q8HRS PRN 02/16/20 15:00 02/25/20 14:31 10 MG Enoxaparin Sodium (Lovenox 40mg Syringe) 40 mg Q24H 02/16/20 21:00 02/24/20 20:34 40 MG Fentanyl (Duragesic 50mcg/ Hr Patch) 1 patch Q3DAYS 02/19/20 09:00 02/25/20 08:49 1 PATCH Fentanyl Citrate (Fentanyl 2ml Vial) 100 mcg STK-MED ONCE 02/19/20 12:02 02/19/20 12:02 DC Gabapentin (Neurontin) 300 mg TID 02/24/20 18:00 9/1/20 14:31 300 MG Gadoterate Meglumine (Dotarem) 22.6 ml 1X ONCE 02/19/20 13:30 02/19/20 13:31 DC Hydromorphone HCl (Dilaudid) 1 mg PRN Q8HRS PRN 02/23/20 14:45 02/25/20 14:31 1 MG Ketamine HCl (Ketamine) 50 mg STK-MED ONCE 02/19/20 12:02 02/19/20 12:03 DC Ketorolac Tromethamine (Toradol 30mg Vial) 30 mg PRN Q6HRS PRN 02/16/20 09:00 02/17/20 07:08 30 MG Lactobacillus Rhamnosus (Culturelle) 1 cap BID 02/19/20 21:00 02/25/20 08:49 1 CAP Lidocaine (Lidoderm) 1 patch DAILY 02/16/20 15:00 02/24/20 17:29 DC 02/17/20 08:24 1 PATCH Lidocaine HCl (Lidocaine Pf 2% Vial) 5 ml STK-MED ONCE 02/19/20 12:03 02/19/20 12:03 DC Metronidazole (Flagyl) 500 mg Q12HR 02/18/20 21:00 02/25/20 08:49 500 MG Midazolam HCl (Versed) 2 mg STK-MED ONCE 02/19/20 12:26 02/19/20 12:26 DC Miscellaneous (Lidoderm Patch Removal) 1 ea QHS 02/16/20 21:00 02/24/20 17:29 DC 02/22/20 21:00 1 EA Morphine Sulfate (Morphine Sulfate) 4 mg PRN Q2HR PRN 02/19/20 06:45 02/24/20 01:32 4 MG Ondansetron HCl (Zofran) 4 mg PRN Q4HRS PRN 02/16/20 08:15 02/17/20 08:25 4 MG Oxycodone/ Acetaminophen (Percocet 10/325) 2 tab PRN Q6HRS PRN 02/18/20 14:45 02/25/20 17:21 2 TAB Propofol 50 ml @ As Directed STK-MED ONCE 02/19/20 12:25 02/19/20 12:26 DC Propofol (Diprivan) 200 mg STK-MED ONCE 02/19/20 12:03 02/19/20 12:03 DC Vancomycin HCl (Vanco Per Pharmacy) 1 each PRN DAILY PRN 02/16/20 14:45 02/21/20 09:21 DC 02/20/20 11:22 1 EACH Vancomycin HCl (Vancomycin Random Level) 1 each 1X ONCE 02/18/20 17:00 02/18/20 17:01 DC 02/18/20 17:00 1 EACH Vancomycin HCl (Vancomycin Trough Level) 1 each 1X ONCE 02/18/20 03:30 02/18/20 03:31 DC 02/18/20 03:30 1 EACH Vancomycin HCl 1.25 gm/Sodium Chloride 250 ml @ 167 mls/hr Q8H 02/18/20 19:00 02/21/20 09:21 DC 02/21/20 03:08 167 MLS/HR Vancomycin HCl 1.5 gm/Sodium Chloride 500 ml @ 250 mls/hr Q8H 02/17/20 20:00 02/18/20 05:56 DC 02/18/20 04:48 250 MLS/HR Vancomycin HCl 1.75 gm/Sodium Chloride 500 ml @ 250 mls/hr 1X ONCE 02/16/20 09:00 02/16/20 10:59 DC 02/16/20 09:28 250 MLS/HR Zolpidem Tartrate (Ambien) 5 mg PRN QHS PRN 02/17/20 21:30 02/24/20 22:24 5 MG Physical Exam: Mental Status Exam: female appears her stated age Cooperative Alert and oriented Thought processes goal-directed Denies suicidal or homicidal thoughts. Denies auditory or visual hallucinations. No abnormal delusions. Mood is improving Affect is improving Impulse control is fair Judgment is fair Insight is fair. Attention span and concentration improving Recent and remote memory intact Physical Exam: Refer to Physician's note. BOX STAMPER: No focal deficit MSK: No EPS, TDK, or abnormal involuntary movements Diagnosis: Opioid use disorder (heroin) recurrent, severe. Unspecified mood disorder, rule out bipolar mood disorder Assessment: She is a young female appears very irritable, dysphoric, agitated and resistant to engaging interview process. Likely she is withdrawing from opioids and in denial. She is resistant to discuss treatment options including methadone and Suboxone. 02/24/2020: Today she appears much better and conversant. Apologizing for her behavior at previous interaction. 02/25/2020: Today she appears better than previous days, tolerating pain better. Progressively improving with respect to her mental health as well. Plan: Continue gabapentin to 300 mg 3 times daily for pain as it was helpful previously. Monitor for symptomatology, safety, and adverse drug reaction. Will adjust medications accordingly. Psychoeducation provided. Supportive psychotherapy provided. Risk, benefits, alternatives are discussed. However patient declined every offer. TAMMY SHIN MD Feb 25, 2020 19:47
[2020-02-25] MEDS: ENOXAPARIN 40 MG/0.4 ML SYRINGE. SQ SCH (22:07)
[2020-02-25] MEDS: ZOLPIDEM 5 MG TABLET. PO PRN (22:07)
[2020-02-25 23:00] VITALS: BP 124/67
[2020-02-26] MEDS: MORPHINE SULFATE 2 MG/ML VIAL. IV PRN (02:10)
[2020-02-26 03:00] VITALS: BP 100/56
[2020-02-26] MEDS: ALPRAZolam 0.5 MG TABLET PO PRN ×4 (05:48→23:51)
[2020-02-26] MEDS: oxyCODONE/APAP 10/325 1 TAB TABLET PO PRN ×4 (05:49→23:52)
[2020-02-26 06:14] LABS: BASO % 1 % (0-3); EOS # 0.2 x10^3/uL (0.0-0.7); EOS % 4 % (0-3); HEMATOCRIT 33.5 % (36.0-47.0); HEMOGLOBIN 11.4 g/dL (12.0-15.5); LYMPH # 2.8 x10^3/uL (1.0-4.8); LYMPH % 46 % (24-48); MEAN CORPUSCULAR HEMOGLOBIN 30 pg (25-35); MEAN CORPUSCULAR HGB CONC 34 g/dL (31-37); MEAN CORPUSCULAR VOLUME 89 fL (79-100); MONO # 0.6 x10^3/uL (0.0-1.1); MONO % 10 % (0-9); NEUT # 2.5 x10^3/uL (1.8-7.7); NEUT % 40 % (31-73); PLATELET COUNT 337 x10^3/uL (140-400); RED BLOOD COUNT 3.75 x10^6/uL (3.50-5.40); RED CELL DISTRIBUTION WIDTH 13.3 % (11.5-14.5); WHITE BLOOD COUNT 6.1 x10^3/uL (4.0-11.0)
[2020-02-26 06:25] LABS: CALCIUM 8.8 mg/dL (8.5-10.1); CREATININE 0.7 mg/dL (0.6-1.0); GFR 95.2; POTASSIUM 4.5 mmol/L (3.5-5.1)
[2020-02-26] MEDS: HYDROmorphone 2 MG/ML VIAL IVP PRN ×3 (06:32→22:26)
[2020-02-26] MEDS: CYCLOBENZAPRINE 10 MG TABLET. PO PRN ×3 (06:33→22:26)
[2020-02-26 07:00] VITALS: BP 95/67
--- NOTE | 2020-02-26 08:22 | PDOC ---
Infectious Disease Note Subjective: Subjective pt says cont to have pain in back but improving Able to ambulate with support Denies fever, nausea, vomiting, shortness of breath, diarrhea, abdominal pain, rash Otherwise as above Vital Signs: Vital Signs Vital Signs Date Time Temp Pulse Resp B/P (MAP) Pulse Ox O2 Delivery O2 Flow Rate FiO2 02/26/20 07:00 98.3 101 20 95/67 (76) 95 Room Air 98.3 Physical Exam: PHYSICAL EXAM GENERAL: Lying down, alert, coop. Looks comfortable HEENT: Normal conjunctivae, oropharynx clear. No lesions seen. NECK: Supple. LUNGS: Clear bilaterally. HEART: S1, S2. No rubs or murmurs. ABDOMEN: Soft, nontender, mildly distended. Bowel sounds present. Obese : Hernandez out EXTREMITIES: Trace edema, no cyanosis. Moves toes and DERMATOLOGIC: Warm, dry. No generalized rash. Multiple tattoos. No open wounds noted. Multiple needle luna present. No peripheral stigmata NEUROLOGIC: Alert and oriented x 3, moves BLE + sensation PSYCHIATRIC: Cooperative, slightly agitated. PIV looks ok Medications: Inpatient Meds: Current Medications Medications (Trade) Dose Ordered Sig/Nellie Start Time Stop Time Status Last Admin Dose Admin Acetaminophen (Tylenol) 650 mg PRN Q4HRS PRN 02/16/20 08:15 Alprazolam (Xanax) 0.5 mg PRN Q6HRS PRN 02/18/20 14:30 02/26/20 05:48 0.5 MG Cefazolin Sodium 2000 mg/Dextrose 50 ml @ 100 mls/hr Q8HRS 02/19/20 09:15 Cancel Cefazolin Sodium/ Dextrose 50 ml @ 100 mls/hr Q8HRS 02/19/20 09:30 02/26/20 05:50 100 MLS/HR Cyclobenzaprine HCl (Flexeril) 10 mg PRN Q8HRS PRN 02/16/20 15:00 02/26/20 06:33 10 MG Enoxaparin Sodium (Lovenox 40mg Syringe) 40 mg Q24H 02/16/20 21:00 02/25/20 22:07 40 MG Fentanyl (Duragesic 50mcg/ Hr Patch) 1 patch Q3DAYS 02/19/20 09:00 9/1/20 08:49 1 PATCH Fentanyl Citrate (Fentanyl 2ml Vial) 100 mcg STK-MED ONCE 02/19/20 12:02 02/19/20 12:02 DC Gabapentin (Neurontin) 300 mg TID 02/24/20 18:00 02/25/20 22:06 300 MG Gadoterate Meglumine (Dotarem) 22.6 ml 1X ONCE 02/19/20 13:30 02/19/20 13:31 DC Hydromorphone HCl (Dilaudid) 1 mg PRN Q8HRS PRN 02/23/20 14:45 02/26/20 06:32 1 MG Ketamine HCl (Ketamine) 50 mg STK-MED ONCE 02/19/20 12:02 02/19/20 12:03 DC Ketorolac Tromethamine (Toradol 30mg Vial) 30 mg PRN Q6HRS PRN 02/16/20 09:00 02/17/20 07:08 30 MG Lactobacillus Rhamnosus (Culturelle) 1 cap BID 02/19/20 21:00 02/25/20 22:05 1 CAP Lidocaine (Lidoderm) 1 patch DAILY 02/16/20 15:00 02/24/20 17:29 DC 02/17/20 08:24 1 PATCH Lidocaine HCl (Lidocaine Pf 2% Vial) 5 ml STK-MED ONCE 02/19/20 12:03 02/19/20 12:03 DC Metronidazole (Flagyl) 500 mg Q12HR 02/18/20 21:00 02/25/20 22:06 500 MG Midazolam HCl (Versed) 2 mg STK-MED ONCE 02/19/20 12:26 02/19/20 12:26 DC Miscellaneous (Lidoderm Patch Removal) 1 ea QHS 02/16/20 21:00 02/24/20 17:29 DC 02/22/20 21:00 1 EA Morphine Sulfate (Morphine Sulfate) 4 mg PRN Q2HR PRN 02/19/20 06:45 02/26/20 02:10 4 MG Ondansetron HCl (Zofran) 4 mg PRN Q4HRS PRN 02/16/20 08:15 02/17/20 08:25 4 MG Oxycodone/ Acetaminophen (Percocet 10/325) 2 tab PRN Q6HRS PRN 8/25/20 14:45 02/26/20 05:49 2 TAB Propofol 50 ml @ As Directed STK-MED ONCE 02/19/20 12:25 02/19/20 12:26 DC Propofol (Diprivan) 200 mg STK-MED ONCE 02/19/20 12:03 02/19/20 12:03 DC Vancomycin HCl (Vanco Per Pharmacy) 1 each PRN DAILY PRN 02/16/20 14:45 02/21/20 09:21 DC 02/20/20 11:22 1 EACH Vancomycin HCl (Vancomycin Random Level) 1 each 1X ONCE 02/18/20 17:00 02/18/20 17:01 DC 02/18/20 17:00 1 EACH Vancomycin HCl (Vancomycin Trough Level) 1 each 1X ONCE 02/18/20 03:30 02/18/20 03:31 DC 02/18/20 03:30 1 EACH Vancomycin HCl 1.25 gm/Sodium Chloride 250 ml @ 167 mls/hr Q8H 02/18/20 19:00 02/21/20 09:21 DC 02/21/20 03:08 167 MLS/HR Vancomycin HCl 1.5 gm/Sodium Chloride 500 ml @ 250 mls/hr Q8H 02/17/20 20:00 02/18/20 05:56 DC 02/18/20 04:48 250 MLS/HR Vancomycin HCl 1.75 gm/Sodium Chloride 500 ml @ 250 mls/hr 1X ONCE 02/16/20 09:00 02/16/20 10:59 DC 02/16/20 09:28 250 MLS/HR Zolpidem Tartrate (Ambien) 5 mg PRN QHS PRN 02/17/20 21:30 02/25/20 22:07 5 MG Labs: Lab Laboratory Tests Test 02/25/20 10:20 02/26/20 05:00 02/26/20 05:35 White Blood Count 5.9 x10^3/uL (4.0-11.0) 6.1 x10^3/uL (4.0-11.0) Red Blood Count 3.83 x10^6/uL (3.50-5.40) 3.75 x10^6/uL (3.50-5.40) Hemoglobin 11.5 g/dL (12.0-15.5) 11.4 g/dL (12.0-15.5) Hematocrit 34.2 % (36.0-47.0) 33.5 % (36.0-47.0) Mean Corpuscular Volume 89 fL (79-100) 89 fL (79-100) Mean Corpuscular Hemoglobin 30 pg (25-35) 30 pg (25-35) Mean Corpuscular Hemoglobin Concent 34 g/dL (31-37) 34 g/dL (31-37) Red Cell Distribution Width 13.3 % (11.5-14.5) 13.3 % (11.5-14.5) Platelet Count 379 x10^3/uL (140-400) 337 x10^3/uL (140-400) Neutrophils (%) (Auto) 45 % (31-73) 40 % (31-73) Lymphocytes (%) (Auto) 42 % (24-48) 46 % (24-48) Monocytes (%) (Auto) 9 % (0-9) 10 % (0-9) Eosinophils (%) (Auto) 3 % (0-3) 4 % (0-3) Basophils (%) (Auto) 1 % (0-3) 1 % (0-3) Neutrophils # (Auto) 2.6 x10^3/uL (1.8-7.7) 2.5 x10^3/uL (1.8-7.7) Lymphocytes # (Auto) 2.5 x10^3/uL (1.0-4.8) 2.8 x10^3/uL (1.0-4.8) Monocytes # (Auto) 0.5 x10^3/uL (0.0-1.1) 0.6 x10^3/uL (0.0-1.1) Eosinophils # (Auto) 0.2 x10^3/uL (0.0-0.7) 0.2 x10^3/uL (0.0-0.7) Basophils # (Auto) 0.0 x10^3/uL (0.0-0.2) 0.0 x10^3/uL (0.0-0.2) Sodium Level 136 mmol/L (136-145) 138 mmol/L (136-145) Potassium Level 4.0 mmol/L (3.5-5.1) 4.5 mmol/L (3.5-5.1) Chloride Level 101 mmol/L (98-107) 101 mmol/L (98-107) Carbon Dioxide Level 29 mmol/L (21-32) 31 mmol/L (21-32) Anion Gap 6 (6-14) 6 (6-14) Blood Urea Nitrogen 11 mg/dL (7-20) 11 mg/dL (7-20) Creatinine 0.6 mg/dL (0.6-1.0) 0.7 mg/dL (0.6-1.0) Estimated GFR (Cockcroft-Gault) 113.8 95.2 Glucose Level 116 mg/dL (70-99) 116 mg/dL (70-99) Calcium Level 9.4 mg/dL (8.5-10.1) 8.8 mg/dL (8.5-10.1) Objective: Assessment: MSSA ([facility] 02/01) bacteremia - [facility] 02/09 - neg Intravenous drug user. Recent history of Escherichia coli urinary tract infection, 02/01. Left ovarian complex cyst.HIV and STD - neg Hematuria. Fever - better Hep C IgG + Hypokalemia. Protein-calorie malnutrition. Severe back pain. 02/[address] [facility] [address] findings concerning for diskitis/osteomyelitis/epidural abscess. -Lumbar MRI showed increased STIR signal within the RB25-B38 disc space and adjacent endplates. There is adjacent paravertebral edema. Small anterior fluid collection measures 1.1 x 0.7 cm (series 4 image 8 and series 10 image 8). No evidence of epidural abscess. -L4-L5 increased disc signal -Bilateral retroperitoneal and presacral edema -Multilevel lumbar spinal stenosis most prominent L4-5. Lab corrected MRSA report from [place], it is MSSA Plan: Plan of Care cont cefazolin, ( d/w microbiology lab, original report MRSA from [place] now corrected to MSSA) cont supportive care Treat with IV abx for atleast [address] Fontanez, no surgical indication as per him OK to Discharge on IV Daptomycin vs IV Cefazolin vs salvage treatment with Oritavancin/ Dalbavancin pros and cons discussed with pt, and her mother, logistic difficulties are being handled by social economist and hospital administration Discussed with nursing staff SOPHIA JOY MD Feb 26, 2020 08:22
[2020-02-26] MEDS: LACTOBACILLUS RHAMNOSUS GG 1 CAPSULE. PO SCH ×2 (10:05→21:06)
[2020-02-26] MEDS: GABAPENTIN 300 MG CAPSULE. PO SCH ×3 (10:05→21:06)
[2020-02-26] MEDS: metroNIDAZOLE 500 MG TABLET PO SCH ×2 (10:05→21:06)
--- NOTE | 2020-02-26 10:09 | NUR ---
SW following. Discussed with RN. GAUTAM met with pt, pt received a new [employer] insurance card in the mail, and had a "while you were out" note from [employer] stating they tried to deliver [employer] paperwork. Pt reported her mother will bring that when she gets it today or tomorrow. SW took copies of documents. SW will continue to follow.
[2020-02-26 11:00] VITALS: BP 114/72
[2020-02-26 15:00] VITALS: BP 112/65
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
--- NOTE | 2020-02-26 17:32 | PDOC ---
F/U PHYSCH PROG NOTE Subjective: She is a 34-year-old female with history of heroin use disorder seen for follow-up. Progress is reviewed with nursing staff. No major emotional or behavioral breakdown reported on the unit. Her outlook appears better than yesterday. She also endorses improvement. States, feeling better than yesterday. States, her back is hurting however less than yesterday. Gabapentin is good and 300 mg 3 times daily doses. Denies suicidal or homicidal thoughts. Denies auditory or visual hallucinations. No evidence of violet or hypomania Objective: 14 point review of systems is otherwise negative except for stated above. Vital Signs: Vital Signs Date Time Temp Pulse Resp B/P (MAP) Pulse Ox O2 Delivery O2 Flow Rate FiO2 02/26/20 15:00 98.2 100 20 112/65 (81) 93 Room Air 98.2 Labs: Laboratory Tests Test 02/26/20 05:00 02/26/20 05:35 Sodium Level 138 mmol/L (136-145) Potassium Level 4.5 mmol/L (3.5-5.1) Chloride Level 101 mmol/L (98-107) Carbon Dioxide Level 31 mmol/L (21-32) Anion Gap 6 (6-14) Blood Urea Nitrogen 11 mg/dL (7-20) Creatinine 0.7 mg/dL (0.6-1.0) Estimated GFR (Cockcroft-Gault) 95.2 Glucose Level 116 mg/dL (70-99) H Calcium Level 8.8 mg/dL (8.5-10.1) White Blood Count 6.1 x10^3/uL (4.0-11.0) Red Blood Count 3.75 x10^6/uL (3.50-5.40) Hemoglobin 11.4 g/dL (12.0-15.5) L Hematocrit 33.5 % (36.0-47.0) L Mean Corpuscular Volume 89 fL (79-100) Mean Corpuscular Hemoglobin 30 pg (25-35) Mean Corpuscular Hemoglobin Concent 34 g/dL (31-37) Red Cell Distribution Width 13.3 % (11.5-14.5) Platelet Count 337 x10^3/uL (140-400) Neutrophils (%) (Auto) 40 % (31-73) Lymphocytes (%) (Auto) 46 % (24-48) Monocytes (%) (Auto) 10 % (0-9) H Eosinophils (%) (Auto) 4 % (0-3) H Basophils (%) (Auto) 1 % (0-3) Neutrophils # (Auto) 2.5 x10^3/uL (1.8-7.7) Lymphocytes # (Auto) 2.8 x10^3/uL (1.0-4.8) Monocytes # (Auto) 0.6 x10^3/uL (0.0-1.1) Eosinophils # (Auto) 0.2 x10^3/uL (0.0-0.7) Basophils # (Auto) 0.0 x10^3/uL (0.0-0.2) Laboratory Tests 02/26/20 05:35 Laboratory Tests 02/26/20 05:00 Medications: Current Medications Medications (Trade) Dose Ordered Sig/Nellie Start Time Stop Time Status Last Admin Dose Admin Acetaminophen (Tylenol) 650 mg PRN Q4HRS PRN 02/16/20 08:15 Alprazolam (Xanax) 0.5 mg PRN Q6HRS PRN 02/18/20 14:30 02/26/20 11:46 0.5 MG Cefazolin Sodium 2000 mg/Dextrose 50 ml @ 100 mls/hr Q8HRS 02/19/20 09:15 Cancel Cefazolin Sodium/ Dextrose 50 ml @ 100 mls/hr Q8HRS 02/19/20 09:30 02/26/20 14:08 100 MLS/HR Cyclobenzaprine HCl (Flexeril) 10 mg PRN Q8HRS PRN 02/16/20 15:00 02/26/20 14:22 10 MG Enoxaparin Sodium (Lovenox 40mg Syringe) 40 mg Q24H 02/16/20 21:00 02/25/20 22:07 40 MG Fentanyl (Duragesic 50mcg/ Hr Patch) 1 patch Q3DAYS 02/19/20 09:00 02/25/20 08:49 1 PATCH Fentanyl Citrate (Fentanyl 2ml Vial) 100 mcg STK-MED ONCE 02/19/20 12:02 02/19/20 12:02 DC Gabapentin (Neurontin) 300 mg TID 02/24/20 18:00 02/26/20 14:08 300 MG Gadoterate Meglumine (Dotarem) 22.6 ml 1X ONCE 02/19/20 13:30 02/19/20 13:31 DC Hydromorphone HCl (Dilaudid) 1 mg PRN Q8HRS PRN 02/23/20 14:45 02/26/20 14:22 1 MG Ketamine HCl (Ketamine) 50 mg STK-MED ONCE 02/19/20 12:02 02/19/20 12:03 DC Ketorolac Tromethamine (Toradol 30mg Vial) 30 mg PRN Q6HRS PRN 02/16/20 09:00 02/17/20 07:08 30 MG Lactobacillus Rhamnosus (Culturelle) 1 cap BID 02/19/20 21:00 02/26/20 10:05 1 CAP Lidocaine (Lidoderm) 1 patch DAILY 02/16/20 15:00 02/24/20 17:29 DC 02/17/20 08:24 1 PATCH Lidocaine HCl (Lidocaine Pf 2% Vial) 5 ml STK-MED ONCE 02/19/20 12:03 02/19/20 12:03 DC Metronidazole (Flagyl) 500 mg Q12HR 02/18/20 21:00 02/26/20 10:05 500 MG Midazolam HCl (Versed) 2 mg STK-MED ONCE 02/19/20 12:26 02/19/20 12:26 DC Miscellaneous (Lidoderm Patch Removal) 1 ea QHS 02/16/20 21:00 02/24/20 17:29 DC 02/22/20 21:00 1 EA Morphine Sulfate (Morphine Sulfate) 4 mg PRN Q2HR PRN 02/19/20 06:45 02/26/20 17:09 DC 02/26/20 02:10 4 MG Ondansetron HCl (Zofran) 4 mg PRN Q4HRS PRN 02/16/20 08:15 02/17/20 08:25 4 MG Oxycodone/ Acetaminophen (Percocet 10/325) 2 tab PRN Q6HRS PRN 02/18/20 14:45 02/26/20 11:47 2 TAB Propofol 50 ml @ As Directed STK-MED ONCE 02/19/20 12:25 02/19/20 12:26 DC Propofol (Diprivan) 200 mg STK-MED ONCE 02/19/20 12:03 02/19/20 12:03 DC Vancomycin HCl (Vanco Per Pharmacy) 1 each PRN DAILY PRN 02/16/20 14:45 02/21/20 09:21 DC 02/20/20 11:22 1 EACH Vancomycin HCl (Vancomycin Random Level) 1 each 1X ONCE 02/18/20 17:00 02/18/20 17:01 DC 02/18/20 17:00 1 EACH Vancomycin HCl (Vancomycin Trough Level) 1 each 1X ONCE 02/18/20 03:30 02/18/20 03:31 DC 02/18/20 03:30 1 EACH Vancomycin HCl 1.25 gm/Sodium Chloride 250 ml @ 167 mls/hr Q8H 02/18/20 19:00 02/21/20 09:21 DC 02/21/20 03:08 167 MLS/HR Vancomycin HCl 1.5 gm/Sodium Chloride 500 ml @ 250 mls/hr Q8H 02/17/20 20:00 02/18/20 05:56 DC 02/18/20 04:48 250 MLS/HR Vancomycin HCl 1.75 gm/Sodium Chloride 500 ml @ 250 mls/hr 1X ONCE 02/16/20 09:00 02/16/20 10:59 DC 02/16/20 09:28 250 MLS/HR Zolpidem Tartrate (Ambien) 5 mg PRN QHS PRN 02/17/20 21:30 02/25/20 22:07 5 MG Physical Exam: Mental Status Exam: female appears her stated age Cooperative Alert and oriented Thought processes goal-directed Denies suicidal or homicidal thoughts. Denies auditory or visual hallucinations. No abnormal delusions. Mood is improving Affect is improving Impulse control is fair Judgment is fair Insight is fair. Attention span and concentration improving Recent and remote memory intact Physical Exam: Refer to Physician's note. [employer]: No focal deficit MSK: No EPS, TDK, or abnormal involuntary movements Diagnosis: Opioid use disorder (heroin) recurrent, severe. Unspecified mood disorder, rule out bipolar mood disorder Assessment: She is a young female appears very irritable, dysphoric, agitated and resistant to engaging interview process. Likely she is withdrawing from opioids and in denial. She is resistant to discuss treatment options including methadone and Suboxone. 02/24/2020: Today she appears much better and conversant. Apologizing for her behavior at previous interaction. 02/25/2020: Today she appears better than previous days, tolerating pain better. Progressively improving with respect to her mental health as well. 02/26/20 Appears upset and tearful. Previously Paxil was effective. Plan: Paxil 10mg daily for depression and anxiety. Continue gabapentin to 300 mg 3 times daily for pain as it was helpful previously. Monitor for symptomatology, safety, and adverse drug reaction. Will adjust medications accordingly. Psychoeducation provided. Supportive psychotherapy provided. Risk, benefits, alternatives are discussed. However patient declined every offer. TAMMY SHIN MD Feb 26, 2020 17:32
[2020-02-26 19:00] VITALS: BP 135/68
[2020-02-26] MEDS: ENOXAPARIN 40 MG/0.4 ML SYRINGE. SQ SCH (21:06)
[2020-02-26] MEDS: ZOLPIDEM 5 MG TABLET. PO PRN (22:26)
[2020-02-26 23:00] VITALS: BP 110/69
[2020-02-27 03:00] VITALS: BP 110/77
[2020-02-27] MEDS: ALPRAZolam 0.5 MG TABLET PO PRN ×3 (05:52→17:57)
[2020-02-27] MEDS: oxyCODONE/APAP 10/325 1 TAB TABLET PO PRN ×3 (05:53→17:57)
[2020-02-27] MEDS: CYCLOBENZAPRINE 10 MG TABLET. PO PRN ×3 (06:29→22:31)
[2020-02-27] MEDS: HYDROmorphone 2 MG/ML VIAL IVP PRN ×3 (06:30→22:32)
[2020-02-27 07:20] LABS: BASO % 1 % (0-3); EOS # 0.3 x10^3/uL (0.0-0.7); EOS % 5 % (0-3); HEMOGLOBIN 11.9 g/dL (12.0-15.5); LYMPH # 2.7 x10^3/uL (1.0-4.8); LYMPH % 45 % (24-48); MEAN CORPUSCULAR HEMOGLOBIN 30 pg (25-35); MEAN CORPUSCULAR HGB CONC 33 g/dL (31-37); MEAN CORPUSCULAR VOLUME 90 fL (79-100); MONO # 0.4 x10^3/uL (0.0-1.1); MONO % 8 % (0-9); NEUT # 2.4 x10^3/uL (1.8-7.7); NEUT % 41 % (31-73); PLATELET COUNT 363 x10^3/uL (140-400); RED BLOOD COUNT 4.01 x10^6/uL (3.50-5.40); RED CELL DISTRIBUTION WIDTH 13.3 % (11.5-14.5); WHITE BLOOD COUNT 5.9 x10^3/uL (4.0-11.0)
[2020-02-27 07:35] LABS: CALCIUM 9.2 mg/dL (8.5-10.1); CREATININE 0.7 mg/dL (0.6-1.0); GFR 95.2; POTASSIUM 4.1 mmol/L (3.5-5.1)
[2020-02-27 08:00] VITALS: BP 96/62
--- NOTE | 2020-02-27 09:14 | PDOC ---
Infectious Disease Note Subjective: Subjective pt says cont to have pain in back Able to ambulate with support Denies fever, nausea, vomiting, shortness of breath, diarrhea, abdominal pain, rash Otherwise as above Vital Signs: Vital Signs Vital Signs Date Time Temp Pulse Resp B/P (MAP) Pulse Ox O2 Delivery O2 Flow Rate FiO2 02/27/20 08:00 98.1 85 16 96/62 (73) 95 Room Air 98.1 Physical Exam: PHYSICAL EXAM GENERAL: Lying down, alert, coop. Looks comfortable HEENT: Normal conjunctivae, oropharynx clear. No lesions seen. NECK: Supple. LUNGS: Clear bilaterally. HEART: S1, S2. No rubs or murmurs. ABDOMEN: Soft, nontender, mildly distended. Bowel sounds present. Obese : Hernandez out EXTREMITIES: Trace edema, no cyanosis. Moves toes and DERMATOLOGIC: Warm, dry. No generalized rash. Multiple tattoos. No open wounds noted. Multiple needle luna present. No peripheral stigmata NEUROLOGIC: Alert and oriented x 3, moves BLE + sensation PSYCHIATRIC: Cooperative, slightly agitated. PIV looks ok Medications: Inpatient Meds: Current Medications Medications (Trade) Dose Ordered Sig/Nellie Start Time Stop Time Status Last Admin Dose Admin Acetaminophen (Tylenol) 650 mg PRN Q4HRS PRN 02/16/20 08:15 Alprazolam (Xanax) 0.5 mg PRN Q6HRS PRN 02/18/20 14:30 02/27/20 05:52 0.5 MG Cefazolin Sodium 2000 mg/Dextrose 50 ml @ 100 mls/hr Q8HRS 02/19/20 09:15 Cancel Cefazolin Sodium/ Dextrose 50 ml @ 100 mls/hr Q8HRS 02/19/20 09:30 02/27/20 05:53 100 MLS/HR Cyclobenzaprine HCl (Flexeril) 10 mg PRN Q8HRS PRN 02/16/20 15:00 02/27/20 06:29 10 MG Enoxaparin Sodium (Lovenox 40mg Syringe) 40 mg Q24H 02/16/20 21:00 02/26/20 21:06 40 MG Fentanyl (Duragesic 50mcg/ Hr Patch) 1 patch Q3DAYS 02/19/20 09:00 02/25/20 08:49 1 PATCH Fentanyl Citrate (Fentanyl 2ml Vial) 100 mcg STK-MED ONCE 02/19/20 12:02 02/19/20 12:02 DC Gabapentin (Neurontin) 300 mg TID 02/24/20 18:00 02/26/20 21:06 300 MG Gadoterate Meglumine (Dotarem) 22.6 ml 1X ONCE 02/19/20 13:30 02/19/20 13:31 DC Hydromorphone HCl (Dilaudid) 1 mg PRN Q8HRS PRN 02/23/20 14:45 02/27/20 06:30 1 MG Ketamine HCl (Ketamine) 50 mg STK-MED ONCE 02/19/20 12:02 02/19/20 12:03 DC Ketorolac Tromethamine (Toradol 30mg Vial) 30 mg PRN Q6HRS PRN 02/16/20 09:00 02/17/20 07:08 30 MG Lactobacillus Rhamnosus (Culturelle) 1 cap BID 02/19/20 21:00 02/26/20 21:06 1 CAP Lidocaine (Lidoderm) 1 patch DAILY 02/16/20 15:00 02/24/20 17:29 DC 02/17/20 08:24 1 PATCH Lidocaine HCl (Lidocaine Pf 2% Vial) 5 ml STK-MED ONCE 02/19/20 12:03 02/19/20 12:03 DC Metronidazole (Flagyl) 500 mg Q12HR 02/18/20 21:00 02/26/20 21:06 500 MG Midazolam HCl (Versed) 2 mg STK-MED ONCE 02/19/20 12:26 02/19/20 12:26 DC Miscellaneous (Lidoderm Patch Removal) 1 ea QHS 02/16/20 21:00 02/24/20 17:29 DC 02/22/20 21:00 1 EA Morphine Sulfate (Morphine Sulfate) 4 mg PRN Q2HR PRN 02/19/20 06:45 02/26/20 17:09 DC 02/26/20 02:10 4 MG Ondansetron HCl (Zofran) 4 mg PRN Q4HRS PRN 02/16/20 08:15 02/17/20 08:25 4 MG Oxycodone/ Acetaminophen (Percocet 10/325) 2 tab PRN Q6HRS PRN 02/18/20 14:45 02/27/20 05:53 2 TAB Paroxetine HCl (Paxil) 10 mg DAILY 02/27/20 09:00 Propofol 50 ml @ As Directed STK-MED ONCE 02/19/20 12:25 02/19/20 12:26 DC Propofol (Diprivan) 200 mg STK-MED ONCE 02/19/20 12:03 02/19/20 12:03 DC Vancomycin HCl (Vanco Per Pharmacy) 1 each PRN DAILY PRN 02/16/20 14:45 02/21/20 09:21 DC 02/20/20 11:22 1 EACH Vancomycin HCl (Vancomycin Random Level) 1 each 1X ONCE 02/18/20 17:00 02/18/20 17:01 DC 02/18/20 17:00 1 EACH Vancomycin HCl (Vancomycin Trough Level) 1 each 1X ONCE 02/18/20 03:30 02/18/20 03:31 DC 02/18/20 03:30 1 EACH Vancomycin HCl 1.25 gm/Sodium Chloride 250 ml @ 167 mls/hr Q8H 02/18/20 19:00 02/21/20 09:21 DC 02/21/20 03:08 167 MLS/HR Vancomycin HCl 1.5 gm/Sodium Chloride 500 ml @ 250 mls/hr Q8H 02/17/20 20:00 02/18/20 05:56 DC 02/18/20 04:48 250 MLS/HR Vancomycin HCl 1.75 gm/Sodium Chloride 500 ml @ 250 mls/hr 1X ONCE 02/16/20 09:00 02/16/20 10:59 DC 02/16/20 09:28 250 MLS/HR Zolpidem Tartrate (Ambien) 5 mg PRN QHS PRN 02/17/20 21:30 02/26/20 22:26 5 MG Labs: Lab Laboratory Tests Test 02/27/20 06:39 White Blood Count 5.9 x10^3/uL (4.0-11.0) Red Blood Count 4.01 x10^6/uL (3.50-5.40) Hemoglobin 11.9 g/dL (12.0-15.5) Hematocrit 36.0 % (36.0-47.0) Mean Corpuscular Volume 90 fL (79-100) Mean Corpuscular Hemoglobin 30 pg (25-35) Mean Corpuscular Hemoglobin Concent 33 g/dL (31-37) Red Cell Distribution Width 13.3 % (11.5-14.5) Platelet Count 363 x10^3/uL (140-400) Neutrophils (%) (Auto) 41 % (31-73) Lymphocytes (%) (Auto) 45 % (24-48) Monocytes (%) (Auto) 8 % (0-9) Eosinophils (%) (Auto) 5 % (0-3) Basophils (%) (Auto) 1 % (0-3) Neutrophils # (Auto) 2.4 x10^3/uL (1.8-7.7) Lymphocytes # (Auto) 2.7 x10^3/uL (1.0-4.8) Monocytes # (Auto) 0.4 x10^3/uL (0.0-1.1) Eosinophils # (Auto) 0.3 x10^3/uL (0.0-0.7) Basophils # (Auto) 0.0 x10^3/uL (0.0-0.2) Sodium Level 135 mmol/L (136-145) Potassium Level 4.1 mmol/L (3.5-5.1) Chloride Level 100 mmol/L (98-107) Carbon Dioxide Level 28 mmol/L (21-32) Anion Gap 7 (6-14) Blood Urea Nitrogen 10 mg/dL (7-20) Creatinine 0.7 mg/dL (0.6-1.0) Estimated GFR (Cockcroft-Gault) 95.2 Glucose Level 103 mg/dL (70-99) Calcium Level 9.2 mg/dL (8.5-10.1) Objective: Assessment: MSSA ([facility] 02/01) bacteremia - [facility] 02/09 - neg Intravenous drug user. Recent history of Escherichia coli urinary tract infection, 02/01. Left ovarian complex cyst.HIV and STD - neg Hematuria. Fever - better Hep C IgG + Hypokalemia. Protein-calorie malnutrition. Severe back pain. 02/04 [address] [facility] CT findings concerning for diskitis/osteomyelitis/epidural abscess. -Lumbar MRI showed increased STIR signal within the EH72-S98 disc space and adjacent endplates. There is adjacent paravertebral edema. Small anterior fluid collection measures 1.1 x 0.7 cm (series 4 image 8 and series 10 image 8). No evidence of epidural abscess. -L4-L5 increased disc signal -Bilateral retroperitoneal and presacral edema -Multilevel lumbar spinal stenosis most prominent L4-5. Lab corrected MRSA report from [place], it is MSSA Plan: Plan of Care cont cefazolin, ( d/w microbiology lab, original report MRSA from [place] now corrected to MSSA) cont supportive care Treat with IV abx for atleast [address] Fontanez, no surgical indication as per him OK to Discharge on IV Daptomycin vs IV Cefazolin vs salvage treatment with Oritavancin/ Dalbavancin pros and cons discussed with pt, and her mother, logistic difficulties are being handled by social services specialist and hospital administration Discussed with nursing staff SOPHIA JOY MD Feb 27, 2020 09:14
[2020-02-27] MEDS: LACTOBACILLUS RHAMNOSUS GG 1 CAPSULE. PO SCH ×2 (09:44→20:33)
[2020-02-27] MEDS: PARoxetine 10 MG TABLET PO SCH (09:44)
[2020-02-27] MEDS: metroNIDAZOLE 500 MG TABLET PO SCH ×2 (09:44→20:33)
[2020-02-27] MEDS: GABAPENTIN 300 MG CAPSULE. PO SCH ×3 (09:44→20:33)
[2020-02-27 11:00] VITALS: BP 100/64
--- NOTE | 2020-02-27 12:31 | NUR ---
GAUTAM following. Discussed with RN, GAUTAM spoke with pt, pt entered in information 2 days ago to have her COBRA mail redelivered by [employer] - has not shown up yet. Pt requesting information on how to file a grievance on a staff member, GAUTAM provided patient experience coordinator, Karol Smith's extension. GAUTAM will continue to follow.
[2020-02-27 15:00] VITALS: BP 127/68
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
[2020-02-27 19:00] VITALS: BP 107/63
[2020-02-27] MEDS: ENOXAPARIN 40 MG/0.4 ML SYRINGE. SQ SCH (20:33)
[2020-02-27] MEDS: ZOLPIDEM 5 MG TABLET. PO PRN (22:31)
[2020-02-27 23:00] VITALS: BP 142/91
[2020-02-28] MEDS: oxyCODONE/APAP 10/325 1 TAB TABLET PO PRN ×4 (00:01→19:23)
[2020-02-28 03:00] VITALS: BP 118/74
--- NOTE | 2020-02-28 03:25 | NUR ---
Patient agitated and anxious this AM; rambling about "filing a grievance" and "nobody caring about me". Patient insisting, "...this place is like a fucking correction and I'm tired of being in this room. Get me a chair and wheel me to the vending machines". This RN informed patient of inability to accompany patient at this time and patient upset. Patient offered and given multiple snacks from floor stock and a box lunch. Patient encouraged to put mask on and ambulate hallway for a change of scenery and declined. Patient also requesting a copy of her medication list stating, "...that bitch was suppose to print me off one this weekend but never did and I need to see it". Per patient request, a copy of medication list provided at this time. Patient remains in bed, bed in lowest/locked position, call light within reach and no other needs voiced at this time.
[2020-02-28] MEDS: ALPRAZolam 0.5 MG TABLET PO PRN ×4 (06:01→19:22)
[2020-02-28] MEDS: HYDROmorphone 2 MG/ML VIAL IVP PRN ×2 (06:32→14:47)
[2020-02-28] MEDS: CYCLOBENZAPRINE 10 MG TABLET. PO PRN ×2 (06:32→14:26)
[2020-02-28 07:00] VITALS: BP 104/62
--- NOTE | 2020-02-28 08:29 | PDOC ---
Infectious Disease Note Subjective: Subjective pt says cont to have pain in back Denies fever, nausea, vomiting, shortness of breath, diarrhea, abdominal pain, rash Otherwise as above Vital Signs: Vital Signs Vital Signs Date Time Temp Pulse Resp B/P (MAP) Pulse Ox O2 Delivery O2 Flow Rate FiO2 02/28/20 07:02 16 Room Air 02/28/20 07:00 98.1 82 104/62 (76) 95 98.1 Physical Exam: PHYSICAL EXAM GENERAL: Lying down, alert, coop. Looks comfortable HEENT: Normal conjunctivae, oropharynx clear. No lesions seen. NECK: Supple. LUNGS: Clear bilaterally. HEART: S1, S2. No rubs or murmurs. ABDOMEN: Soft, nontender, mildly distended. Bowel sounds present. Obese : Hernandez out EXTREMITIES: Trace edema, no cyanosis. Moves toes and DERMATOLOGIC: Warm, dry. No generalized rash. Multiple tattoos. No open wounds noted. Multiple needle luna present. No peripheral stigmata NEUROLOGIC: Alert and oriented x 3, moves BLE + sensation PSYCHIATRIC: Cooperative, slightly agitated. PIV looks ok Medications: Inpatient Meds: Current Medications Medications (Trade) Dose Ordered Sig/Nellie Start Time Stop Time Status Last Admin Dose Admin Acetaminophen (Tylenol) 650 mg PRN Q4HRS PRN 02/16/20 08:15 Alprazolam (Xanax) 0.5 mg PRN Q6HRS PRN 02/18/20 14:30 02/28/20 06:01 0.5 MG Cefazolin Sodium 2000 mg/Dextrose 50 ml @ 100 mls/hr Q8HRS 02/19/20 09:15 Cancel Cefazolin Sodium/ Dextrose 50 ml @ 100 mls/hr Q8HRS 02/19/20 09:30 02/28/20 06:00 100 MLS/HR Cyclobenzaprine HCl (Flexeril) 10 mg PRN Q8HRS PRN 02/16/20 15:00 02/28/20 06:32 10 MG Enoxaparin Sodium (Lovenox 40mg Syringe) 40 mg Q24H 02/16/20 21:00 02/27/20 20:33 40 MG Fentanyl (Duragesic 50mcg/ Hr Patch) 1 patch Q3DAYS 02/19/20 09:00 9/1/20 08:49 1 PATCH Fentanyl Citrate (Fentanyl 2ml Vial) 100 mcg STK-MED ONCE 02/19/20 12:02 02/19/20 12:02 DC Gabapentin (Neurontin) 300 mg TID 02/24/20 18:00 02/27/20 20:33 300 MG Gadoterate Meglumine (Dotarem) 22.6 ml 1X ONCE 02/19/20 13:30 02/19/20 13:31 DC Hydromorphone HCl (Dilaudid) 1 mg PRN Q8HRS PRN 02/23/20 14:45 02/28/20 06:32 1 MG Ketamine HCl (Ketamine) 50 mg STK-MED ONCE 02/19/20 12:02 02/19/20 12:03 DC Ketorolac Tromethamine (Toradol 30mg Vial) 30 mg PRN Q6HRS PRN 02/16/20 09:00 02/17/20 07:08 30 MG Lactobacillus Rhamnosus (Culturelle) 1 cap BID 02/19/20 21:00 02/27/20 20:33 1 CAP Lidocaine (Lidoderm) 1 patch DAILY 02/16/20 15:00 02/24/20 17:29 DC 02/17/20 08:24 1 PATCH Lidocaine HCl (Lidocaine Pf 2% Vial) 5 ml STK-MED ONCE 02/19/20 12:03 02/19/20 12:03 DC Metronidazole (Flagyl) 500 mg Q12HR 02/18/20 21:00 02/27/20 20:33 500 MG Midazolam HCl (Versed) 2 mg STK-MED ONCE 02/19/20 12:26 02/19/20 12:26 DC Miscellaneous (Lidoderm Patch Removal) 1 ea QHS 02/16/20 21:00 02/24/20 17:29 DC 02/22/20 21:00 1 EA Morphine Sulfate (Morphine Sulfate) 4 mg PRN Q2HR PRN 02/19/20 06:45 02/26/20 17:09 DC 02/26/20 02:10 4 MG Ondansetron HCl (Zofran) 4 mg PRN Q4HRS PRN 02/16/20 08:15 02/17/20 08:25 4 MG Oxycodone/ Acetaminophen (Percocet 10/325) 2 tab PRN Q6HRS PRN 02/18/20 14:45 02/28/20 06:01 2 TAB Paroxetine HCl (Paxil) 10 mg DAILY 02/27/20 09:00 02/27/20 09:44 10 MG Propofol 50 ml @ As Directed STK-MED ONCE 02/19/20 12:25 02/19/20 12:26 DC Propofol (Diprivan) 200 mg STK-MED ONCE 02/19/20 12:03 02/19/20 12:03 DC Vancomycin HCl (Vanco Per Pharmacy) 1 each PRN DAILY PRN 02/16/20 14:45 02/21/20 09:21 DC 02/20/20 11:22 1 EACH Vancomycin HCl (Vancomycin Random Level) 1 each 1X ONCE 02/18/20 17:00 02/18/20 17:01 DC 02/18/20 17:00 1 EACH Vancomycin HCl (Vancomycin Trough Level) 1 each 1X ONCE 02/18/20 03:30 02/18/20 03:31 DC 02/18/20 03:30 1 EACH Vancomycin HCl 1.25 gm/Sodium Chloride 250 ml @ 167 mls/hr Q8H 02/18/20 19:00 02/21/20 09:21 DC 02/21/20 03:08 167 MLS/HR Vancomycin HCl 1.5 gm/Sodium Chloride 500 ml @ 250 mls/hr Q8H 02/17/20 20:00 02/18/20 05:56 DC 02/18/20 04:48 250 MLS/HR Vancomycin HCl 1.75 gm/Sodium Chloride 500 ml @ 250 mls/hr 1X ONCE 02/16/20 09:00 02/16/20 10:59 DC 02/16/20 09:28 250 MLS/HR Zolpidem Tartrate (Ambien) 5 mg PRN QHS PRN 02/17/20 21:30 02/27/20 22:31 5 MG Objective: Assessment: MSSA ([facility] 02/01) bacteremia - [facility]RIKA 02/09 - neg Intravenous drug user. Recent history of Escherichia coli urinary tract infection, 02/01. Left ovarian complex cyst.HIV and STD - neg Hematuria. Fever - better Hep C IgG + Hypokalemia. Protein-calorie malnutrition. Severe back pain. 02/[address] [facility] [address] findings concerning for diskitis/osteomyelitis/epidural abscess. -Lumbar MRI showed increased STIR signal within the KJ04-U99 disc space and adjacent endplates. There is adjacent paravertebral edema. Small anterior fluid collection measures 1.1 x 0.7 cm (series 4 image 8 and series 10 image 8). No evidence of epidural abscess. -L4-L5 increased disc signal -Bilateral retroperitoneal and presacral edema -Multilevel lumbar spinal stenosis most prominent L4-5. Personality disorder Lab corrected MRSA report from [place], it is MSSA Plan: Plan of Care cont cefazolin, ( d/w microbiology lab, original report MRSA from [place] now corrected to MSSA) cont supportive care Treat with IV abx for atleast [address] Fontanez, no surgical indication as per him OK to Discharge on IV Daptomycin vs IV Cefazolin vs salvage treatment with Oritavancin/ Dalbavancin pros and cons discussed with pt, and her mother, logistic difficulties are being handled by social science research assistant and hospital administration ID will sign off Call with any questions SOPHIA JOY MD Feb 28, 2020 08:29
[2020-02-28] MEDS: PARoxetine 10 MG TABLET PO SCH (08:38)
[2020-02-28] MEDS: LACTOBACILLUS RHAMNOSUS GG 1 CAPSULE. PO SCH ×2 (08:38→20:32)
[2020-02-28] MEDS: metroNIDAZOLE 500 MG TABLET PO SCH ×2 (08:38→20:32)
[2020-02-28] MEDS: GABAPENTIN 300 MG CAPSULE. PO SCH ×3 (08:38→20:32)
[2020-02-28] MEDS: fentaNYL 50MCG/HR PATCH 1 PATCH PATCH.TD72 TD SCH (08:38)
--- NOTE | 2020-02-28 10:16 | NUR ---
SW following. Discussed with RN, SW spoke with pt this morning regarding her COBRA paperwork. Pt reported her mother has not received it still - pt is going to complete the redelivery request again and put the [facility] address to attempt to have it delivered here since her mother will be at work today and through the weekend. SW will continue to follow.
[2020-02-28 10:43] LABS: BASO % 1 % (0-3); EOS # 0.2 x10^3/uL (0.0-0.7); EOS % 5 % (0-3); HEMATOCRIT 32.3 % (36.0-47.0); HEMOGLOBIN 11.4 g/dL (12.0-15.5); LYMPH # 2.4 x10^3/uL (1.0-4.8); LYMPH % 48 % (24-48); MEAN CORPUSCULAR HEMOGLOBIN 31 pg (25-35); MEAN CORPUSCULAR HGB CONC 35 g/dL (31-37); MEAN CORPUSCULAR VOLUME 88 fL (79-100); MONO # 0.4 x10^3/uL (0.0-1.1); MONO % 8 % (0-9); NEUT # 1.9 x10^3/uL (1.8-7.7); NEUT % 39 % (31-73); PLATELET COUNT 312 x10^3/uL (140-400); RED BLOOD COUNT 3.68 x10^6/uL (3.50-5.40); RED CELL DISTRIBUTION WIDTH 13.1 % (11.5-14.5); WHITE BLOOD COUNT 4.9 x10^3/uL (4.0-11.0)
[2020-02-28 11:00] VITALS: BP 110/70
[2020-02-28 12:00] LABS: CALCIUM 8.6 mg/dL (8.5-10.1); CREATININE 0.8 mg/dL (0.6-1.0); GFR 81.6; POTASSIUM 4.1 mmol/L (3.5-5.1)
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
[2020-02-28 15:00] VITALS: BP 102/68
--- NOTE | 2020-02-28 16:46 | RAD ---
PELVIS LIMITED OR FOLLOW UP History: Reason: LLQ abdominal pain. History of ovarian cyst. / Spl. Instructions: / History: Comparison: February 02, 2020. Technique: Grayscale and color Doppler imaging of the pelvis was performed using transabdominal technique. Findings: Evaluation is degraded due to patient not cooperating with examination. The uterus measures 7.8 x 4.8 x 2.7 cm. Uterus has an unremarkable appearance. The endometrial stripe measures 6.4 mm. Right ovary measures 3.4 x 4.0 x 2.1 cm. Left ovary measures 5.0 x 5.5 x 3.9 cm. Left ovarian cystic lesion measures 4.2 x 5.9 x 2.4 cm with thick septations. Normal Doppler flow to the ovaries. No adnexal masses are seen. IMPRESSION: 1. Degraded evaluation. 2. Complex left ovarian cystic lesion, similar compared to prior. Recommend continued ultrasound follow-up as previously stated. Electronically signed by: Arian Xiao DO (02/28/2020 4:43 PM) [id number]
[2020-02-28 19:00] VITALS: BP 134/99
[2020-02-28] MEDS: ZOLPIDEM 5 MG TABLET. PO PRN (20:32)
[2020-02-28] MEDS: ENOXAPARIN 40 MG/0.4 ML SYRINGE. SQ SCH (20:32)
[2020-02-29] MEDS: HYDROmorphone 2 MG/ML VIAL IVP PRN ×3 (00:10→17:07)
[2020-02-29] MEDS: CYCLOBENZAPRINE 10 MG TABLET. PO PRN ×3 (00:20→17:06)
[2020-02-29] MEDS: ALPRAZolam 0.5 MG TABLET PO PRN ×4 (01:42→21:27)
[2020-02-29] MEDS: oxyCODONE/APAP 10/325 1 TAB TABLET PO PRN ×6 (02:24→21:56)
[2020-02-29 03:00] VITALS: BP 116/54
[2020-02-29 07:00] VITALS: BP 94/53
[2020-02-29] MEDS: LACTOBACILLUS RHAMNOSUS GG 1 CAPSULE. PO SCH ×2 (08:54→21:27)
[2020-02-29] MEDS: metroNIDAZOLE 500 MG TABLET PO SCH ×2 (08:54→21:27)
[2020-02-29] MEDS: GABAPENTIN 300 MG CAPSULE. PO SCH ×3 (08:54→21:27)
[2020-02-29] MEDS: PARoxetine 10 MG TABLET PO SCH (08:54)
[2020-02-29 09:56] LABS: BASO % 1 % (0-3); EOS # 0.2 x10^3/uL (0.0-0.7); EOS % 5 % (0-3); HEMATOCRIT 34.8 % (36.0-47.0); HEMOGLOBIN 11.6 g/dL (12.0-15.5); LYMPH # 2.4 x10^3/uL (1.0-4.8); LYMPH % 48 % (24-48); MEAN CORPUSCULAR HEMOGLOBIN 30 pg (25-35); MEAN CORPUSCULAR HGB CONC 33 g/dL (31-37); MEAN CORPUSCULAR VOLUME 89 fL (79-100); MONO # 0.3 x10^3/uL (0.0-1.1); MONO % 7 % (0-9); NEUT % 40 % (31-73); PLATELET COUNT 310 x10^3/uL (140-400); RED BLOOD COUNT 3.89 x10^6/uL (3.50-5.40); RED CELL DISTRIBUTION WIDTH 13.2 % (11.5-14.5); WHITE BLOOD COUNT 4.9 x10^3/uL (4.0-11.0)
[2020-02-29 10:25] LABS: CALCIUM 8.9 mg/dL (8.5-10.1); CREATININE 0.8 mg/dL (0.6-1.0); GFR 81.6; POTASSIUM 4.2 mmol/L (3.5-5.1)
[2020-02-29 11:00] VITALS: BP 113/62
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
[2020-02-29 15:00] VITALS: BP 125/71
--- NOTE | 2020-02-29 17:16 | NUR ---
Percocet 2 tabs given at 1547, edited admin record after scanning 1 tab only. Patient is particular with her pain medicine schedule. No complaints noted after discussing with her the schedule of med administration.
[2020-02-29 19:00] VITALS: BP 120/70
[2020-02-29] MEDS: ENOXAPARIN 40 MG/0.4 ML SYRINGE. SQ SCH (21:26)
[2020-02-29] MEDS: ZOLPIDEM 5 MG TABLET. PO PRN (21:27)
[2020-02-29 23:00] VITALS: BP 99/49
[2020-03-01] MEDS: CYCLOBENZAPRINE 10 MG TABLET. PO PRN ×3 (01:07→17:06)
[2020-03-01] MEDS: HYDROmorphone 2 MG/ML VIAL IVP PRN ×3 (01:07→17:06)
[2020-03-01 03:00] VITALS: BP 136/64
[2020-03-01] MEDS: ALPRAZolam 0.5 MG TABLET PO PRN ×4 (03:28→21:19)
[2020-03-01] MEDS: oxyCODONE/APAP 10/325 1 TAB TABLET PO PRN ×4 (04:00→22:25)
[2020-03-01 07:00] VITALS: BP 113/65
--- NOTE | 2020-03-01 08:14 | PDOC ---
Infectious Disease Note Subjective: Subjective Patient complains of back pain Abdominal pain comes and goes No fevers or diarrhea Vital Signs: Vital Signs Vital Signs Date Time Temp Pulse Resp B/P (MAP) Pulse Ox O2 Delivery O2 Flow Rate FiO2 03/01/20 05:00 16 97 Room Air 03/01/20 03:00 97.4 94 136/64 (88) 97.4 Physical Exam: PHYSICAL EXAM GENERAL: Lying down, alert, coop. Looks comfortable HEENT: Normal conjunctivae, oropharynx clear. No lesions seen. NECK: Supple. LUNGS: Clear bilaterally. HEART: S1, S2. No rubs or murmurs. ABDOMEN: Soft, nontender, mildly distended. Bowel sounds present. Obese : Hernandez out EXTREMITIES: Trace edema, no cyanosis. Moves toes and DERMATOLOGIC: Warm, dry. No generalized rash. Multiple tattoos. No open wounds noted. Multiple needle luna present. No peripheral stigmata NEUROLOGIC: Alert and oriented x 3, moves BLE + sensation PSYCHIATRIC: Cooperative, slightly agitated. PIV looks ok Medications: Inpatient Meds: Current Medications Medications (Trade) Dose Ordered Sig/Nellie Start Time Stop Time Status Last Admin Dose Admin Acetaminophen (Tylenol) 650 mg PRN Q4HRS PRN 02/16/20 08:15 Alprazolam (Xanax) 0.5 mg PRN Q6HRS PRN 02/18/20 14:30 03/01/20 03:28 0.5 MG Cefazolin Sodium 2000 mg/Dextrose 50 ml @ 100 mls/hr Q8HRS 02/19/20 09:15 Cancel Cefazolin Sodium/ Dextrose 50 ml @ 100 mls/hr Q8HRS 02/19/20 09:30 03/01/20 05:30 100 MLS/HR Cyclobenzaprine HCl (Flexeril) 10 mg PRN Q8HRS PRN 02/16/20 15:00 03/01/20 01:07 10 MG Enoxaparin Sodium (Lovenox 40mg Syringe) 40 mg Q24H 02/16/20 21:00 02/29/20 21:26 40 MG Fentanyl (Duragesic 50mcg/ Hr Patch) 1 patch Q3DAYS 02/19/20 09:00 02/28/20 08:38 1 PATCH Fentanyl Citrate (Fentanyl 2ml Vial) 100 mcg STK-MED ONCE 02/19/20 12:02 02/19/20 12:02 DC Gabapentin (Neurontin) 300 mg TID 02/24/20 18:00 02/29/20 21:27 300 MG Gadoterate Meglumine (Dotarem) 22.6 ml 1X ONCE 02/19/20 13:30 02/19/20 13:31 DC Hydromorphone HCl (Dilaudid) 1 mg PRN Q8HRS PRN 02/23/20 14:45 03/01/20 01:07 1 MG Ketamine HCl (Ketamine) 50 mg STK-MED ONCE 02/19/20 12:02 02/19/20 12:03 DC Ketorolac Tromethamine (Toradol 30mg Vial) 30 mg PRN Q6HRS PRN 02/16/20 09:00 02/17/20 07:08 30 MG Lactobacillus Rhamnosus (Culturelle) 1 cap BID 02/19/20 21:00 02/29/20 21:27 1 CAP Lidocaine (Lidoderm) 1 patch DAILY 02/16/20 15:00 02/24/20 17:29 DC 02/17/20 08:24 1 PATCH Lidocaine HCl (Lidocaine Pf 2% Vial) 5 ml STK-MED ONCE 02/19/20 12:03 02/19/20 12:03 DC Metronidazole (Flagyl) 500 mg Q12HR 02/18/20 21:00 02/29/20 21:27 500 MG Midazolam HCl (Versed) 2 mg STK-MED ONCE 02/19/20 12:26 02/19/20 12:26 DC Miscellaneous (Lidoderm Patch Removal) 1 ea QHS 02/16/20 21:00 02/24/20 17:29 DC 02/22/20 21:00 1 EA Morphine Sulfate (Morphine Sulfate) 4 mg PRN Q2HR PRN 02/19/20 06:45 02/26/20 17:09 DC 02/26/20 02:10 4 MG Ondansetron HCl (Zofran) 4 mg PRN Q4HRS PRN 02/16/20 08:15 02/17/20 08:25 4 MG Oxycodone/ Acetaminophen (Percocet 10/325) 2 tab PRN Q6HRS PRN 02/18/20 14:45 03/01/20 04:00 2 TAB Paroxetine HCl (Paxil) 10 mg DAILY 02/27/20 09:00 02/29/20 08:54 10 MG Propofol 50 ml @ As Directed STK-MED ONCE 02/19/20 12:25 02/19/20 12:26 DC Propofol (Diprivan) 200 mg STK-MED ONCE 02/19/20 12:03 02/19/20 12:03 DC Vancomycin HCl (Vanco Per Pharmacy) 1 each PRN DAILY PRN 02/16/20 14:45 02/21/20 09:21 DC 02/20/20 11:22 1 EACH Vancomycin HCl (Vancomycin Random Level) 1 each 1X ONCE 02/18/20 17:00 02/18/20 17:01 DC 02/18/20 17:00 1 EACH Vancomycin HCl (Vancomycin Trough Level) 1 each 1X ONCE 02/18/20 03:30 02/18/20 03:31 DC 02/18/20 03:30 1 EACH Vancomycin HCl 1.25 gm/Sodium Chloride 250 ml @ 167 mls/hr Q8H 02/18/20 19:00 02/21/20 09:21 DC 02/21/20 03:08 167 MLS/HR Vancomycin HCl 1.5 gm/Sodium Chloride 500 ml @ 250 mls/hr Q8H 02/17/20 20:00 02/18/20 05:56 DC 02/18/20 04:48 250 MLS/HR Vancomycin HCl 1.75 gm/Sodium Chloride 500 ml @ 250 mls/hr 1X ONCE 02/16/20 09:00 02/16/20 10:59 DC 02/16/20 09:28 250 MLS/HR Zolpidem Tartrate (Ambien) 5 mg PRN QHS PRN 02/17/20 21:30 02/29/20 21:27 5 MG Labs: Lab Laboratory Tests Test 02/29/20 09:30 White Blood Count 4.9 x10^3/uL (4.0-11.0) Red Blood Count 3.89 x10^6/uL (3.50-5.40) Hemoglobin 11.6 g/dL (12.0-15.5) Hematocrit 34.8 % (36.0-47.0) Mean Corpuscular Volume 89 fL (79-100) Mean Corpuscular Hemoglobin 30 pg (25-35) Mean Corpuscular Hemoglobin Concent 33 g/dL (31-37) Red Cell Distribution Width 13.2 % (11.5-14.5) Platelet Count 310 x10^3/uL (140-400) Neutrophils (%) (Auto) 40 % (31-73) Lymphocytes (%) (Auto) 48 % (24-48) Monocytes (%) (Auto) 7 % (0-9) Eosinophils (%) (Auto) 5 % (0-3) Basophils (%) (Auto) 1 % (0-3) Neutrophils # (Auto) 2.0 x10^3/uL (1.8-7.7) Lymphocytes # (Auto) 2.4 x10^3/uL (1.0-4.8) Monocytes # (Auto) 0.3 x10^3/uL (0.0-1.1) Eosinophils # (Auto) 0.2 x10^3/uL (0.0-0.7) Basophils # (Auto) 0.0 x10^3/uL (0.0-0.2) Sodium Level 136 mmol/L (136-145) Potassium Level 4.2 mmol/L (3.5-5.1) Chloride Level 101 mmol/L (98-107) Carbon Dioxide Level 32 mmol/L (21-32) Anion Gap 3 (6-14) Blood Urea Nitrogen 9 mg/dL (7-20) Creatinine 0.8 mg/dL (0.6-1.0) Estimated GFR (Cockcroft-Gault) 81.6 Glucose Level 103 mg/dL (70-99) Calcium Level 8.9 mg/dL (8.5-10.1) Objective: Assessment: MSSA ([facility] 02/01) bacteremia - ERIKA 02/09 - neg Intravenous drug user. Recent history of Escherichia coli urinary tract infection, 02/01. Left ovarian complex cyst.HIV and STD - neg Hematuria. Fever - better Hep C IgG + Hypokalemia. Protein-calorie malnutrition. Severe back pain. 02/[address] [facility] CT findings concerning for diskitis/osteomyelitis /epidural abscess. -Lumbar MRI showed increased STIR signal within the XQ40-V91 disc space and adjacent endplates. There is adjacent paravertebral edema. Small anterior fluid collection measures 1.1 x 0.7 cm (series 4 image 8 and series 10 image 8). No evidence of epidural abscess. -L4-L5 increased disc signal -Bilateral retroperitoneal and presacral edema -Multilevel lumbar spinal stenosis most prominent L4-5. Personality disorder Ovarian cyst Lab corrected MRSA report from [place], it is MSSA Plan: Plan of Care cont cefazolin, ( d/w microbiology lab, original report MRSA from [place] now corrected to MSSA) cont supportive care Treat with IV abx for atleast [address] Fontanez, no surgical indication as per him OK to Discharge on IV Daptomycin vs IV Cefazolin vs salvage treatment with Oritavancin/ Dalbavancin pros and cons discussed with pt, and her mother, logistic difficulties are being handled by social services technician and hospital administration SOPHIA JOY MD Mar 01, 2020 08:14
[2020-03-01] MEDS: PARoxetine 10 MG TABLET PO SCH (09:08)
[2020-03-01] MEDS: metroNIDAZOLE 500 MG TABLET PO SCH ×2 (09:08→21:19)
[2020-03-01] MEDS: GABAPENTIN 300 MG CAPSULE. PO SCH ×3 (09:08→21:19)
[2020-03-01] MEDS: LACTOBACILLUS RHAMNOSUS GG 1 CAPSULE. PO SCH ×2 (09:08→21:19)
[2020-03-01 11:00] VITALS: BP 112/60
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
[2020-03-01 15:00] VITALS: BP 107/63
[2020-03-01 19:00] VITALS: BP 115/60
[2020-03-01] MEDS: ZOLPIDEM 5 MG TABLET. PO PRN (21:19)
[2020-03-01] MEDS: ENOXAPARIN 40 MG/0.4 ML SYRINGE. SQ SCH (21:23)
[2020-03-01 23:00] VITALS: BP 119/74
[2020-03-02] VITALS (7 sets, daily range): BP systolic 91–145; BP diastolic 54–92
[2020-03-02] MEDS: CYCLOBENZAPRINE 10 MG TABLET. PO PRN ×3 (01:00→18:31)
[2020-03-02] MEDS: HYDROmorphone 2 MG/ML VIAL IVP PRN ×4 (01:01→19:09)
[2020-03-02] MEDS: ALPRAZolam 0.5 MG TABLET PO PRN ×4 (03:29→23:51)
[2020-03-02] MEDS: oxyCODONE/APAP 10/325 1 TAB TABLET PO PRN (04:02)
[2020-03-02] MEDS: GABAPENTIN 300 MG CAPSULE. PO SCH ×3 (09:23→21:39)
[2020-03-02] MEDS: PARoxetine 10 MG TABLET PO SCH (09:23)
[2020-03-02] MEDS: metroNIDAZOLE 500 MG TABLET PO SCH ×2 (09:24→21:39)
[2020-03-02] MEDS: LACTOBACILLUS RHAMNOSUS GG 1 CAPSULE. PO SCH ×2 (09:24→21:39)
[2020-03-02] MEDS: fentaNYL 50MCG/HR PATCH 1 PATCH PATCH.TD72 TD SCH (09:25)
[2020-03-02] MEDS: oxyCODONE/APAP 10/325 1 TAB TABLET PO SCH ×4 (09:34→23:51)
--- NOTE | 2020-03-02 09:57 | PDOC ---
Infectious Disease Note Subjective Subjective Patient complains of back pain Abdominal pain comes and goes No fevers or diarrhea Eating ok ROS ROS o/w neg Vital Sign Vital Signs Vital Signs Date Time Temp Pulse Resp B/P (MAP) Pulse Ox O2 Delivery O2 Flow Rate FiO2 03/02/20 09:34 Room Air 03/02/20 07:53 97.5 93 16 114/62 (79) 95 97.5 03/01/20 17:28 2.0 Physical Exam PHYSICAL EXAM GENERAL: Lying down, alert, coop. Looks comfortable HEENT: Normal conjunctivae, oropharynx clear. No lesions seen. NECK: Supple. LUNGS: Clear bilaterally. HEART: S1, S2. No rubs or murmurs. ABDOMEN: Soft, nontender,. Bowel sounds present. Obese : Hernandez out EXTREMITIES: Trace edema, no cyanosis. Moves toes and DERMATOLOGIC: Warm, dry. No generalized rash. Multiple tattoos. No open wounds noted. Multiple needle luna present. No peripheral stigmata NEUROLOGIC: Alert and oriented x 3, moves BLE + sensation PSYCHIATRIC: Cooperative, PIV looks ok Labs Micro Microbiology 02/16/20 Blood Culture - Final, Complete NO GROWTH AFTER 5 DAYS Objective Assessment MSSA ([facility] 02/01) bacteremia - ERIKA 02/09 - neg Intravenous drug user. Recent history of Escherichia coli urinary tract infection, 02/01. Left ovarian complex cyst.HIV and STD - neg Hematuria. Fever - better Hep C IgG + Hypokalemia. Protein-calorie malnutrition. Severe back pain. 02/04 at [facility] CT findings concerning for diskitis/ost eomyelitis/epidural abscess. -Lumbar MRI showed increased STIR signal within the MS21-F80 disc space and adjacent endplates. There is adjacent paravertebral edema. Small anterior fluid collection measures 1.1 x 0.7 cm (series 4 image 8 and series 10 image 8). No evidence of epidural abscess. -L4-L5 increased disc signal -Bilateral retroperitoneal and presacral edema -Multilevel lumbar spinal stenosis most prominent L4-5. Personality disorder Ovarian cyst Lab corrected MRSA report from [place], it is MSSA Plan Plan of Care cont cefazolin, (d/w microbiology lab, original report MRSA from [place] now corrected to MSSA) cont supportive care Treat with IV abx for at least [address] Fontanez, no surgical indication as per him OK to Discharge on IV Daptomycin vs IV Cefazolin vs salvage treatment with Oritavancin/ Dalbavancin pros and cons discussed with pt, and her mother, logistic difficulties are being handled by social service agency director and hospital administration Ovarian cystic lesion per primary D/w nursing ELENA BAKER MD Mar 02, 2020 09:57
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
--- NOTE | 2020-03-02 16:47 | PDOC ---
F/U PHYSCH PROG NOTE Subjective: She is a young female seen for routine follow-up. Progress is reviewed with nursing staff. No major emotional or behavioral events reported overnight. Stating she did not stating, she did not notice any significant difference with Paxil so far. At times she gets irritable and anxious. Depression is up and down with crying spells. Denies suicidal or homicidal thoughts. Denies auditory or visual hallucinations. No evidence of violet or hypomania. Objective: 14 point review of system is otherwise negative except for stated above. Vital Signs: Vital Signs Date Time Temp Pulse Resp B/P (MAP) Pulse Ox O2 Delivery O2 Flow Rate FiO2 03/02/20 15:13 98.7 95 15 115/58 (77) 93 Room Air 98.7 03/01/20 17:28 2.0 Medications: Current Medications Medications (Trade) Dose Ordered Sig/Nellie Start Time Stop Time Status Last Admin Dose Admin Acetaminophen (Tylenol) 650 mg PRN Q4HRS PRN 02/16/20 08:15 Alprazolam (Xanax) 0.5 mg PRN Q6HRS PRN 02/18/20 14:30 03/02/20 11:16 0.5 MG Cefazolin Sodium 2000 mg/Dextrose 50 ml @ 100 mls/hr Q8HRS 02/19/20 09:15 Cancel Cefazolin Sodium/ Dextrose 50 ml @ 100 mls/hr Q8HRS 02/19/20 09:30 03/02/20 13:29 100 MLS/HR Cyclobenzaprine HCl (Flexeril) 10 mg PRN Q8HRS PRN 02/16/20 15:00 03/02/20 09:24 10 MG Enoxaparin Sodium (Lovenox 40mg Syringe) 40 mg Q24H 02/16/20 21:00 03/01/20 21:23 40 MG Fentanyl (Duragesic 50mcg/ Hr Patch) 1 patch Q3DAYS 02/19/20 09:00 03/02/20 09:25 1 PATCH Fentanyl Citrate (Fentanyl 2ml Vial) 100 mcg STK-MED ONCE 02/19/20 12:02 02/19/20 12:02 DC Gabapentin (Neurontin) 300 mg TID 02/24/20 18:00 03/02/20 13:28 300 MG Gadoterate Meglumine (Dotarem) 22.6 ml 1X ONCE 02/19/20 13:30 02/19/20 13:31 DC Hydromorphone HCl (Dilaudid) 1 mg PRN Q4HRS PRN 03/02/20 09:15 03/02/20 14:03 1 MG Ketamine HCl (Ketamine) 50 mg STK-MED ONCE 02/19/20 12:02 02/19/20 12:03 DC Ketorolac Tromethamine (Toradol 30mg Vial) 30 mg PRN Q6HRS PRN 02/16/20 09:00 02/17/20 07:08 30 MG Lactobacillus Rhamnosus (Culturelle) 1 cap BID 02/19/20 21:00 03/02/20 09:24 1 CAP Lidocaine (Lidoderm) 1 patch DAILY 02/16/20 15:00 02/24/20 17:29 DC 02/17/20 08:24 1 PATCH Lidocaine HCl (Lidocaine Pf 2% Vial) 5 ml STK-MED ONCE 02/19/20 12:03 02/19/20 12:03 DC Metronidazole (Flagyl) 500 mg Q12HR 02/18/20 21:00 03/02/20 09:24 500 MG Midazolam HCl (Versed) 2 mg STK-MED ONCE 02/19/20 12:26 02/19/20 12:26 DC Miscellaneous (Lidoderm Patch Removal) 1 ea QHS 02/16/20 21:00 02/24/20 17:29 DC 02/22/20 21:00 1 EA Morphine Sulfate (Morphine Sulfate) 4 mg PRN Q2HR PRN 02/19/20 06:45 02/26/20 17:09 DC 02/26/20 02:10 4 MG Ondansetron HCl (Zofran) 4 mg PRN Q4HRS PRN 02/16/20 08:15 02/17/20 08:25 4 MG Oxycodone HCl (Roxicodone) 10 mg PRN Q4HRS PRN 03/02/20 09:15 Oxycodone/ Acetaminophen (Percocet 10/325) 2 tab Q6HRS 03/02/20 09:30 03/02/20 13:28 2 TAB Paroxetine HCl (Paxil) 10 mg DAILY 02/27/20 09:00 03/02/20 09:23 10 MG Propofol 50 ml @ As Directed STK-MED ONCE 02/19/20 12:25 02/19/20 12:26 DC Propofol (Diprivan) 200 mg STK-MED ONCE 02/19/20 12:03 02/19/20 12:03 DC Vancomycin HCl (Vanco Per Pharmacy) 1 each PRN DAILY PRN 02/16/20 14:45 02/21/20 09:21 DC 02/20/20 11:22 1 EACH Vancomycin HCl (Vancomycin Random Level) 1 each 1X ONCE 02/18/20 17:00 02/18/20 17:01 DC 02/18/20 17:00 1 EACH Vancomycin HCl (Vancomycin Trough Level) 1 each 1X ONCE 02/18/20 03:30 02/18/20 03:31 DC 02/18/20 03:30 1 EACH Vancomycin HCl 1.25 gm/Sodium Chloride 250 ml @ 167 mls/hr Q8H 02/18/20 19:00 02/21/20 09:21 DC 02/21/20 03:08 167 MLS/HR Vancomycin HCl 1.5 gm/Sodium Chloride 500 ml @ 250 mls/hr Q8H 02/17/20 20:00 02/18/20 05:56 DC 02/18/20 04:48 250 MLS/HR Vancomycin HCl 1.75 gm/Sodium Chloride 500 ml @ 250 mls/hr 1X ONCE 02/16/20 09:00 02/16/20 10:59 DC 02/16/20 09:28 250 MLS/HR Zolpidem Tartrate (Ambien) 5 mg PRN QHS PRN 02/17/20 21:30 03/01/20 21:19 5 MG Physical Exam: Mental Status Exam: female appears her stated age Cooperative Alert and oriented Thought processes goal-directed Denies suicidal or homicidal thoughts. Denies auditory or visual hallucinations. No abnormal delusions. Mood is improving Affect is improving Impulse control is fair Judgment is fair Insight is fair. Attention span and concentration improving Recent and remote memory intact Physical Exam: Refer to Physician's note. 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 Unspecified mood disorder, rule out bipolar mood disorder Assessment: She is a young female appears very irritable, dysphoric, agitated and resistant to engaging interview process. Likely she is withdrawing from opioids and in denial. She is resistant to discuss treatment options including methadone and Suboxone. 02/24/2020: Today she appears much better and conversant. Apologizing for her behavior at previous interaction. 02/25/2020: Today she appears better than previous days, tolerating pain better. Progressively improving with respect to her mental health as well. 02/26/20 Appears upset and tearful. Previously Paxil was effective. 02/27/2020: She did not notice any significant change with 10 mg of Paxil. We will increase Paxil to 20 mg she is in agreement. Plan: Paxil 10mg to 20mg daily for depression and anxiety. Continue gabapentin to 300 mg 3 times daily for pain as it was helpful previously. Monitor for symptomatology, safety, and adverse drug reaction. Will adjust medications accordingly. Psychoeducation provided. Supportive psychotherapy provided. Risk, benefits, alternatives are discussed. However patient declined every offer. TAMMY SHIN MD Mar 02, 2020 16:47
[2020-03-02] MEDS: ENOXAPARIN 40 MG/0.4 ML SYRINGE. SQ SCH (21:40)
[2020-03-03] MEDS: HYDROmorphone 2 MG/ML VIAL IVP PRN ×4 (00:57→19:21)
[2020-03-03] MEDS: CYCLOBENZAPRINE 10 MG TABLET. PO PRN ×3 (02:38→19:21)
[2020-03-03 02:45] VITALS: BP 132/68
[2020-03-03] MEDS: ALPRAZolam 0.5 MG TABLET PO PRN ×4 (05:56→21:37)
[2020-03-03] MEDS: oxyCODONE/APAP 10/325 1 TAB TABLET PO SCH ×3 (05:57→17:57)
[2020-03-03 07:00] VITALS: BP 132/81
[2020-03-03] MEDS: LACTOBACILLUS RHAMNOSUS GG 1 CAPSULE. PO SCH ×2 (08:14→21:27)
[2020-03-03] MEDS: GABAPENTIN 300 MG CAPSULE. PO SCH ×3 (08:14→21:27)
[2020-03-03] MEDS: metroNIDAZOLE 500 MG TABLET PO SCH ×2 (08:14→21:27)
[2020-03-03] MEDS: PARoxetine 20 MG TABLET PO SCH (08:14)
--- NOTE | 2020-03-03 09:50 | NUR ---
SW following. Discussed with RN. SW spoke with pt via phone, she does have her COBRA paperwork, however told SW she did not sleep at all last night and does not want anyone coming in to disturb her. GAUTAM advised the importance of getting the COBRA paperwork, pt hung up on SW. GAUTAM spoke with RN, RN will get the paperwork when she takes pt's pain medication in later. GAUTAM will continue to follow. Addendum: 03/03/20 at 1139 by MENDY FLOREZ Pt refused to give COBRA paperwork to RN - requested SW. GAUTAM got COBRA paperwork from pt after she was saying she didn't have it and someone took it. COBRA paperwork provided to Josafat Singh. GAUTAM will continue to follow.
[2020-03-03 11:00] VITALS: BP 118/73
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
[2020-03-03 15:00] VITALS: BP 110/67
[2020-03-03 19:15] VITALS: BP 108/87
--- NOTE | 2020-03-03 20:59 | PDOC ---
F/U PHYSCH PROG NOTE Subjective: She is seen for routine follow-up. Progress is reviewed with nursing staff. States, with respect to anxiety, she is feeling better today. However mood is somewhat irritable as she was not able to sleep last night. Stating, she needs something for her insomnia as medications are not working right now. Last night took an Ambien which did not help. Aside from that, denies suicidal or homicidal thoughts. Denies auditory or visual hallucinations. Objective: 14 point review of system is otherwise negative except for as stated above. Vital Signs: Vital Signs Date Time Temp Pulse Resp B/P (MAP) Pulse Ox O2 Delivery O2 Flow Rate FiO2 03/03/20 19:21 Room Air 03/03/20 19:15 97.7 92 18 108/87 (94) 97 97.7 Medications: Current Medications Medications (Trade) Dose Ordered Sig/Nellie Start Time Stop Time Status Last Admin Dose Admin Acetaminophen (Tylenol) 650 mg PRN Q4HRS PRN 02/16/20 08:15 Alprazolam (Xanax) 0.5 mg PRN Q4HRS PRN 03/03/20 14:00 03/03/20 16:21 0.5 MG Cefazolin Sodium 2000 mg/Dextrose 50 ml @ 100 mls/hr Q8HRS 02/19/20 09:15 Cancel Cefazolin Sodium/ Dextrose 50 ml @ 100 mls/hr Q8HRS 02/19/20 09:30 03/03/20 13:19 100 MLS/HR Cyclobenzaprine HCl (Flexeril) 10 mg PRN Q8HRS PRN 02/16/20 15:00 03/03/20 19:21 10 MG Enoxaparin Sodium (Lovenox 40mg Syringe) 40 mg Q24H 02/16/20 21:00 03/02/20 21:40 40 MG Fentanyl (Duragesic 50mcg/ Hr Patch) 1 patch Q3DAYS 02/19/20 09:00 03/02/20 09:25 1 PATCH Fentanyl Citrate (Fentanyl 2ml Vial) 100 mcg STK-MED ONCE 02/19/20 12:02 02/19/20 12:02 DC Gabapentin (Neurontin) 300 mg TID 02/24/20 18:00 03/03/20 13:19 300 MG Gadoterate Meglumine (Dotarem) 22.6 ml 1X ONCE 02/19/20 13:30 02/19/20 13:31 DC Hydromorphone HCl (Dilaudid) 1 mg PRN Q4HRS PRN 03/02/20 09:15 03/03/20 19:21 1 MG Ketamine HCl (Ketamine) 50 mg STK-MED ONCE 02/19/20 12:02 02/19/20 12:03 DC Ketorolac Tromethamine (Toradol 30mg Vial) 30 mg PRN Q6HRS PRN 02/16/20 09:00 02/17/20 07:08 30 MG Lactobacillus Rhamnosus (Culturelle) 1 cap BID 02/19/20 21:00 03/03/20 08:14 1 CAP Lidocaine (Lidoderm) 1 patch DAILY 02/16/20 15:00 02/24/20 17:29 DC 02/17/20 08:24 1 PATCH Lidocaine HCl (Lidocaine Pf 2% Vial) 5 ml STK-MED ONCE 02/19/20 12:03 02/19/20 12:03 DC Metronidazole (Flagyl) 500 mg Q12HR 02/18/20 21:00 03/03/20 08:14 500 MG Midazolam HCl (Versed) 2 mg STK-MED ONCE 02/19/20 12:26 02/19/20 12:26 DC Miscellaneous (Lidoderm Patch Removal) 1 ea QHS 02/16/20 21:00 02/24/20 17:29 DC 02/22/20 21:00 1 EA Morphine Sulfate (Morphine Sulfate) 4 mg PRN Q2HR PRN 02/19/20 06:45 02/26/20 17:09 DC 02/26/20 02:10 4 MG Ondansetron HCl (Zofran) 4 mg PRN Q4HRS PRN 02/16/20 08:15 02/17/20 08:25 4 MG Oxycodone HCl (Roxicodone) 10 mg PRN Q4HRS PRN 03/02/20 09:15 Oxycodone/ Acetaminophen (Percocet 10/325) 2 tab Q6HRS 03/02/20 09:30 03/03/20 17:57 2 TAB Paroxetine HCl (Paxil) 20 mg DAILY 03/03/20 09:00 03/03/20 08:14 20 MG Propofol 50 ml @ As Directed STK-MED ONCE 02/19/20 12:25 02/19/20 12:26 DC Propofol (Diprivan) 200 mg STK-MED ONCE 02/19/20 12:03 02/19/20 12:03 DC Trazodone HCl (Desyrel) 50 mg 1X ONCE 03/03/20 21:30 03/03/20 21:31 Vancomycin HCl (Vanco Per Pharmacy) 1 each PRN DAILY PRN 02/16/20 14:45 02/21/20 09:21 DC 02/20/20 11:22 1 EACH Vancomycin HCl (Vancomycin Random Level) 1 each 1X ONCE 02/18/20 17:00 02/18/20 17:01 DC 02/18/20 17:00 1 EACH Vancomycin HCl (Vancomycin Trough Level) 1 each 1X ONCE 02/18/20 03:30 02/18/20 03:31 DC 02/18/20 03:30 1 EACH Vancomycin HCl 1.25 gm/Sodium Chloride 250 ml @ 167 mls/hr Q8H 02/18/20 19:00 02/21/20 09:21 DC 02/21/20 03:08 167 MLS/HR Vancomycin HCl 1.5 gm/Sodium Chloride 500 ml @ 250 mls/hr Q8H 02/17/20 20:00 02/18/20 05:56 DC 02/18/20 04:48 250 MLS/HR Vancomycin HCl 1.75 gm/Sodium Chloride 500 ml @ 250 mls/hr 1X ONCE 02/16/20 09:00 02/16/20 10:59 DC 02/16/20 09:28 250 MLS/HR Zolpidem Tartrate (Ambien) 5 mg PRN QHS PRN 02/17/20 21:30 03/01/20 21:19 5 MG Physical Exam: Mental Status Exam: female appears her stated age Cooperative Alert and oriented Thought processes goal-directed Denies suicidal or homicidal thoughts. Denies auditory or visual hallucinations. No abnormal delusions. Mood is improving Affect is improving Impulse control is fair Judgment is fair Insight is fair. Attention span and concentration improving Recent and remote memory intact Physical Exam: Refer to Physician's note. 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 Unspecified mood disorder, rule out bipolar mood disorder Assessment: She is a young female appears very irritable, dysphoric, agitated and resistant to engaging interview process. Likely she is withdrawing from opioids and in denial. She is resistant to discuss treatment options including methadone and Suboxone. 02/24/2020: Today she appears much better and conversant. Apologizing for her behavior at previous interaction. 02/25/2020: Today she appears better than previous days, tolerating pain better. Progressively improving with respect to her mental health as well. 02/26/20 Appears upset and tearful. Previously Paxil was effective. 02/27/2020: She did not notice any significant change with 10 mg of Paxil. We will increase Paxil to 20 mg she is in agreement. Plan: Add Remeron 15 mg nightly for insomnia and depression adjunct. Paxil 20mg daily for depression and anxiety. Continue gabapentin to 300 mg 3 times daily for pain as it was helpful previously. Monitor for symptomatology, safety, and adverse drug reaction. Will adjust medications accordingly. Psychoeducation provided. Supportive psychotherapy provided. Risk, benefits, alternatives are discussed. However patient declined every offer. TAMMY SHIN MD Mar 03, 2020 20:59
[2020-03-03] MEDS: ENOXAPARIN 40 MG/0.4 ML SYRINGE. SQ SCH (21:27)
[2020-03-03] MEDS: MIRTAZAPINE 15 MG TABLET PO SCH (21:28)
[2020-03-03] MEDS ORDERED: traZODone 50 MG TABLET. PO ONE (21:30)
[2020-03-03] MEDS: oxyCODONE IR 5 MG TABLET PO PRN (21:37)
[2020-03-03 22:10] VITALS: BP 127/67
[2020-03-04] MEDS: oxyCODONE/APAP 10/325 1 TAB TABLET PO SCH ×4 (00:07→18:27)
[2020-03-04] MEDS: HYDROmorphone 2 MG/ML VIAL IVP PRN ×5 (02:00→21:57)
[2020-03-04] MEDS: ALPRAZolam 0.5 MG TABLET PO PRN ×6 (02:05→18:51)
[2020-03-04] MEDS: CYCLOBENZAPRINE 10 MG TABLET. PO PRN ×2 (05:27→19:41)
[2020-03-04] MEDS: oxyCODONE IR 5 MG TABLET PO PRN ×4 (05:31→19:41)
[2020-03-04 07:00] VITALS: BP 127/61
[2020-03-04] MEDS: metroNIDAZOLE 500 MG TABLET PO SCH ×2 (07:09→20:24)
[2020-03-04] MEDS: LACTOBACILLUS RHAMNOSUS GG 1 CAPSULE. PO SCH ×2 (07:09→20:24)
[2020-03-04] MEDS: GABAPENTIN 300 MG CAPSULE. PO SCH ×3 (07:09→20:24)
[2020-03-04] MEDS: PARoxetine 20 MG TABLET PO SCH (07:09)
--- NOTE | 2020-03-04 09:36 | NUR ---
SW following. Discussed with RN, WILBER paperwork being submitted. Awaiting confirmation from administration of whether pt can be discharged, or if need to wait for confirmation from [facility]. Dr. Matthews wanting pt to do the once a week shot - can dc and go down to outpatient and receive the first shot, then will only need one more shot. Dr. Henson has been consulted. Anticipate possible discharge in the next day or two. GAUTAM will continue to follow.
--- NOTE | 2020-03-04 09:37 | PDOC ---
Infectious Disease Note Subjective Subjective Patient complains of back pain Not sleeping well because of interruptions Sat up in a chair yesterday but had pain No incontinence No fevers or diarrhea Eating ok Vital Sign Vital Signs Vital Signs Date Time Temp Pulse Resp B/P (MAP) Pulse Ox O2 Delivery O2 Flow Rate FiO2 03/04/20 08:07 96 Room Air 03/04/20 07:00 98.0 94 18 127/61 (83) 98.0 Physical Exam PHYSICAL EXAM GENERAL: Lying down, alert, coop. Looks comfortable HEENT: Normal conjunctivae, oropharynx clear. No lesions seen. NECK: Supple. LUNGS: Clear bilaterally. HEART: S1, S2. No rubs or murmurs. ABDOMEN: Soft, nontender,. Bowel sounds present. Obese : Hernandez out EXTREMITIES: Trace edema, no cyanosis. Moves toes and DERMATOLOGIC: Warm, dry. No generalized rash. Multiple tattoos. No open wounds noted. Multiple needle luna present. No peripheral stigmata NEUROLOGIC: Alert and oriented x 3, moves BLE + sensation PSYCHIATRIC: Cooperative, PIV looks ok Labs Micro MRI 02/18 IMPRESSION: Redemonstrated findings of discitis/osteomyelitis at T11-12. Increasing edema and enhancement of the T11 and T12 vertebral bodies. Unchanged mild fluid and enhancement of the T11-12 disc space. Unchanged small prevertebral fluid collection which may represent a small abscess. No epidural fluid collection. Microbiology 02/16/20 Blood Culture - Final, Complete NO GROWTH AFTER 5 DAYS Objective Assessment MSSA ([facility] 02/01) bacteremia - ERIKA 02/09 - neg neg blood cults since 02/07 Intravenous drug user. Recent history of Escherichia coli urinary tract infection, 02/01. Left ovarian complex cyst.HIV and STD - neg Hematuria. Fever - better Hep C IgG + Hypokalemia. Protein-calorie malnutrition. Severe back pain. 02/04 at [facility] CT findings concerning for diskitis/osteomye litis/epidural abscess. -Lumbar MRI showed increased STIR signal within the TH34-K90 disc space and adjacent endplates. There is adjacent paravertebral edema. Small anterior fluid collection measures 1.1 x 0.7 cm (series 4 image 8 and series 10 image 8). No evidence of epidural abscess. -L4-L5 increased disc signal -Bilateral retroperitoneal and presacral edema -Multilevel lumbar spinal stenosis most prominent L4-5. Personality disorder Ovarian cyst Lab corrected MRSA report from [facility], it is MSSA Plan Plan of Care Neurosurg re -eval with on going pain and MRI with some increased edema on T 11 may simply be remodeling CRP/CBC/BMP today cont cefazolin, (d/w microbiology lab, original report MRSA from [facility] now corrected to MSSA) cont supportive care Treat with IV abx for at least [address] Leal, no surgical indication as per him Given her noncompliance (left AMA once) /h/o IV drug use/plus complications with 2 separate ? situations with nursing finding parphenalalia in room including ? needles and other meds it is probably safest to dose her with Dalbavancin at discharge and then have her return for a second dose. Pharmacy is checking availability Other potential Discharge on IV Daptomycin vs IV Cefazolin pros and cons discussed with pt, and her mother, logistic difficulties are being handled by hospital social worker and hospital administration Ovarian cystic lesion per primary D/w nursing ELENA BAKER MD Mar 04, 2020 09:37
[2020-03-04 10:41] LABS: CREATININE 0.8 mg/dL (0.6-1.0); GFR 81.6; POTASSIUM 4.1 mmol/L (3.5-5.1)
[2020-03-04 11:00] VITALS: BP 112/53
[2020-03-04 11:51] LABS: BASO # 0.1 x10^3/uL (0.0-0.2); BASO % 1 % (0-3); EOS # 0.2 x10^3/uL (0.0-0.7); EOS % 4 % (0-3); HEMATOCRIT 30.6 % (36.0-47.0); HEMOGLOBIN 10.4 g/dL (12.0-15.5); LYMPH # 2.3 x10^3/uL (1.0-4.8); LYMPH % 45 % (24-48); MEAN CORPUSCULAR HEMOGLOBIN 30 pg (25-35); MEAN CORPUSCULAR HGB CONC 34 g/dL (31-37); MEAN CORPUSCULAR VOLUME 89 fL (79-100); MONO # 0.5 x10^3/uL (0.0-1.1); MONO % 9 % (0-9); NEUT # 2.1 x10^3/uL (1.8-7.7); NEUT % 40 % (31-73); PLATELET COUNT 289 x10^3/uL (140-400); RED BLOOD COUNT 3.45 x10^6/uL (3.50-5.40); RED CELL DISTRIBUTION WIDTH 12.8 % (11.5-14.5); WHITE BLOOD COUNT 5.2 x10^3/uL (4.0-11.0)
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
[2020-03-04 15:06] VITALS: BP 115/58
[2020-03-04 19:00] VITALS: BP 103/68
[2020-03-04] MEDS: ENOXAPARIN 40 MG/0.4 ML SYRINGE. SQ SCH (20:24)
[2020-03-04] MEDS: MIRTAZAPINE 15 MG TABLET PO SCH (20:24)
[2020-03-04] MEDS: ZOLPIDEM 5 MG TABLET. PO PRN (20:24)
[2020-03-04 23:00] VITALS: BP 113/65
[2020-03-05] MEDS: ALPRAZolam 0.5 MG TABLET PO PRN ×5 (00:07→20:44)
[2020-03-05] MEDS: oxyCODONE/APAP 10/325 1 TAB TABLET PO SCH ×5 (00:08→20:44)
[2020-03-05] MEDS: oxyCODONE IR 5 MG TABLET PO PRN ×4 (00:40→16:15)
[2020-03-05 03:00] VITALS: BP 135/81
[2020-03-05] MEDS: CYCLOBENZAPRINE 10 MG TABLET. PO PRN ×2 (03:32→14:18)
[2020-03-05] MEDS: HYDROmorphone 2 MG/ML VIAL IVP PRN ×4 (03:32→20:43)
--- NOTE | 2020-03-05 04:41 | NUR ---
0400- pt. tearful talking about how no one loves her and why she is lonely. She states she feels like she's in a long term because she can't see any of her friends. Pt. also states she has nowhere to live after she leaves the hospital.
[2020-03-05 07:00] VITALS: BP 107/80
[2020-03-05] MEDS: GABAPENTIN 300 MG CAPSULE. PO SCH ×3 (08:08→20:44)
[2020-03-05] MEDS: PARoxetine 20 MG TABLET PO SCH (08:08)
[2020-03-05] MEDS: metroNIDAZOLE 500 MG TABLET PO SCH ×2 (08:08→20:45)
[2020-03-05] MEDS: LACTOBACILLUS RHAMNOSUS GG 1 CAPSULE. PO SCH ×2 (08:08→20:45)
[2020-03-05] MEDS: fentaNYL 50MCG/HR PATCH 1 PATCH PATCH.TD72 TD SCH (08:17)
--- NOTE | 2020-03-05 09:49 | PDOC ---
Provider Note Date of Service: DATE: 03/05/20 TIME: 09:46 Provider Note Have seen patient on previous admission Reviewed follow up MRI scan from 02/18- findings of discitis/osteomyelitis at T11-12. Increasing edema and enhancement of the T11 and T12 vertebral bodies. Unchanged mild fluid and enhancement of the T11-12 disc space. Unchanged small prevertebral fluid collection which may represent a small abscess. No epidural fluid collection Recommend antibiotics per ID Will need follow up imaging when antibiotics are complete Justifications for Admission Other Justification AMANDA GONZALEZ MD Mar 05, 2020 09:49
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
[2020-03-05 11:00] VITALS: BP_SYST 102; BP_SYST 110; BP_DIAS 60; BP_DIAS 79
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
--- NOTE | 2020-03-05 12:35 | NUR ---
GAUTAM following. Discussed with RN. GAUTAM sent e-mail to Paulie Page in the pharmacy to determine availability of the Dalbavancin - awaiting confirmation. Dr. Byron ahumada with discharge tomorrow after 4 weeks of IV abx have been finished. GAUTAM will continue to follow.
--- NOTE | 2020-03-05 14:56 | PDOC ---
F/U PHYSCH PROG NOTE Subjective: female seen for routine follow-up. Progress is reviewed with nursing staff. Reportedly irritable and mean to the nursing staff. She appears dysphoric and tired. Stating she is tired of staying in the hospital as she cannot do anything. Sleep is disturbed and fragmented complicating her mood. Denies suicidal or homicidal thoughts. Denies auditory or visual hallucinations. No evidence of violet or hypomania Objective: 14 point review of system is otherwise negative except for stated above. Vital Signs: Vital Signs Date Time Temp Pulse Resp B/P (MAP) Pulse Ox O2 Delivery O2 Flow Rate FiO2 03/05/20 14:16 92 Room Air 2.0 03/05/20 11:00 98.9 98 18 102/79 (87) 98.9 Medications: Current Medications Medications (Trade) Dose Ordered Sig/Nellie Start Time Stop Time Status Last Admin Dose Admin Acetaminophen (Tylenol) 650 mg PRN Q4HRS PRN 02/16/20 08:15 Alprazolam (Xanax) 0.5 mg PRN Q4HRS PRN 03/03/20 14:00 03/05/20 14:18 0.5 MG Cefazolin Sodium 2000 mg/Dextrose 50 ml @ 100 mls/hr Q8HRS 02/19/20 09:15 Cancel Cefazolin Sodium/ Dextrose 50 ml @ 100 mls/hr Q8HRS 02/19/20 09:30 03/05/20 14:13 100 MLS/HR Cyclobenzaprine HCl (Flexeril) 10 mg PRN Q8HRS PRN 02/16/20 15:00 03/05/20 14:18 10 MG Enoxaparin Sodium (Lovenox 40mg Syringe) 40 mg Q24H 02/16/20 21:00 03/04/20 20:24 40 MG Fentanyl (Duragesic 50mcg/ Hr Patch) 1 patch Q3DAYS 02/19/20 09:00 03/05/20 08:17 1 PATCH Fentanyl Citrate (Fentanyl 2ml Vial) 100 mcg STK-MED ONCE 02/19/20 12:02 02/19/20 12:02 DC Gabapentin (Neurontin) 300 mg TID 02/24/20 18:00 03/05/20 14:10 300 MG Gadoterate Meglumine (Dotarem) 22.6 ml 1X ONCE 02/19/20 13:30 02/19/20 13:31 DC Hydromorphone HCl (Dilaudid) 1 mg PRN Q4HRS PRN 03/02/20 09:15 03/05/20 14:11 1 MG Ketamine HCl (Ketamine) 50 mg STK-MED ONCE 02/19/20 12:02 02/19/20 12:03 DC Ketorolac Tromethamine (Toradol 30mg Vial) 30 mg PRN Q6HRS PRN 02/16/20 09:00 02/17/20 07:08 30 MG Lactobacillus Rhamnosus (Culturelle) 1 cap BID 02/19/20 21:00 03/05/20 08:08 1 CAP Lidocaine (Lidoderm) 1 patch DAILY 02/16/20 15:00 02/24/20 17:29 DC 02/17/20 08:24 1 PATCH Lidocaine HCl (Lidocaine Pf 2% Vial) 5 ml STK-MED ONCE 02/19/20 12:03 02/19/20 12:03 DC Metronidazole (Flagyl) 500 mg Q12HR 02/18/20 21:00 03/05/20 08:08 500 MG Midazolam HCl (Versed) 2 mg STK-MED ONCE 02/19/20 12:26 02/19/20 12:26 DC Mirtazapine (Remeron) 15 mg QHS 03/03/20 21:30 Miscellaneous (Lidoderm Patch Removal) 1 ea QHS 02/16/20 21:00 02/24/20 17:29 DC 02/22/20 21:00 1 EA Morphine Sulfate (Morphine Sulfate) 4 mg PRN Q2HR PRN 02/19/20 06:45 02/26/20 17:09 DC 02/26/20 02:10 4 MG Ondansetron HCl (Zofran) 4 mg PRN Q4HRS PRN 02/16/20 08:15 02/17/20 08:25 4 MG Oxycodone HCl (Roxicodone) 10 mg PRN Q4HRS PRN 03/02/20 09:15 03/05/20 10:21 10 MG Oxycodone/ Acetaminophen (Percocet 10/325) 2 tab Q6HRS 03/02/20 09:30 03/05/20 12:05 2 TAB Paroxetine HCl (Paxil) 20 mg DAILY 03/03/20 09:00 03/05/20 08:08 20 MG Propofol 50 ml @ As Directed STK-MED ONCE 02/19/20 12:25 02/19/20 12:26 DC Propofol (Diprivan) 200 mg STK-MED ONCE 02/19/20 12:03 02/19/20 12:03 DC Trazodone HCl (Desyrel) 50 mg 1X ONCE 03/03/20 21:30 03/03/20 21:31 DC 03/03/20 21:26 50 MG Vancomycin HCl (Vanco Per Pharmacy) 1 each PRN DAILY PRN 02/16/20 14:45 02/21/20 09:21 DC 02/20/20 11:22 1 EACH Vancomycin HCl (Vancomycin Random Level) 1 each 1X ONCE 02/18/20 17:00 02/18/20 17:01 DC 02/18/20 17:00 1 EACH Vancomycin HCl (Vancomycin Trough Level) 1 each 1X ONCE 02/18/20 03:30 02/18/20 03:31 DC 02/18/20 03:30 1 EACH Vancomycin HCl 1.25 gm/Sodium Chloride 250 ml @ 167 mls/hr Q8H 02/18/20 19:00 02/21/20 09:21 DC 02/21/20 03:08 167 MLS/HR Vancomycin HCl 1.5 gm/Sodium Chloride 500 ml @ 250 mls/hr Q8H 02/17/20 20:00 02/18/20 05:56 DC 02/18/20 04:48 250 MLS/HR Vancomycin HCl 1.75 gm/Sodium Chloride 500 ml @ 250 mls/hr 1X ONCE 02/16/20 09:00 02/16/20 10:59 DC 02/16/20 09:28 250 MLS/HR Zolpidem Tartrate (Ambien) 5 mg PRN QHS PRN 02/17/20 21:30 03/04/20 20:24 5 MG Physical Exam: Mental Status Exam: female appears her stated age Cooperative Alert and oriented Thought processes goal-directed Denies suicidal or homicidal thoughts. Denies auditory or visual hallucinations. No abnormal delusions. Mood is improving Affect is improving Impulse control is fair Judgment is fair Insight is fair. Attention span and concentration improving Recent and remote memory intact Physical Exam: Refer to Physician's note. CORPORATE PLANNING MANAGER: No focal deficit MSK: No EPS, TDK, or abnormal involuntary movements Diagnosis: Opioid use disorder (heroin) recurrent, severe. Unspecified mood disorder, rule out bipolar mood disorder Assessment: She is a young female appears very irritable, dysphoric, agitated and resistant to engaging interview process. Likely she is withdrawing from opioids and in denial. She is resistant to discuss treatment options including methadone and Suboxone. Today, she appears dysphoric and tired being in the hospital. Complaining of insomnia. In agreement to add trazodone for insomnia Plan: Trazodone 100 mg nightly for insomnia Continue Remeron 15 mg nightly for insomnia and depression adjunct. Paxil 20mg daily for depression and anxiety. Continue gabapentin to 300 mg 3 times daily for pain as it was helpful previously. Monitor for symptomatology, safety, and adverse drug reaction. Will adjust medications accordingly. Psychoeducation provided. Supportive psychotherapy provided. Risk, benefits, alternatives are discussed. However patient declined every offer TAMMY SHIN MD Mar 05, 2020 14:56
[2020-03-05 15:00] VITALS: BP 128/82
[2020-03-05 19:58] VITALS: BP 117/70
[2020-03-05] MEDS: ENOXAPARIN 40 MG/0.4 ML SYRINGE. SQ SCH (20:43)
[2020-03-05] MEDS: ZOLPIDEM 5 MG TABLET. PO PRN (20:45)
[2020-03-05] MEDS: MIRTAZAPINE 15 MG TABLET PO SCH (20:45)
[2020-03-05] MEDS ORDERED: traZODone 50 MG TABLET. PO ONE (21:00)
[2020-03-06] MEDS: ALPRAZolam 0.5 MG TABLET PO PRN ×4 (01:11→14:12)
[2020-03-06] MEDS: oxyCODONE IR 5 MG TABLET PO PRN ×4 (01:11→14:13)
[2020-03-06 03:00] VITALS: BP 108/54
[2020-03-06] MEDS: oxyCODONE/APAP 10/325 1 TAB TABLET PO SCH ×3 (04:17→18:13)
[2020-03-06] MEDS: HYDROmorphone 2 MG/ML VIAL IVP PRN ×2 (04:18→09:18)
[2020-03-06] MEDS: CYCLOBENZAPRINE 10 MG TABLET. PO PRN ×2 (05:44→14:41)
[2020-03-06 07:00] VITALS: BP 112/66
[2020-03-06] MEDS: PARoxetine 20 MG TABLET PO SCH (09:18)
[2020-03-06] MEDS: GABAPENTIN 300 MG CAPSULE. PO SCH ×2 (09:18→13:49)
[2020-03-06] MEDS: metroNIDAZOLE 500 MG TABLET PO SCH (09:18)
[2020-03-06] MEDS: LACTOBACILLUS RHAMNOSUS GG 1 CAPSULE. PO SCH (09:18)
--- NOTE | 2020-03-06 09:39 | NUR ---
GAUTAM following. Discussed with RN and Meredith (appeals manager), Paulie Page in pharmacy is going to try to get the Dalbavancin delivered today so pt can have a dose after discharge. GAUTAM will continue to follow. Addendum: 03/06/20 at 1209 by MENDY FLOREZ GAUTAM faxed script and face sheet for Dalbavancin to outpatient infusion. GAUTAM left voicemail for Paulie Page about when medication should arrive, so can notify outpatient department. Awaiting call back. Outpatient infusion questioning why this dose can't be given inpatient, GAUTAM discussed with Dr. Matthews - this is because it is not typically reimbursed by insurance when given inpatient. Anticipate possible discharge home today, and come again on 03/13/2020 for second and final dose. GAUTAM will continue to follow. Addendum: 03/06/20 at 1410 by MENDY FLOREZ Pt will receive first dose of Dalbavancin as inpatient today prior to discharge. [facility] transportation will collect pt from home on Monday03/13/2020 for second and final dose of Dalbavancin, with infusion time of 1100 (approved by Josafat Singh, director). GAUTAM met with pt and spoke with pt's mother via phone to provide this information, pt's mother had questions about the [employer] and paying for prescriptions. GAUTAM verified with Josafat Singh ([employer] geophysical laboratory supervisor) the cheque was sent to [employer], so it will not be active today for prescriptions. GAUTAM notified pt, pt complained stating "what is the point of having the [employer] if I am no longer in the hospital, and will already have paid for my prescriptions?" GAUTAM advised pt can use goodrx coupons for prescriptions today. SW awaiting confirmation of pt's mother's address to arrange transportation. SHAWN notified. Addendum: 03/06/20 at 1448 by MENDY FLOREZ Infusion time changed to 1230 at outpatient. [facility] transportation will collect pt from her mother's house at 1145 (pt advised to RN, the address is the one on file). Pt will be dropped home after infusion. SHAWN notified.
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
[2020-03-06 11:00] VITALS: BP 120/62
--- NOTE | 2020-03-06 11:38 | PDOC ---
Infectious Disease Note Subjective Subjective Patient complains of back pain still at times. Better over But took a shower yesterday No incontinence No fevers or diarrhea Eating ok Vital Sign Vital Signs Vital Signs Date Time Temp Pulse Resp B/P (MAP) Pulse Ox O2 Delivery O2 Flow Rate FiO2 03/06/20 11:00 98.0 100 16 120/62 (81) 97 Room Air 98.0 03/05/20 18:02 2.0 Physical Exam PHYSICAL EXAM GENERAL: Sitting up in bed and looks better, alert, coop. Looks comfortable HEENT: Normal conjunctivae, oropharynx clear. No lesions seen. NECK: Supple. LUNGS: Clear bilaterally. HEART: S1, S2. No rubs or murmurs. ABDOMEN: Soft, nontender,. Bowel sounds present. Obese : Hernandez out EXTREMITIES: Trace edema, no cyanosis. Moves toes and has good sensation DERMATOLOGIC: Warm, dry. No generalized rash. Multiple tattoos. No open wounds noted. Multiple needle luna present. No peripheral stigmata NEUROLOGIC: Alert and oriented x 3, moves BLE + sensation PSYCHIATRIC: Cooperative, PIV looks ok Labs Micro MRI 02/18 IMPRESSION: Redemonstrated findings of discitis/osteomyelitis at T11-12. Increasing edema and enhancement of the T11 and T12 vertebral bodies. Unchanged mild fluid and enhancement of the T11-12 disc space. Unchanged small prevertebral fluid collection which may represent a small abscess. No epidural fluid collection. Microbiology 02/16/20 Blood Culture - Final, Complete NO GROWTH AFTER 5 DAYS Objective Assessment MSSA ([facility] 02/01) bacteremia - ERIKA 02/09 - neg neg blood cults since 02/07 Intravenous drug user. Recent history of Escherichia coli urinary tract infection, 02/01. Left ovarian complex cyst.HIV and STD - neg Hematuria. Fever - better Hep C IgG + Hypokalemia. Protein-calorie malnutrition. Severe back pain. 02/04 at [facility] CT findings concerning for diskitis/osteomyelitis/epidural abscess. -Lumbar MRI showed increased STIR signal within the TV96-I50 disc space and adjacent endplates. There is adjacent paravertebral edema. Small anterior fluid collection measures 1.1 x 0.7 cm (series 4 image 8 and series 10 image 8). No evidence of epidural abscess. -L4-L5 increased disc signal -Bilateral retroperitoneal and presacral edema -Multilevel lumbar spinal stenosis most prominent L4-5. Personality disorder Ovarian cyst Lab corrected MRSA report from [place], it is MSSA Plan Plan of Care Appeciate Neurosurg re -eval cont cefazolin, (d/w microbiology lab, original report MRSA from [place] now corrected to MSSA) CRP - 1 cont supportive care Treat with IV abx for at least 6 wks will finish 4 weeks IV 03/[address] Leal, no surgical indication as per him Given her noncompliance (left AMA once) /h/o IV drug use/plus complications with 2 separate ? situations while admitted with nursing finding parphenalalia in room including ? needles and other meds it is probably safest to dose her with Dalbavancin at discharge 1500 mg on day one and then re-dose on day 8. Pharmacy is checking availability and maybe available today. I have discussed the use of Dalbavancin with her and she understands the rationale and accepts the use as she states she will not be able to come outpatient daily sec to lack of transportation Other potential Discharge on IV Daptomycin vs IV Cefazolin but she has significant transportation issues and runs the risk of a PICC line complications and misuse Dr. Mcduffie has previously discussed as well the pros and cons with the pt, and her mother, logistic difficulties are being handled by social work administrator and hosp ital administration Can F/u in ID office [phone] March 26 at 1:30 pm Ovarian cystic lesion per primary D/w nursing ELENA BAKER MD Mar 06, 2020 11:38
--- NOTE | 2020-03-06 12:09 | DISCH ---
DISCHARGE INSTRUCTIONS Condition on Discharge Condition on Discharge: Stable (You will need to return in 1 week to complete your antibiotic infusion) Activity After Discharge Activity Instructions for Disc: No restrictions, Activity as tolerated Driving Instructions after Dis: Do not drive today Diet after Discharge Diet after Discharge: GI Soft Follow-Up Follow up with: PCP within 2 weeks of discharge Follow Up With: Psychiatry SIN AVILA MD Mar 06, 2020 12:09
[2020-03-06 15:00] VITALS: BP 118/68
[2020-03-06] MEDS ORDERED: DALBAVANCIN HCL 1,500 MG in IV DEXTROSE 5% 500 ML IV ONE (15:00)
--- NOTE | 2020-03-06 20:42 | NUR ---
1955 pt out of the unit to [facility] , mother picked up patient at 2009. All
[2020-03-06] MEDS ORDERED: traZODone 100 MG TABLET. PO SCH (21:00)
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
== END 2020-03-06 20:20 | disposition home or self-care (01) | DRG 551 ==
LOC: 6 SOUTH 05:37 → 4 NORTH 02-17 23:58
PROVIDERS: ADMIT Internal Medicine; ATTEND Internal Medicine
DX: M46.44 Discitis, unspecified, thoracic region (principal); E43 Unspecified severe protein-calorie malnutrition; M46.24 Osteomyelitis of vertebra, thoracic region; F11.23 Opioid dependence with withdrawal; S39.012A Strain of muscle, fascia and tendon of lower back, initial encounter; M81.0 Age-related osteoporosis without current pathological fracture; M48.061 Spinal stenosis, lumbar region without neurogenic claudication; M48.04 Spinal stenosis, thoracic region; F17.210 Nicotine dependence, cigarettes, uncomplicated; E66.01 Morbid (severe) obesity due to excess calories; G47.00 Insomnia, unspecified; F60.9 Personality disorder, unspecified; F41.9 Anxiety disorder, unspecified; F32.9 Major depressive disorder, single episode, unspecified; F91.9 Conduct disorder, unspecified; E87.6 Hypokalemia; B19.20 Unspecified viral hepatitis C without hepatic coma; D69.6 Thrombocytopenia, unspecified; N83.292 Other ovarian cyst, left side; Z68.33 Body mass index [BMI] 33.0-33.9, adult; Z71.6 Tobacco abuse counseling; Z87.440 Personal history of urinary (tract) infections; Z82.49 Family history of ischemic heart disease and other diseases of the circulatory system; Q76.49 Other congenital malformations of spine, not associated with scoliosis; Z71.51 Drug abuse counseling and surveillance of drug abuser
CPT/HCPCS: 36415; 72157; 72158; 76857; 80048; 80053; 80202; 80307; 81001; 81025; 82565; 84132; 84145; 85025; 86140; 87040; 87491; 87591; J0690; J0875; J1170; J1650; J1885; J2250; J2270; J2405; J2704; J3010; J3370; J7040; J7050; J7060; G0378; J7030